=== PATIENT | male | born 1940 | race Caucasian/White ===

== ENCOUNTER 2018-03-09 09:23 | Inpatient (IN) ==
[2018-03-09 10:05] LABS: Basophils % 0.1 %; Hematocrit 36.6 % (37.5-50.1); Hemoglobin 12.8 g/dL (12.9-16.9); Immature Granulocytes % 0.6 % (0-4); Lymphocytes # 1.1 K/mcL (0.6-4.6); Lymphocytes % 5.9 %; Mean Corpuscular Hemoglobin 32.2 pg (28.0-33.3); Mean Platelet Volume 8.9 fL (9.4-12.4); Monocytes # 1.6 K/mcL (0.0-1.3); Monocytes % 8.2 %; Neutrophils # 16.3 K/mcL (1.6-8.9); Platelet Count 279 K/mcL (140-400); Red Blood Count 3.98 M/mcL (4.19-5.50); Red Cell Distribution Width 14.2 % (11.5-14.5); Segmented Neutrophils % 85.2 %
[2018-03-09 10:31] LABS: Troponin I < 0.03 ng/mL (< 0.04)
[2018-03-09 10:34] LABS: Alanine Aminotransferase 10 Units/L (7-52); Albumin 4.3 g/dL (3.5-5.7); Albumin/Globulin Ratio 1.2 (1.1-2.2); Alkaline Phosphatase 83 Units/L (34-104); Aspartate Amino Transferase 14 Units/L (13-39); BUN/Creatinine Ratio 25 (6-26); Bilirubin,Total 0.5 mg/dL (0.3-1.0); Blood Urea Nitrogen 65 mg/dL (8-23); Calcium 10.3 mg/dL (8.6-10.3); Carbon Dioxide 17 mEq/L (23-29); Chloride 98 mEq/L (98-107); Globulin 3.7 g/dL (2.4-3.5); Glucose 207 mg/dL (70-105); Lipase 42 Units/L (11-82); Osmolality,Calculated 293 (280-300); Potassium 4.6 mEq/L (3.5-5.1); Sodium 129 mEq/L (136-145); eGFR For African Americans 30 (> 60); eGFR For Non-African Americans 24 (> 60)
[2018-03-09] MEDS ORDERED: 0.9 % Sodium Chloride 1,000 ML IVC ONE (10:39)
[2018-03-09] MEDS ORDERED: Ondansetron 4 MG/2 ML VIAL IVP ONE ×3 (10:45→16:37)
--- NOTE | 2018-03-09 11:23 | Emergency Department Note ---
Disposition Clinical Impression: Abdominal pain, Constipation, Cecal volvulus Disposition: Admitted As Inpatient Condition: Good Abdominal Pain HPI - General Chief Complaint: ED Abdominal Pain Stated Complaint: Constipation x 5 days Time Seen by Provider: 03/09/18 09:27 Source: EMS Nursing Notes Reviewed: Yes Vital Signs Reviewed: Yes - History of Present Illness HPI Narrative: 77 year old male with history remote throat cancer presents with abdominal pain. pt stated it was constant cramping pain in upper abdomen since 5 days ago. 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 He felt some cold but no fever. Pt had loose stool 5 days ago prior the symptoms. No history of constipation. Pt has no surgical history in abdomen. Pt Subjective Complaint: abdominal pain Onset (ago): day(s) (5) Consistency: constant Location: LUQ, RUQ, epigastric Pain Severity: severe Pain Scale: 8 Quality: cramping - Related Data Home Medications Medication Instructions Recorded Confirmed Allopurinol [Zyloprim] 300 mg PO DAILY 08/31/16 03/09/18 Aspirin [Lo-Dose Aspirin EC] 81 mg PO DAILY 08/31/16 03/09/18 Furosemide [Lasix] 20 mg PO DAILY 08/31/16 03/09/18 Gabapentin [Neurontin] 300 mg PO DAILY 08/31/16 03/09/18 Multivitamin [Multivitamins] 1 each PO DAILY 08/31/16 03/09/18 NIFEdipine [Nifedipine Xl] 30 mg PO DAILY 08/31/16 03/09/18 Pantoprazole Sodium [Protonix] 40 mg PO BID 08/31/16 03/09/18 Tamsulosin [Flomax] 0.4 mg PO BID 08/31/16 03/09/18 Clopidogrel [Plavix] 75 mg PO DAILY 03/09/18 03/09/18 Levothyroxine Sodium [Levoxyl] 125 mcg PO DAILY 03/09/18 03/09/18 Lisinopril [Zestril] 20 mg PO DAILY 03/09/18 03/09/18 Simvastatin [Zocor] 40 mg PO HS 03/09/18 03/09/18 Previous Rx's Medication Instructions Recorded Acetaminophen [Tylenol] 1,000 mg PO Q6HR PRN #90 tablet 08/31/16 Allergies Allergy/AdvReac Type Severity Reaction Status Date / Time No Known Allergies Allergy Verified 11/18/15 17:58 Constitutional: Reports: chills. Denies: fever, weakness Eyes: Denies: eye pain, eye discharge ENT ED: Denies: ear pain, throat pain, dental pain Cardiovascular: Denies: chest pain, palpitations, dyspnea on exertion Respiratory: Denies: cough, dyspnea, wheezes Gastrointestinal: Reports: abdominal pain, nausea, constipation. Denies: vomiting, diarrhea, hematemesis Genitourinary: Denies: urgency, dysuria, frequency Musculoskeletal: Denies: back pain, neck pain, joint swelling Integumentary: Denies: rash, abrasion, lesions Neurological: Denies: headache, weakness Psychiatric: Denies: anxiety, depression, suicidal thoughts Endocrine: Denies: fatigue, heat or cold intolerance Hematological/Lymphatic: Denies: easy bleeding, easy bruising Allergic/Immunologic: Denies: facial swelling, urticaria Abdominal Pain PMH - Past Medical History Medical history: Reports: cancer, diabetes, GERD, hyperlipidemia, hypertension, renal disease, thyroid disease Male Surgical History: Reports: herniorrhaphy, tracheostomy, other Psychiatric history: Reports: no psych history - Social History Smoking status: Former smoker Alcohol use: Reports: none Drug use: Reports: none Physical Exam - General Limitations: no limitations General appearance: alert, in no apparent distress - Head Head exam: atraumatic, normal inspection - Eye Eye exam: Present: normal appearance. Absent: scleral icterus, conjunctival injection - ENT ENT exam: normal exam - Neck Neck exam: Present: other (tracheal opening in neck) - Chest Chest inspection: Present: normal inspection, symmetric chest wall rise - Respiratory Respiratory exam: Present: normal lung sounds bilaterally. 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 Absent: tenderness - Back Exam Back exam: Present: normal inspection, full ROM. Absent: tenderness - Neurological Exam Neurological exam: Present: alert, oriented X3 - Psychiatric Psychiatric exam: Present: normal affect, normal mood - Skin Skin exam: Present: warm, dry Course Vital Signs Temperature 97.9 F 03/09/18 09:24 Pulse Rate 100 03/09/18 09:24 Respiratory Rate 16 03/09/18 09:24 Blood Pressure 92/57 03/09/18 09:24 O2 Sat by Pulse Oximetry 97 03/09/18 09:24 Temperature 97.9 F 03/09/18 09:24 Pulse Rate 94 03/09/18 12:52 Respiratory Rate 18 03/09/18 14:48 Blood Pressure 102/63 03/09/18 14:48 O2 Sat by Pulse Oximetry 97 03/09/18 12:52 Oxygen Delivery Oxygen Delivery Blowby Abdominal Pain - MDM Narrative Medical decision making narrative: 77 year old male with remote history of throat cancer presents with abdominal pain and constipation for 5 days, associate with nausea, no vomiting, feel chill , no fever. Abdomen distended, generalized tender, worse on upper abdomen, rectal exam: Guaiac test positive. Labs: White cell 19. Cr. 2.54, abdomen CT pending. impression: abdominal pain, constipation. (Differential: small bowel obstruction, colitis. Cholecystitis, pancreatitis). Pt's BP 97/57, pulse 100, elevated white cell, start septic protocol; report given to Dr. Jamel Song, due to shift change. - Lab Data Result diagrams: 03/09/18 09:53 03/09/18 09:53 Lab Results 03/09/18 03/09/18 03/09/18 Range/Units 09:53 09:53 10:47 WBC 19.1 H (4.3-11.1) K/mcL RBC 3.98 L (4.19-5.50) M/mcL Hgb 12.8 L (12.9-16.9) g/dL Hct 36.6 L (37.5-50.1) % MCV 92.0 (83.0-100.0) fL MCH 32.2 (28.0-33.3) pg MCHC 35.0 (31.6-35.5) g/dL RDW 14.2 (11.5-14.5) % Plt Count 279 (140-400) K/mcL MPV 8.9 L (9.4-12.4) fL Immature Gran % 0.6 (0-4) % Seg Neutrophils % 85.2 % Lymphocytes % 5.9 % Monocytes % 8.2 % Eosinophils % 0.0 % Basophils % 0.1 % Neutrophils # 16.3 H (1.6-8.9) K/mcL Lymphocytes # 1.1 (0.6-4.6) K/mcL Monocytes # 1.6 H (0.0-1.3) K/mcL Eosinophils # 0.0 (0.0-0.6) K/mcL Basophils # 0.0 (0.0-0.2) K/mcL Sodium 129 L (136-145) mEq/L Potassium 4.6 (3.5-5.1) mEq/L Chloride 98 (98-107) mEq/L Carbon Dioxide 17 L (23-29) mEq/L BUN 65 H (8-23) mg/dL Creatinine 2.56 H (0.70-1.30) mg/dL Est GFR ( Amer) 30 L (> 60) Est GFR (Non-Af Amer) 24 L (> 60) BUN/Creatinine Ratio 25 (6-26) Glucose 207 H (70-105) mg/dL Calculated Osmolality 293 (280-300) Lactic Acid 1.6 (0.5-2.2) mmol/L Calcium 10.3 (8.6-10.3) mg/dL Total Bilirubin 0.5 (0.3-1.0) mg/dL AST 14 (13-39) Units/L ALT 10 (7-52) Units/L Alkaline Phosphatase 83 (34-104) Units/L Troponin I < 0.03 (< 0.04) ng/mL Serum Total Protein 8.0 (6.4-8.9) g/dL Albumin 4.3 (3.5-5.7) g/dL Globulin 3.7 H (2.4-3.5) g/dL Albumin/Globulin Ratio 1.2 (1.1-2.2) Lipase 42 (11-82) Units/L S.B.A.R. - S.B.A.R. Situation: Demographics, MOA Background: Presenting Complaint, Relevant PMH, Meds, & Allergies Assessment: Vital Signs, Course and respsone to treatment, Exam Concerns, Patient/Family Expectation, Pertinant Lab Results, Outstanding Labs Recommendation: Barrier(s) to disposition, Recommendation based on pending studies, treatments, or consults S.B.A.R. Report Given to: Dr. Mccullough, J
--- NOTE | 2018-03-09 11:58 | Emergency Department Note ---
Disposition Clinical Impression: Cecal volvulus Abdominal pain Qualifiers: Abdominal location: generalized Qualified Code(s): R10.84 - Generalized abdominal pain Disposition: Admitted As Inpatient Condition: Fair Time of Disposition: 12:01 Abdominal Pain HPI - General Chief Complaint: ED Abdominal Pain Stated Complaint: Constipation x 5 days Time Seen by Provider: 03/09/18 09:27 Source: EMS Mode of arrival: ambulatory Limitations: no limitations Nursing Notes Reviewed: Yes Vital Signs Reviewed: Yes - History of Present Illness Pt Subjective Complaint: abdominal pain Location: LUQ, RUQ, epigastric Pain Severity: severe Pain Scale: 8 Quality: cramping - Related Data Home Medications Medication Instructions Recorded Confirmed Allopurinol [Zyloprim] 300 mg PO DAILY 08/31/16 03/09/18 Aspirin [Lo-Dose Aspirin EC] 81 mg PO DAILY 08/31/16 03/09/18 Furosemide [Lasix] 20 mg PO DAILY 08/31/16 03/09/18 Gabapentin [Neurontin] 300 mg PO DAILY 08/31/16 03/09/18 Multivitamin [Multivitamins] 1 each PO DAILY 08/31/16 03/09/18 NIFEdipine [Nifedipine Xl] 30 mg PO DAILY 08/31/16 03/09/18 Pantoprazole Sodium [Protonix] 40 mg PO BID 08/31/16 03/09/18 Tamsulosin [Flomax] 0.4 mg PO BID 08/31/16 03/09/18 Clopidogrel [Plavix] 75 mg PO DAILY 03/09/18 03/09/18 Levothyroxine Sodium [Levoxyl] 125 mcg PO DAILY 03/09/18 03/09/18 Lisinopril [Zestril] 20 mg PO DAILY 03/09/18 03/09/18 Simvastatin [Zocor] 40 mg PO HS 03/09/18 03/09/18 Previous Rx's Medication Instructions Recorded Acetaminophen [Tylenol] 1,000 mg PO Q6HR PRN #90 tablet 08/31/16 Allergies Allergy/AdvReac Type Severity Reaction Status Date / Time No Known Allergies Allergy Verified 11/18/15 17:58 Constitutional: Reports: chills. Denies: fever, weakness Eyes: Denies: eye pain, eye discharge ENT ED: Denies: ear pain, throat pain, dental pain Cardiovascular: Denies: chest pain, palpitations, dyspnea on exertion Respiratory: Denies: cough, dyspnea, wheezes Gastrointestinal: Reports: abdominal pain, nausea, constipation. Denies: vomiting, diarrhea, hematemesis Genitourinary: Denies: urgency, dysuria, frequency Musculoskeletal: Denies: back pain, neck pain, joint swelling Integumentary: Denies: rash, abrasion, lesions Neurological: Denies: headache, weakness Psychiatric: Denies: anxiety, depression, suicidal thoughts Endocrine: Denies: fatigue, heat or cold intolerance Hematological/Lymphatic: Denies: easy bleeding, easy bruising Allergic/Immunologic: Denies: facial swelling, urticaria Abdominal Pain PMH - Past Medical History Medical history: Reports: cancer, diabetes, GERD, hyperlipidemia, hypertension, renal disease, thyroid disease Male Surgical History: Reports: herniorrhaphy, tracheostomy, other Psychiatric history: Reports: no psych history - Social History Smoking status: Former smoker Alcohol use: Reports: none Drug use: Reports: none Physical Exam - General Limitations: no limitations General appearance: alert, in no apparent distress Course Vital Signs Temperature 97.9 F 03/09/18 09:24 Pulse Rate 100 03/09/18 09:24 Respiratory Rate 16 03/09/18 09:24 Blood Pressure 92/57 03/09/18 09:24 O2 Sat by Pulse Oximetry 97 03/09/18 09:24 Temperature 97.9 F 03/09/18 09:24 Pulse Rate 94 03/09/18 12:52 Respiratory Rate 18 03/09/18 14:48 Blood Pressure 102/63 03/09/18 14:48 O2 Sat by Pulse Oximetry 97 03/09/18 12:52 Oxygen Delivery Oxygen Delivery Blowby Abdominal Pain - MDM Narrative Medical decision making narrative: I, Lito Mccullough, examined this patient and my medical decision-making was reviewed with the MOVIE STAR/PA/Advanced Practice Nurse/Resident Physician. I agree with the documented findings, disposition and treatment plan as described except to the extent set forth below. 77-year-old male presents emergency Department with concerns of upper abdominal pain and constipation 5 days. Patient states he has felt significantly nauseated over the past 3 days and is been unable to eat or drink due to the nausea. No history of surgeries on his abdomen. Patient denies fever, chills, syncopal episode, recent trauma. No symptoms like this in the past. Pt states he was scheduled for a heart catheterization at [facility] today for three separate blockages within the cardiac arterial system, pt did not show up to the appointment because of his abdominal pain. Pt does report shortness of breath with exertion worsening over the past 3 days as well. Initial ECG did not show STEMI and initial trop was within normal limits. I spoke with the PCP who states his recent Cr was 2.05 one month ago. He follows Dr. Padilla for nephrology. Pt states his city surveyor is Dr. Reyes at [facility]. CT of the abdomen and pelvis was obtained which showed a cecal volvulus. I spoke with the surgeon, Dr. Hill, who will see the patient in the emergency department and likely take to OR. NG tube placed in the emergency department. Patient will be admitted to hospitalist for further care and evaluation. CT of the abdomen and pelvis also showed a right pulmonary nodule which will also need evaluation during his admission. - Medical Records Medical records reviewed: Yes I reviewed the patient's medical records. - Lab Data Lab results reviewed: Yes I reviewed the patient's lab results. Result diagrams: 03/09/18 09:53 03/09/18 09:53 Lab Results 03/09/18 03/09/18 03/09/18 Range/Units 09:53 09:53 10:47 WBC 19.1 H (4.3-11.1) K/mcL RBC 3.98 L (4.19-5.50) M/mcL Hgb 12.8 L (12.9-16.9) g/dL Hct 36.6 L (37.5-50.1) % MCV 92.0 (83.0-100.0) fL MCH 32.2 (28.0-33.3) pg MCHC 35.0 (31.6-35.5) g/dL RDW 14.2 (11.5-14.5) % Plt Count 279 (140-400) K/mcL MPV 8.9 L (9.4-12.4) fL Immature Gran % 0.6 (0-4) % Seg Neutrophils % 85.2 % Lymphocytes % 5.9 % Monocytes % 8.2 % Eosinophils % 0.0 % Basophils % 0.1 % Neutrophils # 16.3 H (1.6-8.9) K/mcL Lymphocytes # 1.1 (0.6-4.6) K/mcL Monocytes # 1.6 H (0.0-1.3) K/mcL Eosinophils # 0.0 (0.0-0.6) K/mcL Basophils # 0.0 (0.0-0.2) K/mcL Sodium 129 L (136-145) mEq/L Potassium 4.6 (3.5-5.1) mEq/L Chloride 98 (98-107) mEq/L Carbon Dioxide 17 L (23-29) mEq/L BUN 65 H (8-23) mg/dL Creatinine 2.56 H (0.70-1.30) mg/dL Est GFR ( Amer) 30 L (> 60) Est GFR (Non-Af Amer) 24 L (> 60) BUN/Creatinine Ratio 25 (6-26) Glucose 207 H (70-105) mg/dL Calculated Osmolality 293 (280-300) Lactic Acid 1.6 (0.5-2.2) mmol/L Calcium 10.3 (8.6-10.3) mg/dL Total Bilirubin 0.5 (0.3-1.0) mg/dL AST 14 (13-39) Units/L ALT 10 (7-52) Units/L Alkaline Phosphatase 83 (34-104) Units/L Troponin I < 0.03 (< 0.04) ng/mL Serum Total Protein 8.0 (6.4-8.9) g/dL Albumin 4.3 (3.5-5.7) g/dL Globulin 3.7 H (2.4-3.5) g/dL Albumin/Globulin Ratio 1.2 (1.1-2.2) Lipase 42 (11-82) Units/L - Radiology Data Radiology results reviewed: Yes I reviewed the patient's radiology results. - EKG Data EKG attestation: Yes I reviewed and interpreted this EKG. EKG results narrative: ECG - interpreted by ED physician. Rate 91, normal sinus rhythm, no STEMI, AK, QT intervals, and QRS within normal limits
[2018-03-09] MEDS ORDERED: Piperacillin/Tazobactam 3.375 GM in 0.9 % Sodium Chloride Mini Bag 100 ML IVPB ONE (12:14)
[2018-03-09] MEDS ORDERED: Lidocaine Viscous Oral Soln 15 ML SOLUTION MM STA (12:35)
[2018-03-09] MEDS ORDERED: Lidocaine Viscous Oral Soln 15 ML SOLUTION ONE (12:37)
[2018-03-09] MEDS ORDERED: Naloxone 0.4 MG/ML INJ IVP PRN ×2 (13:17→16:37)
--- NOTE | 2018-03-09 13:32 | General Surgery Consult Note ---
Date of Encounter: 03/09/18 Time of Encounter: 12:30 Assessment and Plan (1) Cecal volvulus Current Visit: Yes Status: Acute NPO NG tube to LIWS IV fluids Serial abdominal exams Supportive care Risks, benfits, alternatives and expected outcomes reviewed with the patient regarding a robotic assisted diagnostic laparoscopy with Dr. Hill and he is in agreement to proceed to the operating room (2) Diabetes mellitus Current Visit: Yes Status: Chronic Management per hospitalist Qualifiers: Diabetes mellitus type: type 2 Diabetes mellitus terminal system operator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: unspecified terminal system operator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 status Diabetes mellitus complication status : with kidney complications Diabetes mellitus complication detail: with chronic kidney disease Chronic kidney disease stage: stage 3 (moderate) Qualified Code(s): E11.22 - Type 2 diabetes mellitus with diabetic chronic kidney disease; N18.3 - Chronic kidney disease, stage 3 (moderate) (3) Hypertension Current Visit: Yes Status: Chronic Currently normotensive Management per hospitalist Qualifiers: Hypertension type: essential hypertension Qualified Code(s): I10 - Essential (primary) hypertension (4) Hyperlipidemia Current Visit: Yes Status: Chronic Management per hospitalist Qualifiers: Hyperlipidemia type: unspecified Qualified Code(s): E78.5 - Hyperlipidemia , unspecified (5) Hypothyroidism Current Visit: Yes Status: Chronic Management per hospitalist Qualifiers: Hypothyroidism type: unspecified Qualified Code(s): E03.9 - Hypothyroidism , unspecified (6) Coronary artery disease Current Visit: Yes Status: Chronic Cardiology consulted- Recommendations- Pt denies chest pain or dyspnea, but is not very active. Pt reports never having a LHC in the past. Low functional status, unable to achieve 4 METS. However, denies cardiac symptoms--denies chest pain or dyspnea. TTE pending. Stress test overall low risk positive. Would not recommend LHC prior to urgent/possible life saving surgery for cecal volvulus. Stat Echo ordered per the hospitalist Qualifiers: Coronary Disease-Associated Artery/Lesion type: [place] artery [place] vs. transplanted heart: [place] heart Associated angina: angina presence unspecified Qualified Code(s): I25.10 - Atherosclerotic heart disease of [place] coronary artery without angina pectoris (7) GERD (gastroesophageal reflux disease) Current Visit: Yes Status: Chronic PPI therapy daily Qualifiers: Esophagitis presence: esophagitis presence not specified Qualified Code(s) : K21.9 - Gastro-esophageal reflux disease without esophagitis (8) BPH (benign prostatic hyperplasia) Current Visit: Yes Status: Chronic Qualifiers: Lower urinary tract symptom presence: symptoms absent Qualified Code(s): N40.0 - Benign prostatic hyperplasia without lower urinary tract symptoms History of Present Illness Consult date: 03/09/18 Reason for consult: other (cecal volvulus) Requesting physician: Lito Mccullough History of present illness: Mr. Wilkins is a very pleasant 77 year old male with a complex medical history. He was scheduled to have a cardiac catheterization at [facility] today due to a known blockage. The patient states that he canceled his procedure and presented to the emergency department due to complaints of abdominal discomfort, nausea, unable to pass flatus or stool for the last 3-4 days. The patient states he has never experienced symptoms like this in the past. He denies any fevers. He does admit to chills. He denies any vomiting. He states that he has a generalized abdominal discomfort. He denies any shortness of breath or chest pain. He denies any difficulty with urination. He has had a CAT scan evaluation to evaluate his abdomen and pelvis. The CAT scan does demonstrate evidence of a cecal volvulus. The patient will be admitted to the hospital for further workup and treatment. Past Med Surg Social Fam HX - Past Medical History Source: patient, old records reviewed Medical history: arthritis, cancer (laryngeal/throat cancer), diabetes (Type 2) , GERD, hyperlipidemia, hypertension, renal disease (CKD, stage 3), thyroid disease (hypothyroidism), other (right carotid artery blockage, coronary blockage, chronic low back pain, BPH) Psychiatric history: no psych history - Past Surgical History Surgical History: cataract (bilateral cataract removal and intraocular lenses placed), orthopedic, other (right shoulder replacement), other (Total laryngectomy, tracheal fistula, back surgery with placement of steel plate, colonoscopy (last 8 years ago-normal), ) - Social History Smoking Status: Former smoker Smokeless Tobacco Status: No Alcohol use: none Drug use: none - Family History Father Race: Family Member Ethnicity: Non- Living Status: Age at : 68 Cause of : CAD Hx Family Cardiac Disorders: Yes (CAD, HTN, HLD) Mother Race: Family Member Ethnicity: Non- Living Status: Age at : 54 Cause of : Brain aneurysm Hx Family Cardiac Disorders: Yes (Aneurysm) Brother Race: Family Member Ethnicity: Non- Living Status: Age at : 72 Cause of : DC Hx Family Cardiac Disorders: Yes (DC, CAD, HTN, HLD) Sister Race: Family Member Ethnicity: Non- Living Status: Still Living Hx Family Cardiac Disorders: Yes (CAD) Medications and Allergies Acetaminophen [Tylenol] 1,000 mg PO Q6HR PRN #90 tablet 08/31/16 [Rx] Allopurinol [Zyloprim] 300 mg PO DAILY 08/31/16 [History] Aspirin [Lo-Dose Aspirin EC] 81 mg PO DAILY 08/31/16 [History] Furosemide [Lasix] 20 mg PO DAILY 08/31/16 [History] Gabapentin [Neurontin] 300 mg PO DAILY 08/31/16 [History] Multivitamin [Multivitamins] 1 each PO DAILY 08/31/16 [History] NIFEdipine [Nifedipine Xl] 30 mg PO DAILY 08/31/16 [History] Pantoprazole Sodium [Protonix] 40 mg PO BID 08/31/16 [History] Tamsulosin [Flomax] 0.4 mg PO BID 08/31/16 [History] Clopidogrel [Plavix] 75 mg PO DAILY 03/09/18 [History] Levothyroxine Sodium [Levoxyl] 125 mcg PO DAILY 03/09/18 [History] Lisinopril [Zestril] 20 mg PO DAILY 03/09/18 [History] Simvastatin [Zocor] 40 mg PO HS 03/09/18 [History] 3 Allergy/AdvReac Type Severity Reaction Status Date / Time No Known Allergies Allergy Verified 11/18/15 17:58 Review of Systems All systems PM: reviewed and no additional remarkable complaints except as stated (in the HPI) All systems PM: The remainder of the systems were reviewed and are negative General Surgery Exam Initial Vital Signs Temp Pulse Resp BP Pulse Ox 97.9 F 100 16 92/57 97 03/09/18 09:24 03/09/18 09:24 03/09/18 09:24 03/09/18 09:24 03/09/18 09:24 - General physical appearance well developed, well nourished, moderate distress, chronically ill - Eyes PERRL, normal ocular movement - ENT dry mucosa, atraumatic, normocephalic - Neck other (tracheal fistula patent) - Respiratory normal respiratory effort, clear to auscultation - Cardiovascular Cardiovascular exam: Present: RRR - Abdomen Abdomen general surgery: Present: soft, distended, tender Abdominal Tenderness: Present: diffusely - Integumentary Integumentary general surgery: Present: warm and dry - Neurologic Present: CN 2-12 grossly intact - Psychiatric Psychiatric general surgery: Present: appropriate, oriented to person, oriented to place, oriented to time, speech is normal, memory intact Exam Initial Vital Signs Temp Pulse Resp BP Pulse Ox 97.9 F 100 16 92/57 97 03/09/18 09:24 03/09/18 09:24 03/09/18 09:24 03/09/18 09:24 03/09/18 09:24 Results - Labs 03/09/18 09:53 03/09/18 09:53 Abnormal lab results WBC 19.1 K/mcL (4.3-11.1) H 03/09/18 09:53 RBC 3.98 M/mcL (4.19-5.50) L 03/09/18 09:53 Hgb 12.8 g/dL (12.9-16.9) L 03/09/18 09:53 Hct 36.6 % (37.5-50.1) L 03/09/18 09:53 MPV 8.9 fL (9.4-12.4) L 03/09/18 09:53 Neutrophils # 16.3 K/mcL (1.6-8.9) H 03/09/18 09:53 Monocytes # 1.6 K/mcL (0.0-1.3) H 03/09/18 09:53 Sodium 129 mEq/L (136-145) L 03/09/18 09:53 Carbon Dioxide 17 mEq/L (23-29) L 03/09/18 09:53 BUN 65 mg/dL (8-23) H 03/09/18 09:53 Creatinine 2.56 mg/dL (0.70-1.30) H 03/09/18 09:53 Est GFR ( Amer) 30 (> 60) L 03/09/18 09:53 Est GFR (Non-Af Amer) 24 (> 60) L 03/09/18 09:53 Glucose 207 mg/dL (70-105) H 03/09/18 09:53 Globulin 3.7 g/dL (2.4-3.5) H 03/09/18 09:53 All other labs normal. - Imaging Additional studies: Abdomen/Pelvis CT 03/09/18 10:38 IMPRESSION: 1. Findings concerning for a cecal volvulus with the transition point in the right mid abdomen, likely due to an internal hernia. 2. 1.4 cm right upper lobe pulmonary nodule. Recommend nonemergent CT of the chest with contrast for further evaluation. Findings were discussed with Dr. Mccullough At 11:49 am on 03/09/2018. D/ / Sekou Hannon MD / Sekou Hannon MD Interpreting Provider: Sekou Hannon MD Consult Discharge Plan - Plan Referrals: Lacy Cristobal, BEE [Primary Care Provider] - - Attending Attestation For this encounter, I have reviewed the CONTRACTING ANALYST or PA documentation, treatment plan, and medical decision making; and I have had face to face time with this patient.
[2018-03-09] MEDS ORDERED: *HR* Dextrose 50 % in Water (Syg) 50 ML SYRINGE IVP PRN (13:35)
[2018-03-09] MEDS ORDERED: D5% in Water 1,000 ML IVC PRN (13:35)
[2018-03-09] MEDS ORDERED: Dextrose Gel 15 GM/37.5 ML TUBE PO PRN ×2 (13:35)
--- NOTE | 2018-03-09 13:40 | Internal Med History&Physical ---
<ChristopherLeon Solano - Last Filed: 03/09/18 14:32> Date of Encounter: 03/09/18 Time of Encounter: 12:45 Internal Medicine - H&P: HPI Chief complaint: Abdominal pain Admitted From: Emergency Dept Plans for Post Hospital Care: Home History of present illness: Mr. Wilkins is a 77 year old male w/PMH of throat cancer dx 22 years ago that resulted in open tracheostomy, GERD, HLD, HTN, CKD stage 4, and thyroid disease (pts. medical hx shows diabetes but pt. denies use of oral meds or insulin currently) presents from the ED w/CC of abdominal pain and nausea since Monday which has become progressively worse. Pt. states he had BM on Monday that was loose and black and nothing since. No alleviating factors. Pt. and report he was supposed to have heart cath today at [facility] for 100% blockage but was cancelled d/t current abd sx. States that he is experiencing constant and worsening abd cramping. CT of abd/pel today shows cecal volvulus. Denies recent illness, fever, chills, vomiting, changes in vision, CP, palpitations, SOB, cough, unusual bleeding, numbness, tingling, dizziness, lightheadedness, pre- syncope, or syncope. Past Med Surg Social Fam HX - Past Medical History Source: patient, old records reviewed, obtained from family Medical history: cancer (Throat cancer dx 22 years ago), diabetes (Pt. and deny current DM dx but current BG 207 on admission.), GERD, hyperlipidemia, hypertension, renal disease, thyroid disease Psychiatric history: no psych history - Past Surgical History Surgical History: tracheostomy - Social History Smoking Status: Former smoker Packs per day: 1 PPD - Reports quitting in 1984 Smokeless Tobacco Status: No Alcohol use: none Drug use: none Current living situation: Home, With Family Activity Level: Independent ambulation Recent Out of Country Travel Within the Last 8 Weeks: No Exposure or Possible Exposure to Illness During Travel: No - Family History Father Race: Family Member Ethnicity: Non- Living Status: Age at : 68 Cause of : CAD Hx Family Cardiac Disorders: Yes (CAD, HTN, HLD) Mother Race: Family Member Ethnicity: Non- Living Status: Age at : 54 Cause of : Brain aneurysm Hx Family Cardiac Disorders: Yes (Aneurysm) Brother Race: Family Member Ethnicity: Non- Living Status: Age at : 72 Cause of : [place] Hx Family Cardiac Disorders: Yes ([place], CAD, HTN, HLD) Sister Race: Family Member Ethnicity: Non- Living Status: Still Living Hx Family Cardiac Disorders: Yes (CAD) Internal Medicine - H&P: Meds Acetaminophen [Tylenol] 1,000 mg PO Q6HR PRN #90 tablet 08/31/16 [Rx] Allopurinol [Zyloprim] 300 mg PO DAILY 08/31/16 [History] Aspirin [Lo-Dose Aspirin EC] 81 mg PO DAILY 08/31/16 [History] Furosemide [Lasix] 20 mg PO DAILY 08/31/16 [History] Gabapentin [Neurontin] 300 mg PO DAILY 08/31/16 [History] Multivitamin [Multivitamins] 1 each PO DAILY 08/31/16 [History] NIFEdipine [Nifedipine Xl] 30 mg PO DAILY 08/31/16 [History] Pantoprazole Sodium [Protonix] 40 mg PO BID 08/31/16 [History] Tamsulosin [Flomax] 0.4 mg PO BID 08/31/16 [History] Clopidogrel [Plavix] 75 mg PO DAILY 03/09/18 [History] Levothyroxine Sodium [Levoxyl] 125 mcg PO DAILY 03/09/18 [History] Lisinopril [Zestril] 20 mg PO DAILY 03/09/18 [History] Simvastatin [Zocor] 40 mg PO HS 03/09/18 [History] 3 Allergy/AdvReac Type Severity Reaction Status Date / Time No Known Allergies Allergy Verified 11/18/15 17:58 All Systems PM: A 10-system review of systems was performed and is negative for pertinent findings except as documented above in the HPI. - Constitutional Constitutional: as per HPI, weakness, no chills, no fever(s), no night sweats - EENT Eyes: no change in vision, no discharge, no pain, no photophobia Ears: no ear discharge, no ear pain, no tinnitus Nose, mouth and throat: no dysphagia, no nasal discharge, no neck pain, no sore throat - Breasts Breasts: as per HPI - Cardiovascular Cardiovascular ROS IM: no chest pain, no diaphoresis, no dyspnea, no lightheadedness, no palpitations, no syncope - Respiratory Respiratory: no cough, no dyspnea, no wheezing, no excessive phlegm production - Gastrointestinal Gastrointestinal: as per HPI, abdominal pain, nausea, no diarrhea, no hematemesis, no hematochezia, no melena, no vomiting - Genitourinary Genitourinary ROS male: as per HPI - Musculoskeletal Musculoskeletal ROS IM: as per HPI, no numbness, no tingling - Integumentary Integumentary IM: no rash, no unusual bruising - Neurological Neurological ROS: no confusion, no convulsions, no focal weakness, no numbness, no tingling, no tremor(s) - Psychiatric Psychiatric: as per HPI - Endocrine Endocrine IM: as per HPI - Hematologic/Lymphatic Hematologic/Lymphatic: no easy bruising - Allergic/Immunologic Allergic/Immunologic: as per HPI - Constitutional Vitals: Temp Pulse Resp BP Pulse Ox 97.9 F 94 18 113/65 97 03/09/18 09:24 03/09/18 12:52 03/09/18 12:52 03/09/18 12:52 03/09/18 12:52 General appearance: Present: cooperative, A&O X 3, pleasant, answers questions appropriately - Head Head exam: Present: atraumatic, normocephalic - Eye Eye exam: Present: PERRL, conjuntiva pink, sclera anicteric Pupils: Present: PERRL - ENT ENT exam: Present: normal exam - Neck Neck exam general surgery: Present: normal inspection, supple, trachea midline. Absent: lymphadenopathy - Respiratory Respiratory exam: Present: CTAB. Absent: accessory muscle use, rales, rhonchi, wheezes - Cardiovascular Cardiovascular exam: Present: RRR, +S1, +S2. Absent: diastolic murmur, gallop, rubs, systolic murmur - GI/Abdominal GI/Abdominal exam: Present: normal bowel sounds, soft, no peritoneal signs. Absent: distended, tenderness - Rectal Rectal exam: Present: deferred - Additional comments: exam deferred. - Extremities Exam Extremities exam: Present: warm, radial pulses palpable and symmetrical. Absent : calf tenderness, cyanotic, pedal edema - Back Exam Back exam: Present: normal inspection - Neurological Exam Neurological exam: Present: CN II-XII intact, oriented X3, no focal deficits. Absent: pronater drift, facial droop, speech deficit - Psychiatric Psychiatric exam: Present: normal affect, normal mood - Skin Skin exam: Present: dry, intact Internal Med - H&P Results - Labs CBC & Chem 7: 03/09/18 09:53 03/09/18 09:53 - EKG Data EKG shows normal: sinus rhythm - EKG Data Prior EKG available for review: no EKG comments: 03/09/18 13:47 EKG dated 03/09/18 shows sinus rhythm with left ventricular hypertrophy and ST- T change. - Diagnostic Studies CT scan - abdomen Additional comments: Impressions Abdomen/Pelvis CT 03/09/18 10:38 IMPRESSION: 1. Findings concerning for a cecal volvulus with the transition point in the right mid abdomen, likely due to an internal hernia. 2. 1.4 cm right upper lobe pulmonary nodule. Recommend nonemergent CT of the chest with contrast for further evaluation. Findings were discussed with Dr. Mccullough At 11:49 am on 03/09/2018. D/ / Sekou Hannon MD / Sekou Hannon MD Interpreting Provider: Sekou Hannon MD Other Images Additional comments: Impressions KUB X-Ray 03/09/18 13:10 IMPRESSION: 1. Nasogastric tube terminates in the gastric fundus. D/ / Sekou Hannon MD / Sekou Hannon MD Interpreting Provider: Sekou Hannon MD - Assessment and plan (1) Cecal volvulus Current Visit: Yes Status: Acute Assessment and plan: Acute cecal volvulus w/abdominal pain since Monday. Pt. reports last BM on Monday that was loose and black. Low oral food/fluid intake since Monday. Nausea. Pt. to be NPO d/t current sx as well as impending surgery for volvulus. NG tube and KUB ordered in ED. Will address as many needed medications w/IV access as needed. Dr. Hill consulted in ED. Cardiology consult ordered and discussed w/Dr. Mallory for pre-op clearance d/t 100% blockage and cancelled heart cath @ [facility] today and I appreciate the consult. IVP Zofran 4 mg Q6HR PRN for N/ V. IVP Protonix 40 mg daily. Monitor I&O. Continuous cardiac telemetry. Supplemental O2 w/titration and SpO2 monitoring. Pt. discussed w/Dr. Castro who agrees w/plan of care. Pt. is high risk for further morbidity d/t cardiac event r/t current blockage and possible necrosis of bowel from current volvulus, current respiratory distress w/open tracheostomy, hx, and risk factors. Inpatient. (2) Preoperative clearance Current Visit: Yes Status: Acute Assessment and plan: Acute need for pre-op clearance d/t cecal volvulus shown on CT of abd/pel today complicated by report of 100% cardiac blockage that pt. was d/t have heart cath for @ [facility] today but was cancelled d/t current sx. Echocardiogram ordered stat. Cardiology consult ordered and discussed w/Dr. Mallory and I appreciate the consult. [facility] medical records requisitioned. (3) Leukocytosis Current Visit: Yes Status: Acute Assessment and plan: Acute leukocytosis of unknown source. Pt. currently asymptomatic and afebrile. Blood cultures x2 and UA ordered in ED. Pt. placed on IVPB Zosyn in ED. Will adjust abx coverage based on culture results. Monitor pt. and f/u labs. Qualifiers: Leukocytosis type: unspecified Qualified Code(s): D72.829 - Elevated white blood cell count, unspecified (4) Low hemoglobin Current Visit: Yes Status: Acute Assessment and plan: Low Hgb of 12.8 and Hct of 36.6 on admission today which is at baseline or slightly higher than previous. Concern is for report of black stool on Monday. Will monitor H/H in a.m. labs and pt. for signs of bleeding. (5) Nausea Current Visit: Yes Status: Acute Assessment and plan: Acute nausea for past several days d/t abd pain. IVP Zofran 4 mg Q6HR PRN. IVP Protonix 40 mg daily. (6) Hyperglycemia Current Visit: Yes Status: Acute Assessment and plan: Acute hyperglycemia (207 on admission) d/t lack of intake over past several days. Pt. and report that pt. does not currently take oral medication or insulin. Pt. reports checking BG @ home and usually WNL. BG checks every 6 to nothing by mouth status. A1c in a.m. labs. Administer low-dose correction insulin sliding scale with hypoglycemic protocol. (7) HLD (hyperlipidemia) Current Visit: Yes Status: Chronic Assessment and plan: Hx of chronic HLD. Lipid panel in a.m. labs. Continue pts. Zocor when no longer NPO. Qualifiers: Hyperlipidemia type: pure hypercholesterolemia Qualified Code(s): E78.00 - Pure hypercholesterolemia, unspecified; E78.0 - Pure hypercholesterolemia (8) HTN (hypertension) Current Visit: Yes Status: Chronic Assessment and plan: Hx of chronic HTN. Monitor pt. and VS. Will continue pts. Nifedipine and lisinopril once no longer NPO. Hydralazine PRN w/parameters for HTN if warranted. Qualifiers: Hypertension type: essential hypertension Qualified Code(s): I10 - Essential (primary) hypertension (9) CKD (chronic kidney disease) stage 4, GFR 15-29 ml/min Current Visit: Yes Status: Chronic Assessment and plan: Hx of chronic KCD, currently stage IV w/GR of 24 and creatinine of 2.56. Pt. receiving IV fluids d/t current NPO status and lack of oral intake over past several days. Will hydrate gently and monitor renal function in f/u labs. Avoid nephrotoxins. (10) Coronary artery disease Current Visit: Yes Status: Chronic Assessment and plan: Hx of CAD. Pt. reports 100% blockage that he was d/t have heart cath for @ [facility] today but was cancelled d/t current sx. Continuous cardiac telemetry. Will continue pts. HTN and HLD medications when no longer NPO. Hydralazine 10 mg IVP Q6HR PRN to be added w/parameters for HTN if warranted. Cardiology consult ordered and discussed w/Dr. Mallory d/t cancelled cath and 100% blockage and I appreciate the consult. Qualifiers: Coronary Disease-Associated Artery/Lesion type: [place] artery [place] vs. transplanted heart: [place] heart Associated angina: angina presence unspecified Qualified Code(s): I25.10 - Atherosclerotic heart disease of [place] coronary artery without angina pectoris (11) GERD (gastroesophageal reflux disease) Current Visit: Yes Status: Chronic Assessment and plan: Hx of chronic GERD. IVP Zofran 4 mg Q6HR PRN for N/V. IVP Protonix 40 mg daily. Qualifiers: Esophagitis presence: esophagitis presence not specified Qualified Code(s) : K21.9 - Gastro-esophageal reflux disease without esophagitis (12) Hypothyroidism Current Visit: Yes Status: Chronic Assessment and plan: Hx of chronic hypothyroidism. Will continue pts. Synthroid when no longer NPO. TSH and Free T4 in a.m. labs. Qualifiers: Hypothyroidism type: unspecified Qualified Code(s): E03.9 - Hypothyroidism , unspecified (13) DVT prophylaxis Current Visit: Yes Status: Acute Assessment and plan: Bilateral SCDs on LEs for DVT prophylaxis d/t recent report of black stool and impending surgery. - Time Spent With Patient Total time spent is greater than 50% in coordination of care (as documented) at patient's floor/unit and/or counseling patient: Greater than 35 minutes <Prem Castro - Last Filed: 03/10/18 17:29> Date of Encounter: 03/10/18 Internal Medicine - H&P: HPI History of present illness: Mr. Wilkins is a 77 year old male All Systems PM: A 10-system review of systems was performed and is negative for pertinent findings except as documented above in the HPI. - Constitutional Vitals: Temp Pulse Resp BP Pulse Ox 98.9 F 89 16 141/68 93 03/10/18 14:43 03/10/18 14:43 03/10/18 14:43 03/10/18 14:43 03/10/18 14:43 Internal Med - H&P Results - Labs CBC & Chem 7: 03/10/18 05:50 03/10/18 05:50 Labs: Short CBC 03/10/18 Range/Units 05:50 WBC 7.5 D (4.3-11.1) K/mcL Hgb 11.3 L D (12.9-16.9) g/dL Hct 32.2 L (37.5-50.1) % Plt Count 239 (140-400) K/mcL Neutrophils # 5.3 (1.6-8.9) K/mcL BMP 03/10/18 05:50 Sodium 132 L Potassium 4.4 Chloride 105 Carbon Dioxide 17 L BUN 60 H Creatinine 2.02 H Glucose 170 H Calcium 8.9 Liver Function 03/10/18 Range/Units 05:50 Total Bilirubin 0.8 (0.3-1.0) mg/dL AST 38 (13-39) Units/L ALT 33 (7-52) Units/L Alkaline Phosphatase 72 (34-104) Units/L Albumin 3.6 (3.5-5.7) g/dL - Attending Attestation Discussed with ALBERT and agree with assessment and plan as above Patient to go for surgery due to cecal volvulus but will need to be cleared by cardiology secondary to coronary arterial disease On exam patient resting comfortably Patient to go for surgery once cleared by cardiology. - Assessment and plan (1) Cecal volvulus Current Visit: Yes Status: Acute (2) Hypothyroidism Current Visit: Yes Status: Chronic Qualifiers: Hypothyroidism type: unspecified Qualified Code(s): E03.9 - Hypothyroidism , unspecified (3) Coronary artery disease Current Visit: Yes Status: Chronic Qualifiers: Coronary Disease-Associated Artery/Lesion type: [place] artery [place] vs. transplanted heart: [place] heart Associated angina: angina presence unspecified Qualified Code(s): I25.10 - Atherosclerotic heart disease of [place] coronary artery without angina pectoris (4) GERD (gastroesophageal reflux disease) Current Visit: Yes Status: Chronic Qualifiers: Esophagitis presence: esophagitis presence not specified Qualified Code(s) : K21.9 - Gastro-esophageal reflux disease without esophagitis (5) HLD (hyperlipidemia) Current Visit: Yes Status: Chronic Qualifiers: Hyperlipidemia type: pure hypercholesterolemia Qualified Code(s): E78.00 - Pure hypercholesterolemia, unspecified; E78.0 - Pure hypercholesterolemia (6) HTN (hypertension) Current Visit: Yes Status: Chronic Qualifiers: Hypertension type: essential hypertension Qualified Code(s): I10 - Essential (primary) hypertension (7) DVT prophylaxis Current Visit: Yes Status: Acute (8) Hyperglycemia Current Visit: Yes Status: Acute (9) Leukocytosis Current Visit: Yes Status: Resolved Qualifiers: Leukocytosis type: unspecified Qualified Code(s): D72.829 - Elevated white blood cell count, unspecified (10) Low hemoglobin Current Visit: Yes Status: Acute (11) Acute on chronic kidney failure Current Visit: Yes Status: Acute Qualifiers: Acute renal failure type: unspecified Chronic kidney disease stage: stage 3 (moderate) Qualified Code(s): N17.9 - Acute kidney failure, unspecified; N18.3 - Chronic kidney disease, stage 3 (moderate) - Time Spent With Patient Total time spent is greater than 50% in coordination of care (as documented) at patient's floor/unit and/or counseling patient:
--- NOTE | 2018-03-09 14:31 | Cardiology Consult Note ---
Date of Encounter: 03/09/18 Time of Encounter: 14:26 Assessment and Plan (1) Pre-operative cardiovascular examination Current Visit: Yes Status: Acute Presented with abdominal pain and nausea, CT of abd/pelvis shows cecal volvulus. Surgery has been consulted and is following. Cardiology consulted for pre-op risk stratification. Troponin negative x1. EKG SR with LVH. I reviewed [facility] documents. Plan was for LHC due to positive stress test 09/2016 and for pre op for triple endoscopy with possible biopsy, creation of TE fistula with voice prosthesis placement. Stress test showed small sized, mild-moderate intensity, mainly reversible perfusion defect in the apical inferior wall, apical septum and apex. Findings consistent with reversible myocardial ischemia. Pt denies chest pain or dyspnea, but is not very active. Pt reports never having a LHC in the past. Low functional status, unable to achieve 4 METS. However, denies cardiac symptoms--denies chest pain or dyspnea. TTE pending. Stress test overall low risk positive. Would not recommend LHC prior to urgent/possible life saving surgery for cecal volvulus. Can follow-up as outpt with [facility] cardiology to reschedule LHC. No urgent need. Also currently has LEONCIO on CKD. Anticipate sign off once seen and evaluated by Dr. Mallory. (2) Abnormal stress test Current Visit: Yes Status: Acute As above. Discussion w patient/family: The assessment and plan as outlined above was discussed with the patient and/or family members who expressed understanding and agreement. All questions were answered. Thank you for involving us in the care of your patient. Please call with any questions. I will discuss all the above with Dr. Mallory and make changes as necessary. History of Present Illness Consult date: 03/09/18 Requesting physician: Leon White Consult reason: pre-op Chief complaint: abdominal pain History of present illness: Mr. Wilkins is a 77 year old male w/PMH of laryngeal cancer with stoma, GERD, HLD, HTN, CKD stage 4, carotid disease, and thyroid disease that presented from the ED with chief complaint of abdominal pain and nausea since Monday which has become progressively worse. Pt. states he had BM on Monday that was loose and black and nothing since. Pt and report that pt was supposed to have heart cath today at [facility], but cancelled d/t current symptoms. States that he is experiencing constant and worsening abd cramping. CT of abd/pelvis today shows cecal volvulus. Surgery has been consulted. Cardiology consulted for pre-op risk stratification. I reviewed [facility] documents. Plan was for LHC due to positive stress test 09/2016. Small sized, mild-moderate intensity, mainly reversible perfusion defect in the apical inferior wall, apical septum and apex. Findings consistent with reversible myocardial ischemia. Pt denies chest pain or dyspnea , but is not very active. Pt reports never having a LHC in the past. Past Med Surg Social Fam HX - Past Medical History Medical history: cancer (Throat cancer dx 22 years ago), diabetes (Pt. and deny current DM dx but current BG 207 on admission.), GERD, hyperlipidemia, hypertension, renal disease, thyroid disease Psychiatric history: no psych history - Past Surgical History Surgical History: tracheostomy - Social History Smoking Status: Former smoker Packs per day: 1 PPD - Reports quitting in 1984 Smokeless Tobacco Status: No Alcohol use: none Drug use: none - Family History Father Race: Family Member Ethnicity: Non- Living Status: Age at : 68 Cause of : CAD Hx Family Cardiac Disorders: Yes (CAD, HTN, HLD) Mother Race: Family Member Ethnicity: Non- Living Status: Age at : 54 Cause of : Brain aneurysm Hx Family Cardiac Disorders: Yes (Aneurysm) Brother Race: Family Member Ethnicity: Non- Living Status: Age at : 72 Cause of : NH Hx Family Cardiac Disorders: Yes (NH, CAD, HTN, HLD) Sister Race: Family Member Ethnicity: Non- Living Status: Still Living Hx Family Cardiac Disorders: Yes (CAD) Medications and Allergies Acetaminophen [Tylenol] 1,000 mg PO Q6HR PRN #90 tablet 08/31/16 [Rx] Allopurinol [Zyloprim] 300 mg PO DAILY 08/31/16 [History] Aspirin [Lo-Dose Aspirin EC] 81 mg PO DAILY 08/31/16 [History] Furosemide [Lasix] 20 mg PO DAILY 08/31/16 [History] Gabapentin [Neurontin] 300 mg PO DAILY 08/31/16 [History] Multivitamin [Multivitamins] 1 each PO DAILY 08/31/16 [History] NIFEdipine [Nifedipine Xl] 30 mg PO DAILY 08/31/16 [History] Pantoprazole Sodium [Protonix] 40 mg PO BID 08/31/16 [History] Tamsulosin [Flomax] 0.4 mg PO BID 08/31/16 [History] Clopidogrel [Plavix] 75 mg PO DAILY 03/09/18 [History] Levothyroxine Sodium [Levoxyl] 125 mcg PO DAILY 03/09/18 [History] Lisinopril [Zestril] 20 mg PO DAILY 03/09/18 [History] Simvastatin [Zocor] 40 mg PO HS 03/09/18 [History] 3 Allergy/AdvReac Type Severity Reaction Status Date / Time No Known Allergies Allergy Verified 11/18/15 17:58 All Systems Review: The remainder of the systems were reviewed and are negative - Gastrointestinal Gastrointestinal: abdominal pain, nausea Physical Examination Vital Signs, Last 4 Hours Pulse Resp BP Pulse Ox 03/09/18 12:52 94 18 113/65 97 Vital Signs Temp Pulse Resp BP Pulse Ox 03/09/18 12:52 94 18 113/65 97 03/09/18 09:24 97.9 F 100 16 92/57 97 Intake and Output 03/08/18 03/09/18 03/09/18 23:59 07:59 15:59 Other: Weight 68.039 kg Patient Weight 03/09/18 23:59 Weight 68.039 kg General: Conversant, No Apparent Distress HEENT: Atraumatic, Normocephaly, Mucus Membranes Moist Neck: No JVD, Normal carotid pulses, Other (stoma) Cardiac: Reg Rate and Rhythm, Normal S1 and S2, No Murmur Lungs: Normal Breath Sounds, No Wheeze, Rales, Rhonchi Neuro: Alert and responsive, No focal deficits noted Abdomen: Soft, Non-Tender Skin: No rashes noted on visualized skin Musculoskeletal: No Chest Wall Tenderness Extremities: No Clubbing, No Cyanosis, No Edema, Normal Pulses Results 03/09/18 09:53 03/09/18 09:53 Short CBC 03/09/18 Range/Units 09:53 WBC 19.1 H (4.3-11.1) K/mcL Hgb 12.8 L (12.9-16.9) g/dL Hct 36.6 L (37.5-50.1) % Plt Count 279 (140-400) K/mcL Neutrophils # 16.3 H (1.6-8.9) K/mcL BMP 03/09/18 Range/Units 09:53 Sodium 129 L (136-145) mEq/L Potassium 4.6 (3.5-5.1) mEq/L Chloride 98 (98-107) mEq/L Carbon Dioxide 17 L (23-29) mEq/L BUN 65 H (8-23) mg/dL Creatinine 2.56 H (0.70-1.30) mg/dL Glucose 207 H (70-105) mg/dL Calcium 10.3 (8.6-10.3) mg/dL Cardiac Enzymes 03/09/18 Range/Units 09:53 Troponin I < 0.03 (< 0.04) ng/mL Liver Function 03/09/18 Range/Units 09:53 Total Bilirubin 0.5 (0.3-1.0) mg/dL AST 14 (13-39) Units/L ALT 10 (7-52) Units/L Alkaline Phosphatase 83 (34-104) Units/L Albumin 4.3 (3.5-5.7) g/dL Impressions Abdomen/Pelvis CT 03/09/18 10:38 IMPRESSION: 1. Findings concerning for a cecal volvulus with the transition point in the right mid abdomen, likely due to an internal hernia. 2. 1.4 cm right upper lobe pulmonary nodule. Recommend nonemergent CT of the chest with contrast for further evaluation. Findings were discussed with Dr. Mccullough At 11:49 am on 03/09/2018. D/ / Sekou Hannon MD / Sekou Hannon MD Interpreting Provider: Sekou Hannon MD X-Ray 03/09/18 13:10 IMPRESSION: 1. Nasogastric tube terminates in the gastric fundus. D/ / Sekou Hannon MD / Sekou Hannon MD Interpreting Provider: Sekou Hannon MD Active Medications Dextrose/Water (Dextrose 50% (Syg)) 25 ml IVP AD PRN PRN Reason: Hypoglycemia Stop: 09/08/18 13:36 Glucagon (Glucagen) 1 mg IM ONCE PRN PRN Reason: Hypoglycemia Stop: 09/08/18 13:36 Glucose (Gluctose) 15 gm PO ONCE PRN PRN Reason: Hypoglycemia Stop: 09/08/18 13:36 Glucose (Gluctose) 30 gm PO ONCE PRN PRN Reason: Hypoglycemia Stop: 09/08/18 13:36 Hydralazine HCl (Hydralazine) 10 mg IVP Q6HR PRN PRN Reason: Hypertension Stop: 09/08/18 14:14 Piperacillin Sod/Tazobactam (Sod 3.375 gm/ Sodium Chloride) 100 mls @ 25 mls/ hr IVPB ONCE ONE PRN Reason: Protocol Stop: 03/09/18 16:13 Last Admin: 03/09/18 12:39 Dose: 25 mls/hr Dextrose (Dextrose 5%) 1,000 mls @ 100 mls/hr IVC .Q10H PRN PRN Reason: HYPOGLYCEMIA Stop: 09/08/18 13:36 Sodium Chloride (0.9 % Sodium Chloride) 1,000 mls @ 75 mls/hr IVC .[id number] ROMMEL Stop: 09/08/18 14:16 Insulin Human Lispro (Humalog) 0 units SQ Q6HR ROMMEL PRN Reason: Protocol Stop: 09/08/18 18:01 Naloxone HCl (Narcan) 0.4 mg IVP Q2MIN PRN PRN Reason: SEE COMMENTS Stop: 09/08/18 13:18 Ondansetron HCl (Zofran) 4 mg IVP Q6HR PRN; Protocol PRN Reason: Nausea And Vomiting Stop: 09/08/18 13:28 Pantoprazole Sodium (Protonix) 40 mg IVP DAILY ROMMEL Stop: 09/08/18 13:31 - Imaging and Cardiology Stress Test: report reviewed Echo: pending - EKG Interpretation EKG results cardiology: personally reviewed (SR, LVH) Consult Discharge Plan - Plan Referrals: Lacy Cristobal, CONSULTANT DIETITIAN [Primary Care Provider] -
[2018-03-09] MEDS ORDERED: Lidocaine -MPF 2% 2 ML VIAL ONE (14:52)
[2018-03-09] MEDS ORDERED: *HR* FentaNYL (PF) 100 MCG/2 ML VIAL ONE ×3 (14:52→17:27)
[2018-03-09] MEDS ORDERED: *HR* Propofol 200 MG/20 ML VIAL IVP ONE (14:52)
[2018-03-09] MEDS ORDERED: Neostigmine Methylsulfate 3 MG/3 ML SYRINGE ONE (14:52)
[2018-03-09] MEDS ORDERED: Ondansetron 4 MG/2 ML VIAL ONE (14:52)
[2018-03-09] MEDS ORDERED: *HR* Succinylcholine 200 MG/10 ML VIAL IVP ONE (14:52)
[2018-03-09] MEDS ORDERED: Dexamethasone 4 MG/ML VIAL ONE (14:52)
--- NOTE | 2018-03-09 15:22 | Anesthesia Evaluation PreOp ---
Date of Encounter: 03/09/18 Time of Encounter: 15:19 - Past History Planned Operation: Robotic diagnostic laparoscopy Cardiac History: HTN, Hyperlipidemia, Other (positive stress test but per cardiology note stress test overall low risk positive. Would not recommend LHC prior to urgent/possible life saving surgery for cecal volvulus; patient is asymptomatic) Pulmonary History: Former smoker, Other (hx throat cancer s/p laryngectomy and radiation; still with stoma) DECORATIVE ENGRAVER History: Denies Any Significant HX Other Medical History: Renal (ckd stage 4; no), GERD Alcohol Use: none Drug use: none Medications and Allergies Acetaminophen [Tylenol] 1,000 mg PO Q6HR PRN #90 tablet 08/31/16 [Rx] Allopurinol [Zyloprim] 300 mg PO DAILY 08/31/16 [History] Aspirin [Lo-Dose Aspirin EC] 81 mg PO DAILY 08/31/16 [History] Furosemide [Lasix] 20 mg PO DAILY 08/31/16 [History] Gabapentin [Neurontin] 300 mg PO DAILY 08/31/16 [History] Multivitamin [Multivitamins] 1 each PO DAILY 08/31/16 [History] NIFEdipine [Nifedipine Xl] 30 mg PO DAILY 08/31/16 [History] Pantoprazole Sodium [Protonix] 40 mg PO BID 08/31/16 [History] Tamsulosin [Flomax] 0.4 mg PO BID 08/31/16 [History] Clopidogrel [Plavix] 75 mg PO DAILY 03/09/18 [History] Levothyroxine Sodium [Levoxyl] 125 mcg PO DAILY 03/09/18 [History] Lisinopril [Zestril] 20 mg PO DAILY 03/09/18 [History] Simvastatin [Zocor] 40 mg PO HS 03/09/18 [History] 3 Allergy/AdvReac Type Severity Reaction Status Date / Time No Known Allergies Allergy Verified 11/18/15 17:58 - Meds/Allergy Pre-op Review Medications Reviewed: Yes Allergies Reviewed: Yes Beta Blockers on Current Med List: No Anesthesia Results - Labs 03/09/18 09:53 03/09/18 09:53 - Imaging EKG: report reviewed, image reviewed (SR, LVH, ST-T change) Anesthesia Exam Last Vital Signs Temp 97.9 F 03/09/18 09:24 Pulse 94 05/11/18 12:52 Resp 18 03/09/18 14:48 BP 102/63 03/09/18 14:48 Pulse Ox 97 03/09/18 12:52 Weight: 68 kg NPO (# of Hours): > 8 hrs - HEENT Pupil (Motor): Pupils equal, EOMI Mallampati: Trach Oral Opening: Greater than 3 - DECORATIVE ENGRAVER LOC: Oriented - Cardiac Rhythm: Regular Murmur: None - Pulmonary Breath Sounds: bilateral Clear Respiratory Effort: Symmetrical Anesthesia Assess/Plan ASA Score: 4 Modified Higinio Scale for Level of Consciousness: Cooperative, oriented, and tranquil Anesthetic Plan: General Monitoring Plan: Standard Monitors Recovery Plan: PACU
[2018-03-09] MEDS ORDERED: *HR* PHENYLEPHRINE 1,000 MCG/10 ML SYRINGE IVP ONE ×2 (16:09→16:18)
[2018-03-09] MEDS ORDERED: Albuterol 2.5 MG/3 ML NEBULIZER IH ONE (16:37)
[2018-03-09] MEDS ORDERED: *HR* Promethazine 25 MG/ML VIAL IVP PRN (16:37)
[2018-03-09] MEDS ORDERED: *HR* Meperidine 25 MG/ML SYRINGE IVP PRN (16:37)
[2018-03-09] MEDS ORDERED: 0.9 % Sodium Chloride 500 ML IVC SCH (16:45)
[2018-03-09] MEDS ORDERED: *HR* Rocuronium Bromide 50 MG/5 ML VIAL ONE (16:56)
[2018-03-09] MEDS: *HR* Morphine 2 MG/ML SYRINGE IVP PRN ×3 (18:00→18:26)
[2018-03-09] MEDS ORDERED: Ringers Solution, Lactated 1,000 ML ONE (18:25)
--- NOTE | 2018-03-09 19:01 | Anesthesia Evaluation Post Op ---
Date of Encounter: 03/09/18 Time of Encounter: 18:20 - Vital Signs Vital Signs: Vital Signs/O2 Sat/Glucose, Most Current Temp Pulse Resp BP Pulse Ox 03/09/18 18:23 98.3 F 105 16 153/84 94 03/09/18 18:13 104 16 142/74 90 03/09/18 18:03 103 18 141/72 99 03/09/18 17:53 98.6 F 105 18 151/76 95 - Lungs Lungs: Clear Ascult./Percussion - Airway Airway: Non-obstructed - Cardiovascular Regular Rate - Mental Status Mental Status: Asleep with brisk response to light stimulation - Pain Pain Scale: 0 Pain Scale used: Numeric (1 - 10) - Nausea Vomiting Nausea Vomiting: Not Present - Hydration Hydration: Tolerates oral liquids - Discharge PostOp Status: Transfer Patient to floor Anes Supervising Prov Stmt: Pt seen/evaluated, VSS and pt has met criteria for discharge to home. - MD Tremaine
--- NOTE | 2018-03-09 19:11 | Operative Note ---
Date of procedure: 03/09/18 Pre-op diagnosis: Cecal volvulus Post-op diagnosis: same Procedure: Exporter laparotomy with right colectomy and cholecystectomy Anesthesia: HENNYA Surgeon: Reilly Hill Was there an pharmacist assistant present: Yes Mine Manager: Erica Molina Estimated blood loss (cc): 100 Specimen: Right colon and gallbladder Condition: stable Disposition: floor Procedure in Detail: After informed consent, the patient was taken to the operating room placed in a supine position. After adequate sedation and anesthesia the abdomen was prepped and draped. Midline incision was created. Dissection is carried down through the midline and the abdominal wall was opened. There was a taut airfield right colon which had volvulized. It was unwound however I was not confident that we could keep the cecum from volvulized in again. Therefore right colectomy was performed. The cecum and ascending colon was freed from the right lateral abdominal wall. Hepatic flexure was taken down. The terminal ileum was transected as was the hepatic flexure. A [id number] functional end-to-end anastomosis was created with a HUMBERTO 75 mm stapler and a TA 60 stapler. Staple line was oversewn with 3-0 silk suture in running fashion. Once this was complete the omentum was tacked to the anastomosis. The gallbladder was significantly distended and inflamed. Therefore it was resected off the liver surface. Once it had been completely removed then the cystic duct was clamped, tied, and secured with a 0 silk suture. Nu-Knit was placed in the gallbladder fossa. The abdomen was irrigated and suctioned dry. Once completed the abdominal wall was closed with loop PDS suture 2 skin was closed with paola. He tolerated the procedure well.
[2018-03-09] MEDS ORDERED: Acetaminophen IV 1,000 MG/100 ML INFUS..BTL IVPB ONE (19:29)
[2018-03-09] MEDS: Ondansetron 4 MG/2 ML VIAL IVP PRN (19:51)
[2018-03-09] MEDS: MORPHINE SUL Oral CONC 10 MG/0.5 ML ORAL.SYG SL PRN (19:51)
[2018-03-09] MEDS: 0.9 % Sodium Chloride 1,000 ML IVC SCH (19:52)
[2018-03-09] MEDS: Acetaminophen IV 1,000 MG/100 ML INFUS..BTL IVPB SCH (20:04)
[2018-03-10] MEDS: Insulin LISPRO 300 UNITS/3 ML VIAL SQ SCH ×5 (00:15→17:42)
[2018-03-10] MEDS: Pantoprazole 40 MG VIAL IVP SCH ×2 (00:22→07:37)
[2018-03-10] MEDS: Acetaminophen IV 1,000 MG/100 ML INFUS..BTL IVPB SCH ×4 (00:50→20:14)
[2018-03-10] MEDS: MORPHINE SUL Oral CONC 10 MG/0.5 ML ORAL.SYG SL PRN ×3 (02:20→19:57)
[2018-03-10 06:52] LABS: Albumin 3.6 g/dL (3.5-5.7); Albumin/Globulin Ratio 1.2 (1.1-2.2); Bilirubin,Total 0.8 mg/dL (0.3-1.0); Calcium 8.9 mg/dL (8.6-10.3); Chol/HDL Ratio 2.2 (0-4.9); Magnesium 1.6 mg/dL (1.6-2.6); Potassium 4.4 mEq/L (3.5-5.1); Total Protein 6.6 g/dL (6.4-8.9)
[2018-03-10 06:53] LABS: Bilirubin,Urine Negative (Negative); Blood,Urine Small (Negative); Clarity,Urine Clear (Clear); Color,Urine Yellow (Yellow); Glucose,Urine (UA) Normal (Normal); Ketones,Urine Negative (Negative); Leukocyte Esterase,Urine Negative (Negative); Nitrite,Urine Negative (Negative); PH,Urine 5.5 pH Units (5.0-8.0); Protein,Urine 30 mg/dL (Neg-Trace); Specific Gravity,Urine 1.021 (1.010-1.025); Urobilinogen,Urine Normal (Normal)
[2018-03-10 06:55] LABS: Bacteria,Urine None Seen per hpf (None-Few); Hyaline Casts,Urine None Seen per lpf (None-Few); Squamous Epithelial Cell,Urine Few per lpf (None-Few); WBC,Urine 0-3 per hpf (0-3)
[2018-03-10 07:07] LABS: Thyroid Stimulating Hormone 3.818 mcIU/mL (0.340-5.600)
[2018-03-10 07:17] LABS: Hematocrit 32.2 % (37.5-50.1); Hemoglobin 11.3 g/dL (12.9-16.9); Mean Corpuscular HGB Conc 35.1 g/dL (31.6-35.5); Mean Corpuscular Hemoglobin 32.3 pg (28.0-33.3); Mean Platelet Volume 9.2 fL (9.4-12.4); Platelet Count 239 K/mcL (140-400); Red Cell Distribution Width 14.3 % (11.5-14.5)
[2018-03-10 08:01] LABS: Estimated Average Glucose 163 mg/dl; Hemoglobin A1C 7.3 %
--- NOTE | 2018-03-10 08:02 | Electrocardiograph Report ---
[facility] RECESS. Test Date: 2018-03-09 Pat Name: Pedro Luis Wilkins Department: 102 Room: 3A47 Gender: M Manager Of Photography: [facility] : 1940 Requested By: Artemio Coleman Order Number: [id number] Reading MD: Jori Chong MD Measurements Intervals [place] Rate: 91 P: 28 [place]: 121 QRS: 31 QRSD: 86 T: 76 QT: 376 QTc: 425 Interpretive Statements SINUS RHYTHM LEFT VENTRICULAR HYPERTROPHY AND ST-T CHANGE [VOLTAGE CRITERIA PLUS ST/T ABNORMALITY] Electronically Signed On 03-10-2018 8:00:21 EDT by Jori Chong MD
[2018-03-10 08:24] LABS: Lymphocytes # 0.8 K/mcL (0.6-4.6); Monocytes # 1.5 K/mcL (0.0-1.3); Neutrophils # 5.3 K/mcL (1.6-8.9); Platelet Estimate Normal (Normal)
[2018-03-10] MEDS: 0.9 % Sodium Chloride 1,000 ML IVC SCH ×2 (08:53→20:23)
[2018-03-10] MEDS ORDERED: *HR* Labetalol 20 MG/4 ML SYRINGE IVP ONE (12:19)
--- NOTE | 2018-03-10 12:30 | Internal Med Progress Note ---
Date of Encounter: 03/10/18 Time of Encounter: 12:28 - Assessment and plan (1) Cecal volvulus Current Visit: Yes Status: Acute Assessment and plan: Acute cecal volvulus w/abdominal pain on admission. Status-post right colectomy and cholecystectomy 03/09. Tolerated procedure well. Management per Surgery team. (2) Acute on chronic kidney failure Current Visit: Yes Status: Acute Assessment and plan: Possibly post-renal failure from volvulous or pre renal failure of hypoperfusion. Creatinine on admission was 2.56 and now is 2.02. Continue to hold nephrotoxic agents. Renally dose medications IV fluids. Qualifiers: Acute renal failure type: unspecified Chronic kidney disease stage: stage 3 (moderate) Qualified Code(s): N17.9 - Acute kidney failure, unspecified; N18.3 - Chronic kidney disease, stage 3 (moderate) (3) Hypothyroidism Current Visit: Yes Status: Chronic Assessment and plan: Resume Synthroid when he is able to tolerate PO. Qualifiers: Hypothyroidism type: unspecified Qualified Code(s): E03.9 - Hypothyroidism , unspecified (4) Coronary artery disease Current Visit: Yes Status: Chronic Assessment and plan: ASA and Plavix when able to tolerate medications Qualifiers: Coronary Disease-Associated Artery/Lesion type: [place] artery [place] vs. transplanted heart: [place] heart Associated angina: angina presence unspecified Qualified Code(s): I25.10 - Atherosclerotic heart disease of [place] coronary artery without angina pectoris (5) GERD (gastroesophageal reflux disease) Current Visit: Yes Status: Chronic Assessment and plan: Continue IV protonix Qualifiers: Esophagitis presence: esophagitis presence not specified Qualified Code(s) : K21.9 - Gastro-esophageal reflux disease without esophagitis (6) HLD (hyperlipidemia) Current Visit: Yes Status: Chronic Assessment and plan: Zocor when able to have medications. Qualifiers: Hyperlipidemia type: pure hypercholesterolemia Qualified Code(s): E78.00 - Pure hypercholesterolemia, unspecified; E78.0 - Pure hypercholesterolemia (7) HTN (hypertension) Current Visit: Yes Status: Chronic Assessment and plan: Will manage with IV antihypertensives for now. Patient was tachycardic and hypertensive and so hydralazine was discontinued and will start labetolol instead which will lower BP and HR. Qualifiers: Hypertension type: essential hypertension Qualified Code(s): I10 - Essential (primary) hypertension (8) Hyperglycemia Current Visit: Yes Status: Acute Assessment and plan: Acute hyperglycemia (207 on admission) d/t lack of intake over past several days. Pt. and report that pt. does not currently take oral medication or insulin. Pt. reports checking BG @ home and usually WNL. BG checks every 6 to nothing by mouth status. Low-dose correction insulin sliding scale with hypoglycemic protocol. (9) Leukocytosis Current Visit: Yes Status: Resolved Assessment and plan: Resolved, likely stress response. Qualifiers: Leukocytosis type: unspecified Qualified Code(s): D72.829 - Elevated white blood cell count, unspecified (10) Low hemoglobin Current Visit: Yes Status: Acute Assessment and plan: Can be expected post operative. No signs of active bleeding or hypotension. Will monitor for improvement. (11) DVT prophylaxis Current Visit: Yes Status: Acute Assessment and plan: SCDs - Time Spent With Patient Total time spent is greater than 50% in coordination of care (as documented) at patient's floor/unit and/or counseling patient: - Subjective Interval history: Patient is post op after Right colectomy and cholecystectomy. He is doing well today and has no complaints. Denies CP/SOB, N/V, diarrhea. - Constitutional Vitals: Temp Pulse Resp BP Pulse Ox 99.8 F H 103 15 164/78 91 03/10/18 11:00 03/10/18 11:00 03/10/18 11:00 03/10/18 11:03/10/18 11:00 General appearance: Present: cooperative, A&O X 3, pleasant, answers questions appropriately - Head Head exam: Present: atraumatic, normocephalic - Eye Eye exam: Present: PERRL, conjuntiva pink, sclera anicteric Pupils: Present: PERRL - Neck Neck exam general surgery: Present: supple, trachea midline. Absent: lymphadenopathy - Respiratory Respiratory exam: Present: CTAB. Absent: accessory muscle use, rales, rhonchi, wheezes - Cardiovascular Cardiovascular exam: Present: RRR, +S1, +S2. Absent: diastolic murmur, gallop, rubs, systolic murmur - GI/Abdominal GI/Abdominal exam: Present: normal bowel sounds, soft, tenderness, no peritoneal signs. Absent: distended Additional comments: Limited exam around incision; c/d/i - Extremities Exam Extremities exam: Present: warm, radial pulses palpable and symmetrical. Absent : calf tenderness, cyanotic, pedal edema - Neurological Exam Neurological exam: Present: CN II-XII intact, oriented X3, no focal deficits. Absent: pronater drift, facial droop, speech deficit - Skin Skin exam: Present: dry, intact Internal Medicine: Result - Labs CBC & Chem 7: 03/10/18 05:50 03/10/18 05:50 Labs: Short CBC 03/10/18 Range/Units 05:50 WBC 7.5 D (4.3-11.1) K/mcL Hgb 11.3 L D (12.9-16.9) g/dL Hct 32.2 L (37.5-50.1) % Plt Count 239 (140-400) K/mcL Neutrophils # 5.3 (1.6-8.9) K/mcL BMP 03/10/18 05:50 Sodium 132 L Potassium 4.4 Chloride 105 Carbon Dioxide 17 L BUN 60 H Creatinine 2.02 H Glucose 170 H Calcium 8.9 Liver Function 03/10/18 Range/Units 05:50 Total Bilirubin 0.8 (0.3-1.0) mg/dL AST 38 (13-39) Units/L ALT 33 (7-52) Units/L Alkaline Phosphatase 72 (34-104) Units/L Albumin 3.6 (3.5-5.7) g/dL - VTE Documentation of Mechanical Device: Intermittent pneumatic compression device Consult Discharge Plan - Plan Referrals: Lacy Cristobal CNP [Primary Care Provider] -
--- NOTE | 2018-03-10 16:10 | General Surgery Progress Note ---
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 Hx -- 77-year-old male admitted following abdominal discomfort, nausea, bowel stasis (unable to pass flatus or BM) for 3 to 4 days preceding admission. Was afebrile. CT scan data that time demonstrated cecal volvulus. Admitted on 08/2018; cardiology consulted for complicated preop clearance. Exploratory laparotomy, as well as subsequent partial right hemicolectomy with anastomosis and cholecystectomy successfully completed, thus far without complications. No BM or flatus as of yet today; pain is well-controlled and incision sites are without signs of infection or dehiscence. Plan: - NPO for now. - Control pain and nausea as needed - IVF until able to tolerate PO - reassess daily - other comorbidities to be managed by hospitalist team as below (2) S/P partial resection of colon Current Visit: Yes Status: Acute (3) S/P cholecystectomy Current Visit: Yes Status: Acute (4) Co-morbid condition Current Visit: Yes Status: Chronic Comorbidities include diabetes mellitus type II, hypertension, hyperlipidemia, hypothyroidism, coronary artery disease, GERD, and BPH. - mgmt per hospitalist team Subjective Patient reports: no new complaints, no flatus, no bowel movement, afebrile ( peak temperature 99.8F) Objective Vital Signs - Last 8 Hours Temp Pulse Resp BP Pulse Ox 03/10/18 14:43 98.9 F 89 16 141/68 93 03/10/18 11:00 99.8 F H 103 15 164/78 91 03/10/18 10:34 156/76 03/10/18 10:15 168/78 Intake and Output 03/10/18 03/10/18 03/10/18 07:59 15:59 23:59 Intake Total 200 / 200 1000 / 1000 Output Total 0 / 0 625 / 625 Balance 200 / 200 375 / 375 Intake: IV Fluids 200 / 200 1000 / 1000 0.9 % Sodium Chloride 1,000 ML 1000 / 1000 @ 75 mls/hr IVC .[id number] [facility] Rx #:[id number] Ofirmev 1,000 mg/100 ml 1,000 200 / 200 mg In 100 ml @ 400 mls/hr IVPB Q6H [facility] Rx#:[id number] Oral 0 / 0 0 / 0 Output: Urine 0 / 0 500 / 500 Gastric Drainage 0 / 0 125 / 125 Other: Meal NPO Percent of Meal Consumed 0% # Bowel Movements 0 0 Weight 67.2 kg Blood Glucose* 130 141 Patient Weight 03/10/18 23:59 Weight 67.2 kg VITAL SIGNS: Reviewed. See [facility] GENERAL: alert and comfortably supine in bed HEENT: [Normocephalic, oropharynx moist CV: RRR RESPIRATORY: CTAB ABD: quiet bowel sounds, abdomen soft, mildly tender, no rebound/guarding/ rigidity, no peritoneal signs INCISION: clean, dry, intact without purulence/bleeding/edema/rubor/calor; dry drainage on bandage EXTREMITY: grossly normal motor function, no pedal edema, peripheral pulses 2+ b /l NEUROLOGIC EXAM: AOx3, obeys commands, no speech deficits. PSYCHIATRIC: normal mood and affect SKIN: no gross lesions, rashes, or skin changes - Labs 03/11/18 03:12 03/11/18 03:12 Diabetes panel 03/10/18 03/10/18 Range/Units 05:50 05:50 Sodium 132 L (136-145) mEq/L Potassium 4.4 (3.5-5.1) mEq/L Chloride 105 (98-107) mEq/L Carbon Dioxide 17 L (23-29) mEq/L BUN 60 H (8-23) mg/dL Creatinine 2.02 H (0.70-1.30) mg/dL Glucose 170 H (70-105) mg/dL Hemoglobin A1c 7.3 H ( - 5.6) % Calcium 8.9 (8.6-10.3) mg/dL AST 38 (13-39) Units/L ALT 33 (7-52) Units/L Alkaline Phosphatase 72 (34-104) Units/L Albumin 3.6 (3.5-5.7) g/dL Triglycerides 93 (< 150) mg/dL HDL Cholesterol 44 (40-59) mg/dL Thyroid panel 03/10/18 Range/Units 05:50 TSH 3.818 (0.340-5.600) mcIU/mL Calcium panel 03/10/18 Range/Units 05:50 Calcium 8.9 (8.6-10.3) mg/dL Albumin 3.6 (3.5-5.7) g/dL Pituitary panel 03/10/18 03/10/18 Range/Units 05:50 05:50 Sodium 132 L (136-145) mEq/L Potassium 4.4 (3.5-5.1) mEq/L Chloride 105 (98-107) mEq/L Carbon Dioxide 17 L (23-29) mEq/L BUN 60 H (8-23) mg/dL Creatinine 2.02 H (0.70-1.30) mg/dL Glucose 170 H (70-105) mg/dL Calcium 8.9 (8.6-10.3) mg/dL TSH 3.818 (0.340-5.600) mcIU/mL Adrenal panel 03/10/18 Range/Units 05:50 Sodium 132 L (136-145) mEq/L Potassium 4.4 (3.5-5.1) mEq/L Chloride 105 (98-107) mEq/L Carbon Dioxide 17 L (23-29) mEq/L BUN 60 H (8-23) mg/dL Creatinine 2.02 H (0.70-1.30) mg/dL Glucose 170 H (70-105) mg/dL Calcium 8.9 (8.6-10.3) mg/dL Total Bilirubin 0.8 (0.3-1.0) mg/dL AST 38 (13-39) Units/L ALT 33 (7-52) Units/L Alkaline Phosphatase 72 (34-104) Units/L Albumin 3.6 (3.5-5.7) g/dL - VTE Documentation of Mechanical Device: Intermittent pneumatic compression device Consult Discharge Plan - Plan Referrals: Lacy Cristobal, BEE [Primary Care Provider] -
[2018-03-10] MEDS: *HR* Labetalol 20 MG/4 ML SYRINGE IVP PRN (20:15)
[2018-03-11] MEDS: Insulin LISPRO 300 UNITS/3 ML VIAL SQ SCH ×4 (00:02→19:19)
[2018-03-11] MEDS: Acetaminophen IV 1,000 MG/100 ML INFUS..BTL IVPB SCH ×4 (00:39→18:27)
[2018-03-11] MEDS: *HR* Labetalol 20 MG/4 ML SYRINGE IVP PRN ×2 (00:40→12:13)
[2018-03-11] MEDS: MORPHINE SUL Oral CONC 10 MG/0.5 ML ORAL.SYG SL PRN ×2 (02:39→10:47)
[2018-03-11 03:24] LABS: Basophils % 0.2 %; Hematocrit 31.1 % (37.5-50.1); Hemoglobin 10.6 g/dL (12.9-16.9); Immature Granulocytes % 0.2 % (0-4); Lymphocytes # 0.4 K/mcL (0.6-4.6); Lymphocytes % 7.1 %; Mean Corpuscular HGB Conc 34.1 g/dL (31.6-35.5); Mean Corpuscular Hemoglobin 31.6 pg (28.0-33.3); Mean Corpuscular Volume 92.8 fL (83.0-100.0); Monocytes # 0.6 K/mcL (0.0-1.3); Monocytes % 10.4 %; Platelet Count 192 K/mcL (140-400); Red Blood Count 3.35 M/mcL (4.19-5.50); Red Cell Distribution Width 14.5 % (11.5-14.5); Segmented Neutrophils % 82.1 %
[2018-03-11 03:45] LABS: Alanine Aminotransferase 29 Units/L (7-52); Albumin 3.3 g/dL (3.5-5.7); Albumin/Globulin Ratio 1.1 (1.1-2.2); Alkaline Phosphatase 97 Units/L (34-104); Aspartate Amino Transferase 29 Units/L (13-39); BUN/Creatinine Ratio 28 (6-26); Blood Urea Nitrogen 38 mg/dL (8-23); Calcium 8.8 mg/dL (8.6-10.3); Carbon Dioxide 19 mEq/L (23-29); Chloride 108 mEq/L (98-107); Globulin 2.9 g/dL (2.4-3.5); Glucose 140 mg/dL (70-105); Osmolality,Calculated 289 (280-300); Potassium 4.2 mEq/L (3.5-5.1); Sodium 134 mEq/L (136-145); Total Protein 6.2 g/dL (6.4-8.9); eGFR For African Americans > 60 (> 60); eGFR For Non-African Americans 52 (> 60)
[2018-03-11 03:49] LABS: Platelet Estimate Normal (Normal); Toxic Granulation Present (Not Present)
[2018-03-11] MEDS: Pantoprazole 40 MG VIAL IVP SCH (09:22)
--- NOTE | 2018-03-11 10:48 | General Surgery Progress Note ---
Date of Encounter: 03/11/18 Time of Encounter: 10:30 - Assessment and Plan (1) Cecal volvulus Current Visit: Yes Status: Acute POD#2 s/p exploratory laparotomy with partial right colectomy with [id number] / end-to-end anastomosis, and cholecystectomy. Hx -- 77-year-old male admitted following abdominal discomfort, nausea, bowel stasis (unable to pass flatus or BM) for 3 to 4 days preceding admission. Was afebrile. CT scan data that time demonstrated cecal volvulus. Admitted on 08/2018; cardiology consulted for complicated preop clearance. Exploratory laparotomy, as well as subsequent partial right hemicolectomy with anastomosis and cholecystectomy successfully completed, thus far without complications. No BM or flatus as of yet today; pain is well-controlled and incision sites are without signs of infection or dehiscence. Plan (no changes today): - NPO continue - NG continue - Control pain and nausea as needed - IVF until able to tolerate PO - Daily CBC/BMP - fluid balance 03/10/18: IVF 2400 mL, urine 900 mL, gastric 125mL; urine output adequate at (0.57mL/kg)/hr. other comorbidities to be managed by hospitalist team as below (2) S/P partial resection of colon Current Visit: Yes Status: Acute (3) S/P cholecystectomy Current Visit: Yes Status: Acute (4) Co-morbid condition Current Visit: Yes Status: Chronic Comorbidities include diabetes mellitus type II, hypertension, hyperlipidemia, hypothyroidism, coronary artery disease, GERD, and BPH. - mgmt per hospitalist team Subjective Narrative: No new complaints. Still has soreness to his midline incision particularly when he coughs. No passage of flatus or bowel movement. No nausea/vomiting. Afebrile overnight. No other subjective concerns at present. Objective Vital Signs - Last 8 Hours Temp Pulse Resp BP Pulse Ox 03/11/18 10:34 99.0 F 96 16 199/96 97 03/11/18 07:37 98.4 F 93 15 180/90 96 03/11/18 03:56 98.8 F 92 15 177/96 96 Intake and Output 03/10/18 03/11/18 03/11/18 23:59 07:59 15:59 Intake Total 1100 / 1100 100 / 100 0 / 0 Output Total 400 / 400 1500 / 1500 250 / 250 Balance 700 / 700 -1400 / -1400 -250 / -250 Intake: IV Fluids 1100 / 1100 100 / 100 0.9 % Sodium Chloride 1,000 ML 1000 / 1000 @ 75 mls/hr IVC .[id number] [facility] Rx #:[id number] Ofirmev 1,000 mg/100 ml 1,000 100 / 100 100 / 100 mg In 100 ml @ 400 mls/hr IVPB Q6H [facility] Rx#:[id number] Oral 0 / 0 0 / 0 0 / 0 Output: Urine 400 / 400 900 / 900 250 / 250 Gastric Drainage 600 / 600 Other: Meal NPO NPO NPO Breakfast Percent of Meal Consumed 0% 0% # Bowel Movements 0 0 Weight 65.2 kg Blood Glucose* 137 128 Patient Weight 03/11/18 23:59 Weight 65.2 kg VITAL SIGNS: Reviewed. See [facility] GENERAL: alert and comfortably supine in bed HEENT: [Normocephalic, oropharynx moist CV: RRR RESPIRATORY: CTAB ABD: quiet bowel sounds, abdomen soft, mildly tender, no rebound/guarding/ rigidity, no peritoneal signs INCISION: clean, dry, intact without purulence/bleeding/edema/rubor/calor; dry drainage on bandage EXTREMITY: grossly normal motor function, no pedal edema, peripheral pulses 2+ b /l NEUROLOGIC EXAM: AOx3, obeys commands, no speech deficits. PSYCHIATRIC: normal mood and affect SKIN: no gross lesions, rashes, or skin changes - Labs 03/11/18 03:12 03/11/18 03:12 Diabetes panel 03/11/18 Range/Units 03:12 Sodium 134 L (136-145) mEq/L Potassium 4.2 (3.5-5.1) mEq/L Chloride 108 H (98-107) mEq/L Carbon Dioxide 19 L (23-29) mEq/L BUN 38 H (8-23) mg/dL Creatinine 1.34 H (0.70-1.30) mg/dL Glucose 140 H (70-105) mg/dL Calcium 8.8 (8.6-10.3) mg/dL AST 29 (13-39) Units/L ALT 29 (7-52) Units/L Alkaline Phosphatase 97 (34-104) Units/L Albumin 3.3 L (3.5-5.7) g/dL Calcium panel 03/11/18 Range/Units 03:12 Calcium 8.8 (8.6-10.3) mg/dL Albumin 3.3 L (3.5-5.7) g/dL Pituitary panel 03/11/18 Range/Units 03:12 Sodium 134 L (136-145) mEq/L Potassium 4.2 (3.5-5.1) mEq/L Chloride 108 H (98-107) mEq/L Carbon Dioxide 19 L (23-29) mEq/L BUN 38 H (8-23) mg/dL Creatinine 1.34 H (0.70-1.30) mg/dL Glucose 140 H (70-105) mg/dL Calcium 8.8 (8.6-10.3) mg/dL Adrenal panel 03/11/18 Range/Units 03:12 Sodium 134 L (136-145) mEq/L Potassium 4.2 (3.5-5.1) mEq/L Chloride 108 H (98-107) mEq/L Carbon Dioxide 19 L (23-29) mEq/L BUN 38 H (8-23) mg/dL Creatinine 1.34 H (0.70-1.30) mg/dL Glucose 140 H (70-105) mg/dL Calcium 8.8 (8.6-10.3) mg/dL Total Bilirubin 1.0 (0.3-1.0) mg/dL AST 29 (13-39) Units/L ALT 29 (7-52) Units/L Alkaline Phosphatase 97 (34-104) Units/L Albumin 3.3 L (3.5-5.7) g/dL - VTE Documentation of Mechanical Device: Intermittent pneumatic compression device Consult Discharge Plan - Plan Referrals: Lacy Cristobal, BEE [Primary Care Provider] -
[2018-03-11] MEDS: 0.9 % Sodium Chloride 1,000 ML IVC SCH ×2 (12:15→22:09)
[2018-03-11] MEDS ORDERED: *HR* Labetalol 20 MG/4 ML SYRINGE IVP ONE (14:35)
--- NOTE | 2018-03-11 14:43 | Internal Med Progress Note ---
Date of Encounter: 03/11/18 Time of Encounter: 14:41 - Assessment and plan (1) Cecal volvulus Current Visit: Yes Status: Acute Assessment and plan: Acute cecal volvulus w/abdominal pain on admission. Status-post right colectomy and cholecystectomy 03/09. Tolerated procedure well. Management per Surgery team. (2) Acute on chronic kidney failure Current Visit: Yes Status: Acute Assessment and plan: Possibly post-renal failure from volvulous or pre renal failure of hypoperfusion. Creatinine on admission was 2.56 after two days now improved to 1.34 Continue to hold nephrotoxic agents. Renally dose medications IV fluids. Qualifiers: Acute renal failure type: unspecified Chronic kidney disease stage: stage 3 (moderate) Qualified Code(s): N17.9 - Acute kidney failure, unspecified; N18.3 - Chronic kidney disease, stage 3 (moderate) (3) HTN (hypertension) Current Visit: Yes Status: Chronic Assessment and plan: IV antihypertensives for now Patient was tachycardic and hypertensive and so will use labetolol will lower BP and HR. Continue IV Labetolol prn. Qualifiers: Hypertension type: essential hypertension Qualified Code(s): I10 - Essential (primary) hypertension (4) Hypothyroidism Current Visit: Yes Status: Chronic Assessment and plan: Resume Synthroid when he is able to tolerate PO. Qualifiers: Hypothyroidism type: unspecified Qualified Code(s): E03.9 - Hypothyroidism , unspecified (5) Coronary artery disease Current Visit: Yes Status: Chronic Assessment and plan: ASA and Plavix when able to tolerate medications Qualifiers: Coronary Disease-Associated Artery/Lesion type: [place] artery [place] vs. transplanted heart: [place] heart Associated angina: angina presence unspecified Qualified Code(s): I25.10 - Atherosclerotic heart disease of [place] coronary artery without angina pectoris (6) GERD (gastroesophageal reflux disease) Current Visit: Yes Status: Chronic Assessment and plan: Continue IV protonix Qualifiers: Esophagitis presence: esophagitis presence not specified Qualified Code(s) : K21.9 - Gastro-esophageal reflux disease without esophagitis (7) HLD (hyperlipidemia) Current Visit: Yes Status: Chronic Assessment and plan: Zocor when able to have medications. Qualifiers: Hyperlipidemia type: pure hypercholesterolemia Qualified Code(s): E78.00 - Pure hypercholesterolemia, unspecified; E78.0 - Pure hypercholesterolemia (8) Hyperglycemia Current Visit: Yes Status: Acute (9) Leukocytosis Current Visit: Yes Status: Resolved Qualifiers: Leukocytosis type: unspecified Qualified Code(s): D72.829 - Elevated white blood cell count, unspecified (10) Low hemoglobin Current Visit: Yes Status: Acute (11) DVT prophylaxis Current Visit: Yes Status: Acute - Time Spent With Patient Total time spent is greater than 50% in coordination of care (as documented) at patient's floor/unit and/or counseling patient: - Subjective Interval history: Patient is post op after Right colectomy and cholecystectomy. Doing well, no complaints, no acute events. - Constitutional Vitals: Temp Pulse Resp BP Pulse Ox 99.0 F 96 16 186/92 97 03/11/18 10:34 03/11/18 10:34 03/11/18 10:34 03/11/18 14:40 03/11/18 10:34 General appearance: Present: cooperative, A&O X 3, pleasant, answers questions appropriately Exam: - Head Head exam: Present: atraumatic, normocephalic - Eye Eye exam: Present: PERRL, conjuntiva pink, sclera anicteric Pupils: Present: PERRL - Neck Neck exam general surgery: Present: supple, trachea midline. Absent: lymphadenopathy - Respiratory Respiratory exam: Present: CTAB. Absent: accessory muscle use, rales, rhonchi, wheezes - Cardiovascular Cardiovascular exam: Present: RRR, +S1, +S2. Absent: diastolic murmur, gallop, rubs, systolic murmur - GI/Abdominal GI/Abdominal exam: Present: normal bowel sounds, soft, tenderness, no peritoneal signs. Absent: distended Additional comments: around incision; c/d/i - Extremities Exam Extremities exam: Present: warm, radial pulses palpable and symmetrical. Absent : calf tenderness, cyanotic, pedal edema - Neurological Exam Neurological exam: Present: CN II-XII intact, oriented X3, no focal deficits. Absent: pronater drift, facial droop, speech deficit - Skin Skin exam: Present: dry, intact Internal Medicine: Result - Labs CBC & Chem 7: 03/11/18 03:12 03/11/18 03:12 Labs: Short CBC 03/11/18 Range/Units 03:12 WBC 6.1 (4.3-11.1) K/mcL Hgb 10.6 L (12.9-16.9) g/dL Hct 31.1 L (37.5-50.1) % Plt Count 192 (140-400) K/mcL Neutrophils # 5.0 (1.6-8.9) K/mcL BMP 03/11/18 03:12 Sodium 134 L Potassium 4.2 Chloride 108 H Carbon Dioxide 19 L BUN 38 H Creatinine 1.34 H Glucose 140 H Calcium 8.8 Liver Function 03/11/18 Range/Units 03:12 Total Bilirubin 1.0 (0.3-1.0) mg/dL AST 29 (13-39) Units/L ALT 29 (7-52) Units/L Alkaline Phosphatase 97 (34-104) Units/L Albumin 3.3 L (3.5-5.7) g/dL - Impressions Impressions KUB X-Ray 03/10/18 18:17 IMPRESSION: 1. Enteric tube tip is directed towards the gastric fundus and side port is just distal to the GE junction. 2. Multiple loops of mildly prominent small bowel throughout the abdomen which are nonspecific. Surgical skin paola now project over the abdomen. D/ / Garrett Sood MD / Garrett Sood MD Interpreting Provider: Garrett Sood MD - VTE Documentation of Mechanical Device: Intermittent pneumatic compression device Consult Discharge Plan - Plan Referrals: Lacy Cristobal CNP [Primary Care Provider] -
[2018-03-11] MEDS: *HR* Labetalol 20 MG/4 ML SYRINGE IVP STA ×2 (18:41→18:49)
[2018-03-11] MEDS ORDERED: OXYCODONE Oral CONC 10 MG/0.5 ML ORAL.SYG SL ONE (18:53)
[2018-03-12] MEDS: Acetaminophen IV 1,000 MG/100 ML INFUS..BTL IVPB SCH ×4 (00:38→19:45)
[2018-03-12] MEDS: Insulin LISPRO 300 UNITS/3 ML VIAL SQ SCH ×4 (01:21→18:10)
[2018-03-12 05:13] LABS: Basophils % 0.2 %; Eosinophils % 0.1 %; Hematocrit 33.2 % (37.5-50.1); Hemoglobin 11.1 g/dL (12.9-16.9); Immature Granulocytes % 0.2 % (0-4); Lymphocytes # 0.5 K/mcL (0.6-4.6); Lymphocytes % 5.5 %; Mean Corpuscular HGB Conc 33.4 g/dL (31.6-35.5); Mean Corpuscular Hemoglobin 31.1 pg (28.0-33.3); Mean Platelet Volume 8.8 fL (9.4-12.4); Monocytes # 0.7 K/mcL (0.0-1.3); Monocytes % 8.1 %; Neutrophils # 7.8 K/mcL (1.6-8.9); Platelet Count 235 K/mcL (140-400); Red Blood Count 3.57 M/mcL (4.19-5.50); Red Cell Distribution Width 14.3 % (11.5-14.5); Segmented Neutrophils % 85.9 %
[2018-03-12] MEDS: MORPHINE SUL Oral CONC 10 MG/0.5 ML ORAL.SYG SL PRN (05:18)
[2018-03-12 05:34] LABS: Alanine Aminotransferase 23 Units/L (7-52); Albumin 3.2 g/dL (3.5-5.7); Albumin/Globulin Ratio 0.9 (1.1-2.2); Alkaline Phosphatase 90 Units/L (34-104); Aspartate Amino Transferase 17 Units/L (13-39); BUN/Creatinine Ratio 22 (6-26); Bilirubin,Total 0.5 mg/dL (0.3-1.0); Blood Urea Nitrogen 29 mg/dL (8-23); Carbon Dioxide 21 mEq/L (23-29); Chloride 107 mEq/L (98-107); Globulin 3.4 g/dL (2.4-3.5); Glucose 139 mg/dL (70-105); Osmolality,Calculated 292 (280-300); Phosphorous 2.7 mg/dL (2.7-4.5); Sodium 137 mEq/L (136-145); Total Protein 6.6 g/dL (6.4-8.9); eGFR For African Americans > 60 (> 60); eGFR For Non-African Americans 54 (> 60)
[2018-03-12] MEDS: *HR* Labetalol 20 MG/4 ML SYRINGE IVP PRN ×2 (07:31→12:54)
[2018-03-12] MEDS: Pantoprazole 40 MG VIAL IVP SCH (08:53)
--- NOTE | 2018-03-12 11:06 | General Surgery Progress Note ---
Date of Encounter: 03/13/18 Time of Encounter: 11:05 - Assessment and Plan (1) Cecal volvulus Current Visit: Yes Status: Acute POD#3 s/p exploratory laparotomy with partial right colectomy with [id number]-br-[id number] / end-to-end anastomosis, and cholecystectomy. Hx -- 77-year-old male admitted following abdominal discomfort, nausea, bowel stasis (unable to pass flatus or BM) for 3 to 4 days preceding admission. Was afebrile. CT scan data that time demonstrated cecal volvulus. Admitted on 08/2018; cardiology consulted for complicated preop clearance. Exploratory laparotomy, as well as subsequent partial right hemicolectomy with anastomosis and cholecystectomy successfully completed, thus far without complications. No BM or flatus as of yet today; pain is well-controlled and incision sites are without signs of infection or dehiscence. Plan (no changes today): - NPO continue; may have ice chips - NG continue - needs to ambulate to help stimulate bowel - daily assessment of bowel status - Control pain and nausea as needed - IVF until able to tolerate PO - Daily CBC/BMP - fluid balance 03/10/18: IVF 2400 mL, urine 1350 mL, gastric 1050mL; urine output adequate at (0.87mL/kg)/hr. other comorbidities to be managed by hospitalist team as below (2) S/P partial resection of colon Current Visit: Yes Status: Acute (3) S/P cholecystectomy Current Visit: Yes Status: Acute (4) Co-morbid condition Current Visit: Yes Status: Chronic Comorbidities include diabetes mellitus type II, hypertension, hyperlipidemia, hypothyroidism, coronary artery disease, GERD, and BPH. - mgmt per hospitalist team Subjective Narrative: Overall pain improving. No bloating, nausea, vomiting. Has not had any flatus. NG output on 03/11/2018 was about 1 L. Patient asking for Jell-O. Objective Vital Signs - Last 8 Hours Temp Pulse Resp BP Pulse Ox 03/12/18 09:00 149/88 03/12/18 06:38 98.0 F 97 16 175/94 94 03/12/18 04:45 99.3 F 94 15 150/76 96 Intake and Output 03/11/18 03/12/18 03/12/18 23:59 07:59 15:59 Intake Total 1100 / 1100 200 / 200 597 / 597 Output Total 450 / 450 650 / 650 Balance 650 / 650 -450 / -450 597 / 597 Intake: IV Fluids 1100 / 1100 200 / 200 597 / 597 0.9 % Sodium Chloride 1,000 ML 1000 / 1000 597 / 597 @ 75 mls/hr IVC .[id number] [facility] Rx #:[id number] Ofirmev 1,000 mg/100 ml 1,000 100 / 100 200 / 200 mg In 100 ml @ 400 mls/hr IVPB Q6H [facility] Rx#:[id number] Oral 0 / 0 0 / 0 Output: Urine 0 / 0 400 / 400 Gastric Drainage 450 / 450 250 / 250 Other: Meal NPO NPO npo Percent of Meal Consumed 0% 0% # Bowel Movements 0 0 Weight 66.4 kg Blood Glucose* 110 120 Patient Weight 03/12/18 23:59 Weight 66.4 kg VITAL SIGNS: Reviewed. See [facility] GENERAL: alert and comfortably supine in bed HEENT: [Normocephalic, oropharynx moist CV: RRR RESPIRATORY: CTAB ABD: still present but quiet bowel sounds, abdomen soft, mildly tender near midline incision, no distention/guarding INCISION: clean, dry, intact without purulence/bleeding/edema/rubor/calor; dry drainage on bandage EXTREMITY: grossly normal motor function, no pedal edema, peripheral pulses 2+ b /l NEUROLOGIC EXAM: AOx3, obeys commands, no speech deficits. PSYCHIATRIC: normal mood and affect SKIN: no gross lesions, rashes, or skin changes - Labs 03/13/18 05:18 03/13/18 05:18 Diabetes panel 03/12/18 Range/Units 04:46 Sodium 137 (136-145) mEq/L Potassium 4.0 (3.5-5.1) mEq/L Chloride 107 (98-107) mEq/L Carbon Dioxide 21 L (23-29) mEq/L BUN 29 H (8-23) mg/dL Creatinine 1.29 (0.70-1.30) mg/dL Glucose 139 H (70-105) mg/dL Calcium 9.0 (8.6-10.3) mg/dL AST 17 (13-39) Units/L ALT 23 (7-52) Units/L Alkaline Phosphatase 90 (34-104) Units/L Albumin 3.2 L (3.5-5.7) g/dL Calcium panel 03/12/18 03/12/18 Range/Units 04:46 04:46 Calcium 9.0 (8.6-10.3) mg/dL Phosphorus 2.7 (2.7-4.5) mg/dL Albumin 3.2 L (3.5-5.7) g/dL Pituitary panel 03/12/18 Range/Units 04:46 Sodium 137 (136-145) mEq/L Potassium 4.0 (3.5-5.1) mEq/L Chloride 107 (98-107) mEq/L Carbon Dioxide 21 L (23-29) mEq/L BUN 29 H (8-23) mg/dL Creatinine 1.29 (0.70-1.30) mg/dL Glucose 139 H (70-105) mg/dL Calcium 9.0 (8.6-10.3) mg/dL Adrenal panel 03/12/18 Range/Units 04:46 Sodium 137 (136-145) mEq/L Potassium 4.0 (3.5-5.1) mEq/L Chloride 107 (98-107) mEq/L Carbon Dioxide 21 L (23-29) mEq/L BUN 29 H (8-23) mg/dL Creatinine 1.29 (0.70-1.30) mg/dL Glucose 139 H (70-105) mg/dL Calcium 9.0 (8.6-10.3) mg/dL Total Bilirubin 0.5 (0.3-1.0) mg/dL AST 17 (13-39) Units/L ALT 23 (7-52) Units/L Alkaline Phosphatase 90 (34-104) Units/L Albumin 3.2 L (3.5-5.7) g/dL - VTE Documentation of Mechanical Device: Intermittent pneumatic compression device Consult Discharge Plan - Plan Referrals: Lacy Cristobal, BEE [Primary Care Provider] -
--- NOTE | 2018-03-12 12:24 | Internal Med Progress Note ---
Date of Encounter: 03/12/18 Time of Encounter: 12:17 - Assessment and plan (1) Cecal volvulus Current Visit: Yes Status: Acute Assessment and plan: Acute cecal volvulus w/abdominal pain on admission. Status-post right colectomy and cholecystectomy 03/09. Tolerated procedure well. Management per Surgery team. (2) Acute on chronic kidney failure Current Visit: Yes Status: Acute Assessment and plan: Possibly post-renal failure from volvulous or pre renal failure of hypoperfusion. Creatinine on admission was 2.56 now resolved Continue to hold nephrotoxic agents. Renally dose medications Qualifiers: Acute renal failure type: unspecified Chronic kidney disease stage: stage 3 (moderate) Qualified Code(s): N17.9 - Acute kidney failure, unspecified; N18.3 - Chronic kidney disease, stage 3 (moderate) (3) HTN (hypertension) Current Visit: Yes Status: Chronic Assessment and plan: IV antihypertensives for now Patient was tachycardic and hypertensive and so will use labetolol will lower BP and HR. Continue IV Labetolol prn. Once tolerates PO will restart home medications. Qualifiers: Hypertension type: essential hypertension Qualified Code(s): I10 - Essential (primary) hypertension (4) Hypothyroidism Current Visit: Yes Status: Chronic Assessment and plan: Resume Synthroid when he is able to tolerate PO. Qualifiers: Hypothyroidism type: unspecified Qualified Code(s): E03.9 - Hypothyroidism , unspecified (5) Coronary artery disease Current Visit: Yes Status: Chronic Assessment and plan: ASA and Plavix when able to tolerate medications Qualifiers: Coronary Disease-Associated Artery/Lesion type: [place] artery [place] vs. transplanted heart: [place] heart Associated angina: angina presence unspecified Qualified Code(s): I25.10 - Atherosclerotic heart disease of [place] coronary artery without angina pectoris (6) GERD (gastroesophageal reflux disease) Current Visit: Yes Status: Chronic Assessment and plan: Continue IV protonix Qualifiers: Esophagitis presence: esophagitis presence not specified Qualified Code(s) : K21.9 - Gastro-esophageal reflux disease without esophagitis (7) HLD (hyperlipidemia) Current Visit: Yes Status: Chronic Assessment and plan: Zocor when able to have medications. Qualifiers: Hyperlipidemia type: pure hypercholesterolemia Qualified Code(s): E78.00 - Pure hypercholesterolemia, unspecified; E78.0 - Pure hypercholesterolemia (8) Hyperglycemia Current Visit: Yes Status: Acute Assessment and plan: Acute hyperglycemia (207 on admission) d/t lack of intake over past several days. Pt. and report that pt. does not currently take oral medication or insulin. Pt. reports checking BG @ home and usually WNL. BG checks every 6 to nothing by mouth status. Low-dose correction insulin sliding scale with hypoglycemic protocol. (9) Leukocytosis Current Visit: Yes Status: Resolved Assessment and plan: Resolved, likely stress response. Qualifiers: Leukocytosis type: unspecified Qualified Code(s): D72.829 - Elevated white blood cell count, unspecified (10) DVT prophylaxis Current Visit: Yes Status: Acute Assessment and plan: SCDs (11) Wheezing Current Visit: Yes Status: Acute Assessment and plan: Start xopenex Q6H scheduled. - Time Spent With Patient Total time spent is greater than 50% in coordination of care (as documented) at patient's floor/unit and/or counseling patient: - Subjective Interval history: Patient is post op after Right colectomy and cholecystectomy. No acute events. Patient states pain is controlled. - Constitutional Vitals: Temp Pulse Resp BP Pulse Ox 99.2 F 93 16 170/86 95 03/12/18 11:17 03/12/18 11:17 03/12/18 11:17 03/12/18 11:17 03/12/18 11:17 General appearance: Present: cooperative, A&O X 3, pleasant, answers questions appropriately Exam: Gen: NAD, AAOx3 HEENT: trach clean CVS: RRR Lungs: Diffuse wheezing throughout Ext: no edema, no cyanosis Internal Medicine: Result - Labs CBC & Chem 7: 03/12/18 04:46 03/12/18 04:46 Labs: Short CBC 03/12/18 Range/Units 04:46 WBC 9.1 (4.3-11.1) K/mcL Hgb 11.1 L (12.9-16.9) g/dL Hct 33.2 L (37.5-50.1) % Plt Count 235 (140-400) K/mcL Neutrophils # 7.8 (1.6-8.9) K/mcL BMP 03/12/18 04:46 Sodium 137 Potassium 4.0 Chloride 107 Carbon Dioxide 21 L BUN 29 H Creatinine 1.29 Glucose 139 H Calcium 9.0 Liver Function 03/12/18 Range/Units 04:46 Total Bilirubin 0.5 (0.3-1.0) mg/dL AST 17 (13-39) Units/L ALT 23 (7-52) Units/L Alkaline Phosphatase 90 (34-104) Units/L Albumin 3.2 L (3.5-5.7) g/dL - VTE Documentation of Mechanical Device: Intermittent pneumatic compression device Consult Discharge Plan - Plan Referrals: Lacy Cristobal CNP [Primary Care Provider] -
[2018-03-12] MEDS: 0.9 % Sodium Chloride 1,000 ML IVC SCH (14:15)
[2018-03-12] MEDS: Levalbuterol Neb 1.25 MG/3 ML IH SCH ×2 (16:43→23:04)
[2018-03-12] MEDS ORDERED: *HR* Labetalol 20 MG/4 ML SYRINGE IVP SCH (17:00)
[2018-03-12] MEDS: *HR* Labetalol 20 MG/4 ML SYRINGE IVP SCH (18:05)
[2018-03-13] MEDS: *HR* Labetalol 20 MG/4 ML SYRINGE IVP SCH ×2 (00:03→05:41)
[2018-03-13] MEDS: Insulin LISPRO 300 UNITS/3 ML VIAL SQ SCH ×4 (00:04→18:01)
[2018-03-13] MEDS: Acetaminophen IV 1,000 MG/100 ML INFUS..BTL IVPB SCH ×4 (01:01→18:47)
[2018-03-13] MEDS: 0.9 % Sodium Chloride 1,000 ML IVC SCH ×2 (03:31→17:16)
[2018-03-13] MEDS: MORPHINE SUL Oral CONC 10 MG/0.5 ML ORAL.SYG SL PRN (03:32)
[2018-03-13] MEDS: Levalbuterol Neb 1.25 MG/3 ML IH SCH ×2 (04:05→10:41)
[2018-03-13 05:38] LABS: Basophils % 0.2 %; Eosinophils % 0.1 %; Hematocrit 30.5 % (37.5-50.1); Hemoglobin 10.1 g/dL (12.9-16.9); Immature Granulocytes % 0.4 % (0-4); Lymphocytes # 0.5 K/mcL (0.6-4.6); Lymphocytes % 6.1 %; Mean Corpuscular HGB Conc 33.1 g/dL (31.6-35.5); Mean Corpuscular Volume 93.6 fL (83.0-100.0); Mean Platelet Volume 8.6 fL (9.4-12.4); Monocytes # 0.8 K/mcL (0.0-1.3); Monocytes % 9.1 %; Neutrophils # 7.1 K/mcL (1.6-8.9); Platelet Count 248 K/mcL (140-400); Red Blood Count 3.26 M/mcL (4.19-5.50); Red Cell Distribution Width 14.6 % (11.5-14.5); Segmented Neutrophils % 84.1 %
[2018-03-13 05:57] LABS: Alanine Aminotransferase 17 Units/L (7-52); Albumin 3.1 g/dL (3.5-5.7); Albumin/Globulin Ratio 0.9 (1.1-2.2); Alkaline Phosphatase 73 Units/L (34-104); Aspartate Amino Transferase 11 Units/L (13-39); BUN/Creatinine Ratio 28 (6-26); Bilirubin,Total 0.5 mg/dL (0.3-1.0); Blood Urea Nitrogen 36 mg/dL (8-23); Calcium 8.9 mg/dL (8.6-10.3); Carbon Dioxide 20 mEq/L (23-29); Chloride 111 mEq/L (98-107); Globulin 3.3 g/dL (2.4-3.5); Glucose 133 mg/dL (70-105); Osmolality,Calculated 300 (280-300); Sodium 140 mEq/L (136-145); Total Protein 6.4 g/dL (6.4-8.9); eGFR For African Americans > 60 (> 60); eGFR For Non-African Americans 54 (> 60)
[2018-03-13 05:58] LABS: Magnesium 2.1 mg/dL (1.6-2.6); Phosphorous 2.3 mg/dL (2.7-4.5)
[2018-03-13] MEDS ORDERED: *HR* Metoprolol 5 MG/5 ML VIAL IVP SCH (08:16)
[2018-03-13] MEDS: Pantoprazole 40 MG VIAL IVP SCH (08:59)
--- NOTE | 2018-03-13 11:18 | General Surgery Progress Note ---
Date of Encounter: 03/13/18 Time of Encounter: 11:09 - Assessment and Plan (1) Cecal volvulus Current Visit: Yes Status: Acute POD#4 s/p exploratory laparotomy with partial right colectomy with [id number] / end-to-end anastomosis, and cholecystectomy. Hx -- 77-year-old male admitted following abdominal discomfort, nausea, bowel stasis (unable to pass flatus or BM) for 3 to 4 days preceding admission. Was afebrile. CT scan data that time demonstrated cecal volvulus. Admitted on 08/2018; cardiology consulted for complicated preop clearance. Exploratory laparotomy, as well as subsequent partial right hemicolectomy with anastomosis and cholecystectomy successfully completed, thus far without complications. No BM or flatus as of yet today; pain is well-controlled and incision sites are without signs of infection or dehiscence. Plan (no changes today): - NPO, cont - NG to gravity - Acute Abd Series today, pending - cont to ambulate - daily assessment of bowel status - Control pain and nausea as needed - IVF until able to tolerate PO - Daily CBC/BMP - fluid balance 03/12/18: IVF 1400 mL, urine 1025 mL, gastric 0800mL; urine output adequate at (0.65mL/kg)/hr. other comorbidities to be managed by hospitalist team as below (2) S/P partial resection of colon Current Visit: Yes Status: Acute (3) S/P cholecystectomy Current Visit: Yes Status: Acute (4) Co-morbid condition Current Visit: Yes Status: Chronic Comorbidities include diabetes mellitus type II, hypertension, hyperlipidemia, hypothyroidism, coronary artery disease, GERD, and BPH. - mgmt per hospitalist team Subjective Narrative: Overall pain improving. No nausea, vomiting, bloating, or distention. Has been ambulatory in halls. Denies any BM's or flatus. NG output 800 mLs on which is somewhat decreased from 03/11/18. Afebrile overnight. No other concerns. Objective Vital Signs - Last 8 Hours Temp Pulse Resp BP Pulse Ox 03/13/18 10:58 99.0 F 85 20 172/84 90 03/13/18 07:45 83 152/72 03/13/18 06:34 86 181/83 03/13/18 05:06 85 174/86 03/13/18 03:19 98.4 F 85 16 157/78 92 Intake and Output 03/12/18 03/13/18 03/13/18 23:59 07:59 15:59 Intake Total 220 / 220 1260 / 1260 330 / 330 Output Total 925 / 925 625 / 625 525 / 525 Balance -705 / -705 635 / 635 -195 / -195 Intake: IV Fluids 100 / 100 1200 / 1200 330 / 330 0.9 % Sodium Chloride 1,000 ML 1000 / 1000 330 / 330 @ 75 mls/hr IVC .[id number] [facility] Rx #:[id number] Ofirmev 1,000 mg/100 ml 1,000 100 / 100 200 / 200 mg In 100 ml @ 400 mls/hr IVPB Q6H [facility] Rx#:[id number] Oral 120 / 120 60 / 60 Output: Urine 375 / 375 425 / 425 100 / 100 Gastric Drainage 550 / 550 200 / 200 425 / 425 Right Nare 150 / 150 150 / 150 150 / 150 Other: Meal NPO NPO NPO BREAKFAST Percent of Meal Consumed 0% 0% # Bowel Movements 0 Weight 65.8 kg Blood Glucose* 123 135 Patient Weight 03/13/18 23:59 Weight 65.8 kg VITAL SIGNS: Reviewed. See [facility] GENERAL: alert and comfortably supine in bed HEENT: [Normocephalic, oropharynx moist CV: RRR RESPIRATORY: CTAB ABD: still present but quiet bowel sounds, abdomen soft, minimal tenderness over midline incision, no distention/guarding INCISION: clean, dry, intact without purulence/bleeding/edema/rubor/calor; dry drainage on bandage EXTREMITY: grossly normal motor function, no pedal edema, peripheral pulses 2+ b /l NEUROLOGIC EXAM: AOx3, obeys commands, no speech deficits. PSYCHIATRIC: normal mood and affect SKIN: no gross lesions, rashes, or skin changes - Labs 03/13/18 05:18 03/13/18 05:18 Diabetes panel 03/13/18 Range/Units 05:18 Sodium 140 (136-145) mEq/L Potassium 4.0 (3.5-5.1) mEq/L Chloride 111 H (98-107) mEq/L Carbon Dioxide 20 L (23-29) mEq/L BUN 36 H (8-23) mg/dL Creatinine 1.28 (0.70-1.30) mg/dL Glucose 133 H (70-105) mg/dL Calcium 8.9 (8.6-10.3) mg/dL AST 11 L (13-39) Units/L ALT 17 (7-52) Units/L Alkaline Phosphatase 73 (34-104) Units/L Albumin 3.1 L (3.5-5.7) g/dL Calcium panel 03/13/18 03/13/18 Range/Units 05:18 05:18 Calcium 8.9 (8.6-10.3) mg/dL Phosphorus 2.3 L (2.7-4.5) mg/dL Albumin 3.1 L (3.5-5.7) g/dL Pituitary panel 03/13/18 Range/Units 05:18 Sodium 140 (136-145) mEq/L Potassium 4.0 (3.5-5.1) mEq/L Chloride 111 H (98-107) mEq/L Carbon Dioxide 20 L (23-29) mEq/L BUN 36 H (8-23) mg/dL Creatinine 1.28 (0.70-1.30) mg/dL Glucose 133 H (70-105) mg/dL Calcium 8.9 (8.6-10.3) mg/dL Adrenal panel 03/13/18 Range/Units 05:18 Sodium 140 (136-145) mEq/L Potassium 4.0 (3.5-5.1) mEq/L Chloride 111 H (98-107) mEq/L Carbon Dioxide 20 L (23-29) mEq/L BUN 36 H (8-23) mg/dL Creatinine 1.28 (0.70-1.30) mg/dL Glucose 133 H (70-105) mg/dL Calcium 8.9 (8.6-10.3) mg/dL Total Bilirubin 0.5 (0.3-1.0) mg/dL AST 11 L (13-39) Units/L ALT 17 (7-52) Units/L Alkaline Phosphatase 73 (34-104) Units/L Albumin 3.1 L (3.5-5.7) g/dL - VTE Documentation of Mechanical Device: Intermittent pneumatic compression device Consult Discharge Plan - Plan Referrals: Lacy Cristobal, BEE [Primary Care Provider] -
[2018-03-13] MEDS: *HR* Metoprolol 5 MG/5 ML VIAL IVP SCH ×3 (11:30→18:07)
--- NOTE | 2018-03-13 14:26 | Internal Med Progress Note ---
Date of Encounter: 03/13/18 Time of Encounter: 10:35 - Assessment and plan (1) Cecal volvulus Current Visit: Yes Status: Acute Assessment and plan: Postop day 4. Status post exploratory laparotomy with partial right colectomy with [id number]-[id number]/N to end anastomosis and cholecystectomy. Surgery following. Continue NG tube to gravity. Continue TPN. Follow surgery recommendations. (2) Hypothyroidism Current Visit: Yes Status: Chronic Assessment and plan: Will resume Synthroid when patient is able to take oral medications. Qualifiers: Hypothyroidism type: unspecified Qualified Code(s): E03.9 - Hypothyroidism , unspecified (3) Coronary artery disease Current Visit: Yes Status: Chronic Assessment and plan: No chest pain at this time. Resume aspirin and Plavix when able Qualifiers: Coronary Disease-Associated Artery/Lesion type: [place] artery [place] vs. transplanted heart: [place] heart Associated angina: angina presence unspecified Qualified Code(s): I25.10 - Atherosclerotic heart disease of [place] coronary artery without angina pectoris (4) GERD (gastroesophageal reflux disease) Current Visit: Yes Status: Chronic Assessment and plan: On IV PPI Qualifiers: Esophagitis presence: esophagitis presence not specified Qualified Code(s) : K21.9 - Gastro-esophageal reflux disease without esophagitis (5) HLD (hyperlipidemia) Current Visit: Yes Status: Chronic Assessment and plan: Resume statin when patient is able to take oral meds Qualifiers: Hyperlipidemia type: pure hypercholesterolemia Qualified Code(s): E78.00 - Pure hypercholesterolemia, unspecified; E78.0 - Pure hypercholesterolemia (6) HTN (hypertension) Current Visit: Yes Status: Chronic Assessment and plan: Blood pressure elevated. Will change antihypertensive to Lopressor. We will start at 5 mg every 6 hours. We will increase the dose depending on response. Qualifiers: Hypertension type: essential hypertension Qualified Code(s): I10 - Essential (primary) hypertension (7) Hyperglycemia Current Visit: Yes Status: Acute Assessment and plan: Controlled. Continue insulin regimen. (8) Leukocytosis Current Visit: Yes Status: Resolved Qualifiers: Leukocytosis type: unspecified Qualified Code(s): D72.829 - Elevated white blood cell count, unspecified (9) Acute on chronic kidney failure Current Visit: Yes Status: Acute Assessment and plan: Improved. Creatinine 1.28 today. Qualifiers: Acute renal failure type: unspecified Chronic kidney disease stage: stage 3 (moderate) Qualified Code(s): N17.9 - Acute kidney failure, unspecified; N18.3 - Chronic kidney disease, stage 3 (moderate) (10) Wheezing Current Visit: Yes Status: Acute Assessment and plan: On Xopenex. Will change to as needed (11) DVT prophylaxis Current Visit: Yes Status: Acute Assessment and plan: With SCDs. We will also place him on subcutaneous heparin now that his hemoglobin levels have stabilized. - Time Spent With Patient Total time spent is greater than 50% in coordination of care (as documented) at patient's floor/unit and/or counseling patient: - Subjective Interval history: Patient is awake and alert. Denies any new complaints at this time. Receiving TPN. Tolerating well. Has NG tube in place. - Constitutional Vitals: Temp Pulse Resp BP Pulse Ox 99.0 F 85 20 172/84 90 03/13/18 10:58 03/13/18 10:58 03/13/18 10:58 03/13/18 10:58 03/13/18 10:58 General appearance: Present: cooperative, A&O X 3, pleasant, answers questions appropriately - Neck Neck exam general surgery: Present: supple, trachea midline. Absent: lymphadenopathy - Respiratory Respiratory exam: Present: CTAB. Absent: accessory muscle use, rales, rhonchi, wheezes - Cardiovascular Cardiovascular exam: Present: RRR, +S1, +S2. Absent: diastolic murmur, gallop, rubs, systolic murmur - GI/Abdominal GI/Abdominal exam: Present: normal bowel sounds, soft, no peritoneal signs. Absent: distended, tenderness - Extremities Exam Extremities exam: Present: warm, radial pulses palpable and symmetrical. Absent : calf tenderness, cyanotic, pedal edema - Neurological Exam Neurological exam: Present: CN II-XII intact, oriented X3, no focal deficits. Absent: facial droop, speech deficit - Skin Skin exam: Present: dry, intact Internal Medicine: Result - Labs CBC & Chem 7: 03/13/18 05:18 03/13/18 05:18 Labs: Short CBC 03/13/18 Range/Units 05:18 WBC 8.5 (4.3-11.1) K/mcL Hgb 10.1 L (12.9-16.9) g/dL Hct 30.5 L (37.5-50.1) % Plt Count 248 (140-400) K/mcL Neutrophils # 7.1 (1.6-8.9) K/mcL BMP 03/13/18 05:18 Sodium 140 Potassium 4.0 Chloride 111 H Carbon Dioxide 20 L BUN 36 H Creatinine 1.28 Glucose 133 H Calcium 8.9 Liver Function 03/13/18 Range/Units 05:18 Total Bilirubin 0.5 (0.3-1.0) mg/dL AST 11 L (13-39) Units/L ALT 17 (7-52) Units/L Alkaline Phosphatase 73 (34-104) Units/L Albumin 3.1 L (3.5-5.7) g/dL - VTE Documentation of Mechanical Device: Intermittent pneumatic compression device Consult Discharge Plan - Plan Referrals: Lacy Cristobal CNP [Primary Care Provider] -
[2018-03-13] MEDS ORDERED: Levalbuterol Neb 1.25 MG/3 ML IH PRN (15:13)
[2018-03-13] MEDS: *HR* Heparin 5,000 UNIT/ML VIAL SQ SCH (18:07)
[2018-03-14] MEDS: Insulin LISPRO 300 UNITS/3 ML VIAL SQ SCH ×4 (00:01→18:29)
[2018-03-14] MEDS: *HR* Metoprolol 5 MG/5 ML VIAL IVP SCH ×3 (00:05→12:43)
[2018-03-14] MEDS: Acetaminophen IV 1,000 MG/100 ML INFUS..BTL IVPB SCH ×4 (01:19→19:59)
[2018-03-14] MEDS: 0.9 % Sodium Chloride 1,000 ML IVC SCH (06:07)
[2018-03-14] MEDS: *HR* Heparin 5,000 UNIT/ML VIAL SQ SCH ×2 (06:11→17:39)
[2018-03-14 06:35] LABS: Basophils % 0.2 %; Eosinophils % 0.1 %; Hematocrit 31.5 % (37.5-50.1); Hemoglobin 10.3 g/dL (12.9-16.9); Immature Granulocytes % 0.7 % (0-4); Lymphocytes # 0.5 K/mcL (0.6-4.6); Mean Corpuscular HGB Conc 32.7 g/dL (31.6-35.5); Mean Corpuscular Hemoglobin 30.8 pg (28.0-33.3); Mean Corpuscular Volume 94.3 fL (83.0-100.0); Mean Platelet Volume 8.5 fL (9.4-12.4); Monocytes # 0.9 K/mcL (0.0-1.3); Monocytes % 7.7 %; Neutrophils # 10.6 K/mcL (1.6-8.9); Platelet Count 258 K/mcL (140-400); Red Blood Count 3.34 M/mcL (4.19-5.50); Red Cell Distribution Width 14.8 % (11.5-14.5); Segmented Neutrophils % 87.3 %
[2018-03-14 06:59] LABS: Alanine Aminotransferase 15 Units/L (7-52); Albumin 3.2 g/dL (3.5-5.7); Alkaline Phosphatase 92 Units/L (34-104); Aspartate Amino Transferase 15 Units/L (13-39); BUN/Creatinine Ratio 28 (6-26); Bilirubin,Total 0.4 mg/dL (0.3-1.0); Blood Urea Nitrogen 32 mg/dL (8-23); Carbon Dioxide 19 mEq/L (23-29); Chloride 111 mEq/L (98-107); Globulin 3.2 g/dL (2.4-3.5); Glucose 129 mg/dL (70-105); Osmolality,Calculated 303 (280-300); Sodium 142 mEq/L (136-145); Total Protein 6.4 g/dL (6.4-8.9); eGFR For African Americans > 60 (> 60); eGFR For Non-African Americans > 60 (> 60)
[2018-03-14] MEDS: Pantoprazole 40 MG VIAL IVP SCH (08:51)
[2018-03-14 09:50] LABS: Magnesium 1.9 mg/dL (1.6-2.6); Phosphorous 2.6 mg/dL (2.7-4.5)
--- NOTE | 2018-03-14 10:12 | General Surgery Progress Note ---
Date of Encounter: 03/14/18 Time of Encounter: 10:06 - Assessment and Plan (1) Cecal volvulus Current Visit: Yes Status: Acute POD#5 s/p exploratory laparotomy with partial right colectomy with [id number] / end-to-end anastomosis, and cholecystectomy on 03/09/18. Hx -- 77-year-old male admitted following abdominal discomfort, nausea, bowel stasis (unable to pass flatus or BM) for 3 to 4 days preceding admission. Was afebrile. CT scan data that time demonstrated cecal volvulus. Admitted on 08/2018; cardiology consulted for complicated preop clearance. Exploratory laparotomy, as well as subsequent partial right hemicolectomy with anastomosis and cholecystectomy successfully completed, thus far without complications. Abdominal series obtained 03/13/2018 demonstrated mild improvement of small bowel dilatation. NG changed to gravity suction. No new worsening pain. No nausea/vomiting/ bloating. Past to soft stools this morning. Strong appetite and anxious to eat. Plan (no changes today): - clear liquid diet today; advance to full liquids tomorrow if tolerates - NG removed - cont to ambulate - daily assessment of bowel status - Control pain and nausea as needed - IVF (reduced to 50mL/hr) until assuredly able to tolerate PO - Daily CBC/BMP; collect lytes as needed other comorbidities to be managed by hospitalist team as below (2) S/P partial resection of colon Current Visit: Yes Status: Acute (3) S/P cholecystectomy Current Visit: Yes Status: Acute (4) Co-morbid condition Current Visit: Yes Status: Chronic Comorbidities include diabetes mellitus type II, hypertension, hyperlipidemia, hypothyroidism, coronary artery disease, GERD, and BPH. - mgmt per hospitalist team Subjective Narrative: Continue to subjectively improve. Pain is mild at worst. No nausea, vomiting, or bloating/intra-abdominal discomfort. Aferbrile. Until yesterday, had not passed BM or gas; today has had 2 bowel movements which were brown and soft. Patient has strong appetite and is anxious to advance diet. Objective Vital Signs - Last 8 Hours Temp Pulse Resp BP Pulse Ox 03/14/18 07:06 99.7 F H 83 18 175/89 94 03/14/18 03:50 98.8 F 86 17 176/88 92 Intake and Output 03/13/18 03/14/18 03/14/18 23:59 07:59 15:59 Intake Total 930 / 930 1160 / 1160 0 / 0 Output Total 250 / 250 375 / 375 Balance 680 / 680 785 / 785 0 / 0 Intake: IV Fluids 770 / 770 1100 / 1100 0 / 0 0.9 % Sodium Chloride 1,000 ML 670 / 670 1000 / 1000 @ 75 mls/hr IVC .[id number] [facility] Rx #:[id number] Ofirmev 1,000 mg/100 ml 1,000 100 / 100 100 / 100 0 / 0 mg In 100 ml @ 400 mls/hr IVPB Q6H [facility] Rx#:[id number] Oral 160 / 160 60 / 60 Output: Urine 250 / 250 225 / 225 Gastric Drainage 150 / 150 Other: Meal NPO for supper Stool Size Small Stool Consistency loose Stool Color Brown # Voids 1 Weight 61.235 kg Blood Glucose* 96 Patient Weight 03/14/18 23:59 Weight 61.235 kg VITAL SIGNS: Reviewed. See [facility] GENERAL: alert and comfortably supine in bed HEENT: [Normocephalic, oropharynx moist CV: RRR RESPIRATORY: CTAB ABD: improved bowel sounds, abdomen soft, minimal tenderness over midline incision, no distention/guarding INCISION: clean, intact without purulence/bleeding/edema/rubor/calor; scant dry drainage on bandage EXTREMITY: grossly normal motor function, no pedal edema, peripheral pulses 2+ b /l NEUROLOGIC EXAM: AOx3, obeys commands, no speech deficits. PSYCHIATRIC: normal mood and affect SKIN: no gross lesions, rashes, or skin changes - Labs 03/14/18 06:17 03/14/18 06:17 Diabetes panel 03/14/18 Range/Units 06:17 Sodium 142 (136-145) mEq/L Potassium 4.0 (3.5-5.1) mEq/L Chloride 111 H (98-107) mEq/L Carbon Dioxide 19 L (23-29) mEq/L BUN 32 H (8-23) mg/dL Creatinine 1.13 (0.70-1.30) mg/dL Glucose 129 H (70-105) mg/dL Calcium 9.0 (8.6-10.3) mg/dL AST 15 (13-39) Units/L ALT 15 (7-52) Units/L Alkaline Phosphatase 92 (34-104) Units/L Albumin 3.2 L (3.5-5.7) g/dL Calcium panel 03/14/18 Range/Units 06:17 Calcium 9.0 (8.6-10.3) mg/dL Phosphorus 2.6 L (2.7-4.5) mg/dL Albumin 3.2 L (3.5-5.7) g/dL Pituitary panel 03/14/18 Range/Units 06:17 Sodium 142 (136-145) mEq/L Potassium 4.0 (3.5-5.1) mEq/L Chloride 111 H (98-107) mEq/L Carbon Dioxide 19 L (23-29) mEq/L BUN 32 H (8-23) mg/dL Creatinine 1.13 (0.70-1.30) mg/dL Glucose 129 H (70-105) mg/dL Calcium 9.0 (8.6-10.3) mg/dL Adrenal panel 03/14/18 Range/Units 06:17 Sodium 142 (136-145) mEq/L Potassium 4.0 (3.5-5.1) mEq/L Chloride 111 H (98-107) mEq/L Carbon Dioxide 19 L (23-29) mEq/L BUN 32 H (8-23) mg/dL Creatinine 1.13 (0.70-1.30) mg/dL Glucose 129 H (70-105) mg/dL Calcium 9.0 (8.6-10.3) mg/dL Total Bilirubin 0.4 (0.3-1.0) mg/dL AST 15 (13-39) Units/L ALT 15 (7-52) Units/L Alkaline Phosphatase 92 (34-104) Units/L Albumin 3.2 L (3.5-5.7) g/dL - VTE Documentation of Mechanical Device: Intermittent pneumatic compression device Consult Discharge Plan - Plan Referrals: Lacy Cristobal CNP [Primary Care Provider] -
--- NOTE | 2018-03-14 16:15 | Internal Med Progress Note ---
Date of Encounter: 03/14/18 Time of Encounter: 16:12 - Assessment and plan (1) Cecal volvulus Current Visit: Yes Status: Acute Assessment and plan: Postop day 5. Status post exploratory laparotomy with partial right colectomy with [id number]/N to end anastomosis and cholecystectomy. Plan to remove nasogastric tube today. Start patient on clear liquids and assess tolerance. Surgery following. Continue supportive care. Patient does have mild leukocytosis. Chest x-ray done today does not show any new infiltrate. We will monitor for now. No clear signs of acute infection. Will hold off on antibiotics for now. If he develops further episodes of fever and leukocytosis worsens, will start patient on empiric antibiotics. (2) Hypothyroidism Current Visit: Yes Status: Chronic Assessment and plan: Resume levothyroxine today. Qualifiers: Hypothyroidism type: unspecified Qualified Code(s): E03.9 - Hypothyroidism , unspecified (3) Coronary artery disease Current Visit: Yes Status: Chronic Assessment and plan: Start patient back on aspirin, Plavix. Qualifiers: Coronary Disease-Associated Artery/Lesion type: [place] artery [place] vs. transplanted heart: [place] heart Associated angina: angina presence unspecified Qualified Code(s): I25.10 - Atherosclerotic heart disease of [place] coronary artery without angina pectoris (4) GERD (gastroesophageal reflux disease) Current Visit: Yes Status: Chronic Assessment and plan: Continue Protonix Qualifiers: Esophagitis presence: esophagitis presence not specified Qualified Code(s) : K21.9 - Gastro-esophageal reflux disease without esophagitis (5) HLD (hyperlipidemia) Current Visit: Yes Status: Chronic Assessment and plan: Continue Zocor Qualifiers: Hyperlipidemia type: pure hypercholesterolemia Qualified Code(s): E78.00 - Pure hypercholesterolemia, unspecified; E78.0 - Pure hypercholesterolemia (6) HTN (hypertension) Current Visit: Yes Status: Chronic Assessment and plan: Remains elevated. We will resume home medications including Procardia, Zestril. Qualifiers: Hypertension type: essential hypertension Qualified Code(s): I10 - Essential (primary) hypertension (7) Hyperglycemia Current Visit: Yes Status: Acute Assessment and plan: Well controlled at this time. (8) Leukocytosis Current Visit: Yes Status: Acute Assessment and plan: Etiology uncertain. No clear signs of infection. Chest x-ray does not show any acute infiltrate. We will monitor for now. Recheck labs in morning. Qualifiers: Leukocytosis type: unspecified Qualified Code(s): D72.829 - Elevated white blood cell count, unspecified (9) Acute on chronic kidney failure Current Visit: Yes Status: Resolved Assessment and plan: LEONCIO has now resolved. Qualifiers: Acute renal failure type: unspecified Chronic kidney disease stage: stage 3 (moderate) Qualified Code(s): N17.9 - Acute kidney failure, unspecified; N18.3 - Chronic kidney disease, stage 3 (moderate) (10) Wheezing Current Visit: Yes Status: Acute Assessment and plan: Continue bronchodilators as needed. (11) DVT prophylaxis Current Visit: Yes Status: Acute Assessment and plan: On subcutaneous heparin - Time Spent With Patient Total time spent is greater than 50% in coordination of care (as documented) at patient's floor/unit and/or counseling patient: - Subjective Interval history: Patient evaluated earlier today. Denies any new complaints at this time. He is very hungry and wants his nasogastric tube out. no shortness of breath or chest pain. Did have low-grade fever last night with temperature of 99.7. No palpitations. - Constitutional Vitals: Temp Pulse Resp BP Pulse Ox 98.9 F 79 18 164/82 92 03/14/18 15:51 03/14/18 15:51 03/14/18 15:51 03/14/18 15:51 03/14/18 15:51 General appearance: Present: cooperative, A&O X 3, pleasant, answers questions appropriately - ENT Additional comments: Tracheal stoma in place - Neck Neck exam general surgery: Present: supple, trachea midline. Absent: lymphadenopathy - Respiratory Respiratory exam: Present: CTAB. Absent: accessory muscle use, rales, rhonchi, wheezes - Cardiovascular Cardiovascular exam: Present: RRR, +S1, +S2. Absent: diastolic murmur, gallop, rubs, systolic murmur - GI/Abdominal GI/Abdominal exam: Present: normal bowel sounds, soft, tenderness (Surgical site ), no peritoneal signs. Absent: distended - Extremities Exam Extremities exam: Present: warm, radial pulses palpable and symmetrical. Absent : calf tenderness, cyanotic, pedal edema - Neurological Exam Neurological exam: Present: alert, oriented X3, no focal deficits. Absent: facial droop, speech deficit - Skin Skin exam: Present: dry, intact Internal Medicine: Result - Labs CBC & Chem 7: 03/14/18 06:17 03/14/18 06:17 Labs: Short CBC 03/14/18 Range/Units 06:17 WBC 12.1 H (4.3-11.1) K/mcL Hgb 10.3 L (12.9-16.9) g/dL Hct 31.5 L (37.5-50.1) % Plt Count 258 (140-400) K/mcL Neutrophils # 10.6 H (1.6-8.9) K/mcL BMP 03/14/18 06:17 Sodium 142 Potassium 4.0 Chloride 111 H Carbon Dioxide 19 L BUN 32 H Creatinine 1.13 Glucose 129 H Calcium 9.0 Liver Function 03/14/18 Range/Units 06:17 Total Bilirubin 0.4 (0.3-1.0) mg/dL AST 15 (13-39) Units/L ALT 15 (7-52) Units/L Alkaline Phosphatase 92 (34-104) Units/L Albumin 3.2 L (3.5-5.7) g/dL - Impressions Impressions Chest/Abdomen X-ray 03/13/18 14:21 IMPRESSION: 1. Small left pleural effusion with adjacent atelectasis. 2. Few mildly dilated loops of small bowel, likely related to postoperative ileus. Overall this appears slightly improved since the prior exam. 3. No free air. D/ / 03/13/2018 15:34:08 Anila Resendiz MD / serjio Interpreting Provider: Anila Resendiz MD Chest X-Ray 03/14/18 07:55 IMPRESSION: Again identified is the hazy opacity overlying the left mid and lower hemithorax which could be related to a combination of elevated hemidiaphragm, as well as possible small effusion or basilar airspace disease. Overall similar appearance to the previous examination, though less air within the gastric fundus. D/ / Efrain Prado MD / Efrain Prado MD Interpreting Provider: Efrain Prado MD - VTE Documentation of Mechanical Device: Intermittent pneumatic compression device Consult Discharge Plan - Plan Referrals: Lacy Cristobal CNP [Primary Care Provider] -
[2018-03-14] MEDS: NIFEdipine XL (24 HR) 30 MG TAB.ER.24 PO SCH (16:20)
[2018-03-14] MEDS: Gabapentin 300 MG CAPSULE PO SCH (21:14)
[2018-03-15] MEDS: Insulin LISPRO 300 UNITS/3 ML VIAL SQ SCH ×4 (01:27→17:30)
[2018-03-15] MEDS: Acetaminophen IV 1,000 MG/100 ML INFUS..BTL IVPB SCH ×2 (01:37→07:40)
[2018-03-15 05:39] LABS: Basophils % 0.3 %; Eosinophils % 0.2 %; Hematocrit 29.3 % (37.5-50.1); Hemoglobin 9.7 g/dL (12.9-16.9); Lymphocytes # 0.7 K/mcL (0.6-4.6); Lymphocytes % 5.5 %; Mean Corpuscular HGB Conc 33.1 g/dL (31.6-35.5); Mean Corpuscular Hemoglobin 30.6 pg (28.0-33.3); Mean Corpuscular Volume 92.4 fL (83.0-100.0); Mean Platelet Volume 8.5 fL (9.4-12.4); Monocytes # 1.2 K/mcL (0.0-1.3); Monocytes % 8.8 %; Neutrophils # 11.2 K/mcL (1.6-8.9); Platelet Count 281 K/mcL (140-400); Red Blood Count 3.17 M/mcL (4.19-5.50); Red Cell Distribution Width 14.4 % (11.5-14.5); Segmented Neutrophils % 84.2 %
[2018-03-15] MEDS: *HR* Heparin 5,000 UNIT/ML VIAL SQ SCH ×2 (05:49→18:29)
[2018-03-15 06:00] LABS: BUN/Creatinine Ratio 24 (6-26); Blood Urea Nitrogen 28 mg/dL (8-23); Calcium 8.5 mg/dL (8.6-10.3); Carbon Dioxide 21 mEq/L (23-29); Chloride 109 mEq/L (98-107); Glucose 189 mg/dL (70-105); Magnesium 1.9 mg/dL (1.6-2.6); Osmolality,Calculated 293 (280-300); Potassium 3.2 mEq/L (3.5-5.1); Sodium 136 mEq/L (136-145); eGFR For African Americans > 60 (> 60); eGFR For Non-African Americans > 60 (> 60)
[2018-03-15] MEDS: 0.9 % Sodium Chloride 1,000 ML IVC SCH ×2 (06:00→06:44)
[2018-03-15] MEDS: NIFEdipine XL (24 HR) 30 MG TAB.ER.24 PO SCH (07:39)
[2018-03-15] MEDS: Aspirin Enteric Coated 81 MG Tablet PO SCH (07:39)
[2018-03-15] MEDS: Pantoprazole 40 MG VIAL IVP SCH (07:40)
[2018-03-15] MEDS ORDERED: Potassium Phosphate 44 MEQ in 0.9 % Sodium Chloride 250 ML IVPB ONE (07:52)
--- NOTE | 2018-03-15 07:56 | General Surgery Progress Note ---
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 Hx -- 77-year-old male admitted following abdominal discomfort, nausea, bowel stasis (unable to pass flatus or BM) for 3 to 4 days preceding admission. Was afebrile. CT scan data that time demonstrated cecal volvulus. Admitted on 08/2018; cardiology consulted for complicated preop clearance. Exploratory laparotomy, as well as subsequent partial right hemicolectomy with anastomosis and cholecystectomy successfully completed, thus far without complications. Abdominal series obtained 03/13/2018 demonstrated mild improvement of small bowel dilatation. NG removed. No new worsening pain. No nausea/vomiting/bloating. Mild bloating. Positive flatus. Negative for BMs since yesterday AM. Mild leukocytosis (13.4k up from 12.1) with slightly cloudly drainage from wound packing. Afebrile. Plan (no changes today): - clear liquid one tray today; advance to full liquids if tolerates - cont to ambulate - daily assessment of bowel status - Control pain and nausea as needed - IVF (reduced to 50mL/hr) until assuredly able to tolerate PO - Daily CBC/BMP; collect lytes as needed - changed FSBG & SSI to TIDWM at low-dose - developing mild leukocytosis and cloudy drainage from superior incisional packing; started Zosyn IV (day 1) other comorbidities to be managed by hospitalist team as below (2) S/P partial resection of colon Current Visit: Yes Status: Acute (3) S/P cholecystectomy Current Visit: Yes Status: Acute (4) Co-morbid condition Current Visit: Yes Status: Chronic Comorbidities include diabetes mellitus type II, hypertension, hyperlipidemia, hypothyroidism, coronary artery disease, GERD, and BPH. - mgmt per hospitalist team Subjective Narrative: Tolerated liquids with no nausea or vomiting, but does day he feels a little bit bloated. No bowel movements since yesterday, however has passed flatus. No fevers overnight. No worsening of pain. Overall stable/improving. Patient wishes to try one more trial of clear liquids before advancing diet. Objective Vital Signs - Last 8 Hours Temp Pulse Resp BP Pulse Ox 03/15/18 07:10 98.5 F 71 18 122/63 99 03/15/18 04:36 97.7 F 79 15 104/50 92 Intake and Output 03/14/18 03/14/18 03/15/18 15:59 23:59 07:59 Intake Total 760 / 760 1200 / 1200 858 / 858 Output Total 550 / 550 225 / 225 200 / 200 Balance 210 / 210 975 / 975 658 / 658 Intake: IV Fluids 200 / 200 100 / 100 168 / 168 0.9 % Sodium Chloride 1,000 ML 68 / 68 @ 50 mls/hr IVC .Q20H [facility] Rx#: [id number] Ofirmev 1,000 mg/100 ml 1,000 200 / 200 100 / 100 100 / 100 mg In 100 ml @ 400 mls/hr IVPB Q6H [facility] Rx#:[id number] Oral 560 / 560 1100 / 1100 690 / 690 Output: Urine 300 / 300 225 / 225 200 / 200 Gastric Drainage 250 / 250 Other: Stool Size Moderate Stool Consistency soft formed Stool Color Brown # Bowel Movements 0 Weight 62.05 kg Blood Glucose* 121 166 Patient Weight 03/15/18 23:59 Weight 62.05 kg VITAL SIGNS: Reviewed. See [employer] GENERAL: alert and comfortably supine in bed HEENT: [Normocephalic, oropharynx moist CV: RRR RESPIRATORY: CTAB ABD: improved bowel sounds, abdomen soft, minimal tenderness over midline incision, no distention/guarding INCISION: clean, intact without purulence/bleeding/edema/rubor/calor; scant wet drainage on bandage (superior incisional packing ribbon seen). EXTREMITY: grossly normal motor function, no pedal edema, peripheral pulses 2+ b /l NEUROLOGIC EXAM: AOx3, obeys commands, no speech deficits. PSYCHIATRIC: normal mood and affect SKIN: no gross lesions, rashes, or skin changes - Labs 03/15/18 05:20 03/15/18 05:20 Diabetes panel 03/14/18 03/15/18 Range/Units 06:17 05:20 Sodium 142 136 (136-145) mEq/L Potassium 4.0 3.2 L (3.5-5.1) mEq/L Chloride 111 H 109 H (98-107) mEq/L Carbon Dioxide 19 L 21 L (23-29) mEq/L BUN 32 H 28 H (8-23) mg/dL Creatinine 1.13 1.17 (0.70-1.30) mg/dL Glucose 129 H 189 H (70-105) mg/dL Calcium 9.0 8.5 L (8.6-10.3) mg/dL AST 15 (13-39) Units/L ALT 15 (7-52) Units/L Alkaline Phosphatase 92 (34-104) Units/L Albumin 3.2 L (3.5-5.7) g/dL Calcium panel 03/14/18 03/15/18 Range/Units 06:17 05:20 Calcium 9.0 8.5 L (8.6-10.3) mg/dL Phosphorus 2.6 L 2.0 L (2.7-4.5) mg/dL Albumin 3.2 L (3.5-5.7) g/dL Pituitary panel 03/14/18 03/15/18 Range/Units 06:17 05:20 Sodium 142 136 (136-145) mEq/L Potassium 4.0 3.2 L (3.5-5.1) mEq/L Chloride 111 H 109 H (98-107) mEq/L Carbon Dioxide 19 L 21 L (23-29) mEq/L BUN 32 H 28 H (8-23) mg/dL Creatinine 1.13 1.17 (0.70-1.30) mg/dL Glucose 129 H 189 H (70-105) mg/dL Calcium 9.0 8.5 L (8.6-10.3) mg/dL Adrenal panel 03/14/18 03/15/18 Range/Units 06:17 05:20 Sodium 142 136 (136-145) mEq/L Potassium 4.0 3.2 L (3.5-5.1) mEq/L Chloride 111 H 109 H (98-107) mEq/L Carbon Dioxide 19 L 21 L (23-29) mEq/L BUN 32 H 28 H (8-23) mg/dL Creatinine 1.13 1.17 (0.70-1.30) mg/dL Glucose 129 H 189 H (70-105) mg/dL Calcium 9.0 8.5 L (8.6-10.3) mg/dL Total Bilirubin 0.4 (0.3-1.0) mg/dL AST 15 (13-39) Units/L ALT 15 (7-52) Units/L Alkaline Phosphatase 92 (34-104) Units/L Albumin 3.2 L (3.5-5.7) g/dL - VTE Documentation of Mechanical Device: Intermittent pneumatic compression device Consult Discharge Plan - Plan Referrals: Lacy Cristobal, BEE [Primary Care Provider] -
[2018-03-15] MEDS ORDERED: Lisinopril 20 MG TABLET PO SCH (09:00)
[2018-03-15] MEDS ORDERED: Acetaminophen 325 MG TABLET PO PRN (11:24)
[2018-03-15] MEDS: Ondansetron 4 MG/2 ML VIAL IVP PRN (12:29)
[2018-03-15] MEDS: MORPHINE SUL Oral CONC 10 MG/0.5 ML ORAL.SYG SL PRN (14:37)
--- NOTE | 2018-03-15 14:46 | Internal Med Progress Note ---
Date of Encounter: 03/15/18 Time of Encounter: 14:44 - Assessment and plan (1) Cecal volvulus Current Visit: Yes Status: Acute Assessment and plan: Postop day 6. Status post exploratory laparotomy with partial right colectomy with [id number]-da-wjax/N to end anastomosis and cholecystectomy. Tolerating clear liquids. Follow surgery recommendations and slowly advance diet as tolerated. Per surgery, plan is to stop TPN later today. He did have some cloudy discharge at surgical site and has been started on antibiotics especially as his WBC continues to rise. (2) Hypothyroidism Current Visit: Yes Status: Chronic Assessment and plan: Levothyroxine has been restarted and patient will continue taking it Qualifiers: Hypothyroidism type: unspecified Qualified Code(s): E03.9 - Hypothyroidism , unspecified (3) Coronary artery disease Current Visit: Yes Status: Chronic Assessment and plan: No chest pain. Continue home medications Qualifiers: Coronary Disease-Associated Artery/Lesion type: [place] artery [place] vs. transplanted heart: [place] heart Associated angina: angina presence unspecified Qualified Code(s): I25.10 - Atherosclerotic heart disease of [place] coronary artery without angina pectoris (4) GERD (gastroesophageal reflux disease) Current Visit: Yes Status: Chronic Assessment and plan: Continue omeprazole Qualifiers: Esophagitis presence: esophagitis presence not specified Qualified Code(s) : K21.9 - Gastro-esophageal reflux disease without esophagitis (5) HLD (hyperlipidemia) Current Visit: No Status: Chronic Assessment and plan: Continue simvastatin Qualifiers: Hyperlipidemia type: pure hypercholesterolemia Qualified Code(s): E78.00 - Pure hypercholesterolemia, unspecified; E78.0 - Pure hypercholesterolemia (6) HTN (hypertension) Current Visit: Yes Status: Chronic Assessment and plan: Controlled. Continue lisinopril and nifedipine Qualifiers: Hypertension type: essential hypertension Qualified Code(s): I10 - Essential (primary) hypertension (7) Hyperglycemia Current Visit: Yes Status: Acute Assessment and plan: Controlled. Continue current insulin regimen (8) Leukocytosis Current Visit: Yes Status: Acute Qualifiers: Leukocytosis type: unspecified Qualified Code(s): D72.829 - Elevated white blood cell count, unspecified (9) Acute on chronic kidney failure Current Visit: Yes Status: Resolved Qualifiers: Acute renal failure type: unspecified Chronic kidney disease stage: stage 3 (moderate) Qualified Code(s): N17.9 - Acute kidney failure, unspecified; N18.3 - Chronic kidney disease, stage 3 (moderate) (10) Wheezing Current Visit: Yes Status: Acute Assessment and plan: On bronchodilators as needed (11) DVT prophylaxis Current Visit: Yes Status: Acute Assessment and plan: With subcutaneous heparin - Time Spent With Patient Total time spent is greater than 50% in coordination of care (as documented) at patient's floor/unit and/or counseling patient: - Subjective Interval history: Patient was sitting up in chair earlier today. Tolerating clear liquid diet. No chest pain, fever or chills overnight. Passing flatus. Does have mild abdominal pain at surgical site. Well-controlled - Constitutional Vitals: Temp Pulse Resp BP Pulse Ox 98.3 F 67 15 134/69 98 03/15/18 14:28 03/15/18 14:28 03/15/18 14:28 03/15/18 14:28 03/15/18 14:28 General appearance: Present: cooperative, A&O X 3, pleasant, answers questions appropriately - ENT Additional comments: Tracheal stoma in place. - Neck Neck exam general surgery: Present: supple, trachea midline. Absent: lymphadenopathy - Respiratory Respiratory exam: Present: CTAB. Absent: accessory muscle use, rales, rhonchi, wheezes - Cardiovascular Cardiovascular exam: Present: RRR, +S1, +S2. Absent: diastolic murmur, gallop, rubs, systolic murmur - GI/Abdominal GI/Abdominal exam: Present: normal bowel sounds, soft, tenderness (At surgical incision ), no peritoneal signs. Absent: distended - Extremities Exam Extremities exam: Present: warm, radial pulses palpable and symmetrical. Absent : calf tenderness, cyanotic, pedal edema - Neurological Exam Neurological exam: Present: alert, oriented X3, no focal deficits. Absent: facial droop, speech deficit Internal Medicine: Result - Labs CBC & Chem 7: 03/15/18 05:20 03/15/18 05:20 Labs: Short CBC 03/15/18 Range/Units 05:20 WBC 13.4 H (4.3-11.1) K/mcL Hgb 9.7 L (12.9-16.9) g/dL Hct 29.3 L (37.5-50.1) % Plt Count 281 (140-400) K/mcL Neutrophils # 11.2 H (1.6-8.9) K/mcL BMP 03/15/18 05:20 Sodium 136 Potassium 3.2 L Chloride 109 H Carbon Dioxide 21 L BUN 28 H Creatinine 1.17 Glucose 189 H Calcium 8.5 L - VTE Documentation of Mechanical Device: Intermittent pneumatic compression device Consult Discharge Plan - Plan Referrals: Lacy Cristobal, BEE [Primary Care Provider] -
[2018-03-15] MEDS ORDERED: *HR* FentaNYL (PF) 100 MCG/2 ML VIAL IVP ONE (15:58)
[2018-03-15] MEDS ORDERED: Ondansetron 4 MG/2 ML VIAL IVP ONE (15:58)
[2018-03-15] MEDS ORDERED: Methylnaltrexone 12 MG/0.6 ML SYRINGE SQ ONE (16:00)
--- NOTE | 2018-03-15 16:08 | Event Note ---
Date of Encounter: 03/15/18 Time of Encounter: 16:02 Called to patient bed per primary RN re: increased abdominal pain and swelling. Pt was seen this am and reported minimal abdominal discomfort and passing flatus x1 (see resident MD note). Presently, patient reports feeling increased abdominal pain, vomiting x3, and has not passed any further gas. He reports feeling bloated. His abdominal incision was opened yesterday at the superior most area and is draining cloudy material. 2 more paola were removed at the umbilicus by this [employer]ISTR[employer] and noted purulent drainage. The areas were packed with plain gauze and covered with a dry dressing. Zosyn was started this am. The patient is recommended to have NG replaced for postoperative ileus, but refuses until after x-ray is obtained. I did reinforce that likely and NG would be required and he is agreeable if indicated. Fentayl and zofran are ordered. He is made NPO. Further recommendations pending.
[2018-03-15] MEDS ORDERED: 0.9 % Sodium Chloride 1,000 ML IVC SCH (16:15)
[2018-03-15] MEDS ORDERED: OXYCODONE Oral CONC 10 MG/0.5 ML ORAL.SYG SL PRN (16:16)
[2018-03-15] MEDS: Piperacillin/Tazobactam 3.375 GM in 0.9 % Sodium Chloride Mini Bag 100 ML IVPB SCH (17:40)
[2018-03-15] MEDS: Gabapentin 300 MG CAPSULE PO SCH (20:45)
[2018-03-15] MEDS ORDERED: Acetaminophen IV 500 MG/50 ML INFUS..BTL IVPB ONE (20:46)
[2018-03-15] MEDS ORDERED: Acetaminophen IV 1,000 MG/100 ML INFUS..BTL IVPB ONE (20:54)
[2018-03-15] MEDS ORDERED: Insulin LISPRO 300 UNITS/3 ML VIAL SQ SCH (21:00)
[2018-03-16] MEDS: Piperacillin/Tazobactam 3.375 GM in 0.9 % Sodium Chloride Mini Bag 100 ML IVPB SCH ×3 (00:41→17:11)
[2018-03-16 05:12] LABS: Basophils % 0.3 %; Eosinophils % 0.2 %; Hematocrit 30.1 % (37.5-50.1); Hemoglobin 9.9 g/dL (12.9-16.9); Immature Granulocytes % 1.1 % (0-4); Lymphocytes # 0.2 K/mcL (0.6-4.6); Lymphocytes % 2.5 %; Mean Corpuscular HGB Conc 32.9 g/dL (31.6-35.5); Mean Corpuscular Hemoglobin 30.7 pg (28.0-33.3); Mean Corpuscular Volume 93.5 fL (83.0-100.0); Mean Platelet Volume 8.6 fL (9.4-12.4); Monocytes # 0.3 K/mcL (0.0-1.3); Monocytes % 4.1 %; Platelet Count 288 K/mcL (140-400); Red Blood Count 3.22 M/mcL (4.19-5.50); Red Cell Distribution Width 14.6 % (11.5-14.5); Segmented Neutrophils % 91.8 %
[2018-03-16] MEDS: *HR* Heparin 5,000 UNIT/ML VIAL SQ SCH ×2 (05:17→18:19)
[2018-03-16 05:35] LABS: Calcium 8.2 mg/dL (8.6-10.3); Magnesium 1.8 mg/dL (1.6-2.6); Phosphorous 3.6 mg/dL (2.7-4.5)
[2018-03-16] MEDS: Levothyroxine Sodium 100 MCG VIAL IVP SCH (05:42)
[2018-03-16] MEDS: Pantoprazole 40 MG VIAL IVP SCH (05:43)
[2018-03-16 06:31] LABS: Platelet Estimate Normal (Normal); Toxic Granulation Present (Not Present)
[2018-03-16] MEDS ORDERED: Ringers Solution, Lactated 1,000 ML IVC SCH ×2 (07:45→09:48)
[2018-03-16] MEDS: Insulin LISPRO 300 UNITS/3 ML VIAL SQ SCH ×3 (07:46→20:41)
[2018-03-16] MEDS: *HR* Metoprolol 5 MG/5 ML VIAL IVP SCH ×3 (09:26→20:35)
[2018-03-16] MEDS ORDERED: Lidocaine -MPF 1% 5 ML AMPUL INFILT ONE (09:45)
--- NOTE | 2018-03-16 11:42 | General Surgery Progress Note ---
Date of Encounter: 03/16/18 Time of Encounter: 10:00 - Assessment and Plan (1) Cecal volvulus Current Visit: Yes Status: Acute POD#7 s/p exploratory laparotomy with partial right colectomy with [id number] / end-to-end anastomosis, and cholecystectomy on 03/09/18. Hx -- 77-year-old male admitted following abdominal discomfort, nausea, bowel stasis (unable to pass flatus or BM) for 3 to 4 days preceding admission. Was afebrile. CT scan data that time demonstrated cecal volvulus. Admitted on 08/2018; cardiology consulted for complicated preop clearance. Exploratory laparotomy, as well as subsequent partial right hemicolectomy with anastomosis and cholecystectomy successfully completed, thus far without complications. Plan (no changes today): - continue bowel rest; NPO but may have ice chips - NG to LIWS - given extent of overall fasting, proceeding with PICC & TPN - cont to ambulate - daily assessment of bowel status - Control pain and nausea as needed - Daily CBC/BMP; correct lytes as needed - changed FSBG & SSI back to Q6H - cont Zosyn IV (day 2) other comorbidities to be managed by hospitalist team as below (2) Ileus, postoperative Current Visit: Yes Status: Acute start reglan (3) S/P partial resection of colon Current Visit: Yes Status: Acute (4) S/P cholecystectomy Current Visit: Yes Status: Acute (5) Co-morbid condition Current Visit: Yes Status: Chronic Comorbidities include diabetes mellitus type II, hypertension, hyperlipidemia, hypothyroidism, coronary artery disease, GERD, and BPH. - mgmt per hospitalist team Subjective Patient reports: feels better, pain is less, voiding w/o difficulty, flatus, bowel movement Narrative: Patient states abdominal discomfort has significantly abated. No recurrent nausea, vomiting, bloating, distention, pain. Does continue to urinate frequently, states has had a bowel movement and gas. Requests ice chips. Afebrile overnight. Objective Vital Signs - Last 8 Hours Temp Pulse Resp BP Pulse Ox 03/16/18 06:41 100.2 F H 78 18 168/84 97 03/16/18 05:22 99.9 F H 03/16/18 04:26 100.6 F H 77 15 154/71 96 Intake and Output 03/15/18 03/16/1818 23:59 07:59 15:59 Intake Total 380 / 380 200 / 200 0 / 0 Output Total 1400 / 1400 1000 / 1000 Balance -1020 / -1020 -800 / -800 0 / 0 Intake: IV Fluids 380 / 380 200 / 200 0.9 % Sodium Chloride 1,000 ML 120 / 120 @ 50 mls/hr IVC .Q20H [facility] Rx#: [id number] Zosyn 3.375 GM In 0.9 % Sodium 200 / 200 Chloride (Mini-Bag +) 100 ML @ 25 mls/hr IVPB Q8HR [facility] Rx#: [id number] Potassium Phosphate 44 MEQ In 0 260 / 260 .9 % Sodium Chloride 250 ML @ 40 mls/hr IVPB ONCE ONE Rx#: [id number] Oral 0 / 0 0 / 0 0 / 0 Output: Urine 0 / 0 650 / 650 Gastric Drainage 1400 / 1400 350 / 350 Other: Meal NPO NPO Percent of Meal Consumed 0% Weight 61.961 kg Blood Glucose* 107 Patient Weight 03/16/18 23:59 Weight 61.961 kg VITAL SIGNS: Reviewed. See [facility] GENERAL: alert and comfortably supine in bed HEENT: [Normocephalic, oropharynx moist, NG tube in place CV: RRR RESPIRATORY: CTAB ABD: improved bowel sounds, abdomen soft, minimal tenderness over midline incision, no distention/guarding INCISION: clean, intact without purulence/bleeding/edema/rubor/calor EXTREMITY: grossly normal motor function, no pedal edema, peripheral pulses 2+ b /l NEUROLOGIC EXAM: AOx3, obeys commands, no speech deficits. PSYCHIATRIC: normal mood and affect SKIN: no gross lesions, rashes, or skin changes - Labs 03/16/18 04:46 03/16/18 04:46 Diabetes panel 03/16/18 Range/Units 04:46 Sodium 142 (136-145) mEq/L Potassium 4.0 (3.5-5.1) mEq/L Chloride 110 H (98-107) mEq/L Carbon Dioxide 18 L (23-29) mEq/L BUN 41 H (8-23) mg/dL Creatinine 1.71 H (0.70-1.30) mg/dL Glucose 143 H (70-105) mg/dL Calcium 8.2 L (8.6-10.3) mg/dL Calcium panel 03/16/18 Range/Units 04:46 Calcium 8.2 L (8.6-10.3) mg/dL Phosphorus 3.6 (2.7-4.5) mg/dL Pituitary panel 03/16/18 Range/Units 04:46 Sodium 142 (136-145) mEq/L Potassium 4.0 (3.5-5.1) mEq/L Chloride 110 H (98-107) mEq/L Carbon Dioxide 18 L (23-29) mEq/L BUN 41 H (8-23) mg/dL Creatinine 1.71 H (0.70-1.30) mg/dL Glucose 143 H (70-105) mg/dL Calcium 8.2 L (8.6-10.3) mg/dL Adrenal panel 03/16/18 Range/Units 04:46 Sodium 142 (136-145) mEq/L Potassium 4.0 (3.5-5.1) mEq/L Chloride 110 H (98-107) mEq/L Carbon Dioxide 18 L (23-29) mEq/L BUN 41 H (8-23) mg/dL Creatinine 1.71 H (0.70-1.30) mg/dL Glucose 143 H (70-105) mg/dL Calcium 8.2 L (8.6-10.3) mg/dL - VTE Documentation of Mechanical Device: Intermittent pneumatic compression device Consult Discharge Plan - Plan Referrals: Lacy Cristobal, BEE [Primary Care Provider] -
[2018-03-16] MEDS ORDERED: D10% in Water 500 ML IVC PRN (11:59)
[2018-03-16] MEDS ORDERED: Insulin LISPRO 300 UNITS/3 ML VIAL SQ SCH (12:00)
[2018-03-16] MEDS: Metoclopramide 10 MG/2 ML VIAL IVP SCH ×2 (16:29→18:19)
--- NOTE | 2018-03-16 16:34 | Internal Med Progress Note ---
Date of Encounter: 03/16/18 Time of Encounter: 11:30 - Assessment and plan (1) Cecal volvulus Current Visit: Yes Status: Acute Assessment and plan: Postop day 7. Status post exploratory laparotomy with partial right colectomy with [id number] to end anastomosis and cholecystectomy. NG tube has been placed again as patient appears to be continuing to have postoperative ileus. We will start him on TPN today. Monitor electrolytes closely as he is at high risk for refeeding syndrome. Continue supportive care. Also placed on Reglan. (2) Leukocytosis Current Visit: Yes Status: Acute Assessment and plan: Patient having low-grade fever this morning. Continue Zosyn for possible abdominal wound infection. Leukocytosis has resolved. Blood cultures were sent yesterday. So far no growth. We will continue to follow. Qualifiers: Leukocytosis type: unspecified Qualified Code(s): D72.829 - Elevated white blood cell count, unspecified (3) Acute on chronic kidney failure Current Visit: Yes Status: Acute Assessment and plan: Patient has developed acute worsening of renal function again. We will start him back on IV fluids. Avoid nephrotoxic agents. Continue to follow renal function closely. Qualifiers: Acute renal failure type: unspecified Chronic kidney disease stage: stage 3 (moderate) Qualified Code(s): N17.9 - Acute kidney failure, unspecified; N18.3 - Chronic kidney disease, stage 3 (moderate) (4) Hypothyroidism Current Visit: Yes Status: Chronic Assessment and plan: Continue levothyroxine Qualifiers: Hypothyroidism type: unspecified Qualified Code(s): E03.9 - Hypothyroidism , unspecified (5) Coronary artery disease Current Visit: Yes Status: Chronic Assessment and plan: Will hold aspirin and Plavix again as patient is nothing by mouth Qualifiers: Coronary Disease-Associated Artery/Lesion type: [place] artery [place] vs. transplanted heart: [place] heart Associated angina: angina presence unspecified Qualified Code(s): I25.10 - Atherosclerotic heart disease of [place] coronary artery without angina pectoris (6) GERD (gastroesophageal reflux disease) Current Visit: Yes Status: Chronic Assessment and plan: Placed back on PPI intravenously Qualifiers: Esophagitis presence: esophagitis presence not specified Qualified Code(s) : K21.9 - Gastro-esophageal reflux disease without esophagitis (7) HLD (hyperlipidemia) Current Visit: No Status: Chronic Assessment and plan: Hold statin for now Qualifiers: Hyperlipidemia type: pure hypercholesterolemia Qualified Code(s): E78.00 - Pure hypercholesterolemia, unspecified; E78.0 - Pure hypercholesterolemia (8) HTN (hypertension) Current Visit: Yes Status: Chronic Assessment and plan: Will place him on Lopressor intravenously every 6 hours Qualifiers: Hypertension type: essential hypertension Qualified Code(s): I10 - Essential (primary) hypertension (9) Hyperglycemia Current Visit: Yes Status: Acute Assessment and plan: Blood sugars are controlled (10) Wheezing Current Visit: Yes Status: Acute Assessment and plan: Continue bronchodilators as needed (11) DVT prophylaxis Current Visit: Yes Status: Acute Assessment and plan: On subcutaneous heparin - Time Spent With Patient Total time spent is greater than 50% in coordination of care (as documented) at patient's floor/unit and/or counseling patient: - Subjective Interval history: Patient developed the abdominal pain last evening and NG tube was placed back in after he was found to have dilated bowel loops. No signs of obstruction. Has continued to have bilious drainage since then. Feels somewhat better. He is sad that he had to have the NG tube placed back in. Has not had bowel movement today. - Constitutional Vitals: Temp Pulse Resp BP Pulse Ox 100.4 F H 84 16 120/88 95 03/16/18 16:01 03/16/18 16:01 03/16/18 16:01 03/16/18 16:01 03/16/18 16:01 General appearance: Present: cooperative, mild distress, A&O X 3, pleasant, answers questions appropriately - ENT Additional comments: NG tube in place. Tracheostomy in place - Neck Neck exam general surgery: Present: supple, trachea midline. Absent: lymphadenopathy - Respiratory Respiratory exam: Present: CTAB. Absent: accessory muscle use, rales, rhonchi, wheezes - Cardiovascular Cardiovascular exam: Present: RRR, +S1, +S2. Absent: diastolic murmur, gallop, rubs, systolic murmur - GI/Abdominal GI/Abdominal exam: Present: diminished bowel sounds, distended, soft, tenderness (At surgical incision site), no peritoneal signs - Extremities Exam Extremities exam: Present: warm, radial pulses palpable and symmetrical. Absent : calf tenderness, cyanotic, pedal edema - Neurological Exam Neurological exam: Present: alert, CN II-XII intact, oriented X3, no focal deficits. Absent: speech deficit Internal Medicine: Result - Labs CBC & Chem 7: 03/16/18 04:46 03/16/18 04:46 Labs: Short CBC 03/16/18 Range/Units 04:46 WBC 6.5 D (4.3-11.1) K/mcL Hgb 9.9 L (12.9-16.9) g/dL Hct 30.1 L (37.5-50.1) % Plt Count 288 (140-400) K/mcL Neutrophils # 6.0 (1.6-8.9) K/mcL BMP 03/16/18 04:46 Sodium 142 Potassium 4.0 Chloride 110 H Carbon Dioxide 18 L BUN 41 H Creatinine 1.71 H Glucose 143 H Calcium 8.2 L - VTE Documentation of Mechanical Device: Intermittent pneumatic compression device Consult Discharge Plan - Plan Referrals: Lacy Cristobal, BEE [Primary Care Provider] -
[2018-03-16] MEDS ORDERED: Clinimix E 5%-15% SOLUTION 2,000 ML with MVI, adult with vitamin K 10 ML IVC SCH (17:00)
[2018-03-16] MEDS: Ringers Solution, Lactated 1,000 ML IVC SCH (18:19)
[2018-03-17] MEDS: Piperacillin/Tazobactam 3.375 GM in 0.9 % Sodium Chloride Mini Bag 100 ML IVPB SCH ×4 (00:02→23:50)
[2018-03-17] MEDS: Metoclopramide 10 MG/2 ML VIAL IVP SCH ×5 (00:07→23:50)
[2018-03-17] MEDS: Insulin LISPRO 300 UNITS/3 ML VIAL SQ SCH ×7 (00:08→23:50)
[2018-03-17] MEDS: *HR* Metoprolol 5 MG/5 ML VIAL IVP SCH ×4 (04:06→20:35)
[2018-03-17 04:28] LABS: Basophils % 0.3 %; Eosinophils # 0.1 K/mcL (0.0-0.6); Eosinophils % 1.6 %; Hematocrit 27.8 % (37.5-50.1); Hemoglobin 9.5 g/dL (12.9-16.9); Immature Granulocytes % 0.8 % (0-4); Lymphocytes # 0.4 K/mcL (0.6-4.6); Lymphocytes % 5.4 %; Mean Corpuscular HGB Conc 34.2 g/dL (31.6-35.5); Mean Corpuscular Hemoglobin 32.4 pg (28.0-33.3); Mean Corpuscular Volume 94.9 fL (83.0-100.0); Mean Platelet Volume 8.7 fL (9.4-12.4); Monocytes # 0.5 K/mcL (0.0-1.3); Monocytes % 6.6 %; Neutrophils # 6.4 K/mcL (1.6-8.9); Platelet Count 267 K/mcL (140-400); Red Blood Count 2.93 M/mcL (4.19-5.50); Red Cell Distribution Width 14.7 % (11.5-14.5); Segmented Neutrophils % 85.3 %
[2018-03-17 04:51] LABS: Calcium 8.3 mg/dL (8.6-10.3); Magnesium 2.1 mg/dL (1.6-2.6); Phosphorous 2.1 mg/dL (2.7-4.5); Potassium 3.6 mEq/L (3.5-5.1)
[2018-03-17 04:58] LABS: Platelet Estimate Normal (Normal)
[2018-03-17] MEDS: Levothyroxine Sodium 100 MCG VIAL IVP SCH (05:46)
[2018-03-17] MEDS: *HR* Heparin 5,000 UNIT/ML VIAL SQ SCH ×2 (05:46→18:23)
[2018-03-17] MEDS: Pantoprazole 40 MG VIAL IVP SCH (05:46)
--- NOTE | 2018-03-17 10:50 | General Surgery Progress Note ---
<Mele Morataya - Last Filed: 03/17/18 15:34> Date of Encounter: 03/17/18 Time of Encounter: 07:30 - Assessment and Plan (1) Cecal volvulus Current Visit: Yes Status: Acute POD#8 s/p exploratory laparotomy with partial right colectomy with [id number] / end-to-end anastomosis, and cholecystectomy on 03/09/18. Hx -- 77-year-old male admitted following abdominal discomfort, nausea, bowel stasis (unable to pass flatus or BM) for 3 to 4 days preceding admission. Was afebrile. CT scan data that time demonstrated cecal volvulus. Admitted on 08/2018; cardiology consulted for complicated preop clearance. Exploratory laparotomy, as well as subsequent partial right hemicolectomy with anastomosis and cholecystectomy successfully completed, thus far without complications. - Daily wound care dressings. - Changed NG tube from wall suction to gravity. - Advanced diet to clear liquids. - Continue TPN. - daily assessment of bowel status - Control pain and nausea as needed - Daily CBC/BMP; correct lytes as needed - Continue zosyn Day #3. (2) Ileus, postoperative Current Visit: Yes Status: Acute Continue reglan. (3) S/P partial resection of colon Current Visit: Yes Status: Acute (4) S/P cholecystectomy Current Visit: Yes Status: Acute (5) Co-morbid condition Current Visit: Yes Status: Chronic Comorbidities include diabetes mellitus type II, hypertension, hyperlipidemia, hypothyroidism, coronary artery disease, GERD, and BPH. - mgmt per hospitalist team Subjective Narrative: Patient says that yesterday morning he experienced some abdominal discomfort but says that today it has resolved. He denies any nausea or vomiting. Denies any fever or chills. Denies any chest pain or shortness of breath. Admits to having a bowel movement but denies any hematochezia or melena. Objective VITAL SIGNS: Reviewed. See [facility] GENERAL: No apparent distress. HEENT: [Normocephalic, PER, EOMi, oropharynx pink/moist, no JVD noted.] CV: b/l rad pulses 2+, RRR, no murmurs or gallops, no JVD RESPIRATORY: CTAB without wheezes, rales, or rhonchi ABD: soft, non-tender, no rebound/guarding/rigidity, no peritoneal signs INCISION: Abdominal incision bandages displayed some serosanguineous drainage however and no active or drainage from incision with palpation, intact without purulence/bleeding/edema/rubor/calor DRAINS: NG tube intact. EXTREMITY: grossly normal motor function, no pedal edema, peripheral pulses 2+ b /l NEUROLOGIC EXAM: AOx3, obeys commands, no speech deficits. PSYCHIATRIC: normal mood and affect SKIN: no gross lesions, rashes, or skin changes Vital Signs - Last 8 Hours Temp Pulse Resp BP Pulse Ox 03/17/18 07:49 98.9 F 72 20 160/83 96 03/17/18 03:57 98.5 F 79 16 142/68 97 Intake and Output 03/16/18 03/17/18 03/17/18 23:59 07:59 15:59 Intake Total 100 / 100 100 / 100 Output Total 150 / 150 150 / 150 Balance -50 / -50 -50 / -50 Intake: IV Fluids 100 / 100 100 / 100 Zosyn 3.375 GM In 0.9 % Sodium 100 / 100 100 / 100 Chloride (Mini-Bag +) 100 ML @ 25 mls/hr IVPB Q8HR [facility] Rx#: [id number] Oral 0 / 0 0 / 0 Output: Urine 150 / 150 Gastric Drainage 150 / 150 Other: Stool Size Small Moderate Stool Consistency liquid loose Stool Color Black Black # Bowel Movements 1 # Bowel Movement Diapers 1 1 Weight 61.734 kg Blood Glucose* 183 192 Patient Weight 03/17/18 23:59 Weight 61.734 kg - Labs 03/17/18 04:01 03/17/18 04:01 Diabetes panel 03/17/18 03/17/18 Range/Units 04:01 04:01 Sodium 145 (136-145) mEq/L Potassium 3.6 (3.5-5.1) mEq/L Chloride 117 H (98-107) mEq/L Carbon Dioxide 21 L (23-29) mEq/L BUN 41 H (8-23) mg/dL Creatinine 1.65 H (0.70-1.30) mg/dL Glucose 165 H (70-105) mg/dL Calcium 8.3 L (8.6-10.3) mg/dL Triglycerides 226 H (< 150) mg/dL Calcium panel 03/17/18 Range/Units 04:01 Calcium 8.3 L (8.6-10.3) mg/dL Phosphorus 2.1 L (2.7-4.5) mg/dL Pituitary panel 03/17/18 Range/Units 04:01 Sodium 145 (136-145) mEq/L Potassium 3.6 (3.5-5.1) mEq/L Chloride 117 H (98-107) mEq/L Carbon Dioxide 21 L (23-29) mEq/L BUN 41 H (8-23) mg/dL Creatinine 1.65 H (0.70-1.30) mg/dL Glucose 165 H (70-105) mg/dL Calcium 8.3 L (8.6-10.3) mg/dL Adrenal panel 03/17/18 Range/Units 04:01 Sodium 145 (136-145) mEq/L Potassium 3.6 (3.5-5.1) mEq/L Chloride 117 H (98-107) mEq/L Carbon Dioxide 21 L (23-29) mEq/L BUN 41 H (8-23) mg/dL Creatinine 1.65 H (0.70-1.30) mg/dL Glucose 165 H (70-105) mg/dL Calcium 8.3 L (8.6-10.3) mg/dL - VTE Documentation of Mechanical Device: Intermittent pneumatic compression device Consult Discharge Plan - Plan Referrals: Lacy Cristobal, [employer] [Primary Care Provider] - <Annita Jackman - Last Filed: 03/17/18 15:55> Date of Encounter: 03/17/18 Time of Encounter: 11:05 - Assessment and Plan (1) Ileus, postoperative Current Visit: Yes Status: Acute improving, start clears (2) S/P partial resection of colon Current Visit: Yes Status: Acute patient s/p right colectomy for cecal volvulus passing flatus and has small bm ngt to chang and clears given, if tolerates will remove ngt prn pain control ivf hydration ambulation/OOB to chair with all meals aggressive pulmonary toilet Subjective Patient reports: no new complaints, feels better, still having pain, pain is less, flatus, bowel movement, afebrile Objective Vital Signs - Last 8 Hours Temp Pulse Resp BP Pulse Ox 03/17/18 11:39 99.1 F 73 18 159/84 93 Intake and Output 03/16/18 03/17/18 03/17/18 23:59 07:59 15:59 Intake Total 100 / 100 100 / 100 1000 / 1000 Output Total 150 / 150 150 / 150 300 / 300 Balance -50 / -50 -50 / -50 700 / 700 Intake: IV Fluids 100 / 100 100 / 100 1000 / 1000 Lactated Ringers 1,000 ML @ 55 1000 / 1000 mls/hr IVC .[id number] [facility] Rx#: [id number] Zosyn 3.375 GM In 0.9 % Sodium 100 / 100 100 / 100 Chloride (Mini-Bag +) 100 ML @ 25 mls/hr IVPB Q8HR [facility] Rx#: [id number] Oral 0 / 0 0 / 0 Output: Urine 150 / 150 300 / 300 Gastric Drainage 150 / 150 Other: Stool Size Small Moderate Stool Consistency liquid loose Stool Color Black Black # Bowel Movements 1 # Bowel Movement Diapers 1 1 Weight 61.734 kg Blood Glucose* 183 192 138 Patient Weight 03/17/18 23:59 Weight 61.734 kg - General physical appearance well developed, well nourished, no distress - Eyes PERRL, normal ocular movement - ENT normal mucosa, normocephalic - Neck Neck exam: trachea midline - Cardiovascular Cardiovascular exam: Present: RRR - Abdomen Abdomen: Present: bowel sounds present, soft, tender (appropriate post op tenderness). Absent: distended, guarding, rebound - Incision Incision: Present: clean and dry, intact, open (packed superiorly) - Integumentary no rash, no growths - Neurologic normal coordination - Musculoskeletal normal posture - Psychiatric oriented to time, oriented to person, oriented to place, speech is normal, memory intact - Labs 03/17/18 04:01 03/17/18 04:01 Diabetes panel 03/17/18 03/17/18 Range/Units 04:01 04:01 Sodium 145 (136-145) mEq/L Potassium 3.6 (3.5-5.1) mEq/L Chloride 117 H (98-107) mEq/L Carbon Dioxide 21 L (23-29) mEq/L BUN 41 H (8-23) mg/dL Creatinine 1.65 H (0.70-1.30) mg/dL Glucose 165 H (70-105) mg/dL Calcium 8.3 L (8.6-10.3) mg/dL Triglycerides 226 H (< 150) mg/dL Calcium panel 03/17/18 Range/Units 04:01 Calcium 8.3 L (8.6-10.3) mg/dL Phosphorus 2.1 L (2.7-4.5) mg/dL Pituitary panel 03/17/18 Range/Units 04:01 Sodium 145 (136-145) mEq/L Potassium 3.6 (3.5-5.1) mEq/L Chloride 117 H (98-107) mEq/L Carbon Dioxide 21 L (23-29) mEq/L BUN 41 H (8-23) mg/dL Creatinine 1.65 H (0.70-1.30) mg/dL Glucose 165 H (70-105) mg/dL Calcium 8.3 L (8.6-10.3) mg/dL Adrenal panel 03/17/18 Range/Units 04:01 Sodium 145 (136-145) mEq/L Potassium 3.6 (3.5-5.1) mEq/L Chloride 117 H (98-107) mEq/L Carbon Dioxide 21 L (23-29) mEq/L BUN 41 H (8-23) mg/dL Creatinine 1.65 H (0.70-1.30) mg/dL Glucose 165 H (70-105) mg/dL Calcium 8.3 L (8.6-10.3) mg/dL Vital Signs Temp Pulse Resp BP Pulse Ox 03/17/18 11:39 99.1 F 73 18 159/84 93 03/17/18 07:49 98.9 F 72 20 160/83 96 03/17/18 03:57 98.5 F 79 16 142/68 97 03/16/18 23:40 97.6 F 73 15 133/70 96 03/16/18 20:41 95 03/16/18 19:19 99.9 F H 91 16 120/69 95 03/16/18 16:01 100.4 F H 84 16 120/88 95 Intake and Output 03/16/18 03/17/18 03/17/18 23:59 07:59 15:59 Intake Total 100 / 100 100 / 100 1000 / 1000 Output Total 150 / 150 150 / 150 300 / 300 Balance -50 / -50 -50 / -50 700 / 700 Intake: IV Fluids 100 / 100 100 / 100 1000 / 1000 Lactated Ringers 1,000 ML @ 55 1000 / 1000 mls/hr IVC .[id number] [facility] Rx#: [id number] Zosyn 3.375 GM In 0.9 % Sodium 100 / 100 100 / 100 Chloride (Mini-Bag +) 100 ML @ 25 mls/hr IVPB Q8HR [facility] Rx#: [id number] Oral 0 / 0 0 / 0 Output: Urine 150 / 150 300 / 300 Gastric Drainage 150 / 150 Other: Stool Size Small Moderate Stool Consistency liquid loose Stool Color Black Black # Bowel Movements 1 # Bowel Movement Diapers 1 1 Weight 61.734 kg Blood Glucose* 183 192 138 Patient Weight 03/17/18 23:59 Weight 61.734 kg - Attending Attestation I examined this patient and my medical decision-making was reviewed with the Resident Physician. I agree with the documented findings, disposition and treatment plan as described except to the extent set forth below.
[2018-03-17] MEDS: Ringers Solution, Lactated 1,000 ML IVC SCH (13:21)
--- NOTE | 2018-03-17 14:38 | Internal Med Progress Note ---
Date of Encounter: 03/17/18 Time of Encounter: 14:35 - Assessment and plan (1) Cecal volvulus Current Visit: Yes Status: Acute Assessment and plan: Postop day 8. Status post exploratory laparotomy with partial right colectomy with vkos-xs-[id number] to end anastomosis and cholecystectomy. NG tube in place. Overall patient is feeling better today. Continue TPN. Follow surgery recommendations regarding nasogastric tube and diet. (2) Leukocytosis Current Visit: Yes Status: Resolved Assessment and plan: on Zosyn for abdominal wound infection. Improving. Leukocytosis has now resolved. Qualifiers: Leukocytosis type: unspecified Qualified Code(s): D72.829 - Elevated white blood cell count, unspecified (3) Acute on chronic kidney failure Current Visit: Yes Status: Acute Assessment and plan: renal function is improved. Cr 1.65 today. Continue to monitor renal function. COntinue IV hydration Qualifiers: Acute renal failure type: unspecified Chronic kidney disease stage: stage 3 (moderate) Qualified Code(s): N17.9 - Acute kidney failure, unspecified; N18.3 - Chronic kidney disease, stage 3 (moderate) (4) Hypothyroidism Current Visit: Yes Status: Chronic Assessment and plan: Continue levothyroxine. Qualifiers: Hypothyroidism type: unspecified Qualified Code(s): E03.9 - Hypothyroidism , unspecified (5) Coronary artery disease Current Visit: Yes Status: Chronic Assessment and plan: Holding ASA and plavix. No chest pain. No acute issues. Qualifiers: Coronary Disease-Associated Artery/Lesion type: [place] artery [place] vs. transplanted heart: [place] heart Associated angina: angina presence unspecified Qualified Code(s): I25.10 - Atherosclerotic heart disease of [place] coronary artery without angina pectoris (6) GERD (gastroesophageal reflux disease) Current Visit: Yes Status: Chronic Assessment and plan: Continue protonix. Qualifiers: Esophagitis presence: esophagitis presence not specified Qualified Code(s) : K21.9 - Gastro-esophageal reflux disease without esophagitis (7) HLD (hyperlipidemia) Current Visit: No Status: Chronic Qualifiers: Hyperlipidemia type: pure hypercholesterolemia Qualified Code(s): E78.00 - Pure hypercholesterolemia, unspecified; E78.0 - Pure hypercholesterolemia (8) HTN (hypertension) Current Visit: Yes Status: Chronic Assessment and plan: Blood pressure better controlled. Continue Lopressor intravenously. Qualifiers: Hypertension type: essential hypertension Qualified Code(s): I10 - Essential (primary) hypertension (9) Hyperglycemia Current Visit: Yes Status: Acute Assessment and plan: Controlled. Continue current insulin regimen (10) Wheezing Current Visit: Yes Status: Acute (11) DVT prophylaxis Current Visit: Yes Status: Acute Assessment and plan: on subcutaneous heparin - Time Spent With Patient Total time spent is greater than 50% in coordination of care (as documented) at patient's floor/unit and/or counseling patient: - Subjective Interval history: Reason still has NG tube in place. Passing flatus and having bowel movements. NG tube has drained about 150 ml today so far. Abdominal pain has improved. Overall he feels much better. - Constitutional Vitals: Temp Pulse Resp BP Pulse Ox 99.1 F 73 18 159/84 93 03/17/18 11:39 03/17/18 11:39 03/17/18 11:39 03/17/18 11:39 03/17/18 11:39 General appearance: Present: cooperative, mild distress, A&O X 3, pleasant, answers questions appropriately - ENT Additional comments: NG tube in place. Draining bilious liquid - Neck Neck exam general surgery: Present: supple, trachea midline. Absent: lymphadenopathy - Cardiovascular Cardiovascular exam: Present: RRR, +S1, +S2. Absent: diastolic murmur, gallop, rubs, systolic murmur - GI/Abdominal GI/Abdominal exam: Present: normal bowel sounds, soft, no peritoneal signs. Absent: distended, tenderness - Extremities Exam Extremities exam: Present: warm, radial pulses palpable and symmetrical. Absent : calf tenderness, cyanotic, pedal edema - Neurological Exam Neurological exam: Present: alert, CN II-XII intact, oriented X3, no focal deficits. Absent: facial droop, speech deficit - Skin Skin exam: Present: dry, intact Internal Medicine: Result - Labs CBC & Chem 7: 03/17/18 04:01 03/17/18 04:01 Labs: Short CBC 03/17/18 Range/Units 04:01 WBC 7.5 (4.3-11.1) K/mcL Hgb 9.5 L (12.9-16.9) g/dL Hct 27.8 L (37.5-50.1) % Plt Count 267 (140-400) K/mcL Neutrophils # 6.4 (1.6-8.9) K/mcL BMP 03/17/18 04:01 Sodium 145 Potassium 3.6 Chloride 117 H Carbon Dioxide 21 L BUN 41 H Creatinine 1.65 H Glucose 165 H Calcium 8.3 L - VTE Documentation of Mechanical Device: Intermittent pneumatic compression device Consult Discharge Plan - Plan Referrals: Lacy Cristobal, BEE [Primary Care Provider] -
[2018-03-17] MEDS ORDERED: Clinimix E 5%-15% SOLUTION 2,000 ML with MVI, adult with vitamin K 10 ML IVC SCH (17:00)
[2018-03-18] MEDS: *HR* Metoprolol 5 MG/5 ML VIAL IVP SCH ×2 (03:53→09:17)
[2018-03-18] MEDS: Insulin LISPRO 300 UNITS/3 ML VIAL SQ SCH ×5 (03:54→20:20)
[2018-03-18 04:10] LABS: Basophils % 0.3 %; Eosinophils # 0.2 K/mcL (0.0-0.6); Eosinophils % 2.3 %; Hematocrit 25.2 % (37.5-50.1); Hemoglobin 8.6 g/dL (12.9-16.9); Immature Granulocytes % 1.3 % (0-4); Lymphocytes # 0.5 K/mcL (0.6-4.6); Lymphocytes % 6.3 %; Mean Corpuscular HGB Conc 34.1 g/dL (31.6-35.5); Mean Corpuscular Hemoglobin 32.2 pg (28.0-33.3); Mean Corpuscular Volume 94.4 fL (83.0-100.0); Mean Platelet Volume 8.8 fL (9.4-12.4); Monocytes # 0.4 K/mcL (0.0-1.3); Monocytes % 4.7 %; Neutrophils # 6.6 K/mcL (1.6-8.9); Platelet Count 233 K/mcL (140-400); Red Blood Count 2.67 M/mcL (4.19-5.50); Red Cell Distribution Width 14.6 % (11.5-14.5); Segmented Neutrophils % 85.1 %
[2018-03-18 04:29] LABS: BUN/Creatinine Ratio 21 (6-26); Blood Urea Nitrogen 28 mg/dL (8-23); Calcium 7.8 mg/dL (8.6-10.3); Carbon Dioxide 21 mEq/L (23-29); Chloride 115 mEq/L (98-107); Glucose 214 mg/dL (70-105); Magnesium 1.8 mg/dL (1.6-2.6); Osmolality,Calculated 308 (280-300); Phosphorous 2.5 mg/dL (2.7-4.5); Platelet Estimate Normal (Normal); Sodium 143 mEq/L (136-145); eGFR For African Americans > 60 (> 60); eGFR For Non-African Americans 52 (> 60)
[2018-03-18] MEDS: Levothyroxine Sodium 100 MCG VIAL IVP SCH (06:06)
[2018-03-18] MEDS: Metoclopramide 10 MG/2 ML VIAL IVP SCH ×3 (06:07→17:47)
[2018-03-18] MEDS: Pantoprazole 40 MG VIAL IVP SCH (06:07)
[2018-03-18] MEDS: *HR* Heparin 5,000 UNIT/ML VIAL SQ SCH ×2 (06:07→17:47)
[2018-03-18] MEDS: Piperacillin/Tazobactam 3.375 GM in 0.9 % Sodium Chloride Mini Bag 100 ML IVPB SCH ×2 (07:28→17:51)
[2018-03-18] MEDS ORDERED: Potassium Chloride 40 MEQ, Lidocaine 1% 2 ML in D5% in Water 500 ML IVPB ONE (08:41)
[2018-03-18] MEDS: Ringers Solution, Lactated 1,000 ML IVC SCH ×2 (10:41→20:21)
--- NOTE | 2018-03-18 11:17 | Internal Med Progress Note ---
Date of Encounter: 03/18/18 Time of Encounter: 11:15 - Assessment and plan (1) Cecal volvulus Current Visit: Yes Status: Acute Assessment and plan: Postop day 9. Status post exploratory laparotomy with partial right colectomy with [id number] to end anastomosis and cholecystectomy. NG tube in place. Tolerating clear liquid diet well. Surgery following. Advance diet slowly per surgery recommendations. Continue TPN. We will replace electrolytes and monitor for refeeding syndrome. Nutrition following. (2) Leukocytosis Current Visit: Yes Status: Resolved Assessment and plan: From local wound infection involving abdominal incision site. Now resolved Qualifiers: Leukocytosis type: unspecified Qualified Code(s): D72.829 - Elevated white blood cell count, unspecified (3) Acute on chronic kidney failure Current Visit: Yes Status: Acute Assessment and plan: Improving. Continue IV hydration. Qualifiers: Acute renal failure type: unspecified Chronic kidney disease stage: stage 3 (moderate) Qualified Code(s): N17.9 - Acute kidney failure, unspecified; N18.3 - Chronic kidney disease, stage 3 (moderate) (4) Hypothyroidism Current Visit: Yes Status: Chronic Assessment and plan: Continue levothyroxine intravenously Qualifiers: Hypothyroidism type: unspecified Qualified Code(s): E03.9 - Hypothyroidism , unspecified (5) Coronary artery disease Current Visit: Yes Status: Chronic Assessment and plan: Currently holding aspirin and Plavix. We will resume when patient is able to take oral meds Qualifiers: Coronary Disease-Associated Artery/Lesion type: [place] artery [place] vs. transplanted heart: [place] heart Associated angina: angina presence unspecified Qualified Code(s): I25.10 - Atherosclerotic heart disease of [place] coronary artery without angina pectoris (6) GERD (gastroesophageal reflux disease) Current Visit: Yes Status: Chronic Assessment and plan: continue IV PPI Qualifiers: Esophagitis presence: esophagitis presence not specified Qualified Code(s) : K21.9 - Gastro-esophageal reflux disease without esophagitis (7) HLD (hyperlipidemia) Current Visit: No Status: Chronic Assessment and plan: Holding simvastatin for now and will resume when patient is able to take oral meds Qualifiers: Hyperlipidemia type: pure hypercholesterolemia Qualified Code(s): E78.00 - Pure hypercholesterolemia, unspecified; E78.0 - Pure hypercholesterolemia (8) HTN (hypertension) Current Visit: Yes Status: Chronic Assessment and plan: Blood pressure elevated. Will continue Lopressor 10 mg every 6 hours intravenously. We will also place patient on IV hydralazine as needed for systolic blood pressure greater than 160. Qualifiers: Hypertension type: essential hypertension Qualified Code(s): I10 - Essential (primary) hypertension (9) Hyperglycemia Current Visit: Yes Status: Acute Assessment and plan: Continue sliding scale insulin (10) Wheezing Current Visit: Yes Status: Acute Assessment and plan: On bronchodilators as needed (11) DVT prophylaxis Current Visit: Yes Status: Acute Assessment and plan: Continue subcutaneous heparin - Time Spent With Patient Total time spent is greater than 50% in coordination of care (as documented) at patient's floor/unit and/or counseling patient: - Subjective Interval history: Patient tolerating clear liquids well. Has bilious nasogastric tube drainage. Abdominal pain improving. No fever or chills reported overnight. Tolerating TPN. - Constitutional Vitals: Temp Pulse Resp BP Pulse Ox 99.9 F H 76 20 173/85 93 03/18/18 08:00 03/18/18 08:00 03/18/18 08:00 03/18/18 08:00 03/18/18 08:00 General appearance: Present: cooperative, mild distress, A&O X 3, pleasant, answers questions appropriately - ENT Additional comments: NG tube in place. Tracheal stoma in place. Clean margins. - Neck Neck exam general surgery: Present: supple, trachea midline. Absent: lymphadenopathy - Respiratory Respiratory exam: Present: CTAB. Absent: accessory muscle use, rales, rhonchi, wheezes - Cardiovascular Cardiovascular exam: Present: RRR, +S1, +S2. Absent: diastolic murmur, gallop, rubs, systolic murmur - GI/Abdominal GI/Abdominal exam: Present: normal bowel sounds, soft, no peritoneal signs. Absent: distended, tenderness Additional comments: Abdominal incision and paola in place. No discharge noted today. - Extremities Exam Extremities exam: Present: warm, radial pulses palpable and symmetrical. Absent : calf tenderness, cyanotic, pedal edema - Neurological Exam Neurological exam: Present: CN II-XII intact, oriented X3, no focal deficits. Absent: facial droop, speech deficit Internal Medicine: Result - Labs CBC & Chem 7: 03/18/18 04:00 03/18/18 04:00 Labs: Short CBC 03/18/18 Range/Units 04:00 WBC 7.8 (4.3-11.1) K/mcL Hgb 8.6 L (12.9-16.9) g/dL Hct 25.2 L (37.5-50.1) % Plt Count 233 (140-400) K/mcL Neutrophils # 6.6 (1.6-8.9) K/mcL BMP 03/18/18 04:00 Sodium 143 Potassium 3.0 L Chloride 115 H Carbon Dioxide 21 L BUN 28 H Creatinine 1.34 H Glucose 214 H Calcium 7.8 L - VTE Documentation of Mechanical Device: Intermittent pneumatic compression device Consult Discharge Plan - Plan Referrals: Lacy Cristobal CNP [Primary Care Provider] -
--- NOTE | 2018-03-18 15:34 | General Surgery Progress Note ---
Date of Encounter: 03/18/18 Time of Encounter: 15:32 - Assessment and Plan (1) Ileus, postoperative Current Visit: Yes Status: Acute tolerated clears, start fulls (2) S/P partial resection of colon Current Visit: Yes Status: Acute patient s/p right colectomy for cecal volvulus passing flatus and has small bm advance to fulls prn pain control ivf hydration ambulation/OOB to chair with all meals aggressive pulmonary toilet (3) Acute kidney injury Current Visit: Yes Status: Acute improving Subjective Patient reports: no new complaints, feels better, tolerating liquids well, flatus, bowel movement, afebrile Objective Vital Signs - Last 8 Hours Temp Pulse Resp BP Pulse Ox 03/18/18 12:00 100 F H 78 16 172/83 96 03/18/18 08:00 99.9 F H 76 20 173/85 93 Intake and Output 03/17/18 03/18/18 03/18/18 23:59 07:59 15:59 Intake Total 680 / 680 1750 / 1750 600 / 600 Output Total 650 / 650 200 / 200 1025 / 1025 Balance 30 / 30 1550 / 1550 -425 / -425 Intake: IV Fluids 100 / 100 1350 / 1350 Lactated Ringers 1,000 ML @ 55 1000 / 1000 mls/hr IVC .[id number] [facility] Rx#: [id number] Intralipid 20% 250 ML @ 21 mls/ 250 / 250 hr IVPB DAILY@1700 [facility] Rx#: [id number] Zosyn 3.375 GM In 0.9 % Sodium 100 / 100 100 / 100 Chloride (Mini-Bag +) 100 ML @ 25 mls/hr IVPB Q8HR [facility] Rx#: [id number] Oral 580 / 580 400 / 400 600 / 600 Output: Urine 500 / 500 200 / 200 500 / 500 Gastric Drainage 150 / 150 525 / 525 Other: Meal Dinner Stool Size Smear Stool Characteristics Mucoid Stool Color Brown Weight 61.598 kg Blood Glucose* 149 189 154 Patient Weight 03/18/18 23:59 Weight 61.598 kg - General physical appearance well developed, well nourished, no distress - Eyes PERRL, normal ocular movement - ENT normal mucosa, normocephalic - Neck Neck exam: trachea midline (tracheostomy) - Respiratory normal expansion, clear to auscultation - Cardiovascular Cardiovascular exam: Present: RRR - Abdomen Abdomen: Present: bowel sounds present, soft, tender (minimal post op tenderness ) - Incision Incision: Present: clean and dry, intact - Integumentary no rash, no growths - Neurologic CN 2-12 grossly intact - Musculoskeletal normal posture - Psychiatric oriented to time, oriented to person, memory intact - Labs 03/18/18 04:00 03/18/18 04:00 Short CBC 03/18/18 Range/Units 04:00 WBC 7.8 (4.3-11.1) K/mcL Hgb 8.6 L (12.9-16.9) g/dL Hct 25.2 L (37.5-50.1) % Plt Count 233 (140-400) K/mcL Neutrophils # 6.6 (1.6-8.9) K/mcL BMP 03/18/18 Range/Units 04:00 Sodium 143 (136-145) mEq/L Potassium 3.0 L (3.5-5.1) mEq/L Chloride 115 H (98-107) mEq/L Carbon Dioxide 21 L (23-29) mEq/L BUN 28 H (8-23) mg/dL Creatinine 1.34 H (0.70-1.30) mg/dL Glucose 214 H (70-105) mg/dL Calcium 7.8 L (8.6-10.3) mg/dL Vital Signs Temp Pulse Resp BP Pulse Ox 03/18/18 12:00 100 F H 78 16 172/83 96 03/18/18 08:00 99.9 F H 76 20 173/85 93 03/18/18 03:59 98.7 F 77 16 162/80 94 03/17/18 23:50 99.5 F 74 17 173/86 90 03/17/18 20:11 98.9 F 76 18 159/82 91 Intake and Output 03/17/18 03/18/18 03/18/18 23:59 07:59 15:59 Intake Total 680 / 680 1750 / 1750 600 / 600 Output Total 650 / 650 200 / 200 1025 / 1025 Balance 30 / 30 1550 / 1550 -425 / -425 Intake: IV Fluids 100 / 100 1350 / 1350 Lactated Ringers 1,000 ML @ 55 1000 / 1000 mls/hr IVC .[id number] [facility] Rx#: [id number] Intralipid 20% 250 ML @ 21 mls/ 250 / 250 hr IVPB DAILY@1700 [facility] Rx#: [id number] Zosyn 3.375 GM In 0.9 % Sodium 100 / 100 100 / 100 Chloride (Mini-Bag +) 100 ML @ 25 mls/hr IVPB Q8HR [facility] Rx#: [id number] Oral 580 / 580 400 / 400 600 / 600 Output: Urine 500 / 500 200 / 200 500 / 500 Gastric Drainage 150 / 150 525 / 525 Other: Meal Dinner Stool Size Smear Stool Characteristics Mucoid Stool Color Brown Weight 61.598 kg Blood Glucose* 149 189 154 Patient Weight 03/18/18 23:59 Weight 61.598 kg - VTE Documentation of Mechanical Device: Intermittent pneumatic compression device Consult Discharge Plan - Plan Referrals: Lacy Cristobal, [facility] SPECIALIST [Primary Care Provider] -
[2018-03-18] MEDS: Acetaminophen 325 MG TABLET PO PRN (17:46)
[2018-03-18] MEDS: NIFEdipine XL (24 HR) 30 MG TAB.ER.24 PO SCH (17:46)
[2018-03-18] MEDS: Clinimix E 5%-15% SOLUTION 2,000 ML with MVI, adult with vitamin K 10 ML IVC SCH (17:54)
[2018-03-19] MEDS: Piperacillin/Tazobactam 3.375 GM in 0.9 % Sodium Chloride Mini Bag 100 ML IVPB SCH ×3 (00:04→15:37)
[2018-03-19] MEDS: Metoclopramide 10 MG/2 ML VIAL IVP SCH ×2 (00:04→06:12)
[2018-03-19] MEDS: Insulin LISPRO 300 UNITS/3 ML VIAL SQ SCH ×6 (00:05→22:27)
[2018-03-19] MEDS: Acetaminophen 325 MG TABLET PO PRN ×3 (03:56→19:08)
[2018-03-19 04:18] LABS: Basophils % 0.2 %; Eosinophils # 0.1 K/mcL (0.0-0.6); Eosinophils % 0.9 %; Hematocrit 25.7 % (37.5-50.1); Hemoglobin 8.5 g/dL (12.9-16.9); Immature Granulocytes % 1.1 % (0-4); Lymphocytes # 0.6 K/mcL (0.6-4.6); Lymphocytes % 6.5 %; Mean Corpuscular HGB Conc 33.1 g/dL (31.6-35.5); Mean Corpuscular Hemoglobin 30.4 pg (28.0-33.3); Mean Corpuscular Volume 91.8 fL (83.0-100.0); Mean Platelet Volume 9.2 fL (9.4-12.4); Monocytes # 0.4 K/mcL (0.0-1.3); Monocytes % 4.8 %; Neutrophils # 7.5 K/mcL (1.6-8.9); Platelet Count 229 K/mcL (140-400); Red Cell Distribution Width 14.2 % (11.5-14.5); Segmented Neutrophils % 86.5 %
[2018-03-19 04:29] LABS: BUN/Creatinine Ratio 18 (6-26); Blood Urea Nitrogen 23 mg/dL (8-23); Calcium 8.2 mg/dL (8.6-10.3); Carbon Dioxide 20 mEq/L (23-29); Chloride 109 mEq/L (98-107); Glucose 228 mg/dL (70-105); Magnesium 1.6 mg/dL (1.6-2.6); Osmolality,Calculated 295 (280-300); Phosphorous 2.2 mg/dL (2.7-4.5); Potassium 3.2 mEq/L (3.5-5.1); Sodium 137 mEq/L (136-145); eGFR For African Americans > 60 (> 60); eGFR For Non-African Americans 55 (> 60)
[2018-03-19 04:51] LABS: Platelet Estimate Normal (Normal)
[2018-03-19] MEDS: Pantoprazole 40 MG VIAL IVP SCH (06:12)
[2018-03-19] MEDS: *HR* Heparin 5,000 UNIT/ML VIAL SQ SCH ×2 (06:12→17:22)
[2018-03-19] MEDS: Aspirin Enteric Coated 81 MG Tablet PO SCH (08:38)
[2018-03-19] MEDS: NIFEdipine XL (24 HR) 30 MG TAB.ER.24 PO SCH (08:38)
--- NOTE | 2018-03-19 10:14 | General Surgery Progress Note ---
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 Hx -- 77-year-old male admitted following abdominal discomfort, nausea, bowel stasis (unable to pass flatus or BM) for 3 to 4 days preceding admission. Was afebrile. CT scan data that time demonstrated cecal volvulus. Admitted on 08/2018; cardiology consulted for complicated preop clearance. Exploratory laparotomy, as well as subsequent partial right hemicolectomy with anastomosis and cholecystectomy successfully completed, thus far without complications. - Patient had no bowel movements yesterday but has been passing gas. He has had multiple bowel movements over the weekend. - Daily wound care dressings. - Able to tolerate full liquid diet. Advance to soft diet. Discontinue TPN. - daily assessment of bowel status. - Control pain and nausea as needed - Daily CBC/BMP; correct lytes as needed - Zosyn Day #5. Update 03/19/18 at 1154: Patient developed a fever of 100.5 F. Patient was started on Fluconazole for suspected fungal infection of abdominal incision given his WBC was nml. CXR was also ordered. Patient will need to stay at least another day. (2) Fever Current Visit: Yes Status: Acute Chest X-ray shows some perihilar opacities which might indicate atypical bronchopneumonia however given a normal WBC count, lungs clear on examination, and no complaints to cough, it seems unlikely. Per primary team, we will go ahead and continue with zosyn for now and follow-up with a repeat CXR tomorrow. Chest X-Ray 03/19/18 11:49 IMPRESSION: 1. Mild bilateral perihilar opacities which are nonspecific but could indicate an atypical bronchopneumonia given the history of fever. 2. 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 D/ / 03/19/2018 12:31:37 Corey Cevallos MD / teresa Interpreting Provider: Corey Cevallos MD Qualifiers: Fever type: unspecified Qualified Code(s): R50.9 - Fever, unspecified (3) Ileus, postoperative Current Visit: Yes Status: Resolved . (4) S/P partial resection of colon Current Visit: Yes Status: Acute (5) S/P cholecystectomy Current Visit: Yes Status: Acute (6) Co-morbid condition Current Visit: Yes Status: Chronic Comorbidities include diabetes mellitus type II, hypertension, hyperlipidemia, hypothyroidism, coronary artery disease, GERD, and BPH. - mgmt per hospitalist team (7) Hypokalemia Current Visit: Yes Status: Acute Potassium of 3.2. - Given 40 meq potassium IV. (8) Hypophosphatemia Current Visit: Yes Status: Acute Phosphorus of 2.2. - Given one dose of K-Phos. Subjective Narrative: When seen today patient denies any abdominal pain. Denies any nausea or vomiting. Denies having a bowel movement yesterday. He does admit to passing gas. Denies any chest pain or shortness of breath. Denies any fever or chills. Objective VITAL SIGNS: Reviewed. See [facility] GENERAL: No apparent distress. HEENT: [Normocephalic, PER, EOMi, oropharynx pink/moist, no JVD noted.] CV: b/l rad pulses 2+, RRR, no murmurs or gallops, no JVD RESPIRATORY: CTAB without wheezes, rales, or rhonchi ABD: soft, non-tender, no rebound/guarding/rigidity, no peritoneal signs. Normal bowel sounds present. INCISION: Abdominal incision clean, dry, intact without purulence/bleeding/edema /rubor/calor. Signs of mild serosanguineous drainage on the bandage and upon palpation of the incision. EXTREMITY: grossly normal motor function, no pedal edema, peripheral pulses 2+ b /l NEUROLOGIC EXAM: AOx3, obeys commands, no speech deficits. PSYCHIATRIC: normal mood and affect SKIN: no gross lesions, rashes, or skin changes Vital Signs - Last 8 Hours Temp Pulse Resp BP Pulse Ox 03/19/18 06:57 98.3 F 80 16 135/71 92 03/19/18 03:51 100.6 F H 96 18 148/79 92 Intake and Output 03/18/18 03/19/1803/19/18 23:59 07:59 15:59 Intake Total 720 / 720 500 / 500 Output Total 500 / 500 525 / 525 Balance 220 / 220 -25 / -25 Intake: IV Fluids 600 / 600 100 / 100 Lactated Ringers 1,000 ML @ 35 500 / 500 mls/hr IVC .Q24H [facility] Rx#: [id number] Zosyn 3.375 GM In 0.9 % Sodium 100 / 100 100 / 100 Chloride (Mini-Bag +) 100 ML @ 25 mls/hr IVPB Q8HR [facility] Rx#: [id number] Oral 120 / 120 400 / 400 Output: Urine 500 / 500 525 / 525 Other: Meal Dinner Percent of Meal Consumed 100% Weight 61.02 kg Blood Glucose* 220 187 Patient Weight 03/19/18 23:59 Weight 61.02 kg - Labs 03/19/18 03:50 03/19/18 03:50 Diabetes panel 03/19/18 Range/Units 03:50 Sodium 137 (136-145) mEq/L Potassium 3.2 L (3.5-5.1) mEq/L Chloride 109 H (98-107) mEq/L Carbon Dioxide 20 L (23-29) mEq/L BUN 23 (8-23) mg/dL Creatinine 1.26 (0.70-1.30) mg/dL Glucose 228 H (70-105) mg/dL Calcium 8.2 L (8.6-10.3) mg/dL Calcium panel 03/19/18 Range/Units 03:50 Calcium 8.2 L (8.6-10.3) mg/dL Phosphorus 2.2 L (2.7-4.5) mg/dL Pituitary panel 03/19/18 Range/Units 03:50 Sodium 137 (136-145) mEq/L Potassium 3.2 L (3.5-5.1) mEq/L Chloride 109 H (98-107) mEq/L Carbon Dioxide 20 L (23-29) mEq/L BUN 23 (8-23) mg/dL Creatinine 1.26 (0.70-1.30) mg/dL Glucose 228 H (70-105) mg/dL Calcium 8.2 L (8.6-10.3) mg/dL Adrenal panel 03/19/18 Range/Units 03:50 Sodium 137 (136-145) mEq/L Potassium 3.2 L (3.5-5.1) mEq/L Chloride 109 H (98-107) mEq/L Carbon Dioxide 20 L (23-29) mEq/L BUN 23 (8-23) mg/dL Creatinine 1.26 (0.70-1.30) mg/dL Glucose 228 H (70-105) mg/dL Calcium 8.2 L (8.6-10.3) mg/dL - VTE Documentation of Mechanical Device: Intermittent pneumatic compression device Consult Discharge Plan - Plan Additional Instructions: Wound care instructions: remove dressing and packing. Wash/shower with antibacterial soap. Repacked with 1/4 inch plain gauze. Cover with a dry dressing. Tape to secure. May reinforce her change outer dressing as needed. 1. Your dressing should be removed prior to your discharge date. You may shower , avoid soaking your incision in a tub for a week or so. Cleanse incision gently with a mild soap and water-rinse thoroughlypat dry. Your incision does not need to be redressed. Any sutures or clips still in place at the time of discharge will be removed at your first postoperative visit. Should you have steri-strips across your incision, they will begin to curl as your incision heals (usually within 5-7 days). You may peel them off when this happens. Avoid applying cream, lotions, or powder to your incision. 2. There are no specific dietary restrictions associated with this surgery. Maintaining a well balanced diet is essential for proper healing. Oral fluids are encouraged. 3. It is safe to use a mild laxative. Do so if your bowels have not moved by the third day at home. 4. Walking is healthy. Gradually increase ambulation and activities each day. Allow for regular, uninterrupted rest periods. You are permitted to go up and down stairs slowly while using a handrail. Avoid sitting for long periods of time; avoid crossing your legs; avoid heavy lifting (nothing over 10- 15 pounds) for 6-8 weeks; and avoid any strenuous sports. 5. You may drive when you are comfortable enough to react and move quickly in an emergency (usually 1-2 weeks after surgery). Long trips over 25 miles are not advised. Do not drive if you are taking prescription pain medication. 6. For pain, one of the Ibuprofen compounds (Advil, Nuprin, etc.) or Tylenol is suggested. Should these not be effective in managing your discomfort, prescription pain medications will be given on an individual basis. 7. Please call the office to report any of the following: Temperature of 101 or higher. Signs of infection, possibly including increasing redness, warmth, tenderness, drainage, odor at incision site Persistent moderate to severe pain No bowel movement within 48 hours from OR date. Follow-up appointment with Airam Baez on 03/29/18 at 9:45 AM. Referrals: Lacy Cristobal, LENS GAUGER [Primary Care Provider] - <Annita Jackman - Last Filed: 03/19/18 14:56> Date of Encounter: 03/19/18 - Assessment and Plan (1) S/P partial resection of colon Current Visit: Yes Status: Acute tolerating diet, advance to regular soft diet pain well controlled ambulate ok shower gi/dvt prophyalaxis low grade temps overnight - hospitalist keeping to monitor (2) Acute kidney injury Current Visit: Yes Status: Acute Subjective Patient reports: no new complaints, feels better, tolerating liquids well (fulls ), flatus, bowel movement Objective Vital Signs - Last 8 Hours Temp Pulse Resp BP Pulse Ox 03/19/18 11:25 100.7 F H 03/19/18 10:44 100.5 F H 73 16 160/77 97 03/19/18 06:57 98.3 F 80 16 135/71 92 Intake and Output 03/18/18 03/19/18 03/19/18 23:59 07:59 15:59 Intake Total 720 / 720 500 / 500 1280 / 1280 Output Total 500 / 500 525 / 525 325 / 325 Balance 220 / 220 -25 / -25 955 / 955 Intake: IV Fluids 600 / 600 100 / 100 800 / 800 Lactated Ringers 1,000 ML @ 35 500 / 500 500 / 500 mls/hr IVC .Q24H [facility] Rx#: [id number] Diflucan Premix 200 MG/100 ML 100 / 100 200 mg In 100 ml @ 100 mls/hr IVPB DAILY [facility] Rx#:[id number] Zosyn 3.375 GM In 0.9 % Sodium 100 / 100 100 / 100 Chloride (Mini-Bag +) 100 ML @ 25 mls/hr IVPB Q8HR [facility] Rx#: [id number] Potassium Chloride 10 mEq/100mL 200 / 200 10 meq In 100 ml @ 100 mls/hr IVPB Q1H [facility] Rx#:[id number] Oral 120 / 120 400 / 400 480 / 480 Output: Urine 500 / 500 525 / 525 325 / 325 Other: Meal Dinner Lunch Percent of Meal Consumed 100% 50% Stool Size Moderate Stool Color Brown Weight 61.02 kg Blood Glucose* 220 187 229 Patient Weight 03/19/18 23:59 Weight 61.02 kg - General physical appearance well nourished, no distress - Eyes PERRL, normal ocular movement - ENT normal mucosa, normocephalic - Neck Neck exam: trachea midline - Respiratory normal expansion, clear to auscultation - Cardiovascular Cardiovascular exam: Present: RRR - Abdomen Abdomen: Present: bowel sounds present, soft, tender (minimal post op tenderness ) - Incision Incision: Present: clean and dry, intact - Integumentary no rash, no growths - Neurologic CN 2-12 grossly intact - Musculoskeletal normal posture - Psychiatric oriented to time, oriented to person, oriented to place, speech is normal, memory intact - Labs 03/19/18 03:50 03/19/18 03:50 Diabetes panel 03/19/18 Range/Units 03:50 Sodium 137 (136-145) mEq/L Potassium 3.2 L (3.5-5.1) mEq/L Chloride 109 H (98-107) mEq/L Carbon Dioxide 20 L (23-29) mEq/L BUN 23 (8-23) mg/dL Creatinine 1.26 (0.70-1.30) mg/dL Glucose 228 H (70-105) mg/dL Calcium 8.2 L (8.6-10.3) mg/dL Calcium panel 03/19/18 Range/Units 03:50 Calcium 8.2 L (8.6-10.3) mg/dL Phosphorus 2.2 L (2.7-4.5) mg/dL Pituitary panel 03/19/18 Range/Units 03:50 Sodium 137 (136-145) mEq/L Potassium 3.2 L (3.5-5.1) mEq/L Chloride 109 H (98-107) mEq/L Carbon Dioxide 20 L (23-29) mEq/L BUN 23 (8-23) mg/dL Creatinine 1.26 (0.70-1.30) mg/dL Glucose 228 H (70-105) mg/dL Calcium 8.2 L (8.6-10.3) mg/dL Adrenal panel 03/19/18 Range/Units 03:50 Sodium 137 (136-145) mEq/L Potassium 3.2 L (3.5-5.1) mEq/L Chloride 109 H (98-107) mEq/L Carbon Dioxide 20 L (23-29) mEq/L BUN 23 (8-23) mg/dL Creatinine 1.26 (0.70-1.30) mg/dL Glucose 228 H (70-105) mg/dL Calcium 8.2 L (8.6-10.3) mg/dL - Attending Attestation I examined this patient and my medical decision-making was reviewed with the Resident Physician. I agree with the documented findings, disposition and treatment plan as described except to the extent set forth below.
[2018-03-19] MEDS: Ringers Solution, Lactated 1,000 ML IVC SCH (11:46)
[2018-03-19] MEDS ORDERED: Fluconazole 200 MG/100 ML 200 MG/100 ML BAG IVPB SCH (12:00)
--- NOTE | 2018-03-19 15:22 | Internal Med Progress Note ---
Date of Encounter: 03/19/18 Time of Encounter: 15:17 - Assessment and plan (1) Fever Current Visit: Yes Status: Acute Assessment and plan: Etiology uncertain. Patient having fever with MAXIMUM TEMPERATURE of 101.5 last evening. Given that he is on TPN, fungal blood cultures were sent. Will follow. Place patient on Diflucan. Chest x-ray showed possible bilateral perihilar opacities which are nonspecific but may be from pneumonia. Patient is not exhibiting any clinical signs of pneumonia at this time besides fever. He has been receiving Zosyn should treat aspiration pneumonia which the patient is most at risk for. WBC count remains normal. Given that patient's fever could be explained from other causes, will hold off on broadening antibiotic coverage. If WBC count rises further or chest x-ray tomorrow shows more pronounced pneumonia, would recommend broadening antibiotic coverage. For now continue Zosyn. High risk for complications. Qualifiers: Fever type: unspecified Qualified Code(s): R50.9 - Fever, unspecified (2) Cecal volvulus Current Visit: Yes Status: Acute Assessment and plan: Postop day 10. Status post exploratory laparotomy with partial right colectomy with [id number] to end anastomosis and cholecystectomy. Tolerating full liquid diet. Doing well from a surgical standpoint. Plan to take off TPN later today. (3) Leukocytosis Current Visit: Yes Status: Resolved Qualifiers: Leukocytosis type: unspecified Qualified Code(s): D72.829 - Elevated white blood cell count, unspecified (4) Diabetes mellitus Current Visit: Yes Status: Chronic Assessment and plan: Continue current insulin regimen. Blood sugars are elevated but patient will be taken off TPN later today. Will monitor for now and adjust insulin regimen tomorrow. 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 Will stop IV fluids at this time. Encourage by mouth intake Qualifiers: Acute renal failure type: unspecified Chronic kidney disease stage: stage 3 (moderate) Qualified Code(s): N17.9 - Acute kidney failure, unspecified; N18.3 - Chronic kidney disease, stage 3 (moderate) (6) Hypothyroidism Current Visit: Yes Status: Chronic Assessment and plan: Continue levothyroxin. Qualifiers: Hypothyroidism type: unspecified Qualified Code(s): E03.9 - Hypothyroidism , unspecified (7) Coronary artery disease Current Visit: Yes Status: Chronic Assessment and plan: Has been placed back on aspirin and Plavix and simvastatin. Qualifiers: Coronary Disease-Associated Artery/Lesion type: [place] artery [place] vs. transplanted heart: [place] heart Associated angina: angina presence unspecified Qualified Code(s): I25.10 - Atherosclerotic heart disease of [place] coronary artery without angina pectoris (8) GERD (gastroesophageal reflux disease) Current Visit: Yes Status: Chronic Assessment and plan: Continue PPI. Will switch to oral PPI Qualifiers: Esophagitis presence: esophagitis presence not specified Qualified Code(s) : K21.9 - Gastro-esophageal reflux disease without esophagitis (9) HLD (hyperlipidemia) Current Visit: No Status: Chronic Assessment and plan: Continue simvastatin Qualifiers: Hyperlipidemia type: mixed hyperlipidemia Qualified Code(s): E78.2 - Mixed hyperlipidemia (10) HTN (hypertension) Current Visit: Yes Status: Chronic Assessment and plan: Blood pressure was better controlled this morning. Elevated later today. Will continue current medications. Also continue IV hydralazine for systolic blood pressure greater than 160 as needed. Qualifiers: Hypertension type: essential hypertension Qualified Code(s): I10 - Essential (primary) hypertension (11) Wheezing Current Visit: Yes Status: Acute Assessment and plan: On bronchodilators as needed (12) DVT prophylaxis Current Visit: Yes Status: Acute Assessment and plan: continue subcutaneous heparin - Time Spent With Patient Total time spent is greater than 50% in coordination of care (as documented) at patient's floor/unit and/or counseling patient: - Subjective Interval history: Patient has been having fever since last evening. Improved earlier today but has began to have low-grade fever again later in the day. He otherwise feels good. No abdominal pain. Tolerating full liquid diet well. Having bowel movements. No nausea or vomiting. Abdominal pain is well controlled. - Constitutional Vitals: Temp Pulse Resp BP Pulse Ox 100.7 F H 73 16 160/77 97 05/21/18 11:25 03/19/18 10:44 03/19/18 10:44 03/19/18 10:44 03/19/18 10:44 General appearance: Present: cooperative, mild distress, A&O X 3, pleasant, answers questions appropriately - ENT Additional comments: Tracheal stoma in place - Neck Neck exam general surgery: Present: supple, trachea midline. Absent: lymphadenopathy - Respiratory Respiratory exam: Present: CTAB. Absent: accessory muscle use, rales, rhonchi, wheezes - Cardiovascular Cardiovascular exam: Present: RRR, +S1, +S2. Absent: diastolic murmur, gallop, rubs, systolic murmur - GI/Abdominal GI/Abdominal exam: Present: normal bowel sounds, soft, no peritoneal signs. Absent: distended, tenderness - Extremities Exam Extremities exam: Present: warm, radial pulses palpable and symmetrical. Absent : calf tenderness, cyanotic, pedal edema - Neurological Exam Neurological exam: Present: alert, oriented X3, no focal deficits. Absent: facial droop, speech deficit Internal Medicine: Result - Labs CBC & Chem 7: 03/19/18 03:50 03/19/18 03:50 Labs: Short CBC 03/19/18 Range/Units 03:50 WBC 8.7 (4.3-11.1) K/mcL Hgb 8.5 L (12.9-16.9) g/dL Hct 25.7 L (37.5-50.1) % Plt Count 229 (140-400) K/mcL Neutrophils # 7.5 (1.6-8.9) K/mcL BMP 03/19/18 03:50 Sodium 137 Potassium 3.2 L Chloride 109 H Carbon Dioxide 20 L BUN 23 Creatinine 1.26 Glucose 228 H Calcium 8.2 L - Impressions Impressions Small Bowel X-Ray 03/16/18 13:04 IMPRESSION: 1. Delayed passage of the Gastrografin through the small-bowel but there is no evidence for obstruction. D/ / Kalpesh Long MD / Kalpesh Long MD Interpreting Provider: Kalpesh Long MD Chest X-Ray 03/19/18 11:49 IMPRESSION: 1. Mild bilateral perihilar opacities which are nonspecific but could indicate an atypical bronchopneumonia given the history of fever. 2. 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 D/ / 03/19/2018 12:31:37 Corey Cevallos MD / [email or web address] Interpreting Provider: Corey Cevallos MD - VTE Documentation of Mechanical Device: Intermittent pneumatic compression device Consult Discharge Plan - Plan Additional Instructions: Wound care instructions: remove dressing and packing. Wash/shower with antibacterial soap. Repacked with 1/4 inch plain gauze. Cover with a dry dressing. Tape to secure. May reinforce her change outer dressing as needed. 1. Your dressing should be removed prior to your discharge date. You may shower , avoid soaking your incision in a tub for a week or so. Cleanse incision gently with a mild soap and water-rinse thoroughlypat dry. Your incision does not need to be redressed. Any sutures or clips still in place at the time of discharge will be removed at your first postoperative visit. Should you have steri-strips across your incision, they will begin to curl as your incision heals (usually within 5-7 days). You may peel them off when this happens. Avoid applying cream, lotions, or powder to your incision. 2. There are no specific dietary restrictions associated with this surgery. Maintaining a well balanced diet is essential for proper healing. Oral fluids are encouraged. 3. It is safe to use a mild laxative. Do so if your bowels have not moved by the third day at home. 4. Walking is healthy. Gradually increase ambulation and activities each day. Allow for regular, uninterrupted rest periods. You are permitted to go up and down stairs slowly while using a handrail. Avoid sitting for long periods of time; avoid crossing your legs; avoid heavy lifting (nothing over 10- 15 pounds) for 6-8 weeks; and avoid any strenuous sports. 5. You may drive when you are comfortable enough to react and move quickly in an emergency (usually 1-2 weeks after surgery). Long trips over 25 miles are not advised. Do not drive if you are taking prescription pain medication. 6. For pain, one of the Ibuprofen compounds (Advil, Nuprin, etc.) or Tylenol is suggested. Should these not be effective in managing your discomfort, prescription pain medications will be given on an individual basis. 7. Please call the office to report any of the following: Temperature of 101 or higher. Signs of infection, possibly including increasing redness, warmth, tenderness, drainage, odor at incision site Persistent moderate to severe pain No bowel movement within 48 hours from OR date. Follow-up appointment with Airam Baez on 03/29/18 at 9:45 AM. Referrals: Lacy Cristobal CNP [Primary Care Provider] -
[2018-03-19] MEDS: Clinimix E 5%-15% SOLUTION 2,000 ML with MVI, adult with vitamin K 10 ML IVC SCH (17:26)
[2018-03-20] MEDS: Acetaminophen 325 MG TABLET PO PRN ×2 (03:55→15:52)
[2018-03-20 04:46] LABS: Bilirubin,Urine Negative (Negative); Blood,Urine Moderate (Negative); Clarity,Urine Clear (Clear); Color,Urine Yellow (Yellow); Glucose,Urine (UA) Normal (Normal); Ketones,Urine Negative (Negative); Leukocyte Esterase,Urine Negative (Negative); Nitrite,Urine Negative (Negative); Protein,Urine 30 mg/dL (Neg-Trace); Urobilinogen,Urine Normal (Normal)
[2018-03-20 04:47] LABS: Bacteria,Urine None Seen per hpf (None-Few); Hyaline Casts,Urine None Seen per lpf (None-Few); Squamous Epithelial Cell,Urine Many per lpf (None-Few); WBC,Urine 0-3 per hpf (0-3)
[2018-03-20 05:01] LABS: Basophils % 0.2 %; Eosinophils # 0.2 K/mcL (0.0-0.6); Eosinophils % 1.5 %; Hematocrit 25.7 % (37.5-50.1); Hemoglobin 8.6 g/dL (12.9-16.9); Immature Granulocytes % 1.1 % (0-4); Lymphocytes # 0.6 K/mcL (0.6-4.6); Mean Corpuscular HGB Conc 33.5 g/dL (31.6-35.5); Mean Corpuscular Hemoglobin 30.6 pg (28.0-33.3); Mean Corpuscular Volume 91.5 fL (83.0-100.0); Mean Platelet Volume 9.2 fL (9.4-12.4); Monocytes # 0.4 K/mcL (0.0-1.3); Monocytes % 3.4 %; Neutrophils # 9.8 K/mcL (1.6-8.9); Platelet Count 229 K/mcL (140-400); Red Blood Count 2.81 M/mcL (4.19-5.50); Red Cell Distribution Width 14.3 % (11.5-14.5); Segmented Neutrophils % 88.8 %
[2018-03-20 05:21] LABS: BUN/Creatinine Ratio 14 (6-26); Blood Urea Nitrogen 19 mg/dL (8-23); Calcium 8.1 mg/dL (8.6-10.3); Carbon Dioxide 19 mEq/L (23-29); Chloride 109 mEq/L (98-107); Glucose 98 mg/dL (70-105); Magnesium 1.4 mg/dL (1.6-2.6); Osmolality,Calculated 284 (280-300); Phosphorous 2.1 mg/dL (2.7-4.5); Potassium 3.9 mEq/L (3.5-5.1); Sodium 136 mEq/L (136-145); eGFR For African Americans > 60 (> 60); eGFR For Non-African Americans 52 (> 60)
[2018-03-20 05:26] LABS: Platelet Estimate Normal (Normal)
[2018-03-20] MEDS: *HR* Heparin 5,000 UNIT/ML VIAL SQ SCH ×2 (06:12→17:25)
[2018-03-20] MEDS: NIFEdipine XL (24 HR) 30 MG TAB.ER.24 PO SCH (08:07)
[2018-03-20] MEDS: Aspirin Enteric Coated 81 MG Tablet PO SCH (08:07)
[2018-03-20] MEDS: Fluconazole 100 MG/50 ML 100 MG/50 ML BAG IVPB SCH (08:08)
[2018-03-20] MEDS: Insulin LISPRO 300 UNITS/3 ML VIAL SQ SCH ×4 (08:08→20:41)
[2018-03-20] MEDS: Piperacillin/Tazobactam 3.375 GM in 0.9 % Sodium Chloride Mini Bag 100 ML IVPB SCH ×3 (08:09→15:52)
--- NOTE | 2018-03-20 10:01 | General Surgery Progress Note ---
<Mele Morataya - Last Filed: 03/20/18 14:30> Date of Encounter: 03/20/18 Time of Encounter: 07:00 - Assessment and Plan (1) Cecal volvulus Current Visit: Yes Status: Resolved POD#9 s/p exploratory laparotomy with partial right colectomy with [id number] / end-to-end anastomosis, and cholecystectomy on 03/09/18. Hx -- 77-year-old male admitted following abdominal discomfort, nausea, bowel stasis (unable to pass flatus or BM) for 3 to 4 days preceding admission. Was afebrile. CT scan data that time demonstrated cecal volvulus. Admitted on 08/2018; cardiology consulted for complicated preop clearance. Exploratory laparotomy, as well as subsequent partial right hemicolectomy with anastomosis and cholecystectomy successfully completed, thus far without complications. Patient continued to be febrile overnight with a temperature range of 100.2- 102.3, currently at 99.6. His white blood cell count has increased from 8.7 up to 11. Patient denies any coughing. Nurses also report patient had difficulty urinating last night and had to be straight cathetered. UA shows no signs of infection. - CT of the chest, abdomen, and pelvis ordered (no contrast). - Start Flomax 0.4 mg by mouth daily. - Check post void residual. - Daily wound care dressings. - Continue with soft diet. - Daily assessment of bowel status. - Control pain and nausea as needed - Daily CBC/BMP; correct lytes as needed - Zosyn Day #6. - Fluconazole Day #2. (2) Fever Current Visit: Yes Status: Acute Chest X-ray shows some perihilar opacities which might indicate atypical bronchopneumonia however given a normal WBC count, lungs clear on examination, and no complaints to cough, it seems unlikely. Patient was febrile overnight. White blood cell count increased from 8.7 up to 11. - CT abdomen, pelvis, and chest today. - Would recommended culture of trachea given CXR report of possible atypical PNA and setting of leukocytosis and fever. Chest X-Ray 03/19/18 11:49 IMPRESSION: 1. Mild bilateral perihilar opacities which are nonspecific but could indicate an atypical bronchopneumonia given the history of fever. 2. 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 D/ / 03/19/2018 12:31:37 Corey Cevallos MD / teresa Interpreting Provider: Corey Cevallos MD Qualifiers: Fever type: unspecified Qualified Code(s): R50.9 - Fever, unspecified (3) S/P partial resection of colon Current Visit: Yes Status: Acute (4) S/P cholecystectomy Current Visit: Yes Status: Acute (5) Co-morbid condition Current Visit: Yes Status: Chronic Comorbidities include diabetes mellitus type II, hypertension, hyperlipidemia, hypothyroidism, coronary artery disease, GERD, and BPH. - mgmt per hospitalist team (6) Hypophosphatemia Current Visit: Yes Status: Acute Phosphorus of 2.1. - Given one dose of K-Phos. (7) Hypomagnesemia Current Visit: Yes Status: Acute Magnesium level at 1.4. - 2 g of magnesium IV. Subjective Narrative: Patient attests to a fever overnight. Denies any coughing. Admits to having some shortness of breath last night. Denies any chest pain. Admits to some nausea but denies any vomiting. Admits to having 1 bowel movement this morning. Denies any melena or hematochezia. Denies any abdominal pain. Objective VITAL SIGNS: Reviewed. See [facility] GENERAL: No apparent distress. HEENT: [Normocephalic, PER, EOMi, oropharynx pink/moist, no JVD noted.] CV: b/l rad pulses 2+, RRR, no murmurs or gallops, no JVD RESPIRATORY: CTAB without wheezes, rales, or rhonchi ABD: soft, non-tender, no rebound/guarding/rigidity, no peritoneal signs. Normal bowel sounds present. INCISION: Abdominal incision clean, dry, intact without purulence/bleeding/edema /rubor/calor. Moderate amount of serosanguineous drainage. EXTREMITY: grossly normal motor function, no pedal edema, peripheral pulses 2+ b /l NEUROLOGIC EXAM: AOx3, obeys commands, no speech deficits. PSYCHIATRIC: normal mood and affect SKIN: no gross lesions, rashes, or skin changes Vital Signs - Last 8 Hours Temp Pulse Resp BP Pulse Ox 03/20/18 06:26 99.6 F 77 14 143/70 91 03/20/18 03:20 100.6 F H 98 14 174/86 92 Intake and Output 03/19/18 03/20/18 03/20/18 23:59 07:59 15:59 Intake Total 280 / 280 100 / 100 200 / 200 Output Total 200 / 200 700 / 700 Balance 80 / 80 -600 / -600 200 / 200 Intake: IV Fluids 280 / 280 200 / 200 Clinimix E 5%-15% SOLUTION 2, 180 / 180 000 ML @ 65 mls/hr IVC .Q24H ROMMEL with M.v.i. Adult 10 ml Rx# :[id number] Diflucan 100 MG/50 ML 100 mg In 50 / 50 50 ml @ 50 mls/hr IVPB DAILY ROMMEL Rx#:[id number] Magnesium Sulfate Premix 2gm/ 50 / 50 50mL 2 gm In 50 ml @ 50 mls/hr IVPB ONCE ONE Rx#:[id number] Zosyn 3.375 GM In 0.9 % Sodium 100 / 100 100 / 100 Chloride (Mini-Bag +) 100 ML @ 25 mls/hr IVPB Q8HR ROMMEL Rx#: [id number] Oral 100 / 100 0 / 0 Output: Urine 200 / 200 150 / 150 Straight Cath 550 / 550 Other: Meal Breakfast Percent of Meal Consumed 0% Stool Size Moderate Stool Consistency loose liquid Stool Color Green # Bowel Movements 0 0 1 Weight 61.9 kg Blood Glucose* 120 99 - Labs 03/20/18 04:44 03/20/18 04:44 Diabetes panel 03/20/18 Range/Units 04:44 Sodium 136 (136-145) mEq/L Potassium 3.9 (3.5-5.1) mEq/L Chloride 109 H (98-107) mEq/L Carbon Dioxide 19 L (23-29) mEq/L BUN 19 (8-23) mg/dL Creatinine 1.33 H (0.70-1.30) mg/dL Glucose 98 (70-105) mg/dL Calcium 8.1 L (8.6-10.3) mg/dL Calcium panel 03/20/18 Range/Units 04:44 Calcium 8.1 L (8.6-10.3) mg/dL Phosphorus 2.1 L (2.7-4.5) mg/dL Pituitary panel 03/20/18 Range/Units 04:44 Sodium 136 (136-145) mEq/L Potassium 3.9 (3.5-5.1) mEq/L Chloride 109 H (98-107) mEq/L Carbon Dioxide 19 L (23-29) mEq/L BUN 19 (8-23) mg/dL Creatinine 1.33 H (0.70-1.30) mg/dL Glucose 98 (70-105) mg/dL Calcium 8.1 L (8.6-10.3) mg/dL Adrenal panel 03/20/18 Range/Units 04:44 Sodium 136 (136-145) mEq/L Potassium 3.9 (3.5-5.1) mEq/L Chloride 109 H (98-107) mEq/L Carbon Dioxide 19 L (23-29) mEq/L BUN 19 (8-23) mg/dL Creatinine 1.33 H (0.70-1.30) mg/dL Glucose 98 (70-105) mg/dL Calcium 8.1 L (8.6-10.3) mg/dL - VTE Documentation of Mechanical Device: Intermittent pneumatic compression device Consult Discharge Plan - Plan Additional Instructions: Wound care instructions: remove dressing and packing. Wash/shower with antibacterial soap. Repacked with 1/4 inch plain gauze. Cover with a dry dressing. Tape to secure. May reinforce her change outer dressing as needed. 1. Your dressing should be removed prior to your discharge date. You may shower , avoid soaking your incision in a tub for a week or so. Cleanse incision gently with a mild soap and water-rinse thoroughlypat dry. Your incision does not need to be redressed. Any sutures or clips still in place at the time of discharge will be removed at your first postoperative visit. Should you have steri-strips across your incision, they will begin to curl as your incision heals (usually within 5-7 days). You may peel them off when this happens. Avoid applying cream, lotions, or powder to your incision. 2. There are no specific dietary restrictions associated with this surgery. Maintaining a well balanced diet is essential for proper healing. Oral fluids are encouraged. 3. It is safe to use a mild laxative. Do so if your bowels have not moved by the third day at home. 4. Walking is healthy. Gradually increase ambulation and activities each day. Allow for regular, uninterrupted rest periods. You are permitted to go up and down stairs slowly while using a handrail. Avoid sitting for long periods of time; avoid crossing your legs; avoid heavy lifting (nothing over 10- 15 pounds) for 6-8 weeks; and avoid any strenuous sports. 5. You may drive when you are comfortable enough to react and move quickly in an emergency (usually 1-2 weeks after surgery). Long trips over 25 miles are not advised. Do not drive if you are taking prescription pain medication. 6. For pain, one of the Ibuprofen compounds (Advil, Nuprin, etc.) or Tylenol is suggested. Should these not be effective in managing your discomfort, prescription pain medications will be given on an individual basis. 7. Please call the office to report any of the following: Temperature of 101 or higher. Signs of infection, possibly including increasing redness, warmth, tenderness, drainage, odor at incision site Persistent moderate to severe pain No bowel movement within 48 hours from OR date. Follow-up appointment with Airam Baez on 03/29/18 at 9:45 AM. Referrals: Lacy Cristobal CNP [Primary Care Provider] - Airam Baez CNP [Advanced Practice Nurse] - 03/29/18 9:45 am <Annita Jackman - Last Filed: 03/22/18 14:21> Date of Encounter: 03/20/18 Time of Encounter: 09:45 - Assessment and Plan (1) S/P partial resection of colon Current Visit: Yes Status: Acute patient with elevated temperatures and CXR yday quesitoned pneumonia given recent surgery will CT chest/abd/pelvis w po only, no iv contrast due to LEONCIO npo pain control prn gi/dvt prophylaxis ambulate/OOB continue abx currently (2) Acute kidney injury Current Visit: Yes Status: Acute improving, continue monitor Cr, good uop Subjective Narrative: patient denies any abdominal pain states is tolerating diet well passing flatus and having bm Objective Vital Signs - Last 8 Hours Temp Pulse Resp BP Pulse Ox 03/22/18 11:23 96 03/22/18 11:07 99.5 F 88 16 157/88 96 03/22/18 06:47 98.4 F 88 18 163/84 97 Intake and Output 03/21/18 03/22/18 03/22/18 23:59 07:59 15:59 Intake Total 100 / 100 200 / 200 0 / 0 Output Total 100 / 100 645 / 645 465 / 465 Balance 0 / 0 -445 / -445 -465 / -465 Intake: IV Fluids 100 / 100 200 / 200 0 / 0 Ofirmev 1,000 mg/100 ml 1,000 100 / 100 100 / 100 0 / 0 mg In 100 ml @ 400 mls/hr IVPB Q8H ROMMEL Rx#:[id number] Zosyn 3.375 GM In 0.9 % Sodium 100 / 100 Chloride (Mini-Bag +) 100 ML @ 25 mls/hr IVPB Q8HR ROMMEL Rx#: [id number] Oral 0 / 0 0 / 0 Output: Urine 100 / 100 525 / 525 325 / 325 Wound Drainage 120 / 120 140 / 140 Right Upper Abdomen 120 / 120 140 / 140 Other: Meal npo Blood Glucose* 148 120 123 - General physical appearance well developed, no distress - Eyes PERRL, normal ocular movement - ENT normal mucosa, normocephalic - Neck Neck exam: trachea midline - Respiratory normal expansion, clear to auscultation - Cardiovascular Cardiovascular exam: Present: RRR - Abdomen Abdomen: Present: bowel sounds present, soft, non tender. Absent: distended, guarding, rebound - Incision Incision: Present: clean and dry, intact - Integumentary no rash, no growths - Neurologic normal sensation - Musculoskeletal normal posture - Psychiatric oriented to time, oriented to person, oriented to place, speech is normal, memory intact - Labs 03/22/18 04:48 03/22/18 04:48 Diabetes panel 03/22/18 Range/Units 04:48 Sodium 134 L (136-145) mEq/L Potassium 4.2 (3.5-5.1) mEq/L Chloride 107 (98-107) mEq/L Carbon Dioxide 20 L (23-29) mEq/L BUN 22 (8-23) mg/dL Creatinine 1.60 H (0.70-1.30) mg/dL Glucose 142 H (70-105) mg/dL Calcium 7.3 L (8.6-10.3) mg/dL AST 25 (13-39) Units/L ALT 35 (7-52) Units/L Alkaline Phosphatase 145 H (34-104) Units/L Albumin 2.5 L (3.5-5.7) g/dL Calcium panel 03/22/18 Range/Units 04:48 Calcium 7.3 L (8.6-10.3) mg/dL Phosphorus 4.0 (2.7-4.5) mg/dL Albumin 2.5 L (3.5-5.7) g/dL Pituitary panel 03/22/18 Range/Units 04:48 Sodium 134 L (136-145) mEq/L Potassium 4.2 (3.5-5.1) mEq/L Chloride 107 (98-107) mEq/L Carbon Dioxide 20 L (23-29) mEq/L BUN 22 (8-23) mg/dL Creatinine 1.60 H (0.70-1.30) mg/dL Glucose 142 H (70-105) mg/dL Calcium 7.3 L (8.6-10.3) mg/dL Adrenal panel 03/22/18 Range/Units 04:48 Sodium 134 L (136-145) mEq/L Potassium 4.2 (3.5-5.1) mEq/L Chloride 107 (98-107) mEq/L Carbon Dioxide 20 L (23-29) mEq/L BUN 22 (8-23) mg/dL Creatinine 1.60 H (0.70-1.30) mg/dL Glucose 142 H (70-105) mg/dL Calcium 7.3 L (8.6-10.3) mg/dL Total Bilirubin 0.3 (0.3-1.0) mg/dL AST 25 (13-39) Units/L ALT 35 (7-52) Units/L Alkaline Phosphatase 145 H (34-104) Units/L Albumin 2.5 L (3.5-5.7) g/dL - Attending Attestation I examined this patient and my medical decision-making was reviewed with the Resident Physician. I agree with the documented findings, disposition and treatment plan as described except to the extent set forth below.
--- NOTE | 2018-03-20 14:24 | Event Note ---
Date of Encounter: 03/20/18 Time of Encounter: 14:[address] showed showed collection of air fluid along the gallbladder fossa and given the recent history of a cholecystectomy is consistent with an abscess. Patient is currently afebrile, however was febrile overnight. White blood cell count increased from 8.7 yesterday up to 11 today. Was able to talk to IR where they said they would come by and evaluate the patient to see if they can place a drain for the abscess. Cultures ordered. I was able to reexamine the patient and did not appear to have any abdominal pain. He denied any nausea or vomiting. Denied any fevers. Denies any chest pain or shortness of breath. Abdomen/Pelvis CT 03/20/18 11:30 IMPRESSION: 1. Large collection of air and fluid along the gallbladder fossa, with slight extension along the anterior margin of the liver. Given history of cholecystectomy, this is most consistent with an abscess. 2. Moderate dilation of the mid small bowel with distal decompression, suggestive of at least partial small bowel obstruction. Postoperative changes of right hemicolectomy. 3. Small amount of ascites in the low pelvis. 4. Trace bilateral pleural effusions, with extensive basilar atelectasis. A small amount of superimposed consolidation cannot be entirely excluded. 5. Coronary atherosclerosis. D/ / 03/20/2018 13:13:00 Joseph Lemos MD / serjio Interpreting Provider: Joseph Lemos MD Chest CT 03/20/18 11:30
--- NOTE | 2018-03-20 17:07 | Internal Med Progress Note ---
Date of Encounter: 03/20/18 Time of Encounter: 17:05 - Assessment and plan (1) Cecal volvulus Current Visit: Yes Status: Resolved Assessment and plan: Postop day 11 Status post exploratory laparotomy with partial right colectomy with [id number] to end anastomosis and cholecystectomy. Tolerating full liquid diet. Drain placed for abscess today. Management per Surgery (2) Diabetes mellitus Current Visit: Yes Status: Chronic Assessment and plan: Continue current insulin regimen. Adjust insulin as patient coming off TPN and also is advancing diet. Goal glucose <180 and patient falling wihtin this range. Qualifiers: Diabetes mellitus type: type 2 Diabetes mellitus manager terminal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: unspecified manager terminal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 status Diabetes mellitus complication status : with kidney complications Diabetes mellitus complication detail: with chronic kidney disease Chronic kidney disease stage: stage 3 (moderate) Qualified Code(s): E11.22 - Type 2 diabetes mellitus with diabetic chronic kidney disease; N18.3 - Chronic kidney disease, stage 3 (moderate) (3) Hypothyroidism Current Visit: Yes Status: Chronic Assessment and plan: Continue levothyroxin. Qualifiers: Hypothyroidism type: unspecified Qualified Code(s): E03.9 - Hypothyroidism , unspecified (4) Coronary artery disease Current Visit: Yes Status: Chronic Assessment and plan: Has been placed back on aspirin and Plavix and simvastatin. Qualifiers: Coronary Disease-Associated Artery/Lesion type: [place] artery [place] vs. transplanted heart: [place] heart Associated angina: angina presence unspecified Qualified Code(s): I25.10 - Atherosclerotic heart disease of [place] coronary artery without angina pectoris (5) GERD (gastroesophageal reflux disease) Current Visit: Yes Status: Chronic Assessment and plan: Oral PPI Qualifiers: Esophagitis presence: esophagitis presence not specified Qualified Code(s) : K21.9 - Gastro-esophageal reflux disease without esophagitis (6) HLD (hyperlipidemia) Current Visit: No Status: Chronic Assessment and plan: Continue simvastatin Qualifiers: Hyperlipidemia type: mixed hyperlipidemia Qualified Code(s): E78.2 - Mixed hyperlipidemia (7) HTN (hypertension) Current Visit: Yes Status: Chronic Assessment and plan: Blood pressure was better controlled Will continue current medications. Continue IV hydralazine for systolic blood pressure greater than 160 as needed. Qualifiers: Hypertension type: essential hypertension Qualified Code(s): I10 - Essential (primary) hypertension (8) DVT prophylaxis Current Visit: Yes Status: Acute Assessment and plan: continue subcutaneous heparin (9) Leukocytosis Current Visit: Yes Status: Resolved Assessment and plan: From local wound infection involving abdominal incision site. Also related to abscess Now having drain will monitor now that this was placed. Qualifiers: Leukocytosis type: unspecified Qualified Code(s): D72.829 - Elevated white blood cell count, unspecified (10) Acute on chronic kidney failure Current Visit: Yes Status: Acute Assessment and plan: Renal function back at baseline. Qualifiers: Acute renal failure type: unspecified Chronic kidney disease stage: stage 3 (moderate) Qualified Code(s): N17.9 - Acute kidney failure, unspecified; N18.3 - Chronic kidney disease, stage 3 (moderate) (11) Wheezing Current Visit: Yes Status: Acute Assessment and plan: On bronchodilators as needed (12) Fever Current Visit: Yes Status: Acute Assessment and plan: Fungal blood cultures were sent since patient was on TPN. Placed on Diflucan in the mean time. Patient is not exhibiting any clinical signs of pneumonia at this time besides fever. He has been receiving Zosyn should treat aspiration pneumonia which the patient is most at risk for. CT chest, abdomen, pelvis today showed abscess in gallbladder fossa. - This was likely from abscess. Drain placed today. Continue antibiotics. Will monitor. Qualifiers: Fever type: unspecified Qualified Code(s): R50.9 - Fever, unspecified - Time Spent With Patient Total time spent is greater than 50% in coordination of care (as documented) at patient's floor/unit and/or counseling patient: - Subjective Interval history: Patient has returned from drain for post op abscess. Drain placed without issue. Patient has no complaints. Denies fevers/chills, states pain is controlled. - Constitutional Vitals: Temp Pulse Resp BP Pulse Ox 100.8 F H 72 14 128/69 98 03/20/18 15:44 03/20/18 15:44 03/20/18 15:44 03/20/18 15:44 03/20/18 15:44 General appearance: Present: cooperative, mild distress, A&O X 3, pleasant, answers questions appropriately Exam: - ENT Additional comments: Tracheal stoma in place - Neck Neck exam general surgery: Present: supple, trachea midline. Absent: lymphadenopathy - Respiratory Respiratory exam: Present: CTAB. Absent: accessory muscle use, rales, rhonchi, wheezes - Cardiovascular Cardiovascular exam: Present: RRR, +S1, +S2. Absent: diastolic murmur, gallop, rubs, systolic murmur - GI/Abdominal GI/Abdominal exam: Present: normal bowel sounds, soft, no peritoneal signs. Absent: distended, tenderness - Extremities Exam Extremities exam: Present: warm, radial pulses palpable and symmetrical. Absent : calf tenderness, cyanotic, pedal edema - Neurological Exam Neurological exam: Present: alert, oriented X3, no focal deficits. Absent: facial droop, speech deficit YUNIOR drain in place Internal Medicine: Result - Labs CBC & Chem 7: 03/20/18 04:44 03/20/18 04:44 Labs: Short CBC 03/20/18 Range/Units 04:44 WBC 11.0 (4.3-11.1) K/mcL Hgb 8.6 L (12.9-16.9) g/dL Hct 25.7 L (37.5-50.1) % Plt Count 229 (140-400) K/mcL Neutrophils # 9.8 H (1.6-8.9) K/mcL BMP 03/20/18 04:44 Sodium 136 Potassium 3.9 Chloride 109 H Carbon Dioxide 19 L BUN 19 Creatinine 1.33 H Glucose 98 Calcium 8.1 L Urine 03/20/18 Range/Units 04:36 Urine Color Yellow (Yellow) Urine Clarity Clear (Clear) Urine pH 6.0 (5.0-8.0) pH Units Ur Specific [place] 1.020 (1.010-1.025) Urine Protein 30 H (Neg-Trace) mg/dL Urine Glucose (UA) Normal (Normal) mg/dL - Impressions Impressions Abdomen/Pelvis CT 03/20/18 11:30 IMPRESSION: 1. Large collection of air and fluid along the gallbladder fossa, with slight extension along the anterior margin of the liver. Given history of cholecystectomy, this is most consistent with an abscess. 2. Moderate dilation of the mid small bowel with distal decompression, suggestive of at least partial small bowel obstruction. Postoperative changes of right hemicolectomy. 3. Small amount of ascites in the low pelvis. 4. Trace bilateral pleural effusions, with extensive basilar atelectasis. A small amount of superimposed consolidation cannot be entirely excluded. 5. Coronary atherosclerosis. D/ / 03/20/2018 13:13:00 Joseph Lemos MD / serjio Interpreting Provider: Joseph Lemos MD Chest CT 03/20/18 11:30 IMPRESSION: 1. Large collection of air and fluid along the gallbladder fossa, with slight extension along the anterior margin of the liver. Given history of cholecystectomy, this is most consistent with an abscess. 2. Moderate dilation of the mid small bowel with distal decompression, suggestive of at least partial small bowel obstruction. Postoperative changes of right hemicolectomy. 3. Small amount of ascites in the low pelvis. 4. Trace bilateral pleural effusions, with extensive basilar atelectasis. A small amount of superimposed consolidation cannot be entirely excluded. 5. Coronary atherosclerosis. D/ / 03/20/2018 13:13:00 Joseph Lemos MD / serjio Interpreting Provider: Joseph Lemos MD - VTE Documentation of Mechanical Device: Intermittent pneumatic compression device Consult Discharge Plan - Plan Additional Instructions: Wound care instructions: remove dressing and packing. Wash/shower with antibacterial soap. Repacked with 1/4 inch plain gauze. Cover with a dry dressing. Tape to secure. May reinforce her change outer dressing as needed. 1. Your dressing should be removed prior to your discharge date. You may shower , avoid soaking your incision in a tub for a week or so. Cleanse incision gently with a mild soap and water-rinse thoroughlypat dry. Your incision does not need to be redressed. Any sutures or clips still in place at the time of discharge will be removed at your first postoperative visit. Should you have steri-strips across your incision, they will begin to curl as your incision heals (usually within 5-7 days). You may peel them off when this happens. Avoid applying cream, lotions, or powder to your incision. 2. There are no specific dietary restrictions associated with this surgery. Maintaining a well balanced diet is essential for proper healing. Oral fluids are encouraged. 3. It is safe to use a mild laxative. Do so if your bowels have not moved by the third day at home. 4. Walking is healthy. Gradually increase ambulation and activities each day. Allow for regular, uninterrupted rest periods. You are permitted to go up and down stairs slowly while using a handrail. Avoid sitting for long periods of time; avoid crossing your legs; avoid heavy lifting (nothing over 10- 15 pounds) for 6-8 weeks; and avoid any strenuous sports. 5. You may drive when you are comfortable enough to react and move quickly in an emergency (usually 1-2 weeks after surgery). Long trips over 25 miles are not advised. Do not drive if you are taking prescription pain medication. 6. For pain, one of the Ibuprofen compounds (Advil, Nuprin, etc.) or Tylenol is suggested. Should these not be effective in managing your discomfort, prescription pain medications will be given on an individual basis. 7. Please call the office to report any of the following: Temperature of 101 or higher. Signs of infection, possibly including increasing redness, warmth, tenderness, drainage, odor at incision site Persistent moderate to severe pain No bowel movement within 48 hours from OR date. Follow-up appointment with Airam Baez on 03/29/18 at 9:45 AM. Referrals: Lacy Cristobal CNP [Primary Care Provider] - Airam Baez CNP [Advanced Practice Nurse] - 03/29/18 9:45 am
[2018-03-21] MEDS: Piperacillin/Tazobactam 3.375 GM in 0.9 % Sodium Chloride Mini Bag 100 ML IVPB SCH ×3 (00:23→23:33)
[2018-03-21] MEDS: Acetaminophen 325 MG TABLET PO PRN (04:19)
[2018-03-21 04:54] LABS: Basophils % 0.2 %; Eosinophils # 0.2 K/mcL (0.0-0.6); Eosinophils % 1.5 %; Hematocrit 24.3 % (37.5-50.1); Hemoglobin 8.3 g/dL (12.9-16.9); Lymphocytes # 0.4 K/mcL (0.6-4.6); Lymphocytes % 4.4 %; Mean Corpuscular HGB Conc 34.2 g/dL (31.6-35.5); Mean Corpuscular Hemoglobin 31.8 pg (28.0-33.3); Mean Corpuscular Volume 93.1 fL (83.0-100.0); Mean Platelet Volume 9.4 fL (9.4-12.4); Monocytes # 0.4 K/mcL (0.0-1.3); Monocytes % 3.7 %; Neutrophils # 8.7 K/mcL (1.6-8.9); Platelet Count 226 K/mcL (140-400); Red Blood Count 2.61 M/mcL (4.19-5.50); Red Cell Distribution Width 14.3 % (11.5-14.5); Segmented Neutrophils % 89.2 %
[2018-03-21 05:14] LABS: Calcium 8.1 mg/dL (8.6-10.3); Potassium 3.8 mEq/L (3.5-5.1)
[2018-03-21] MEDS: *HR* Heparin 5,000 UNIT/ML VIAL SQ SCH ×2 (06:30→18:01)
[2018-03-21] MEDS: Insulin LISPRO 300 UNITS/3 ML VIAL SQ SCH ×2 (07:28→11:49)
--- NOTE | 2018-03-21 08:17 | General Surgery Progress Note ---
<Mele Morataya - Last Filed: 03/23/18 13:24> Date of Encounter: 03/21/18 Time of Encounter: 07:30 - Assessment and Plan (2) S/P partial resection of colon Current Visit: Yes Status: Acute (3) Cecal volvulus Current Visit: Yes Status: Resolved POD#10 s/p exploratory laparotomy with partial right colectomy with side-to- side / end-to-end anastomosis, and cholecystectomy on 03/09/18. Hx -- 77-year-old male admitted following abdominal discomfort, nausea, bowel stasis (unable to pass flatus or BM) for 3 to 4 days preceding admission. Was afebrile. CT scan data that time demonstrated cecal volvulus. Admitted on 08/2018; cardiology consulted for complicated preop clearance. Exploratory laparotomy, as well as subsequent partial right hemicolectomy with anastomosis and cholecystectomy successfully completed, thus far without complications. Patient continues to be febrile overnight with a temperature range from 99.6- 100.8, currently afebrile at 98.7. Blood pressure has been normotensive. Pulse range from 72-94. Yesterday's CT showed abscess in the region of the gallbladder fossa. IR was consulted and subsequently placed a drain in. They were able to obtain 30 mL of fluid. Currently has 25 mL in his bulb. Yesterday patient had to be straight catheter due to difficulty urinating. He currently denies any difficulty urinating, dysuria, or hematuria. Nurse reports that abdominal dressing had to be changed yesterday twice after patient would cough and have considerable leakage of serosanguinos fluid. Today on exam he continued to have considerable serosanguinos fluid on his bandages. We will place a wound vac on his incision today. After draiaing some of the fluid from the drain IR placed yesterday for his abcess, there was yellow serosanguinous fluid that rushed out. In order to evaluate a possible anastamosis leak/perforation, we will order a CT with oral contrast of the abd/pelvis. I = 960. O = 1525. - NPO. - CT of abd/pelvis. - Place wound vac on abdominal incision. - Continue Flomax 0.4 mg by mouth daily. - Post void residual (pending) - Daily wound care dressings. - Daily assessment of bowel status. - Control pain and nausea as needed - Daily CBC/BMP; correct lytes as needed - Zosyn Day #7. - Fluconazole Day #3. (4) S/P cholecystectomy Current Visit: Yes Status: Acute (5) Co-morbid condition Current Visit: Yes Status: Chronic Comorbidities include diabetes mellitus type II, hypertension, hyperlipidemia, hypothyroidism, coronary artery disease, GERD, and BPH. - mgmt per hospitalist team (6) Fever Current Visit: Yes Status: Resolved Chest X-ray shows some perihilar opacities which might indicate atypical bronchopneumonia however given a normal WBC count, lungs clear on examination, and no complaints to cough, it seems unlikely. Patient was febrile overnight. White blood cell count dropped from [address] of the abdomen did show an abscess in the region of the gallbladder fossa. Likely source of fever. Currently on Zosyn. - Continue Zosyn. - IR placed drain in regional gallbladder fossa yesterday. - Would recommended culture of trachea given CXR report of possible atypical PNA and setting of leukocytosis and fever. Qualifiers: Fever type: unspecified Qualified Code(s): R50.9 - Fever, unspecified Subjective Narrative: Patient says that he denies any abdominal pain. Denies any nausea or vomiting. Denies any chest pain or shortness of breath. Denies any fever or chills overnight. He admits to having a bowel movement. Denies any melena or hematochezia. Objective VITAL SIGNS: Reviewed. See [facility] GENERAL: No apparent distress. HEENT: [Normocephalic, PER, EOMI, oropharynx pink/moist, no JVD noted.] CV: b/l rad pulses 2+, RRR, no murmurs or gallops, no JVD RESPIRATORY: CTAB without wheezes, rales, or rhonchi ABD: soft, non-tender, no rebound/guarding/rigidity, no peritoneal signs INCISION: Abdominal incision clean, intact without purulence/bleeding/edema/ rubor/calor. Moderate amount of serosanguineous drainage on bandages. DRAINS: YUNIOR site on right flank without signs of infection; bulb contains brownish serosanguineous fluid. EXTREMITY: grossly normal motor function, no pedal edema, peripheral pulses 2+ b /l NEUROLOGIC EXAM: AOx3, obeys commands, no speech deficits. PSYCHIATRIC: normal mood and affect SKIN: no gross lesions, rashes, or skin changes Vital Signs - Last 8 Hours Temp Pulse Resp BP Pulse Ox 03/21/18 06:49 98.7 F 80 15 139/71 91 03/21/18 04:58 99.8 F H 87 16 141/77 90 Intake and Output 03/20/18 03/21/18 03/21/18 23:59 07:59 15:59 Intake Total 100 / 100 100 / 100 Output Total 100 / 100 600 / 600 Balance 0 / 0 -500 / -500 Intake: IV Fluids 100 / 100 100 / 100 Zosyn 3.375 GM In 0.9 % Sodium 100 / 100 100 / 100 Chloride (Mini-Bag +) 100 ML @ 25 mls/hr IVPB Q8HR [facility] Rx#: [id number] Oral 0 / 0 0 / 0 Output: Urine 100 / 100 600 / 600 Wound Drainage 0 / 0 0 / 0 Right Upper Abdomen 0 / 0 0 / 0 Other: Weight 62.3 kg Blood Glucose* 153 117 Patient Weight 03/21/18 23:59 Weight 62.3 kg - Labs 03/23/18 04:35 03/23/18 04:35 Diabetes panel 03/21/18 Range/Units 04:20 Sodium 135 L (136-145) mEq/L Potassium 3.8 (3.5-5.1) mEq/L Chloride 106 (98-107) mEq/L Carbon Dioxide 22 L (23-29) mEq/L BUN 21 (8-23) mg/dL Creatinine 1.50 H (0.70-1.30) mg/dL Glucose 140 H (70-105) mg/dL Calcium 8.1 L (8.6-10.3) mg/dL Calcium panel 03/21/18 Range/Units 04:20 Calcium 8.1 L (8.6-10.3) mg/dL Pituitary panel 03/21/18 Range/Units 04:20 Sodium 135 L (136-145) mEq/L Potassium 3.8 (3.5-5.1) mEq/L Chloride 106 (98-107) mEq/L Carbon Dioxide 22 L (23-29) mEq/L BUN 21 (8-23) mg/dL Creatinine 1.50 H (0.70-1.30) mg/dL Glucose 140 H (70-105) mg/dL Calcium 8.1 L (8.6-10.3) mg/dL Adrenal panel 03/21/18 Range/Units 04:20 Sodium 135 L (136-145) mEq/L Potassium 3.8 (3.5-5.1) mEq/L Chloride 106 (98-107) mEq/L Carbon Dioxide 22 L (23-29) mEq/L BUN 21 (8-23) mg/dL Creatinine 1.50 H (0.70-1.30) mg/dL Glucose 140 H (70-105) mg/dL Calcium 8.1 L (8.6-10.3) mg/dL - VTE Documentation of Mechanical Device: Intermittent pneumatic compression device Consult Discharge Plan - Plan Additional Instructions: Wound care instructions: remove dressing and packing. Wash/shower with antibacterial soap. Repacked with 1/4 inch plain gauze. Cover with a dry dressing. Tape to secure. May reinforce her change outer dressing as needed. 1. Your dressing should be removed prior to your discharge date. You may shower , avoid soaking your incision in a tub for a week or so. Cleanse incision gently with a mild soap and water-rinse thoroughlypat dry. Your incision does not need to be redressed. Any sutures or clips still in place at the time of discharge will be removed at your first postoperative visit. Should you have steri-strips across your incision, they will begin to curl as your incision heals (usually within 5-7 days). You may peel them off when this happens. Avoid applying cream, lotions, or powder to your incision. 2. There are no specific dietary restrictions associated with this surgery. Maintaining a well balanced diet is essential for proper healing. Oral fluids are encouraged. 3. It is safe to use a mild laxative. Do so if your bowels have not moved by the third day at home. 4. Walking is healthy. Gradually increase ambulation and activities each day. Allow for regular, uninterrupted rest periods. You are permitted to go up and down stairs slowly while using a handrail. Avoid sitting for long periods of time; avoid crossing your legs; avoid heavy lifting (nothing over 10- 15 pounds) for 6-8 weeks; and avoid any strenuous sports. 5. You may drive when you are comfortable enough to react and move quickly in an emergency (usually 1-2 weeks after surgery). Long trips over 25 miles are not advised. Do not drive if you are taking prescription pain medication. 6. For pain, one of the Ibuprofen compounds (Advil, Nuprin, etc.) or Tylenol is suggested. Should these not be effective in managing your discomfort, prescription pain medications will be given on an individual basis. 7. Please call the office to report any of the following: Temperature of 101 or higher. Signs of infection, possibly including increasing redness, warmth, tenderness, drainage, odor at incision site Persistent moderate to severe pain No bowel movement within 48 hours from OR date. Follow-up appointment with Airam Baez on 03/29/18 at 9:45 AM. Referrals: Lacy Cristobal CNP [Primary Care Provider] - Airam Baez CNP [Advanced Practice Nurse] - 03/29/18 9:45 am <Annita Jackman - Last Filed: 03/26/18 14:21> Date of Encounter: 03/26/18 - Assessment and Plan (1) S/P partial resection of colon Current Visit: Yes Status: Acute patient wiht flatus and bm after ct scan yesterday will continue npo until evaluated by GI for ERCP (2) Acute kidney injury Current Visit: Yes Status: Resolved back to baseline (3) Bile leak Current Visit: Yes Status: Acute decreased output last 24 hrs and drainage is more serous than bilious this am continue YUNIOR drain to suction consult in to GI for ERCP for bile leak continue npo continue TPN CT evaluated , fluid in pelvis - post op/bile, patient is asymptomatic, serial abdominal exams (4) Evisceration of bowel Current Visit: Yes Status: Resolved s/p abdominal closure, wound vac in place, changed today daily wound care - packing to upper midline wound (5) Diabetes mellitus Current Visit: Yes Status: Chronic managment per hospitalist Qualifiers: Diabetes mellitus type: type 2 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 status Diabetes mellitus complication status : with kidney complications Diabetes mellitus complication detail: with chronic kidney disease Chronic kidney disease stage: stage 3 (moderate) Qualified Code(s): E11.22 - Type 2 diabetes mellitus with diabetic chronic kidney disease; N18.3 - Chronic kidney disease, stage 3 (moderate) (6) GERD (gastroesophageal reflux disease) Current Visit: Yes Status: Chronic continue PPI Qualifiers: Esophagitis presence: esophagitis presence not specified Qualified Code(s) : K21.9 - Gastro-esophageal reflux disease without esophagitis (7) Hypertension Current Visit: Yes Status: Chronic cotnrolled Qualifiers: Hypertension type: essential hypertension Qualified Code(s): I10 - Essential (primary) hypertension (8) Hypothyroidism Current Visit: Yes Status: Chronic continue IV synthroid Qualifiers: Hypothyroidism type: unspecified Qualified Code(s): E03.9 - Hypothyroidism , unspecified (9) Acute urinary retention Current Visit: Yes Status: Acute continue chang (10) Postoperative intra-abdominal abscess Current Visit: Yes Status: Acute continue abx, drainage from brisa drain more serous today than bilious, no purulence trend wbc Qualifiers: Encounter type: initial encounter Qualified Code(s): T81.4XXA - Infection following a procedure, initial encounter; K65.1 - Peritoneal abscess Subjective Patient reports: no new complaints, feels better, still having pain, pain is less, flatus, bowel movement, afebrile Objective Vital Signs - Last 8 Hours Temp Pulse Resp BP Pulse Ox 03/26/18 10:27 97.9 F 91 14 131/65 96 03/26/18 07:25 16 95 03/26/18 06:34 97.8 F 87 14 154/81 99 Intake and Output 03/25/18 03/26/18 03/26/18 23:59 07:59 15:59 Intake Total 1662 / 1662 450 / 450 151 / 151 Output Total 400 / 400 1010 / 1010 920 / 920 Balance 1262 / 1262 -560 / -560 -769 / -769 Intake: IV Fluids 1662 / 1662 450 / 450 151 / 151 Clinimix E 5%-15% SOLUTION 2, 1462 / 1462 000 ML @ 60 mls/hr IVC .Q24H [facility] with M.v.i. Adult 10 ml Rx# :[id number] Doxycycline 100 MG In 0.9 % 100 / 100 100 / 100 Sodium Chloride (Mini-Bag +) 100 ML @ 100 mls/hr IVPB Q12H [facility] Rx#:[id number] Intralipid 20% 250 ML @ 21 mls/ 250 / 250 hr IVPB DAILY@1700 [facility] Rx#: [id number] Zosyn 3.375 GM In 0.9 % Sodium 100 / 100 100 / 100 100 / 100 Chloride (Mini-Bag +) 100 ML @ 25 mls/hr IVPB Q8HR [facility] Rx#: [id number] Vitamin B-1 100 MG In Dextrose 51 / 51 5% 50 ML @ 50 mls/hr IVPB DAILY [facility] Rx#:[id number] Oral 0 / 0 0 / 0 0 / 0 Output: Urine 600 / 600 Catheter 400 / 400 850 / 850 200 / 200 Gastric Drainage 100 / 100 100 / 100 Wound Drainage 60 / 60 20 / 20 Right Upper Abdomen 60 / 60 20 / 20 Other: Meal NPO NPO NPO Percent of Meal Consumed 0% 0% 0% Stool Size Moderate Stool Consistency loose Stool Color Brown # Bowel Movements 0 0 1 Weight 67.9 kg Blood Glucose* 208 219 237 Patient Weight 03/26/18 23:59 Weight 67.9 kg - General physical appearance well developed, no distress - Eyes PERRL, normal ocular movement - ENT dry mucosa, normocephalic - Neck Neck exam: trachea midline (tracheostomy) - Respiratory normal expansion, clear to auscultation - Cardiovascular Cardiovascular exam: Present: RRR - Abdomen Abdomen: Present: bowel sounds present, soft, tender (appropriate post op tenderness). Absent: distended, guarding, rebound - Incision Incision: Present: clean and dry, open (wound vac/packing in place) - Genitourinary other (chang wiht clear yellow urine, bloody sediment in tubing) - Integumentary no rash, no growths - Neurologic normal sensation - Musculoskeletal normal posture - Psychiatric oriented to time, memory intact - Labs 03/26/18 05:45 03/26/18 05:45 Diabetes panel 03/26/18 03/26/18 Range/Units 05:45 05:45 Sodium 132 L (136-145) mEq/L Potassium 3.8 (3.5-5.1) mEq/L Chloride 104 (98-107) mEq/L Carbon Dioxide 22 L (23-29) mEq/L BUN 19 (8-23) mg/dL Creatinine 1.23 (0.70-1.30) mg/dL Glucose 170 H (70-105) mg/dL Calcium 8.0 L (8.6-10.3) mg/dL AST 12 L (13-39) Units/L ALT 14 (7-52) Units/L Alkaline Phosphatase 222 H (34-104) Units/L Albumin 2.4 L (3.5-5.7) g/dL Calcium panel 03/26/18 03/26/18 Range/Units 05:45 05:45 Calcium 8.0 L (8.6-10.3) mg/dL Phosphorus 2.5 L (2.7-4.5) mg/dL Albumin 2.4 L (3.5-5.7) g/dL Pituitary panel 03/26/18 Range/Units 05:45 Sodium 132 L (136-145) mEq/L Potassium 3.8 (3.5-5.1) mEq/L Chloride 104 (98-107) mEq/L Carbon Dioxide 22 L (23-29) mEq/L BUN 19 (8-23) mg/dL Creatinine 1.23 (0.70-1.30) mg/dL Glucose 170 H (70-105) mg/dL Calcium 8.0 L (8.6-10.3) mg/dL Adrenal panel 03/26/18 03/26/18 Range/Units 05:45 05:45 Sodium 132 L (136-145) mEq/L Potassium 3.8 (3.5-5.1) mEq/L Chloride 104 (98-107) mEq/L Carbon Dioxide 22 L (23-29) mEq/L BUN 19 (8-23) mg/dL Creatinine 1.23 (0.70-1.30) mg/dL Glucose 170 H (70-105) mg/dL Calcium 8.0 L (8.6-10.3) mg/dL Total Bilirubin 0.3 (0.3-1.0) mg/dL AST 12 L (13-39) Units/L ALT 14 (7-52) Units/L Alkaline Phosphatase 222 H (34-104) Units/L Albumin 2.4 L (3.5-5.7) g/dL - Imaging CT scan - abdomen: report reviewed, image reviewed CT scan - pelvis: report reviewed, image reviewed - Attending Attestation I examined this patient and my medical decision-making was reviewed with the Resident Physician. I agree with the documented findings, disposition and treatment plan as described except to the extent set forth below.
[2018-03-21] MEDS: Aspirin Enteric Coated 81 MG Tablet PO SCH (08:55)
[2018-03-21] MEDS: Fluconazole 100 MG/50 ML 100 MG/50 ML BAG IVPB SCH (08:55)
[2018-03-21] MEDS: NIFEdipine XL (24 HR) 30 MG TAB.ER.24 PO SCH (08:55)
[2018-03-21] MEDS ORDERED: 0.9 % Sodium Chloride 1,000 ML IVC SCH ×2 (09:30→16:45)
--- NOTE | 2018-03-21 11:19 | Event Note ---
<Mele Morataya - Last Filed: 03/21/18 11:23> Date of Encounter: 03/21/18 Time of Encounter: 10:50 Patient coughed and had his abdominal incision dehisenced. There was a grapefruit sized amount of bowel visible on the abdomen that was pink and moist. New dana and wet gauze was applied to seal it. An abdominal binder was put on afterwards.. Patient denied abdominal pain, nausea, or vomiting. Plan right now is patient to finish his oral contrast and continue with his abd/ pelvis CT. He will then be taken to the OR for evaluation and repair of the dehisence. <Annita Jackman - Last Filed: 03/21/18 15:33> Date of Encounter: 03/21/18 I examined this patient and my medical decision-making was reviewed with the Resident Physician. I agree with the documented findings, disposition and treatment plan as described except to the extent set forth below. Patient apparently coughed this am and his wound and fascial closure dehisced and a loop of small intestine eviscerated. Patient getting CT scan of abdomen in an hour to ensure no anastomotic leak as brown purulent drainage is coming from IR placed RUQ/gallbladder fossa drain. Will take patient to OR for exploratory laparotomy risks and benefits discussed and he wishes to proceed
[2018-03-21] MEDS ORDERED: *HR* Metoprolol 5 MG/5 ML VIAL IVP PRN ×2 (11:41→16:45)
--- NOTE | 2018-03-21 13:23 | Anesthesia Evaluation PreOp ---
Date of Encounter: 03/21/18 Time of Encounter: 13:21 - Past History Planned Operation: Exlap Cardiac History: HTN, Hyperlipidemia, Other (Per medical records receptionist note pt had a positive stress test but will not delay any urgent/emergent procedures to perform a heart cath Impressions: Technically sub-optimal due to poor echocardiographic windows. LVEF 65%. Normal LV chamber size, wall thickness and function. Mild left ventricular diastolic dysfunction. Normal right ventricular structure and function. Mild aortic sclerosis suggested by Doppler. Mean gradient 9 mmHg. 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) DISTRICT DIRECTOR History: Denies Any Significant HX Other Medical History: Renal (CKD stage IV), GERD Anesthesia History: No Prior Anesthetic Complications, Past Anesthesia (robotic dx lap,) Alcohol Use: none Drug use: none Medications and Allergies Acetaminophen [Tylenol] 1,000 mg PO Q6HR PRN #90 tablet 08/31/16 [Rx] Allopurinol [Zyloprim] 300 mg PO DAILY 08/31/16 [History] Aspirin [Lo-Dose Aspirin EC] 81 mg PO DAILY 08/31/16 [History] Furosemide [Lasix] 20 mg PO DAILY 08/31/16 [History] Gabapentin [Neurontin] 300 mg PO DAILY 08/31/16 [History] Multivitamin [Multivitamins] 1 each PO DAILY 08/31/16 [History] NIFEdipine [Nifedipine Xl] 30 mg PO DAILY 08/31/16 [History] Pantoprazole Sodium [Protonix] 40 mg PO BID 08/31/16 [History] Clopidogrel [Plavix] 75 mg PO DAILY 03/09/18 [History] Levothyroxine Sodium [Levoxyl] 125 mcg PO DAILY 03/09/18 [History] Lisinopril [Zestril] 20 mg PO DAILY 03/09/18 [History] Simvastatin [Zocor] 40 mg PO HS 03/09/18 [History] 3 Allergy/AdvReac Type Severity Reaction Status Date / Time No Known Allergies Allergy Verified 11/18/15 17:58 - Meds/Allergy Pre-op Review Medications Reviewed: Yes Allergies Reviewed: Yes Beta Blockers on Current Med List: No Anesthesia Results - Labs 03/21/18 04:20 03/21/18 04:20 - Imaging EKG: report reviewed (SINUS RHYTHM LEFT VENTRICULAR HYPERTROPHY AND ST-T CHANGE [VOLTAGE CRITERIA PLUS ST/T ABNORMALITY] Electronically Signed On 03-10-2018 8: 00:21 EDT by Jori Chong MD) Anesthesia Exam Vital Signs/O2 Sat, Most Current Temp Pulse Resp BP Pulse Ox 98.7 F 91 15 118/60 90 03/21/18 13:17 03/21/18 13:17 03/21/18 13:17 03/21/18 13:17 03/21/18 13:17 Height: 1.65m Weight: 62kg - HEENT Pupil (Motor): Pupils equal, EOMI Mallampati: Trach Oral Opening: Greater than 3 - DISTRICT DIRECTOR LOC: Oriented DISTRICT DIRECTOR Motor: Normal RUE, Normal LUE, Normal RLE, Normal LLE, Normal Face DISTRICT DIRECTOR Sensory: Normal: RUE, LUE, RLE, LLE, Face - Cardiac Rhythm: Regular - Pulmonary Breath Sounds: bilateral Clear Respiratory Effort: Symmetrical Anesthesia Assess/Plan ASA Score: 4, E Modified Higinio Scale for Level of Consciousness: Cooperative, oriented, and tranquil Anesthetic Plan: General Monitoring Plan: Standard Monitors Recovery Plan: PACU
[2018-03-21] MEDS ORDERED: CefOXitin 1,000 MG VIAL ONE (14:11)
[2018-03-21] MEDS ORDERED: *HR* Propofol 200 MG/20 ML VIAL IVP ONE (14:25)
[2018-03-21] MEDS ORDERED: *HR* Midazolam HCl 2 MG/2 ML VIAL ONE (14:25)
[2018-03-21] MEDS ORDERED: *HR* FentaNYL (PF) 100 MCG/2 ML VIAL ONE ×2 (14:25→14:38)
[2018-03-21] MEDS ORDERED: Lidocaine -MPF 2% 2 ML VIAL ONE (14:26)
[2018-03-21] MEDS ORDERED: Dexamethasone 4 MG/ML VIAL ONE (14:26)
[2018-03-21] MEDS ORDERED: Ondansetron 4 MG/2 ML VIAL ONE (14:26)
[2018-03-21] MEDS ORDERED: *HR* Rocuronium Bromide 50 MG/5 ML VIAL ONE (14:26)
[2018-03-21] MEDS ORDERED: Neostigmine Methylsulfate 3 MG/3 ML SYRINGE ONE (15:03)
[2018-03-21] MEDS ORDERED: *HR* HYDROmorphone (PF) 1 MG/ML SYRINGE ONE (15:24)
--- NOTE | 2018-03-21 15:36 | Operative Note ---
Date of procedure: 03/21/18 Pre-op diagnosis: abdominal wound dehiscence and evisceration small bowel Post-op diagnosis: same (gallbladder fossa abscess) Procedure: Exploratory laparotomy, lysis of adhesions, drainage gallbladder fossa abscess, closure abdominal wall with wound vac placement Complications: none immediate Anesthesia: GETA, local Local Anesthetics: 0.5% Sensorcaine HCL SubQ (cc) Surgeon: Annita Jackman Was there an cardiovascular physician assistant present: Yes Replenishment Merchandising Associate: Erica Molina Estimated blood loss (cc): 5 Specimen: none Condition: stable Disposition: PACU Procedure in Detail: Patient was brought into the operating suite and placed supine on the operating table. Uriel was performed and everyone was in agreement. Anesthesia was induced the patient was tracheally intubated by anesthesia without incident through his tracheotomy. Anesthesia placed an NG tube. The patient had eviscerated a loop of small bowel in the abdominal wall was prepped and draped in the usual sterile fashion with Betadine. Timeout was performed and everyone was in agreement. Bookwalter was placed for retraction and exposure. The skin was opened up with gentle digital manipulation. The fascial suture had pulled through and was present in the middle of the wound which the fascial stitch was cut and removed. Small bowel was eviscerated from the abdomen. An area of small bowel was tethered in adhesions in the right upper quadrant to the liver. Lysis of adhesions with Metzenbaum scissors and gentle blunt dissection allowed an area of small bowel approximately 20 cm proximal to the ileocolic anastomosis to be freed from the inferior aspect of the liver. There was power fibrinous exudate adherent to the small bowel in this area which was also adherent to the duodenum. The small bowel was evaluated and there were no serosal tears or enterotomies, the duodenum was evaluated and there were no serosal tears or enterotomies. The anastomosis was located and appeared to be intact. The small bowel was run from the ligament of trite down to the terminal ileum and no enterotomies were located. The small bowel was dilated with succus and air and this was milked back towards the stomach resulting in drainage of 400 mL of small bowel contents. The pigtail drain placed by IR previously traversed the inferior aspect of the right liver this was removed from the abdominal cavity. A 19-Wallisian trimmed Kamran drain was placed along the inferior aspect of the liver up to the fely hepatis through the right anterior abdominal wall and was secured to the skin with a 2-0 silk stitch. The abdominal cavity was copiously irrigated with sterile saline. The last liter of sterile saline containing 1 g of Mefoxin instilled in the saline. The NG tube was palpated to be within the center of the stomach. kockers were placed in either side of the fascia for retraction and the midline fascia was reapproximated with 2 separate #1 non-looped running PDS stitches meeting in the middle. The subcutaneous tissue was copiously irrigated with sterile saline. The proximal and distal skin was closed with paola. The middle aspect of the wound where the bowel had eviscerated a wound VAC with black foam was placed to 125 mmHg continuous suction. All lap and instrument counts were correct at the end of the case. The patient tolerated the procedure well. He was awoken by anesthesia and extubated in the OR. He was taken to PACU in stable condition.
--- NOTE | 2018-03-21 16:29 | Anesthesia Evaluation Post Op ---
Date of Encounter: 03/21/18 Time of Encounter: 16:27 - Vital Signs Vital Signs: Vital Signs/O2 Sat, Most Current Temp Pulse Resp BP Pulse Ox 99.1 F 99 20 99/64 95 03/21/18 16:05 03/21/18 16:05 03/21/18 16:05 03/21/18 16:05 03/21/18 16:05 - Lungs Lungs: Clear Ascult./Percussion - Airway Airway: Non-obstructed - Cardiovascular Regular Rate - Mental Status Mental Status: Asleep with brisk response to light stimulation - Pain Pain Scale: 0 - Nausea Vomiting Nausea Vomiting: Not Present - Hydration Hydration: NPO, Wynne catheter - Discharge PostOp Status: Transfer Patient to floor
[2018-03-21] MEDS ORDERED: Levalbuterol Neb 1.25 MG/3 ML IH PRN (16:45)
[2018-03-21] MEDS ORDERED: D5% in Water 1,000 ML IVC PRN (16:45)
[2018-03-21] MEDS ORDERED: *HR* Dextrose 50 % in Water (Syg) 50 ML SYRINGE IVP PRN (16:45)
[2018-03-21] MEDS ORDERED: Dextrose Gel 15 GM/37.5 ML TUBE PO PRN ×2 (16:45)
--- NOTE | 2018-03-21 16:52 | Internal Med Progress Note ---
Date of Encounter: 03/21/18 Time of Encounter: 11:51 - Assessment and plan (1) Cecal volvulus Current Visit: Yes Status: Resolved Assessment and plan: Postop day 12 Status post exploratory laparotomy with partial right colectomy with [id number] to end anastomosis and cholecystectomy. Drain was placed for abscess in gallbladder fossa on 03/20. Today patient had small loop of bowel came out after coughing, he is going for urgent imaging and likely to OR today. (2) Diabetes mellitus Current Visit: Yes Status: Chronic Assessment and plan: Continue current insulin regimen. Goal glucose <180 Patient will be placed back to NPO, likely to OR today. Qualifiers: Diabetes mellitus type: type 2 Diabetes mellitus fci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: unspecified fci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 status Diabetes mellitus complication status : with kidney complications Diabetes mellitus complication detail: with chronic kidney disease Chronic kidney disease stage: stage 3 (moderate) Qualified Code(s): E11.22 - Type 2 diabetes mellitus with diabetic chronic kidney disease; N18.3 - Chronic kidney disease, stage 3 (moderate) (3) Hypothyroidism Current Visit: Yes Status: Chronic Assessment and plan: Continue levothyroxin when able. Qualifiers: Hypothyroidism type: unspecified Qualified Code(s): E03.9 - Hypothyroidism , unspecified (4) Coronary artery disease Current Visit: Yes Status: Chronic Assessment and plan: ASA, Plavix, Zocor when able Qualifiers: Coronary Disease-Associated Artery/Lesion type: [place] artery [place] vs. transplanted heart: [place] heart Associated angina: angina presence unspecified Qualified Code(s): I25.10 - Atherosclerotic heart disease of [place] coronary artery without angina pectoris (5) GERD (gastroesophageal reflux disease) Current Visit: Yes Status: Chronic Assessment and plan: Switch ppi to IV today. Qualifiers: Esophagitis presence: esophagitis presence not specified Qualified Code(s) : K21.9 - Gastro-esophageal reflux disease without esophagitis (6) HLD (hyperlipidemia) Current Visit: No Status: Chronic Assessment and plan: statin when tolerating PO Qualifiers: Hyperlipidemia type: mixed hyperlipidemia Qualified Code(s): E78.2 - Mixed hyperlipidemia (7) HTN (hypertension) Current Visit: Yes Status: Chronic Assessment and plan: Continue IV hydralazine for systolic blood pressure greater than 160 as needed. Qualifiers: Hypertension type: essential hypertension Qualified Code(s): I10 - Essential (primary) hypertension (8) DVT prophylaxis Current Visit: Yes Status: Acute Assessment and plan: continue subcutaneous heparin (9) Acute on chronic kidney failure Current Visit: Yes Status: Acute Assessment and plan: Renal function back at baseline. Qualifiers: Acute renal failure type: unspecified Chronic kidney disease stage: stage 3 (moderate) Qualified Code(s): N17.9 - Acute kidney failure, unspecified; N18.3 - Chronic kidney disease, stage 3 (moderate) (10) Fever Current Visit: Yes Assessment and plan: Fungal blood cultures were sent since patient was on TPN. Placed on Diflucan in the mean time. Patient is not exhibiting any clinical signs of pneumonia at this time besides fever. He has been receiving Zosyn should treat aspiration pneumonia which the patient is most at risk for. CT chest, abdomen, pelvis on 03/20 showed abscess in gallbladder fossa. - This was likely from abscess. Drain placed by IR. Continue antibiotics. Will monitor. Prelim culture shows gram negative rods, will continue Zosyn and follow-up sensitivities. Qualifiers: Fever type: unspecified Qualified Code(s): R50.9 - Fever, unspecified - Time Spent With Patient Total time spent is greater than 50% in coordination of care (as documented) at patient's floor/unit and/or counseling patient: - Subjective Interval history: 03/20: Patient has returned from drain for post op abscess. Drain placed without issue. Patient has no complaints. Denies fevers/chills, states pain is controlled. 03/21: Nursing reported that patient coughed and part of small bowel came out. Patient is in no acute distress. Patient examined after temporary gauze is being placed. - Constitutional Vitals: Temp Pulse Resp BP Pulse Ox 99.0 F 90 20 122/71 100 03/21/18 16:25 03/21/18 16:25 03/21/18 16:25 03/21/18 16:25 03/21/18 16:25 Exam: Limited physical exam due to patient acute situation. Gen: AAOx3, mild distress CVS: RRR Lungs: CTAB Abd: deferred palpation, I noted loop of bowel from abdomen, no active bleed. Currently temporary gauze in place, no discharge, no bleeding. Abdomen is non- distended. Ext: no edema. Internal Medicine: Result - Labs CBC & Chem 7: 03/21/18 04:20 03/21/18 04:20 Labs: Short CBC 03/21/18 Range/Units 04:20 WBC 9.7 (4.3-11.1) K/mcL Hgb 8.3 L (12.9-16.9) g/dL Hct 24.3 L (37.5-50.1) % Plt Count 226 (140-400) K/mcL Neutrophils # 8.7 (1.6-8.9) K/mcL BMP 03/21/18 04:20 Sodium 135 L Potassium 3.8 Chloride 106 Carbon Dioxide 22 L BUN 21 Creatinine 1.50 H Glucose 140 H Calcium 8.1 L - Impressions Impressions Retroperitoneal Abscess Drainage 03/20/18 00:00 IMPRESSION: Successful CT guided placement of abdominal abscess drainage catheter. D/ / Garrett Booth MD / Garrett Booth MD Interpreting Provider: Garrett Booth MD Abdomen/Pelvis CT 03/21/18 12:00 IMPRESSION: 1. No evidence of perforation. 2. There is some perihepatic ascites and regional pneumoperitoneum, which may be attributable to the recently placed percutaneous catheter in the right upper quadrant. 3. A portion of the small bowel herniates outside of the patient, a finding which is new compared to prior. Proximal loops appear slightly dilated. 4. Tiny bilateral pleural effusions and dependent atelectasis. D/ / 03/21/2018 13:08:58 Enrique Dominguez / serjio Interpreting Provider: Enrique Dominguez - VTE Documentation of Mechanical Device: Intermittent pneumatic compression device Consult Discharge Plan - Plan Additional Instructions: Wound care instructions: remove dressing and packing. Wash/shower with antibacterial soap. Repacked with 1/4 inch plain gauze. Cover with a dry dressing. Tape to secure. May reinforce her change outer dressing as needed. 1. Your dressing should be removed prior to your discharge date. You may shower , avoid soaking your incision in a tub for a week or so. Cleanse incision gently with a mild soap and water-rinse thoroughlypat dry. Your incision does not need to be redressed. Any sutures or clips still in place at the time of discharge will be removed at your first postoperative visit. Should you have steri-strips across your incision, they will begin to curl as your incision heals (usually within 5-7 days). You may peel them off when this happens. Avoid applying cream, lotions, or powder to your incision. 2. There are no specific dietary restrictions associated with this surgery. Maintaining a well balanced diet is essential for proper healing. Oral fluids are encouraged. 3. It is safe to use a mild laxative. Do so if your bowels have not moved by the third day at home. 4. Walking is healthy. Gradually increase ambulation and activities each day. Allow for regular, uninterrupted rest periods. You are permitted to go up and down stairs slowly while using a handrail. Avoid sitting for long periods of time; avoid crossing your legs; avoid heavy lifting (nothing over 10- 15 pounds) for 6-8 weeks; and avoid any strenuous sports. 5. You may drive when you are comfortable enough to react and move quickly in an emergency (usually 1-2 weeks after surgery). Long trips over 25 miles are not advised. Do not drive if you are taking prescription pain medication. 6. For pain, one of the Ibuprofen compounds (Advil, Nuprin, etc.) or Tylenol is suggested. Should these not be effective in managing your discomfort, prescription pain medications will be given on an individual basis. 7. Please call the office to report any of the following: Temperature of 101 or higher. Signs of infection, possibly including increasing redness, warmth, tenderness, drainage, odor at incision site Persistent moderate to severe pain No bowel movement within 48 hours from OR date. Follow-up appointment with Airam Baez on 03/29/18 at 9:45 AM. Referrals: Lacy Cristobal CNP [Primary Care Provider] - Airam Baez CNP [Advanced Practice Nurse] - 03/29/18 9:45 am
[2018-03-21] MEDS: Acetaminophen IV 1,000 MG/100 ML INFUS..BTL IVPB SCH (18:01)
[2018-03-21] MEDS: MORPHINE SUL Oral CONC 10 MG/0.5 ML ORAL.SYG SL SCH ×2 (20:45→23:33)
[2018-03-21] MEDS ORDERED: Insulin LISPRO 300 UNITS/3 ML VIAL SQ SCH (21:00)
[2018-03-22] MEDS: Acetaminophen IV 1,000 MG/100 ML INFUS..BTL IVPB SCH ×3 (00:26→17:00)
[2018-03-22] MEDS: MORPHINE SUL Oral CONC 10 MG/0.5 ML ORAL.SYG SL SCH ×5 (04:20→20:24)
[2018-03-22 05:19] LABS: Basophils % 0.2 %; Hematocrit 25.3 % (37.5-50.1); Hemoglobin 8.5 g/dL (12.9-16.9); Immature Granulocytes % 0.9 % (0-4); Lymphocytes # 0.5 K/mcL (0.6-4.6); Lymphocytes % 5.7 %; Mean Corpuscular HGB Conc 33.6 g/dL (31.6-35.5); Mean Corpuscular Hemoglobin 31.7 pg (28.0-33.3); Mean Corpuscular Volume 94.4 fL (83.0-100.0); Mean Platelet Volume 9.3 fL (9.4-12.4); Monocytes # 0.5 K/mcL (0.0-1.3); Monocytes % 4.7 %; Neutrophils # 8.4 K/mcL (1.6-8.9); Platelet Count 275 K/mcL (140-400); Red Blood Count 2.68 M/mcL (4.19-5.50); Red Cell Distribution Width 14.3 % (11.5-14.5); Segmented Neutrophils % 88.5 %
[2018-03-22 05:41] LABS: Albumin 2.5 g/dL (3.5-5.7); Albumin/Globulin Ratio 0.9 (1.1-2.2); Bilirubin,Total 0.3 mg/dL (0.3-1.0); Calcium 7.3 mg/dL (8.6-10.3); Globulin 2.9 g/dL (2.4-3.5); Magnesium 1.6 mg/dL (1.6-2.6); Potassium 4.2 mEq/L (3.5-5.1); Total Protein 5.4 g/dL (6.4-8.9)
[2018-03-22 06:20] LABS: Platelet Estimate Normal (Normal); Reactive Lymphocytes Present (Not Present)
[2018-03-22] MEDS: Levothyroxine Sodium 100 MCG VIAL IVP SCH (06:30)
[2018-03-22] MEDS: *HR* Heparin 5,000 UNIT/ML VIAL SQ SCH ×2 (06:42→19:19)
[2018-03-22] MEDS ORDERED: Pantoprazole 40 MG VIAL IVP SCH (09:00)
[2018-03-22] MEDS: Insulin LISPRO 300 UNITS/3 ML VIAL SQ SCH ×5 (10:04→20:21)
[2018-03-22] MEDS: Piperacillin/Tazobactam 3.375 GM in 0.9 % Sodium Chloride Mini Bag 100 ML IVPB SCH ×2 (10:23→16:09)
[2018-03-22] MEDS ORDERED: D10% in Water 500 ML IVC PRN (10:24)
[2018-03-22] MEDS: Pantoprazole 40 MG VIAL IVP SCH (10:26)
[2018-03-22] MEDS: Fluconazole 100 MG/50 ML 100 MG/50 ML BAG IVPB SCH (10:26)
--- NOTE | 2018-03-22 10:27 | General Surgery Progress Note ---
<KasandramarlenaamyMele murray - Last Filed: 03/22/18 10:25> Date of Encounter: 03/22/18 Time of Encounter: 07:45 - Assessment and Plan (1) Cecal volvulus Current Visit: Yes Status: Resolved POD#11 s/p exploratory laparotomy with partial right colectomy with side-to- side / end-to-end anastomosis, and cholecystectomy on 03/09/18. Hx -- 77-year-old male admitted following abdominal discomfort, nausea, bowel stasis (unable to pass flatus or BM) for 3 to 4 days preceding admission. Was afebrile. CT scan data that time demonstrated cecal volvulus. Admitted on 08/2018; cardiology consulted for complicated preop clearance. Exploratory laparotomy, as well as subsequent partial right hemicolectomy with anastomosis and cholecystectomy successfully completed, thus far without complications. Patient afebrile overnight currently at 98.1. Blood pressure has been normotensive. Pulse range from 89-96. CT from 2 days ago showed abscess in the region of the gallbladder fossa. IR was consulted and subsequently placed a drain in. They were able to obtain 30 mL of fluid at the time. After draiaing some of the fluid from the drain IR placed for his abcess, there was yellow serosanguinous fluid that rushed out yesterday. In order to evaluate a possible anastamosis leak/perforation, a CT with oral contrast of the abd/ pelvis was ordered which showed no perforation. Yesterday afternoon, patient had an incidence where he coughed and his abdominal wound dehisced. There was a grafe-fruit sized amount of bowel which projected from the incision. The incision and projecting bowels were padded and secured and patient was sent into the OR for exploratory laparotomy, lysis of adhesions, drainage gallbladder fossa abscess, closure abdominal wall with wound vac placement. No BM since yesterday. Denies flatus. Hypoactive bowel sounds. I = 450. O = 1490. - NPO. - Will transition to TPN - Continue Flomax 0.4 mg by mouth daily. - Post void residual (pending) - Daily wound care dressings. - Daily assessment of bowel status. - Control pain and nausea as needed - Daily CBC/BMP; correct lytes as needed - Zosyn Day #8. - Fluconazole Day #4. Abdomen/Pelvis CT 03/21/18 12:00 IMPRESSION: 1. No evidence of perforation. 2. There is some perihepatic ascites and regional pneumoperitoneum, which may be attributable to the recently placed percutaneous catheter in the right upper quadrant. 3. A portion of the small bowel herniates outside of the patient, a finding which is new compared to prior. Proximal loops appear slightly dilated. 4. Tiny bilateral pleural effusions and dependent atelectasis. D/ / 03/21/2018 13:08:58 Enrique Dominguez / serjio Interpreting Provider: Enrique Dominguez (2) Fever Current Visit: Yes Status: Resolved Patient afebrile overnight Chest X-ray shows some perihilar opacities which might indicate atypical bronchopneumonia however given a normal WBC count, lungs clear on examination, and no complaints to cough, it seems unlikely. Patient was afebrile overnight. White blood cell count dropped from 9.[address] of the abdomen did show an abscess in the region of the gallbladder fossa. Likely source of fever. Currently on Zosyn. - Continue Zosyn. - IR placed drain in regional gallbladder fossa. Qualifiers: Fever type: unspecified Qualified Code(s): R50.9 - Fever, unspecified (3) S/P partial resection of colon Current Visit: Yes Status: Acute (4) S/P cholecystectomy Current Visit: Yes Status: Acute (5) Co-morbid condition Current Visit: Yes Status: Chronic Comorbidities include diabetes mellitus type II, hypertension, hyperlipidemia, hypothyroidism, coronary artery disease, GERD, and BPH. - mgmt per hospitalist team Subjective Narrative: Patient admits to some abdominal soreness last night, but currently denies any pain. He denies any nausea or vomiting. Denies any fever or chills. Denies any chest pain or shortness of breath. Denies any BM or passing gas. Objective VITAL SIGNS: Reviewed. See [facility] GENERAL: no apparent distress. HEENT: [Normocephalic, PER, EOMI, oropharynx pink/moist, no JVD noted.] CV: b/l rad pulses 2+, RRR, no murmurs or gallops, no JVD RESPIRATORY: CTAB without wheezes, rales, or rhonchi ABD: soft, non-tender, no rebound/guarding/rigidity, no peritoneal signs. Hypoactive bowel sounds present. INCISION: abdominal wound vac intact with surround site clean, dry, intact without purulence/bleeding/edema/rubor/calor. Wound vac output of 60 ml. DRAINS: YUNIOR site on R flank without signs of infection; bulb contains dark red thin fluid. EXTREMITY: grossly normal motor function, no pedal edema, peripheral pulses 2+ b /l NEUROLOGIC EXAM: AOx3, obeys commands, no speech deficits. PSYCHIATRIC: normal mood and affect SKIN: no gross lesions, rashes, or skin changes Vital Signs - Last 8 Hours Temp Pulse Resp BP Pulse Ox 03/22/18 06:47 98.4 F 88 18 163/84 97 03/22/18 04:19 98.1 F 86 15 153/84 97 Intake and Output 03/21/18 03/22/18 03/22/18 23:59 07:59 15:59 Intake Total 100 / 100 0 / 0 Output Total 100 / 100 645 / 645 Balance 0 / 0 -645 / -645 Intake: IV Fluids 100 / 100 Ofirmev 1,000 mg/100 ml 1,000 100 / 100 mg In 100 ml @ 400 mls/hr IVPB Q8H [facility] Rx#:[id number] Oral 0 / 0 0 / 0 Output: Urine 100 / 100 525 / 525 Wound Drainage 120 / 120 Right Upper Abdomen 120 / 120 Other: Meal npo Blood Glucose* 148 120 - Labs 03/22/18 04:48 03/22/18 04:48 Diabetes panel 03/22/18 Range/Units 04:48 Sodium 134 L (136-145) mEq/L Potassium 4.2 (3.5-5.1) mEq/L Chloride 107 (98-107) mEq/L Carbon Dioxide 20 L (23-29) mEq/L BUN 22 (8-23) mg/dL Creatinine 1.60 H (0.70-1.30) mg/dL Glucose 142 H (70-105) mg/dL Calcium 7.3 L (8.6-10.3) mg/dL AST 25 (13-39) Units/L ALT 35 (7-52) Units/L Alkaline Phosphatase 145 H (34-104) Units/L Albumin 2.5 L (3.5-5.7) g/dL Calcium panel 03/22/18 Range/Units 04:48 Calcium 7.3 L (8.6-10.3) mg/dL Phosphorus 4.0 (2.7-4.5) mg/dL Albumin 2.5 L (3.5-5.7) g/dL Pituitary panel 03/22/18 Range/Units 04:48 Sodium 134 L (136-145) mEq/L Potassium 4.2 (3.5-5.1) mEq/L Chloride 107 (98-107) mEq/L Carbon Dioxide 20 L (23-29) mEq/L BUN 22 (8-23) mg/dL Creatinine 1.60 H (0.70-1.30) mg/dL Glucose 142 H (70-105) mg/dL Calcium 7.3 L (8.6-10.3) mg/dL Adrenal panel 03/22/18 Range/Units 04:48 Sodium 134 L (136-145) mEq/L Potassium 4.2 (3.5-5.1) mEq/L Chloride 107 (98-107) mEq/L Carbon Dioxide 20 L (23-29) mEq/L BUN 22 (8-23) mg/dL Creatinine 1.60 H (0.70-1.30) mg/dL Glucose 142 H (70-105) mg/dL Calcium 7.3 L (8.6-10.3) mg/dL Total Bilirubin 0.3 (0.3-1.0) mg/dL AST 25 (13-39) Units/L ALT 35 (7-52) Units/L Alkaline Phosphatase 145 H (34-104) Units/L Albumin 2.5 L (3.5-5.7) g/dL - VTE Documentation of Mechanical Device: Intermittent pneumatic compression device Consult Discharge Plan - Plan Additional Instructions: Wound care instructions: remove dressing and packing. Wash/shower with antibacterial soap. Repacked with 1/4 inch plain gauze. Cover with a dry dressing. Tape to secure. May reinforce her change outer dressing as needed. 1. Your dressing should be removed prior to your discharge date. You may shower , avoid soaking your incision in a tub for a week or so. Cleanse incision gently with a mild soap and water-rinse thoroughlypat dry. Your incision does not need to be redressed. Any sutures or clips still in place at the time of discharge will be removed at your first postoperative visit. Should you have steri-strips across your incision, they will begin to curl as your incision heals (usually within 5-7 days). You may peel them off when this happens. Avoid applying cream, lotions, or powder to your incision. 2. There are no specific dietary restrictions associated with this surgery. Maintaining a well balanced diet is essential for proper healing. Oral fluids are encouraged. 3. It is safe to use a mild laxative. Do so if your bowels have not moved by the third day at home. 4. Walking is healthy. Gradually increase ambulation and activities each day. Allow for regular, uninterrupted rest periods. You are permitted to go up and down stairs slowly while using a handrail. Avoid sitting for long periods of time; avoid crossing your legs; avoid heavy lifting (nothing over 10- 15 pounds) for 6-8 weeks; and avoid any strenuous sports. 5. You may drive when you are comfortable enough to react and move quickly in an emergency (usually 1-2 weeks after surgery). Long trips over 25 miles are not advised. Do not drive if you are taking prescription pain medication. 6. For pain, one of the Ibuprofen compounds (Advil, Nuprin, etc.) or Tylenol is suggested. Should these not be effective in managing your discomfort, prescription pain medications will be given on an individual basis. 7. Please call the office to report any of the following: Temperature of 101 or higher. Signs of infection, possibly including increasing redness, warmth, tenderness, drainage, odor at incision site Persistent moderate to severe pain No bowel movement within 48 hours from OR date. Follow-up appointment with Airam Baez on 03/29/18 at 9:45 AM. Referrals: Lacy Cristobal CNP [Primary Care Provider] - Airam Baez CNP [Advanced Practice Nurse] - 03/29/18 9:45 am <Annita Jackman - Last Filed: 03/22/18 15:30> Date of Encounter: 03/22/18 Time of Encounter: 12:30 - Assessment and Plan (1) S/P partial resection of colon Current Visit: Yes Status: Acute (2) Acute kidney injury Current Visit: Yes Status: Acute (3) Bile leak Current Visit: Yes Status: Acute patient black (YUNIOR) drain with bile present have discussed case with senior surgical partner, is most likely from liver edge as YUNIOR drain placed by IR went through liver and patients cholecystectomy was difficult due to inflammation and surgicel was placed during first procedure wbc stable, no fevers, patient is not tacchycardic, benign abdominal exam even given reoperationg yesterday - will monitor trend lft's continue npo, ngt to liws restart TPN tonight prn pain control OOB to chair continue abdominal binder gi/dvt prophylaxis (4) Evisceration of bowel Current Visit: Yes Status: Resolved pt s/p ex lap #1, abdominal wall closure and wound vac in place with minimal serosang output (5) Diabetes mellitus Current Visit: Yes Status: Chronic well controlled, continue MBS checks and SSI currently npo Qualifiers: Diabetes mellitus type: type 2 Diabetes mellitus halfway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: unspecified halfway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 status Diabetes mellitus complication status : with kidney complications Diabetes mellitus complication detail: with chronic kidney disease Chronic kidney disease stage: stage 3 (moderate) Qualified Code(s): E11.22 - Type 2 diabetes mellitus with diabetic chronic kidney disease; N18.3 - Chronic kidney disease, stage 3 (moderate) (6) GERD (gastroesophageal reflux disease) Current Visit: Yes Status: Chronic continue PPI therapy Qualifiers: Esophagitis presence: esophagitis presence not specified Qualified Code(s) : K21.9 - Gastro-esophageal reflux disease without esophagitis (7) Hypertension Current Visit: Yes Status: Chronic holding home po medication due to ileus which is not an unexpected outcome of his condition continue schedule lopressor and prn antihypertensives monitor increased shceduled lopressor Qualifiers: Hypertension type: essential hypertension Qualified Code(s): I10 - Essential (primary) hypertension (8) Hypothyroidism Current Visit: Yes Status: Chronic continue iv synthroid Qualifiers: Hypothyroidism type: unspecified Qualified Code(s): E03.9 - Hypothyroidism , unspecified Subjective Patient reports: no new complaints, feels better, still having pain, pain is less, no flatus, no bowel movement, afebrile Objective Vital Signs - Last 8 Hours Temp Pulse Resp BP Pulse Ox 03/22/18 15:06 90 18 168/81 95 03/22/18 11:23 96 03/22/18 11:07 99.5 F 88 16 157/88 96 Intake and Output 03/21/18 03/22/18 03/22/18 23:59 07:59 15:59 Intake Total 100 / 100 200 / 200 150 / 150 Output Total 100 / 100 645 / 645 915 / 915 Balance 0 / 0 -445 / -445 -765 / -765 Intake: IV Fluids 100 / 100 200 / 200 150 / 150 Ofirmev 1,000 mg/100 ml 1,000 100 / 100 100 / 100 0 / 0 mg In 100 ml @ 400 mls/hr IVPB Q8H [facility] Rx#:[id number] Diflucan 100 MG/50 ML 100 mg In 50 / 50 50 ml @ 50 mls/hr IVPB DAILY [facility] Rx#:[id number] Zosyn 3.375 GM In 0.9 % Sodium 100 / 100 100 / 100 Chloride (Mini-Bag +) 100 ML @ 25 mls/hr IVPB Q8HR [facility] Rx#: [id number] Oral 0 / 0 0 / 0 Output: Urine 100 / 100 525 / 525 575 / 575 Gastric Drainage 200 / 200 Wound Drainage 120 / 120 140 / 140 Right Upper Abdomen 120 / 120 140 / 140 Other: Meal npo Blood Glucose* 148 120 123 - General physical appearance well developed, no distress - Eyes PERRL, normal ocular movement - ENT normal mucosa, normocephalic - Neck Neck exam: other (tracheotomy) - Respiratory normal expansion, clear to auscultation - Cardiovascular Cardiovascular exam: Present: RRR - Abdomen Abdomen: Present: soft, non tender. Absent: bowel sounds present, distended, guarding, rebound Additional Comments: brisa drain (YUNIOR) with bilious output - Incision Incision: Present: clean and dry, open (wound vac in place wiht minimal serous drainage) - Integumentary no rash, no growths - Neurologic normal sensation - Musculoskeletal normal posture - Psychiatric oriented to time, oriented to person, oriented to place, speech is normal, memory intact - Labs 03/22/18 04:48 03/22/18 04:48 Diabetes panel 03/22/18 Range/Units 04:48 Sodium 134 L (136-145) mEq/L Potassium 4.2 (3.5-5.1) mEq/L Chloride 107 (98-107) mEq/L Carbon Dioxide 20 L (23-29) mEq/L BUN 22 (8-23) mg/dL Creatinine 1.60 H (0.70-1.30) mg/dL Glucose 142 H (70-105) mg/dL Calcium 7.3 L (8.6-10.3) mg/dL AST 25 (13-39) Units/L ALT 35 (7-52) Units/L Alkaline Phosphatase 145 H (34-104) Units/L Albumin 2.5 L (3.5-5.7) g/dL Calcium panel 03/22/18 Range/Units 04:48 Calcium 7.3 L (8.6-10.3) mg/dL Phosphorus 4.0 (2.7-4.5) mg/dL Albumin 2.5 L (3.5-5.7) g/dL Pituitary panel 03/22/18 Range/Units 04:48 Sodium 134 L (136-145) mEq/L Potassium 4.2 (3.5-5.1) mEq/L Chloride 107 (98-107) mEq/L Carbon Dioxide 20 L (23-29) mEq/L BUN 22 (8-23) mg/dL Creatinine 1.60 H (0.70-1.30) mg/dL Glucose 142 H (70-105) mg/dL Calcium 7.3 L (8.6-10.3) mg/dL Adrenal panel 03/22/18 Range/Units 04:48 Sodium 134 L (136-145) mEq/L Potassium 4.2 (3.5-5.1) mEq/L Chloride 107 (98-107) mEq/L Carbon Dioxide 20 L (23-29) mEq/L BUN 22 (8-23) mg/dL Creatinine 1.60 H (0.70-1.30) mg/dL Glucose 142 H (70-105) mg/dL Calcium 7.3 L (8.6-10.3) mg/dL Total Bilirubin 0.3 (0.3-1.0) mg/dL AST 25 (13-39) Units/L ALT 35 (7-52) Units/L Alkaline Phosphatase 145 H (34-104) Units/L Albumin 2.5 L (3.5-5.7) g/dL - Attending Attestation I examined this patient and my medical decision-making was reviewed with the Resident Physician. I agree with the documented findings, disposition and treatment plan as described except to the extent set forth below.
--- NOTE | 2018-03-22 11:52 | Internal Med Progress Note ---
Date of Encounter: 03/22/18 Time of Encounter: 11:50 - Assessment and plan (1) Cecal volvulus Current Visit: Yes Status: Resolved Assessment and plan: Postop day 12 Status post exploratory laparotomy with partial right colectomy with abkh-xy-brvb/[id number] to end anastomosis and cholecystectomy. Drain was placed for abscess in gallbladder fossa on 03/20. 03/21: patient had abdominal wound dehiscnece and small bowel protrusion. Had ex laparotomy with drainage of gallbladder fossa abscess. Currently doing well Management per surgery. (2) Diabetes mellitus Current Visit: Yes Status: Chronic Assessment and plan: Continue current insulin regimen. 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 Qualifiers: Hypothyroidism type: unspecified Qualified Code(s): E03.9 - Hypothyroidism , unspecified (4) Coronary artery disease Current Visit: Yes Status: Chronic Assessment and plan: ASA, Plavix, Zocor when able Qualifiers: Coronary Disease-Associated Artery/Lesion type: [place] artery [place] vs. transplanted heart: [place] heart Associated angina: angina presence unspecified Qualified Code(s): I25.10 - Atherosclerotic heart disease of [place] coronary artery without angina pectoris (5) GERD (gastroesophageal reflux disease) Current Visit: Yes Status: Chronic Assessment and plan: IV Protonix daily. Qualifiers: Esophagitis presence: esophagitis presence not specified Qualified Code(s) : K21.9 - Gastro-esophageal reflux disease without esophagitis (6) HLD (hyperlipidemia) Current Visit: No Status: Chronic Assessment and plan: statin when tolerating PO Qualifiers: Hyperlipidemia type: mixed hyperlipidemia Qualified Code(s): E78.2 - Mixed hyperlipidemia (7) HTN (hypertension) Current Visit: Yes Status: Chronic Assessment and plan: Scheduled lopressor IV q6h while NPO Qualifiers: Hypertension type: essential hypertension Qualified Code(s): I10 - Essential (primary) hypertension (8) Acute on chronic kidney failure Current Visit: Yes Status: Acute Assessment and plan: Cr 1.6 today, will monitor and continue nephroprotective strategy. Qualifiers: Acute renal failure type: unspecified Chronic kidney disease stage: stage 3 (moderate) Qualified Code(s): N17.9 - Acute kidney failure, unspecified; N18.3 - Chronic kidney disease, stage 3 (moderate) (9) Fever Current Visit: Yes Assessment and plan: Fungal blood cultures were sent since patient was on TPN. Placed on Diflucan in the mean time. Patient is not exhibiting any clinical signs of pneumonia at this time besides fever. He has been receiving Zosyn should treat aspiration pneumonia which the patient is most at risk for. CT chest, abdomen, pelvis on 03/20 showed abscess in gallbladder fossa. - This was likely from abscess. Drain placed by IR. Continue antibiotics. Will monitor. Prelim culture shows gram negative rods, will continue Zosyn and follow-up sensitivities. 03/22: has remained afebrile currently. Gallbladder abscess drain sensitivities pending continue Zosyn. Qualifiers: Fever type: unspecified Qualified Code(s): R50.9 - Fever, unspecified (10) DVT prophylaxis Current Visit: Yes Status: Acute Assessment and plan: continue subcutaneous heparin - Time Spent With Patient Total time spent is greater than 50% in coordination of care (as documented) at patient's floor/unit and/or counseling patient: - Subjective Interval history: 03/20: Patient has returned from drain for post op abscess. Drain placed without issue. Patient has no complaints. Denies fevers/chills, states pain is controlled. 03/21: Nursing reported that patient coughed and part of small bowel came out. Patient is in no acute distress. Patient examined after temporary gauze is being placed. 03/22: patient post op day #1 after ex lap and drainage of GB fossa abscess and closure of abdominal wall with a wound vac placement. YUNIOR drain per nursing draining over 100 ml fluid within past several hours. Patient denies CP, SOB, n /v, fevers/chills. - Constitutional Vitals: Temp Pulse Resp BP Pulse Ox 99.5 F 88 16 157/88 96 03/22/18 11:07 03/22/18 11:07 03/22/18 11:07 03/22/18 11:07 03/22/18 11:23 General appearance: Present: cooperative, mild distress, A&O X 3, pleasant, answers questions appropriately - Head Head exam: Present: atraumatic, normocephalic - Eye Eye exam: Present: PERRL, conjuntiva pink, sclera anicteric Pupils: Present: PERRL - Neck Neck exam general surgery: Present: supple, trachea midline. Absent: lymphadenopathy - Respiratory Respiratory exam: Present: CTAB. Absent: accessory muscle use, rales, rhonchi, wheezes - Cardiovascular Cardiovascular exam: Present: RRR, +S1, +S2. Absent: diastolic murmur, gallop, rubs, systolic murmur - GI/Abdominal GI/Abdominal exam: Present: normal bowel sounds, soft, no peritoneal signs. Absent: distended, tenderness - Extremities Exam Extremities exam: Present: warm, radial pulses palpable and symmetrical. Absent : calf tenderness, cyanotic, pedal edema - Neurological Exam Neurological exam: Present: CN II-XII intact, oriented X3, no focal deficits. Absent: pronater drift, facial droop, speech deficit - Skin Skin exam: Present: dry, intact Additional comments: YUNIOR drain in place Abdominal wound vac in place. Internal Medicine: Result - Labs CBC & Chem 7: 03/22/18 04:48 03/22/18 04:48 Labs: Short CBC 03/22/18 Range/Units 04:48 WBC 9.5 (4.3-11.1) K/mcL Hgb 8.5 L (12.9-16.9) g/dL Hct 25.3 L (37.5-50.1) % Plt Count 275 (140-400) K/mcL Neutrophils # 8.4 (1.6-8.9) K/mcL BMP 03/22/18 04:48 Sodium 134 L Potassium 4.2 Chloride 107 Carbon Dioxide 20 L BUN 22 Creatinine 1.60 H Glucose 142 H Calcium 7.3 L Liver Function 03/22/18 Range/Units 04:48 Total Bilirubin 0.3 (0.3-1.0) mg/dL AST 25 (13-39) Units/L ALT 35 (7-52) Units/L Alkaline Phosphatase 145 H (34-104) Units/L Albumin 2.5 L (3.5-5.7) g/dL - Impressions Impressions Abdomen/Pelvis CT 03/21/18 12:00 IMPRESSION: 1. No evidence of perforation. 2. There is some perihepatic ascites and regional pneumoperitoneum, which may be attributable to the recently placed percutaneous catheter in the right upper quadrant. 3. A portion of the small bowel herniates outside of the patient, a finding which is new compared to prior. Proximal loops appear slightly dilated. 4. Tiny bilateral pleural effusions and dependent atelectasis. D/ / 03/21/2018 13:08:58 Enrique Dominguez / serjio Interpreting Provider: Enrique Dominguez - VTE Documentation of Mechanical Device: Intermittent pneumatic compression device Consult Discharge Plan - Plan Additional Instructions: Wound care instructions: remove dressing and packing. Wash/shower with antibacterial soap. Repacked with 1/4 inch plain gauze. Cover with a dry dressing. Tape to secure. May reinforce her change outer dressing as needed. 1. Your dressing should be removed prior to your discharge date. You may shower , avoid soaking your incision in a tub for a week or so. Cleanse incision gently with a mild soap and water-rinse thoroughlypat dry. Your incision does not need to be redressed. Any sutures or clips still in place at the time of discharge will be removed at your first postoperative visit. Should you have steri-strips across your incision, they will begin to curl as your incision heals (usually within 5-7 days). You may peel them off when this happens. Avoid applying cream, lotions, or powder to your incision. 2. There are no specific dietary restrictions associated with this surgery. Maintaining a well balanced diet is essential for proper healing. Oral fluids are encouraged. 3. It is safe to use a mild laxative. Do so if your bowels have not moved by the third day at home. 4. Walking is healthy. Gradually increase ambulation and activities each day. Allow for regular, uninterrupted rest periods. You are permitted to go up and down stairs slowly while using a handrail. Avoid sitting for long periods of time; avoid crossing your legs; avoid heavy lifting (nothing over 10- 15 pounds) for 6-8 weeks; and avoid any strenuous sports. 5. You may drive when you are comfortable enough to react and move quickly in an emergency (usually 1-2 weeks after surgery). Long trips over 25 miles are not advised. Do not drive if you are taking prescription pain medication. 6. For pain, one of the Ibuprofen compounds (Advil, Nuprin, etc.) or Tylenol is suggested. Should these not be effective in managing your discomfort, prescription pain medications will be given on an individual basis. 7. Please call the office to report any of the following: Temperature of 101 or higher. Signs of infection, possibly including increasing redness, warmth, tenderness, drainage, odor at incision site Persistent moderate to severe pain No bowel movement within 48 hours from OR date. Follow-up appointment with Airam Baez on 03/29/18 at 9:45 AM. Referrals: Lacy Cristobal CNP [Primary Care Provider] - Airam Baez CNP [Advanced Practice Nurse] - 03/29/18 9:45 am
[2018-03-22] MEDS ORDERED: *HR* Metoprolol 5 MG/5 ML VIAL IVP SCH (12:00)
[2018-03-22] MEDS: *HR* Metoprolol 5 MG/5 ML VIAL IVP SCH ×2 (16:08→19:40)
[2018-03-22] MEDS ORDERED: Clinimix E 5%-15% SOLUTION 2,000 ML with MVI, adult with vitamin K 10 ML IVC SCH (17:00)
[2018-03-22] MEDS: 0.9 % Sodium Chloride 1,000 ML IVC SCH (19:34)
[2018-03-23] MEDS: MORPHINE SUL Oral CONC 10 MG/0.5 ML ORAL.SYG SL SCH ×6 (00:27→20:49)
[2018-03-23] MEDS: Piperacillin/Tazobactam 3.375 GM in 0.9 % Sodium Chloride Mini Bag 100 ML IVPB SCH ×3 (00:28→18:13)
[2018-03-23] MEDS: Acetaminophen IV 1,000 MG/100 ML INFUS..BTL IVPB SCH ×3 (00:28→19:35)
[2018-03-23] MEDS: Insulin LISPRO 300 UNITS/3 ML VIAL SQ SCH ×6 (00:30→21:14)
[2018-03-23] MEDS: *HR* Metoprolol 5 MG/5 ML VIAL IVP SCH ×4 (00:38→17:37)
[2018-03-23] MEDS: 0.9 % Sodium Chloride 1,000 ML IVC SCH ×2 (03:48→13:58)
[2018-03-23 04:48] LABS: Basophils % 0.5 %; Eosinophils # 0.2 K/mcL (0.0-0.6); Eosinophils % 2.3 %; Hematocrit 24.7 % (37.5-50.1); Hemoglobin 8.3 g/dL (12.9-16.9); Immature Granulocytes % 1.4 % (0-4); Lymphocytes # 0.4 K/mcL (0.6-4.6); Lymphocytes % 5.7 %; Mean Corpuscular HGB Conc 33.6 g/dL (31.6-35.5); Mean Corpuscular Hemoglobin 31.4 pg (28.0-33.3); Mean Corpuscular Volume 93.6 fL (83.0-100.0); Mean Platelet Volume 8.7 fL (9.4-12.4); Monocytes # 0.4 K/mcL (0.0-1.3); Monocytes % 4.6 %; Neutrophils # 6.6 K/mcL (1.6-8.9); Platelet Count 300 K/mcL (140-400); Red Blood Count 2.64 M/mcL (4.19-5.50); Red Cell Distribution Width 14.2 % (11.5-14.5); Segmented Neutrophils % 85.5 %
[2018-03-23 05:12] LABS: Albumin 2.3 g/dL (3.5-5.7); Albumin/Globulin Ratio 0.7 (1.1-2.2); Bilirubin,Direct 0.1 mg/dL (0.0-0.2); Bilirubin,Indirect 0.2 mg/dL (0.0-1.2); Bilirubin,Total 0.3 mg/dL (0.3-1.0); Globulin 3.1 g/dL (2.4-3.5); Total Protein 5.4 g/dL (6.4-8.9)
[2018-03-23 05:13] LABS: Calcium 7.2 mg/dL (8.6-10.3); Magnesium 1.7 mg/dL (1.6-2.6); Phosphorous 1.8 mg/dL (2.7-4.5); Potassium 3.5 mEq/L (3.5-5.1)
[2018-03-23] MEDS: Levothyroxine Sodium 100 MCG VIAL IVP SCH (06:02)
[2018-03-23] MEDS: *HR* Heparin 5,000 UNIT/ML VIAL SQ SCH ×2 (06:03→17:38)
--- NOTE | 2018-03-23 08:33 | General Surgery Progress Note ---
<BijanAsha Pilo - Last Filed: 03/23/18 15:30> Date of Encounter: 03/23/18 Time of Encounter: 07:45 - Assessment and Plan (1) Evisceration of bowel Current Visit: Yes Status: Acute Date of procedure: 03/21/18 Pre-op diagnosis: abdominal wound dehiscence and evisceration small bowel Post-op diagnosis: same (gallbladder fossa abscess) Procedure: Exploratory laparotomy, lysis of adhesions, drainage gallbladder fossa abscess, closure abdominal wall with wound vac placement Surgeon: Dr. Jackman POD #2 as above. The drain was switched to a 19F brisa drain given the previous drain appeared to have irritated the liver. On POD 1 he was noted to be draining bile into his YUNIOR drain which is thought to be related to the liver rather than a fistula. His abdominal exam is as expected postoperatively. His wound VAC was changed today and noted he has a less than 10% leak. He has had approximately 410 ML's of bile his YUNIOR today. He states his abdominal discomfort is moderately controlled however the medications are making him itch. We will order IV Benadryl. He is afebrile. Plan: -continue supportive care and discomfort management while awaiting return of bowel function -NPO with ice chips sparingly. -NG to low intermittent wall suction -Resume Flomax. Clamp NG for 30 minutes after administration. -Wound VAC to 125 mm section -daily wound care to midline incision upper one 3rd: remove packing, wash with soap and water. Repack with 1/4 inch plain gauze. Cover with ABD. Tape to secure. Please attempt to keep tape off wound VAC dressing. -YUNIOR to continuous suction. Daily drain care to include remove split gauze. Wash with antibacterial soap. Replace split gauze. Cover with a dry dressing. Not let the YUNIOR dangle from the body. Secure to clothing when up. -Continue TPN -repeat a.m. labs -Given that we have restarted his p.o. flomax, it is reasonable to resume vital p.o. meds with clamping of NG for 30 minutes afterwards. If patient develops nausea or vomiting, would recommend his p.o. meds be held. (2) Cecal volvulus Current Visit: Yes Status: Resolved Date of procedure: 03/09/18 Pre-op diagnosis: Cecal volvulus Post-op diagnosis: same Procedure: Exporter laparotomy with right colectomy and cholecystectomy Surgeon: Dr. Hill POD #14 as above. He did have a postoperative ileus after this procedure which did resolve. He was on a regular diet and then developed an abscess in the gallbladder fossa for which a drain was placed in 03/20/2018. On 03/21/2018 the patient was coughing and his abdominal incision leading to dihiscence and eviseration. He was taken to the OR (See A&P above.) PLAN: continue supportive care and discomfort management. (3) Bile leak Current Visit: Yes Status: Acute See assessment and plan above (4) Acute urinary retention Current Visit: Yes Status: Acute Patient with greater than 600 ML's post void residual this a.m. He was straight And stated significant relief. He refuses Wynne catheter but is willing to allow straight For urinary retention. Will order Q6 bladder scan with stray cath for greater than 200 ML's. (5) Acute kidney injury Current Visit: Yes Status: Acute Creatinine improving but remains elevated at 1.41. From a surgical standpoint, TPN only is adequate however given the continued acute kidney injury, I did review with the primary team (Dr. Anand) and they are willing to manage IV fluids. Will defer total fluid management to primary team. Subjective Patient reports: no new complaints, still having pain, pain is less, no flatus, no bowel movement, afebrile Narrative: States difficulty urinating. Pain is moderately controlled. Denies nausea or flatus. Objective Vital Signs - Last 8 Hours Temp Pulse Resp BP Pulse Ox 03/23/18 07:10 98.6 F 77 14 166/88 97 03/23/18 03:57 99.0 F 82 15 156/84 94 Intake and Output 03/22/18 03/23/18 03/23/18 23:59 07:59 15:59 Intake Total 200 / 200 100 / 100 Output Total 540 / 540 985 / 985 Balance -340 / -340 -885 / -885 Intake: IV Fluids 200 / 200 100 / 100 Ofirmev 1,000 mg/100 ml 1,000 100 / 100 100 / 100 mg In 100 ml @ 400 mls/hr IVPB Q8H [facility] Rx#:[id number] Zosyn 3.375 GM In 0.9 % Sodium 100 / 100 Chloride (Mini-Bag +) 100 ML @ 25 mls/hr IVPB Q8HR [facility] Rx#: [id number] Oral 0 / 0 0 / 0 Output: Urine 425 / 425 675 / 675 Gastric Drainage 150 / 150 Wound Drainage 115 / 115 160 / 160 Right Upper Abdomen 115 / 115 160 / 160 Other: # Voids 1 1 Blood Glucose* 148 109 VITAL SIGNS: Reviewed. See [facility] GENERAL: In no apparent distress. HEENT: Normocephalic, atraumatic, pupils are equal and reactive, extraocular motions intact, oropharynx is pink and moist, there is no neck adenopathy or JVD noted. Tracheostomy noted with trait collar intact. CHEST/RESPIRATORY: The thorax is free from signs of trauma. Lung sounds: decreased breath sounds. Rhonchi noted CARDIAC: Regular rate and rhythm. Normal S1 and S2, without murmurs, gallops, or rubs. VASCULAR: No Edema. 2+ peripheral pulses. ABDOMEN: Soft. Expected postoperative tenderness. Faint bowel sounds at best. INCISION: Surgical incision overall intact. There is a wound vac in place. There is an area of drainage in the superior most 1/3 of the incision with cloudy drainage. This area was repacked with 1/4 in plain gauze. Wound vacc dressing was changed. WOUNDS/DRAINS: right upper quadrant YUNIOR drain with approximately 100 mL bilious output at 1430 today (total 410 ML today). [place] with <25 ml SS drainage) MUSCULOSKELETAL: Good range of motion of all major joints. Extremities without clubbing, cyanosis or edema. NEUROLOGIC EXAM: Alert and oriented x 3. Speech normal. Follows commands. PSYCHIATRIC: Mood normal. SKIN: No rash or lesions. - Labs 03/23/18 04:35 03/23/18 04:35 Diabetes panel 03/23/18 03/23/18 Range/Units 04:35 04:35 Sodium 135 L (136-145) mEq/L Potassium 3.5 (3.5-5.1) mEq/L Chloride 107 (98-107) mEq/L Carbon Dioxide 21 L (23-29) mEq/L BUN 17 (8-23) mg/dL Creatinine 1.41 H (0.70-1.30) mg/dL Glucose 172 H (70-105) mg/dL Calcium 7.2 L (8.6-10.3) mg/dL AST 18 (13-39) Units/L ALT 26 (7-52) Units/L Alkaline Phosphatase 139 H (34-104) Units/L Albumin 2.3 L (3.5-5.7) g/dL Calcium panel 03/23/18 03/23/18 Range/Units 04:35 04:35 Calcium 7.2 L (8.6-10.3) mg/dL Phosphorus 1.8 L (2.7-4.5) mg/dL Albumin 2.3 L (3.5-5.7) g/dL Pituitary panel 03/23/18 Range/Units 04:35 Sodium 135 L (136-145) mEq/L Potassium 3.5 (3.5-5.1) mEq/L Chloride 107 (98-107) mEq/L Carbon Dioxide 21 L (23-29) mEq/L BUN 17 (8-23) mg/dL Creatinine 1.41 H (0.70-1.30) mg/dL Glucose 172 H (70-105) mg/dL Calcium 7.2 L (8.6-10.3) mg/dL Adrenal panel 03/23/18 03/23/18 Range/Units 04:35 04:35 Sodium 135 L (136-145) mEq/L Potassium 3.5 (3.5-5.1) mEq/L Chloride 107 (98-107) mEq/L Carbon Dioxide 21 L (23-29) mEq/L BUN 17 (8-23) mg/dL Creatinine 1.41 H (0.70-1.30) mg/dL Glucose 172 H (70-105) mg/dL Calcium 7.2 L (8.6-10.3) mg/dL Total Bilirubin 0.3 (0.3-1.0) mg/dL AST 18 (13-39) Units/L ALT 26 (7-52) Units/L Alkaline Phosphatase 139 H (34-104) Units/L Albumin 2.3 L (3.5-5.7) g/dL - VTE Documentation of Mechanical Device: Intermittent pneumatic compression device Consult Discharge Plan - Plan Additional Instructions: Wound care instructions: remove dressing and packing. Wash/shower with antibacterial soap. Repacked with 1/4 inch plain gauze. Cover with a dry dressing. Tape to secure. May reinforce her change outer dressing as needed. 1. Your dressing should be removed prior to your discharge date. You may shower , avoid soaking your incision in a tub for a week or so. Cleanse incision gently with a mild soap and water-rinse thoroughlypat dry. Your incision does not need to be redressed. Any sutures or clips still in place at the time of discharge will be removed at your first postoperative visit. Should you have steri-strips across your incision, they will begin to curl as your incision heals (usually within 5-7 days). You may peel them off when this happens. Avoid applying cream, lotions, or powder to your incision. 2. There are no specific dietary restrictions associated with this surgery. Maintaining a well balanced diet is essential for proper healing. Oral fluids are encouraged. 3. It is safe to use a mild laxative. Do so if your bowels have not moved by the third day at home. 4. Walking is healthy. Gradually increase ambulation and activities each day. Allow for regular, uninterrupted rest periods. You are permitted to go up and down stairs slowly while using a handrail. Avoid sitting for long periods of time; avoid crossing your legs; avoid heavy lifting (nothing over 10- 15 pounds) for 6-8 weeks; and avoid any strenuous sports. 5. You may drive when you are comfortable enough to react and move quickly in an emergency (usually 1-2 weeks after surgery). Long trips over 25 miles are not advised. Do not drive if you are taking prescription pain medication. 6. For pain, one of the Ibuprofen compounds (Advil, Nuprin, etc.) or Tylenol is suggested. Should these not be effective in managing your discomfort, prescription pain medications will be given on an individual basis. 7. Please call the office to report any of the following: Temperature of 101 or higher. Signs of infection, possibly including increasing redness, warmth, tenderness, drainage, odor at incision site Persistent moderate to severe pain No bowel movement within 48 hours from OR date. Follow-up appointment with Airam Baez on 03/29/18 at 9:45 AM. Referrals: Lacy Cristobal CNP [Primary Care Provider] - Airam Baez CNP [Advanced Practice Nurse] - 03/29/18 9:45 am <Annita Jackman - Last Filed: 03/23/18 18:32> Date of Encounter: 03/23/18 - Assessment and Plan (1) S/P partial resection of colon Current Visit: Yes Status: Acute (2) Acute kidney injury Current Visit: Yes Status: Acute (3) Bile leak Current Visit: Yes Status: Acute leak appears well controlled, wbc decreased, HR under 100, no fevers minimal abdominal pain will check hida tomorrow to see if it will give any answers to where leak is coming from prn pain control npo, ngt liws TPN prn antiemetics gi/dvt prophylaxis (4) Evisceration of bowel Current Visit: Yes Status: Acute (5) Diabetes mellitus Current Visit: Yes Status: Chronic Qualifiers: Diabetes mellitus 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: 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 [facility]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 status Diabetes mellitus complication status : with kidney complications Diabetes mellitus complication detail: with chronic kidney disease Chronic kidney disease stage: stage 3 (moderate) Qualified Code(s): E11.22 - Type 2 diabetes mellitus with diabetic chronic kidney disease; N18.3 - Chronic kidney disease, stage 3 (moderate) (6) GERD (gastroesophageal reflux disease) Current Visit: Yes Status: Chronic Qualifiers: Esophagitis presence: esophagitis presence not specified Qualified Code(s) : K21.9 - Gastro-esophageal reflux disease without esophagitis (7) Hypertension Current Visit: Yes Status: Chronic Qualifiers: Hypertension type: essential hypertension Qualified Code(s): I10 - Essential (primary) hypertension (8) Hypothyroidism Current Visit: Yes Status: Chronic Qualifiers: Hypothyroidism type: unspecified Qualified Code(s): E03.9 - Hypothyroidism , unspecified Objective Vital Signs - Last 8 Hours Temp Pulse Resp BP Pulse Ox 03/23/18 15:33 99.0 F 64 15 127/75 96 03/23/18 11:55 98.9 F 81 15 143/82 94 Intake and Output 03/23/18 03/23/18 03/23/18 07:59 15:59 23:59 Intake Total 450 / 450 310 / 310 Output Total 985 / 985 1025 / 1025 165 / 165 Balance -535 / -535 -715 / -715 -165 / -165 Intake: IV Fluids 450 / 450 250 / 250 Ofirmev 1,000 mg/100 ml 1,000 100 / 100 100 / 100 mg In 100 ml @ 400 mls/hr IVPB Q8H [facility] Rx#:[id number] Intralipid 20% 250 ML @ 21 mls/ 250 / 250 hr IVPB DAILY@1700 [facility] Rx#: [id number] Diflucan 100 MG/50 ML 100 mg In 50 / 50 50 ml @ 50 mls/hr IVPB DAILY [facility] Rx#:[id number] Zosyn 3.375 GM In 0.9 % Sodium 100 / 100 100 / 100 Chloride (Mini-Bag +) 100 ML @ 25 mls/hr IVPB Q8HR [facility] Rx#: [id number] Oral 0 / 0 60 / 60 Output: Urine 675 / 675 225 / 225 Straight Cath 650 / 650 Gastric Drainage 150 / 150 Wound Drainage 160 / 160 150 / 150 165 / 165 Right Upper Abdomen 160 / 160 150 / 150 165 / 165 Other: Meal NPO # Voids 1 Blood Glucose* 109 190 170 - Labs 03/23/18 04:35 03/23/18 04:35 Diabetes panel 03/23/18 03/23/18 Range/Units 04:35 04:35 Sodium 135 L (136-145) mEq/L Potassium 3.5 (3.5-5.1) mEq/L Chloride 107 (98-107) mEq/L Carbon Dioxide 21 L (23-29) mEq/L BUN 17 (8-23) mg/dL Creatinine 1.41 H (0.70-1.30) mg/dL Glucose 172 H (70-105) mg/dL Calcium 7.2 L (8.6-10.3) mg/dL AST 18 (13-39) Units/L ALT 26 (7-52) Units/L Alkaline Phosphatase 139 H (34-104) Units/L Albumin 2.3 L (3.5-5.7) g/dL Calcium panel 03/23/18 03/23/18 Range/Units 04:35 04:35 Calcium 7.2 L (8.6-10.3) mg/dL Phosphorus 1.8 L (2.7-4.5) mg/dL Albumin 2.3 L (3.5-5.7) g/dL Pituitary panel 03/23/18 Range/Units 04:35 Sodium 135 L (136-145) mEq/L Potassium 3.5 (3.5-5.1) mEq/L Chloride 107 (98-107) mEq/L Carbon Dioxide 21 L (23-29) mEq/L BUN 17 (8-23) mg/dL Creatinine 1.41 H (0.70-1.30) mg/dL Glucose 172 H (70-105) mg/dL Calcium 7.2 L (8.6-10.3) mg/dL Adrenal panel 03/23/18 03/23/18 Range/Units 04:35 04:35 Sodium 135 L (136-145) mEq/L Potassium 3.5 (3.5-5.1) mEq/L Chloride 107 (98-107) mEq/L Carbon Dioxide 21 L (23-29) mEq/L BUN 17 (8-23) mg/dL Creatinine 1.41 H (0.70-1.30) mg/dL Glucose 172 H (70-105) mg/dL Calcium 7.2 L (8.6-10.3) mg/dL Total Bilirubin 0.3 (0.3-1.0) mg/dL AST 18 (13-39) Units/L ALT 26 (7-52) Units/L Alkaline Phosphatase 139 H (34-104) Units/L Albumin 2.3 L (3.5-5.7) g/dL - Attending Attestation I have personally performed a face to face evaluation on this patient. I have reviewed and agree with the care plan. History and Exam by me shows:
[2018-03-23] MEDS: Fluconazole 100 MG/50 ML 100 MG/50 ML BAG IVPB SCH (10:38)
[2018-03-23] MEDS: Pantoprazole 40 MG VIAL IVP SCH (10:39)
[2018-03-23] MEDS ORDERED: Potassium Phosphate 44 MEQ in 0.9 % Sodium Chloride 250 ML IVPB ONE (12:59)
[2018-03-23] MEDS ORDERED: *HR* FentaNYL (PF) 100 MCG/2 ML VIAL IVP ONE (13:53)
[2018-03-23] MEDS ORDERED: Ondansetron 4 MG/2 ML VIAL IVP ONE (13:53)
--- NOTE | 2018-03-23 14:27 | Internal Med Progress Note ---
Date of Encounter: 03/23/18 Time of Encounter: 15:00 - Assessment and plan (1) Cecal volvulus Current Visit: Yes Status: Resolved Assessment and plan: Postop day 13 Status post exploratory laparotomy with partial right colectomy with [id number] to end anastomosis and cholecystectomy. Drain was placed for abscess in gallbladder fossa on 03/20. 03/21: patient had abdominal wound dehiscnece and small bowel protrusion. Had ex laparotomy with drainage of gallbladder fossa abscess. Management per Surgery (2) Diabetes mellitus Current Visit: Yes Status: Chronic Assessment and plan: Continue current insulin regimen. 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 Qualifiers: Hypothyroidism type: unspecified Qualified Code(s): E03.9 - Hypothyroidism , unspecified (4) Coronary artery disease Current Visit: Yes Status: Chronic Assessment and plan: ASA, Plavix, Zocor when able Qualifiers: Coronary Disease-Associated Artery/Lesion type: [place] artery [place] vs. transplanted heart: [place] heart Associated angina: angina presence unspecified Qualified Code(s): I25.10 - Atherosclerotic heart disease of [place] coronary artery without angina pectoris (5) GERD (gastroesophageal reflux disease) Current Visit: Yes Status: Chronic Assessment and plan: IV Protonix daily. Qualifiers: Esophagitis presence: esophagitis presence not specified Qualified Code(s) : K21.9 - Gastro-esophageal reflux disease without esophagitis (6) HLD (hyperlipidemia) Current Visit: No Status: Chronic Assessment and plan: statin when tolerating PO Qualifiers: Hyperlipidemia type: mixed hyperlipidemia Qualified Code(s): E78.2 - Mixed hyperlipidemia (7) HTN (hypertension) Current Visit: Yes Status: Chronic Assessment and plan: Scheduled lopressor IV q6h while NPO Qualifiers: Hypertension type: essential hypertension Qualified Code(s): I10 - Essential (primary) hypertension (8) Acute on chronic kidney failure Current Visit: Yes Status: Acute Assessment and plan: Will continue IV fluids when possible Qualifiers: Acute renal failure type: unspecified Chronic kidney disease stage: stage 3 (moderate) Qualified Code(s): N17.9 - Acute kidney failure, unspecified; N18.3 - Chronic kidney disease, stage 3 (moderate) (9) Fever Current Visit: Yes Assessment and plan: Fungal blood cultures were sent since patient was on TPN. Placed on Diflucan in the mean time. Patient is not exhibiting any clinical signs of pneumonia at this time besides fever. He has been receiving Zosyn should treat aspiration pneumonia which the patient is most at risk for. CT chest, abdomen, pelvis on 03/20 showed abscess in gallbladder fossa. - This was likely from abscess. Drain placed by IR. Continue antibiotics. Will monitor. Prelim culture shows gram negative rods, will continue Zosyn and follow-up sensitivities. 03/22: has remained afebrile currently. Gallbladder abscess drain sensitivities pending continue Zosyn. 03/23: Tmax 100.1 F, not by definition febrile, but will monitor closely. Gallbladder fluid cultures positive for three organisms mainly gram Neg rods, continue Zosyn Qualifiers: Fever type: unspecified Qualified Code(s): R50.9 - Fever, unspecified (10) DVT prophylaxis Current Visit: Yes Status: Acute Assessment and plan: continue subcutaneous heparin - Time Spent With Patient Total time spent is greater than 50% in coordination of care (as documented) at patient's floor/unit and/or counseling patient: - Subjective Interval history: 03/20: Patient has returned from drain for post op abscess. Drain placed without issue. Patient has no complaints. Denies fevers/chills, states pain is controlled. 03/21: Nursing reported that patient coughed and part of small bowel came out. Patient is in no acute distress. Patient examined after temporary gauze is being placed. 03/22: patient post op day #1 after ex lap and drainage of GB fossa abscess and closure of abdominal wall with a wound vac placement. YUNIOR drain per nursing draining over 100 ml fluid within past several hours. Patient denies CP, SOB, n /v, fevers/chills. 03/23: patient has no complaints today denies fevers/chills, SOB, palpitations. He is having some urinary retention and prefers intermittent straight cath over [place] placement. - Constitutional Vitals: Temp Pulse Resp BP Pulse Ox 98.9 F 81 15 143/82 94 03/23/18 11:55 03/23/18 11:55 03/23/18 11:55 03/23/18 11:55 03/23/18 11:55 General appearance: Present: cooperative, mild distress, A&O X 3, pleasant, answers questions appropriately Exam: - Head Head exam: Present: atraumatic, normocephalic - Eye Eye exam: Present: PERRL, conjuntiva pink, sclera anicteric Pupils: Present: PERRL - Neck Neck exam general surgery: Present: supple, trachea midline. Absent: lymphadenopathy - Respiratory Respiratory exam: Present: CTAB. Absent: accessory muscle use, rales, rhonchi, wheezes - Cardiovascular Cardiovascular exam: Present: RRR, +S1, +S2. Absent: diastolic murmur, gallop, rubs, systolic murmur - GI/Abdominal GI/Abdominal exam: Present: normal bowel sounds, soft, no peritoneal signs. Absent: distended, tenderness - Extremities Exam Extremities exam: Present: warm, radial pulses palpable and symmetrical. Absent : calf tenderness, cyanotic, pedal edema - Neurological Exam Neurological exam: Present: CN II-XII intact, oriented X3, no focal deficits. Absent: pronater drift, facial droop, speech deficit - Skin Skin exam: Present: dry, intact Additional comments: YUNIOR drain in place Abdominal wound vac in place. Internal Medicine: Result - Labs CBC & Chem 7: 03/23/18 04:35 03/23/18 04:35 Labs: Short CBC 03/23/18 Range/Units 04:35 WBC 7.7 (4.3-11.1) K/mcL Hgb 8.3 L (12.9-16.9) g/dL Hct 24.7 L (37.5-50.1) % Plt Count 300 (140-400) K/mcL Neutrophils # 6.6 (1.6-8.9) K/mcL BMP 03/23/18 04:35 Sodium 135 L Potassium 3.5 Chloride 107 Carbon Dioxide 21 L BUN 17 Creatinine 1.41 H Glucose 172 H Calcium 7.2 L Liver Function 03/23/18 Range/Units 04:35 Total Bilirubin 0.3 (0.3-1.0) mg/dL Direct Bilirubin 0.1 (0.0-0.2) mg/dL AST 18 (13-39) Units/L ALT 26 (7-52) Units/L Alkaline Phosphatase 139 H (34-104) Units/L Albumin 2.3 L (3.5-5.7) g/dL - VTE Documentation of Mechanical Device: Intermittent pneumatic compression device Consult Discharge Plan - Plan Additional Instructions: Wound care instructions: remove dressing and packing. Wash/shower with antibacterial soap. Repacked with 1/4 inch plain gauze. Cover with a dry dressing. Tape to secure. May reinforce her change outer dressing as needed. 1. Your dressing should be removed prior to your discharge date. You may shower , avoid soaking your incision in a tub for a week or so. Cleanse incision gently with a mild soap and water-rinse thoroughlypat dry. Your incision does not need to be redressed. Any sutures or clips still in place at the time of discharge will be removed at your first postoperative visit. Should you have steri-strips across your incision, they will begin to curl as your incision heals (usually within 5-7 days). You may peel them off when this happens. Avoid applying cream, lotions, or powder to your incision. 2. There are no specific dietary restrictions associated with this surgery. Maintaining a well balanced diet is essential for proper healing. Oral fluids are encouraged. 3. It is safe to use a mild laxative. Do so if your bowels have not moved by the third day at home. 4. Walking is healthy. Gradually increase ambulation and activities each day. Allow for regular, uninterrupted rest periods. You are permitted to go up and down stairs slowly while using a handrail. Avoid sitting for long periods of time; avoid crossing your legs; avoid heavy lifting (nothing over 10- 15 pounds) for 6-8 weeks; and avoid any strenuous sports. 5. You may drive when you are comfortable enough to react and move quickly in an emergency (usually 1-2 weeks after surgery). Long trips over 25 miles are not advised. Do not drive if you are taking prescription pain medication. 6. For pain, one of the Ibuprofen compounds (Advil, Nuprin, etc.) or Tylenol is suggested. Should these not be effective in managing your discomfort, prescription pain medications will be given on an individual basis. 7. Please call the office to report any of the following: Temperature of 101 or higher. Signs of infection, possibly including increasing redness, warmth, tenderness, drainage, odor at incision site Persistent moderate to severe pain No bowel movement within 48 hours from OR date. Follow-up appointment with Airam Baez on 03/29/18 at 9:45 AM. Referrals: Lacy Cristobal CNP [Primary Care Provider] - Airam Baez CNP [Advanced Practice Nurse] - 03/29/18 9:45 am
[2018-03-23] MEDS: Thiamine (B-1) 100 MG in D5% in Water 50 ML IVPB SCH (15:05)
[2018-03-23] MEDS ORDERED: Clinimix E 5%-15% SOLUTION 2,000 ML with MVI, adult with vitamin K 10 ML IVC SCH (17:00)
[2018-03-23] MEDS: Doxycycline 100 MG in 0.9 % Sodium Chloride Mini Bag 100 ML IVPB SCH (20:50)
[2018-03-24] MEDS: Insulin LISPRO 300 UNITS/3 ML VIAL SQ SCH ×6 (01:57→20:46)
[2018-03-24] MEDS: MORPHINE SUL Oral CONC 10 MG/0.5 ML ORAL.SYG SL SCH ×6 (02:05→20:46)
[2018-03-24] MEDS: *HR* Metoprolol 5 MG/5 ML VIAL IVP SCH ×3 (02:05→12:22)
[2018-03-24] MEDS: Acetaminophen IV 1,000 MG/100 ML INFUS..BTL IVPB SCH ×3 (02:05→16:54)
[2018-03-24] MEDS: Piperacillin/Tazobactam 3.375 GM in 0.9 % Sodium Chloride Mini Bag 100 ML IVPB SCH ×3 (02:06→16:53)
[2018-03-24 05:29] LABS: Hematocrit 24.8 % (37.5-50.1); Mean Corpuscular HGB Conc 32.3 g/dL (31.6-35.5); Mean Corpuscular Hemoglobin 30.2 pg (28.0-33.3); Mean Corpuscular Volume 93.6 fL (83.0-100.0); Mean Platelet Volume 9.4 fL (9.4-12.4); Platelet Count 297 K/mcL (140-400); Red Blood Count 2.65 M/mcL (4.19-5.50); Red Cell Distribution Width 14.2 % (11.5-14.5)
[2018-03-24 05:40] LABS: Neutrophils # 7.3 K/mcL (1.6-8.9)
[2018-03-24 05:48] LABS: BUN/Creatinine Ratio 13 (6-26); Blood Urea Nitrogen 15 mg/dL (8-23); Calcium 7.4 mg/dL (8.6-10.3); Carbon Dioxide 22 mEq/L (23-29); Chloride 106 mEq/L (98-107); Glucose 169 mg/dL (70-105); Magnesium 1.7 mg/dL (1.6-2.6); Osmolality,Calculated 285 (280-300); Phosphorous 2.3 mg/dL (2.7-4.5); Potassium 3.6 mEq/L (3.5-5.1); Sodium 135 mEq/L (136-145); eGFR For African Americans > 60 (> 60); eGFR For Non-African Americans > 60 (> 60)
[2018-03-24] MEDS: Levothyroxine Sodium 100 MCG VIAL IVP SCH (06:37)
[2018-03-24] MEDS: *HR* Heparin 5,000 UNIT/ML VIAL SQ SCH ×2 (06:38→18:24)
[2018-03-24] MEDS: Doxycycline 100 MG in 0.9 % Sodium Chloride Mini Bag 100 ML IVPB SCH ×2 (06:45→19:42)
[2018-03-24 06:58] LABS: Eosinophils # 0.3 K/mcL (0.0-0.6); Lymphocytes # 0.4 K/mcL (0.6-4.6); Monocytes # 0.7 K/mcL (0.0-1.3); Platelet Estimate Normal (Normal)
[2018-03-24] MEDS: Pantoprazole 40 MG VIAL IVP SCH (09:49)
[2018-03-24] MEDS: Thiamine (B-1) 100 MG in D5% in Water 50 ML IVPB SCH (09:49)
--- NOTE | 2018-03-24 14:49 | General Surgery Progress Note ---
<Too Arzate - Last Filed: 03/24/18 15:06> Date of Encounter: 03/24/18 Time of Encounter: 08:45 - Assessment and Plan (1) Evisceration of bowel Current Visit: Yes Status: Acute Occurrence on 03/21/2018; following midline incision for cecal resection and cholecystectomy done on 03/09/2018. Returned to the OR on 03/21/2018 for exploratory laparotomy. Wound VAC in place; well sealed with abdominal binder overlying. Still with NG on LIWS and NPO. POD#15 & POD#3, respectively. Plan (no distinct changes today -- possible repeat scanning on 03/25/18): Evisceration of bowel / Cecal Volvulus / Bile Leak - cont supportive and symptomatic care - NPO with Ice CHips & necessary PO meds - clamp NG for 1/2 hour when giving any PO meds including Flomax - cont NG to LIWS - cont WV at current pressure - daily wound care to midline incision upper one 3rd: remove packing; wash with soap and water. Repack with 1/4 inch plain gauze. Cover with ABD. Tape to secure. Please attempt to keep tape off wound VAC dressing. - YUNIOR cont suction. Daily drain care with replacement of split gauze daily. Secure drain bulb when ambulating or showering. - Continue TPN LEONCIO - improved to 1.14 from 1.41 creatinine. - cont to monitor and limit use of nephrotoxins as able Acute Urinary Retention - cont indwelling catheter for now - monitoring UOP (0.56 mL/kg/hr) (2) Cecal volvulus Current Visit: Yes Status: Resolved all plans as above (3) S/P partial resection of colon Current Visit: Yes Status: Acute (4) S/P cholecystectomy Current Visit: Yes Status: Acute (5) Bile leak Current Visit: Yes Status: Acute All plans as above (6) Acute kidney injury Current Visit: Yes Status: Acute All plans as above (7) Acute urinary retention Current Visit: Yes Status: Acute All plans as above (8) Co-morbid condition Current Visit: Yes Status: Chronic Comorbidities include diabetes mellitus type II, hypertension, hyperlipidemia, hypothyroidism, coronary artery disease, GERD, and BPH. - mgmt per hospitalist team Subjective Narrative: No new complaints. Pain somewhat improved. Denies nausea. NG tube in place with 24-hour output on 03/23/2018 of 300mL. Wound drainage 675 mLs. Afebrile overnight. No acute concerns at this time per patient and nursing. Objective Vital Signs - Last 8 Hours Temp Pulse Resp BP Pulse Ox 03/24/18 10:28 98.3 F 83 15 145/81 90 03/24/18 07:04 18 89 Intake and Output 03/23/18 03/24/18 03/24/18 23:59 07:59 15:59 Intake Total 441 / 441 610 / 610 251 / 251 Output Total 1015 / 1015 700 / 700 625 / 625 Balance -574 / -574 -90 / -90 -374 / -374 Intake: IV Fluids 351 / 351 550 / 550 251 / 251 Ofirmev 1,000 mg/100 ml 1,000 100 / 100 100 / 100 100 / 100 mg In 100 ml @ 400 mls/hr IVPB Q8H [facility] Rx#:[id number] Doxycycline 100 MG In 0.9 % 100 / 100 100 / 100 Sodium Chloride (Mini-Bag +) 100 ML @ 100 mls/hr IVPB Q12H [facility] Rx#:[id number] Intralipid 20% 250 ML @ 21 mls/ 250 / 250 hr IVPB DAILY@1700 [facility] Rx#: [id number] Zosyn 3.375 GM In 0.9 % Sodium 100 / 100 100 / 100 100 / 100 Chloride (Mini-Bag +) 100 ML @ 25 mls/hr IVPB Q8HR [facility] Rx#: [id number] Vitamin B-1 100 MG In Dextrose 51 / 51 51 / 51 5% 50 ML @ 50 mls/hr IVPB DAILY [facility] Rx#:[id number] Oral 90 / 90 60 / 60 0 / 0 Output: Catheter 500 / 500 600 / 600 500 / 500 Gastric Drainage 150 / 150 Wound Drainage 365 / 365 100 / 100 125 / 125 Right Upper Abdomen 365 / 365 100 / 100 125 / 125 medial abd incision/stabs 0 / 0 Other: Meal npo Weight 66.5 kg Blood Glucose* 148 200 160 Patient Weight 03/24/18 23:59 Weight 66.5 kg VITAL SIGNS: Reviewed. See [facility] GENERAL: appears comfortable. No acute distress. Answers questions appropriately. HEENT: PER, EOMi, oropharynx pink/moist CV: RRR, no murmurs or extra heart sounds, no JVD noted HOB at about 40deg RESPIRATORY: somewhat decreased but CTAB ABD: hypoactive, expected postop tenderness, no guarding, no rigidity/distention INCISION: wound vacuum place appears well-sealed; overlying abdominal binder DRAINS: RUQ drain contains approximately 75mLs of bilious fluid (225 logged by RN so far today) EXTREMITY: grossly normal motor function, no pedal edema, radial pulse 2+ b/l NEUROLOGIC EXAM: AOx3, obeys commands, baseline speech PSYCHIATRIC: normal mood and affect SKIN: no gross lesions, rashes, or skin changes - Labs 03/24/18 04:51 03/24/18 04:51 Diabetes panel 03/24/18 Range/Units 04:51 Sodium 135 L (136-145) mEq/L Potassium 3.6 (3.5-5.1) mEq/L Chloride 106 (98-107) mEq/L Carbon Dioxide 22 L (23-29) mEq/L BUN 15 (8-23) mg/dL Creatinine 1.14 (0.70-1.30) mg/dL Glucose 169 H (70-105) mg/dL Calcium 7.4 L (8.6-10.3) mg/dL Calcium panel 03/24/18 Range/Units 04:51 Calcium 7.4 L (8.6-10.3) mg/dL Phosphorus 2.3 L (2.7-4.5) mg/dL Pituitary panel 03/24/18 Range/Units 04:51 Sodium 135 L (136-145) mEq/L Potassium 3.6 (3.5-5.1) mEq/L Chloride 106 (98-107) mEq/L Carbon Dioxide 22 L (23-29) mEq/L BUN 15 (8-23) mg/dL Creatinine 1.14 (0.70-1.30) mg/dL Glucose 169 H (70-105) mg/dL Calcium 7.4 L (8.6-10.3) mg/dL Adrenal panel 03/24/18 Range/Units 04:51 Sodium 135 L (136-145) mEq/L Potassium 3.6 (3.5-5.1) mEq/L Chloride 106 (98-107) mEq/L Carbon Dioxide 22 L (23-29) mEq/L BUN 15 (8-23) mg/dL Creatinine 1.14 (0.70-1.30) mg/dL Glucose 169 H (70-105) mg/dL Calcium 7.4 L (8.6-10.3) mg/dL - VTE Documentation of Mechanical Device: Intermittent pneumatic compression device Consult Discharge Plan - Plan Additional Instructions: Wound care instructions: remove dressing and packing. Wash/shower with antibacterial soap. Repacked with 1/4 inch plain gauze. Cover with a dry dressing. Tape to secure. May reinforce her change outer dressing as needed. 1. Your dressing should be removed prior to your discharge date. You may shower , avoid soaking your incision in a tub for a week or so. Cleanse incision gently with a mild soap and water-rinse thoroughlypat dry. Your incision does not need to be redressed. Any sutures or clips still in place at the time of discharge will be removed at your first postoperative visit. Should you have steri-strips across your incision, they will begin to curl as your incision heals (usually within 5-7 days). You may peel them off when this happens. Avoid applying cream, lotions, or powder to your incision. 2. There are no specific dietary restrictions associated with this surgery. Maintaining a well balanced diet is essential for proper healing. Oral fluids are encouraged. 3. It is safe to use a mild laxative. Do so if your bowels have not moved by the third day at home. 4. Walking is healthy. Gradually increase ambulation and activities each day. Allow for regular, uninterrupted rest periods. You are permitted to go up and down stairs slowly while using a handrail. Avoid sitting for long periods of time; avoid crossing your legs; avoid heavy lifting (nothing over 10- 15 pounds) for 6-8 weeks; and avoid any strenuous sports. 5. You may drive when you are comfortable enough to react and move quickly in an emergency (usually 1-2 weeks after surgery). Long trips over 25 miles are not advised. Do not drive if you are taking prescription pain medication. 6. For pain, one of the Ibuprofen compounds (Advil, Nuprin, etc.) or Tylenol is suggested. Should these not be effective in managing your discomfort, prescription pain medications will be given on an individual basis. 7. Please call the office to report any of the following: Temperature of 101 or higher. Signs of infection, possibly including increasing redness, warmth, tenderness, drainage, odor at incision site Persistent moderate to severe pain No bowel movement within 48 hours from OR date. Follow-up appointment with Airam Baez on 03/29/18 at 9:45 AM. Referrals: Lacy Cristobal CNP [Primary Care Provider] - Airam Baez CNP [Advanced Practice Nurse] - 03/29/18 9:45 am <Kei Barger - Last Filed: 03/24/18 18:48> Date of Encounter: 03/24/18 Objective Vital Signs - Last 8 Hours Temp Pulse Resp BP Pulse Ox 03/24/18 16:12 98.2 F 99 14 176/88 90 Intake and Output 03/24/18 03/24/18 03/24/18 07:59 15:59 23:59 Intake Total 610 / 610 251 / 251 100 / 100 Output Total 700 / 700 625 / 625 950 / 950 Balance -90 / -90 -374 / -374 -850 / -850 Intake: IV Fluids 550 / 550 251 / 251 100 / 100 Ofirmev 1,000 mg/100 ml 1,000 100 / 100 100 / 100 100 / 100 mg In 100 ml @ 400 mls/hr IVPB Q8H [facility] Rx#:[id number] Doxycycline 100 MG In 0.9 % 100 / 100 Sodium Chloride (Mini-Bag +) 100 ML @ 100 mls/hr IVPB Q12H [facility] Rx#:[id number] Intralipid 20% 250 ML @ 21 mls/ 250 / 250 hr IVPB DAILY@1700 [facility] Rx#: [id number] Zosyn 3.375 GM In 0.9 % Sodium 100 / 100 100 / 100 Chloride (Mini-Bag +) 100 ML @ 25 mls/hr IVPB Q8HR [facility] Rx#: [id number] Vitamin B-1 100 MG In Dextrose 51 / 51 5% 50 ML @ 50 mls/hr IVPB DAILY [facility] Rx#:[id number] Oral 60 / 60 0 / 0 0 / 0 Output: Catheter 600 / 600 500 / 500 600 / 600 Gastric Drainage 250 / 250 Wound Drainage 100 / 100 125 / 125 100 / 100 Right Upper Abdomen 100 / 100 125 / 125 100 / 100 medial abd incision/stabs 0 / 0 Other: Meal NPO Percent of Meal Consumed 0% Weight 66.5 kg Blood Glucose* 200 160 185 Patient Weight 03/24/18 23:59 Weight 66.5 kg - Labs 03/24/18 04:51 03/24/18 04:51 Diabetes panel 03/24/18 Range/Units 04:51 Sodium 135 L (136-145) mEq/L Potassium 3.6 (3.5-5.1) mEq/L Chloride 106 (98-107) mEq/L Carbon Dioxide 22 L (23-29) mEq/L BUN 15 (8-23) mg/dL Creatinine 1.14 (0.70-1.30) mg/dL Glucose 169 H (70-105) mg/dL Calcium 7.4 L (8.6-10.3) mg/dL Calcium panel 03/24/18 Range/Units 04:51 Calcium 7.4 L (8.6-10.3) mg/dL Phosphorus 2.3 L (2.7-4.5) mg/dL Pituitary panel 03/24/18 Range/Units 04:51 Sodium 135 L (136-145) mEq/L Potassium 3.6 (3.5-5.1) mEq/L Chloride 106 (98-107) mEq/L Carbon Dioxide 22 L (23-29) mEq/L BUN 15 (8-23) mg/dL Creatinine 1.14 (0.70-1.30) mg/dL Glucose 169 H (70-105) mg/dL Calcium 7.4 L (8.6-10.3) mg/dL Adrenal panel 03/24/18 Range/Units 04:51 Sodium 135 L (136-145) mEq/L Potassium 3.6 (3.5-5.1) mEq/L Chloride 106 (98-107) mEq/L Carbon Dioxide 22 L (23-29) mEq/L BUN 15 (8-23) mg/dL Creatinine 1.14 (0.70-1.30) mg/dL Glucose 169 H (70-105) mg/dL Calcium 7.4 L (8.6-10.3) mg/dL - Attending Attestation I have personally seen and examined the patient. I have reviewed pertinent labs , imaging, progress notes, including this one. I agree with the above assessment and plan and wish to include the following... patient in minimal pain; afebrile; exam is non peritoneal; still with high bilious output; normal WBC:;will plan for CT scan on 03/25; will cont to monitor
[2018-03-24] MEDS ORDERED: Potassium Phosphate 44 MEQ in 0.9 % Sodium Chloride 250 ML IVPB ONE (15:08)
--- NOTE | 2018-03-24 16:08 | Internal Med Progress Note ---
Date of Encounter: 03/24/18 Time of Encounter: 16:08 - Assessment and plan (1) Cecal volvulus Current Visit: Yes Status: Resolved Assessment and plan: Postop day 13 Status post exploratory laparotomy with partial right colectomy with [id number] to end anastomosis and cholecystectomy. Drain was placed for abscess in gallbladder fossa on 03/20. 03/21: patient had abdominal wound dehiscnece and small bowel protrusion. Had ex laparotomy with drainage of gallbladder fossa abscess. Management per Surgery. Patient is currently NPO with NG tube in. Clamping NG tube when administering medication. (2) Diabetes mellitus Current Visit: Yes Status: Chronic Assessment and plan: Continue current insulin regimen. 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: unspecified snf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 status Diabetes mellitus complication status : with kidney complications Diabetes mellitus complication detail: with chronic kidney disease Chronic kidney disease stage: stage 3 (moderate) Qualified Code(s): E11.22 - Type 2 diabetes mellitus with diabetic chronic kidney disease; N18.3 - Chronic kidney disease, stage 3 (moderate) (3) Hypothyroidism Current Visit: Yes Status: Chronic Assessment and plan: Continue levothyroxine Qualifiers: Hypothyroidism type: unspecified Qualified Code(s): E03.9 - Hypothyroidism , unspecified (4) Coronary artery disease Current Visit: Yes Status: Chronic Assessment and plan: ASA, Plavix, Zocor Qualifiers: Coronary Disease-Associated Artery/Lesion type: [place] artery [place] vs. transplanted heart: [place] heart Associated angina: angina presence unspecified Qualified Code(s): I25.10 - Atherosclerotic heart disease of [place] coronary artery without angina pectoris (5) GERD (gastroesophageal reflux disease) Current Visit: Yes Status: Chronic Assessment and plan: IV Protonix daily. Qualifiers: Esophagitis presence: esophagitis presence not specified Qualified Code(s) : K21.9 - Gastro-esophageal reflux disease without esophagitis (6) HLD (hyperlipidemia) Current Visit: No Status: Chronic Assessment and plan: Zocor Qualifiers: Hyperlipidemia type: mixed hyperlipidemia Qualified Code(s): E78.2 - Mixed hyperlipidemia (7) HTN (hypertension) Current Visit: Yes Status: Chronic Assessment and plan: Lisinopril, nifedipine Qualifiers: Hypertension type: essential hypertension Qualified Code(s): I10 - Essential (primary) hypertension (8) Acute on chronic kidney failure Current Visit: Yes Status: Acute Assessment and plan: resolved Qualifiers: Acute renal failure type: unspecified Chronic kidney disease stage: stage 3 (moderate) Qualified Code(s): N17.9 - Acute kidney failure, unspecified; N18.3 - Chronic kidney disease, stage 3 (moderate) (9) DVT prophylaxis Current Visit: Yes Status: Acute Assessment and plan: continue subcutaneous heparin - Time Spent With Patient Total time spent is greater than 50% in coordination of care (as documented) at patient's floor/unit and/or counseling patient: - Subjective Interval history: 03/20: Patient has returned from drain for post op abscess. Drain placed without issue. Patient has no complaints. Denies fevers/chills, states pain is controlled. 03/21: Nursing reported that patient coughed and part of small bowel came out. Patient is in no acute distress. Patient examined after temporary gauze is being placed. 03/22: patient post op day #1 after ex lap and drainage of GB fossa abscess and closure of abdominal wall with a wound vac placement. YUNIOR drain per nursing draining over 100 ml fluid within past several hours. Patient denies CP, SOB, n /v, fevers/chills. 03/23: patient has no complaints today denies fevers/chills, SOB, palpitations. He is having some urinary retention and prefers intermittent straight cath over [place] placement. 03/24: no complaints, patient to have PO pills, started Flomax yesterday. - Constitutional Vitals: Temp Pulse Resp BP Pulse Ox 98.3 F 83 15 145/81 90 03/24/18 10:28 03/24/18 10:28 03/24/18 10:28 03/24/18 10:28 03/24/18 10:28 General appearance: Present: cooperative, mild distress, A&O X 3, pleasant, answers questions appropriately Exam: - Head Head exam: Present: atraumatic, normocephalic - Eye Eye exam: Present: PERRL, conjuntiva pink, sclera anicteric Pupils: Present: PERRL - Neck Neck exam general surgery: Present: supple, trachea midline. Absent: lymphadenopathy - Respiratory Respiratory exam: Present: CTAB. Absent: accessory muscle use, rales, rhonchi, wheezes - Cardiovascular Cardiovascular exam: Present: RRR, +S1, +S2. Absent: diastolic murmur, gallop, rubs, systolic murmur - GI/Abdominal GI/Abdominal exam: Present: normal bowel sounds, soft, no peritoneal signs. Absent: distended, tenderness - Extremities Exam Extremities exam: Present: warm, radial pulses palpable and symmetrical. Absent : calf tenderness, cyanotic, pedal edema - Neurological Exam Neurological exam: Present: CN II-XII intact, oriented X3, no focal deficits. Absent: pronater drift, facial droop, speech deficit - Skin Skin exam: Present: dry, intact Additional comments: YUNIOR drain in place Abdominal wound vac in place. Internal Medicine: Result - Labs CBC & Chem 7: 03/24/18 04:51 03/24/18 04:51 Labs: Short CBC 03/24/18 Range/Units 04:51 WBC 8.7 (4.3-11.1) K/mcL Hgb 8.0 L (12.9-16.9) g/dL Hct 24.8 L (37.5-50.1) % Plt Count 297 (140-400) K/mcL Neutrophils # 7.3 (1.6-8.9) K/mcL BMP 03/24/18 04:51 Sodium 135 L Potassium 3.6 Chloride 106 Carbon Dioxide 22 L BUN 15 Creatinine 1.14 Glucose 169 H Calcium 7.4 L - Impressions Impressions Chest/Abdomen X-ray 03/15/18 15:52 IMPRESSION: 1. Left more than right basilar atelectasis. Left hemidiaphragm elevation. 2. Gaseous distention of the stomach. Additionally, there are multiple dilated gas-filled loops of small bowel measure up to 4.7 cm in diameter. Findings are concerning for small bowel obstruction. Paucity of bowel gas seen distally. D/ / Griselda Montoya MD / Griselda Montoya MD Interpreting Provider: Griselda Montoya MD - VTE Documentation of Mechanical Device: Intermittent pneumatic compression device Consult Discharge Plan - Plan Additional Instructions: Wound care instructions: remove dressing and packing. Wash/shower with antibacterial soap. Repacked with 1/4 inch plain gauze. Cover with a dry dressing. Tape to secure. May reinforce her change outer dressing as needed. 1. Your dressing should be removed prior to your discharge date. You may shower , avoid soaking your incision in a tub for a week or so. Cleanse incision gently with a mild soap and water-rinse thoroughlypat dry. Your incision does not need to be redressed. Any sutures or clips still in place at the time of discharge will be removed at your first postoperative visit. Should you have steri-strips across your incision, they will begin to curl as your incision heals (usually within 5-7 days). You may peel them off when this happens. Avoid applying cream, lotions, or powder to your incision. 2. There are no specific dietary restrictions associated with this surgery. Maintaining a well balanced diet is essential for proper healing. Oral fluids are encouraged. 3. It is safe to use a mild laxative. Do so if your bowels have not moved by the third day at home. 4. Walking is healthy. Gradually increase ambulation and activities each day. Allow for regular, uninterrupted rest periods. You are permitted to go up and down stairs slowly while using a handrail. Avoid sitting for long periods of time; avoid crossing your legs; avoid heavy lifting (nothing over 10- 15 pounds) for 6-8 weeks; and avoid any strenuous sports. 5. You may drive when you are comfortable enough to react and move quickly in an emergency (usually 1-2 weeks after surgery). Long trips over 25 miles are not advised. Do not drive if you are taking prescription pain medication. 6. For pain, one of the Ibuprofen compounds (Advil, Nuprin, etc.) or Tylenol is suggested. Should these not be effective in managing your discomfort, prescription pain medications will be given on an individual basis. 7. Please call the office to report any of the following: Temperature of 101 or higher. Signs of infection, possibly including increasing redness, warmth, tenderness, drainage, odor at incision site Persistent moderate to severe pain No bowel movement within 48 hours from OR date. Follow-up appointment with Airam Baez on 03/29/18 at 9:45 AM. Referrals: Lacy Cristobal, BEE [Primary Care Provider] - Airam Baez CNP [Advanced Practice Nurse] - 03/29/18 9:45 am
[2018-03-24] MEDS: Lisinopril 20 MG TABLET PO SCH (16:18)
[2018-03-24] MEDS ORDERED: Clinimix E 5%-15% SOLUTION 2,000 ML with MVI, adult with vitamin K 10 ML IVC SCH (17:00)
[2018-03-24] MEDS: Gabapentin 300 MG CAPSULE PO SCH (20:47)
[2018-03-25] MEDS: MORPHINE SUL Oral CONC 10 MG/0.5 ML ORAL.SYG SL SCH ×4 (00:22→11:49)
[2018-03-25] MEDS: Acetaminophen IV 1,000 MG/100 ML INFUS..BTL IVPB SCH ×2 (00:23→07:58)
[2018-03-25] MEDS: Piperacillin/Tazobactam 3.375 GM in 0.9 % Sodium Chloride Mini Bag 100 ML IVPB SCH ×3 (00:24→16:25)
[2018-03-25] MEDS: Insulin LISPRO 300 UNITS/3 ML VIAL SQ SCH ×6 (00:34→19:57)
[2018-03-25 05:39] LABS: Basophils % 0.3 %; Eosinophils # 0.2 K/mcL (0.0-0.6); Eosinophils % 2.3 %; Hematocrit 24.4 % (37.5-50.1); Hemoglobin 8.2 g/dL (12.9-16.9); Immature Granulocytes % 1.6 % (0-4); Lymphocytes # 0.6 K/mcL (0.6-4.6); Lymphocytes % 7.1 %; Mean Corpuscular HGB Conc 33.6 g/dL (31.6-35.5); Mean Corpuscular Hemoglobin 31.3 pg (28.0-33.3); Mean Corpuscular Volume 93.1 fL (83.0-100.0); Mean Platelet Volume 8.5 fL (9.4-12.4); Monocytes # 0.5 K/mcL (0.0-1.3); Monocytes % 5.1 %; Neutrophils # 7.3 K/mcL (1.6-8.9); Platelet Count 339 K/mcL (140-400); Red Blood Count 2.62 M/mcL (4.19-5.50); Red Cell Distribution Width 14.4 % (11.5-14.5); Segmented Neutrophils % 83.6 %
[2018-03-25 05:59] LABS: BUN/Creatinine Ratio 13 (6-26); Blood Urea Nitrogen 15 mg/dL (8-23); Calcium 7.8 mg/dL (8.6-10.3); Carbon Dioxide 24 mEq/L (23-29); Chloride 105 mEq/L (98-107); Glucose 175 mg/dL (70-105); Osmolality,Calculated 283 (280-300); Phosphorous 2.6 mg/dL (2.7-4.5); Potassium 3.8 mEq/L (3.5-5.1); Sodium 134 mEq/L (136-145); eGFR For African Americans > 60 (> 60); eGFR For Non-African Americans 59 (> 60)
[2018-03-25] MEDS: Levothyroxine Sodium 100 MCG VIAL IVP SCH (06:41)
[2018-03-25] MEDS: *HR* Heparin 5,000 UNIT/ML VIAL SQ SCH ×2 (06:41→17:56)
[2018-03-25] MEDS: Doxycycline 100 MG in 0.9 % Sodium Chloride Mini Bag 100 ML IVPB SCH ×2 (06:41→19:56)
[2018-03-25] MEDS: Pantoprazole 40 MG VIAL IVP SCH (07:47)
[2018-03-25] MEDS: Lisinopril 20 MG TABLET PO SCH (07:47)
[2018-03-25] MEDS: Aspirin 81 MG TAB.CHEW PO SCH (07:47)
[2018-03-25] MEDS: NIFEdipine XL (24 HR) 30 MG TAB.ER.24 PO SCH (07:48)
--- NOTE | 2018-03-25 10:21 | Internal Med Progress Note ---
Date of Encounter: 03/25/18 Time of Encounter: 10:19 - Assessment and plan (1) Cecal volvulus Current Visit: Yes Status: Resolved Assessment and plan: Postop day 13 Status post exploratory laparotomy with partial right colectomy with [id number] to end anastomosis and cholecystectomy. Drain was placed for abscess in gallbladder fossa on 03/20. 03/21: patient had abdominal wound dehiscnece and small bowel protrusion. Had ex laparotomy with drainage of gallbladder fossa abscess. Patient is currently NPO with NG tube in. Clamping NG tube when administering medication. Possible repeat CT abdomen/pelvis today. Management per Surgery. (2) Hypoxia Current Visit: Yes Status: Acute Assessment and plan: Unsure etiology of acute resp failure, not on oxygen at home. ABG at bedside showed only remarkable finding of low pO2, normal pH, CO2 of 31. Lung exam without acute findings, limited posterior lung exam as patient is post -op Continue supplemental O2 and wean as tolerated. Continue I.S. Obtain portable CXR for further evaluation. Rule out atelectasis - likely, fluid overload, pneumonia - note that patient currently on Zosyn and doxycycline. If etiology unclear, will consider adding CT chest to the possible planned CT abdomen/pelvis that might be done today. (3) Diabetes mellitus Current Visit: Yes Status: Chronic Assessment and plan: Continue current insulin regimen. 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 Diabetes mellitus complication status : with kidney complications Diabetes mellitus complication detail: with chronic kidney disease Chronic kidney disease stage: stage 3 (moderate) Qualified Code(s): E11.22 - Type 2 diabetes mellitus with diabetic chronic kidney disease; N18.3 - Chronic kidney disease, stage 3 (moderate) (4) Hypothyroidism Current Visit: Yes Status: Chronic Assessment and plan: Continue levothyroxine Qualifiers: Hypothyroidism type: unspecified Qualified Code(s): E03.9 - Hypothyroidism , unspecified (5) Coronary artery disease Current Visit: Yes Status: Chronic Assessment and plan: ASA, Plavix, Zocor Qualifiers: Coronary Disease-Associated Artery/Lesion type: [place] artery [place] vs. transplanted heart: [place] heart Associated angina: angina presence unspecified Qualified Code(s): I25.10 - Atherosclerotic heart disease of [place] coronary artery without angina pectoris (6) GERD (gastroesophageal reflux disease) Current Visit: Yes Status: Chronic Assessment and plan: IV Protonix daily. Qualifiers: Esophagitis presence: esophagitis presence not specified Qualified Code(s) : K21.9 - Gastro-esophageal reflux disease without esophagitis (7) HLD (hyperlipidemia) Current Visit: No Status: Chronic Assessment and plan: Zocor Qualifiers: Hyperlipidemia type: mixed hyperlipidemia Qualified Code(s): E78.2 - Mixed hyperlipidemia (8) HTN (hypertension) Current Visit: Yes Status: Chronic Assessment and plan: Lisinopril, nifedipine Qualifiers: Hypertension type: essential hypertension Qualified Code(s): I10 - Essential (primary) hypertension (9) Acute on chronic kidney failure Current Visit: Yes Status: Acute Assessment and plan: resolved Qualifiers: Acute renal failure type: unspecified Chronic kidney disease stage: stage 3 (moderate) Qualified Code(s): N17.9 - Acute kidney failure, unspecified; N18.3 - Chronic kidney disease, stage 3 (moderate) (10) DVT prophylaxis Current Visit: Yes Status: Acute Assessment and plan: continue subcutaneous heparin - Time Spent With Patient Total time spent is greater than 50% in coordination of care (as documented) at patient's floor/unit and/or counseling patient: - Subjective Interval history: 03/20: Patient has returned from drain for post op abscess. Drain placed without issue. Patient has no complaints. Denies fevers/chills, states pain is controlled. 03/21: Nursing reported that patient coughed and part of small bowel came out. Patient is in no acute distress. Patient examined after temporary gauze is being placed. 03/22: patient post op day #1 after ex lap and drainage of GB fossa abscess and closure of abdominal wall with a wound vac placement. YUNIOR drain per nursing draining over 100 ml fluid within past several hours. Patient denies CP, SOB, n /v, fevers/chills. 03/23: patient has no complaints today denies fevers/chills, SOB, palpitations. He is having some urinary retention and prefers intermittent straight cath over [place] placement. 03/24: no complaints, patient to have PO pills, started Flomax yesterday. 03/25: nursing and respiratory therapy seeing patient this AM noted that patient had desaturation currently requiring 5 L O2 via trach site. He denies SOB, CP, N/V, palpitations, numbness tingling. - Constitutional Vitals: Temp Pulse Resp BP Pulse Ox 98.9 F 83 16 111/60 90 03/25/18 10:03 03/25/18 10:03 03/25/18 10:03 03/25/18 10:03 03/25/18 10:03 General appearance: Present: cooperative, mild distress, A&O X 3, pleasant, answers questions appropriately Exam: - Head Head exam: Present: atraumatic, normocephalic - Eye Eye exam: Present: PERRL, conjuntiva pink, sclera anicteric Pupils: Present: PERRL - Neck Neck exam general surgery: Present: supple, trachea midline. Absent: lymphadenopathy - Respiratory Respiratory exam: Present: CTAB. Absent: accessory muscle use, rales, rhonchi, wheezes - Cardiovascular Cardiovascular exam: Present: RRR, +S1, +S2. Absent: diastolic murmur, gallop, rubs, systolic murmur - GI/Abdominal GI/Abdominal exam: Present: normal bowel sounds, soft, no peritoneal signs. Absent: distended, tenderness - Extremities Exam Extremities exam: Present: warm, radial pulses palpable and symmetrical. Absent : calf tenderness, cyanotic, pedal edema - Neurological Exam Neurological exam: Present: CN II-XII intact, oriented X3, no focal deficits. Absent: pronater drift, facial droop, speech deficit - Skin Skin exam: Present: dry, intact Additional comments: NG tube in place YUNIOR drain in place Abdominal wound vac in place. Internal Medicine: Result - Labs CBC & Chem 7: 03/25/18 05:28 03/25/18 05:28 Labs: Short CBC 03/25/18 Range/Units 05:28 WBC 8.7 (4.3-11.1) K/mcL Hgb 8.2 L (12.9-16.9) g/dL Hct 24.4 L (37.5-50.1) % Plt Count 339 (140-400) K/mcL Neutrophils # 7.3 (1.6-8.9) K/mcL BMP 03/25/18 05:28 Sodium 134 L Potassium 3.8 Chloride 105 Carbon Dioxide 24 BUN 15 Creatinine 1.20 Glucose 175 H Calcium 7.8 L - VTE Documentation of Mechanical Device: Intermittent pneumatic compression device Consult Discharge Plan - Plan Additional Instructions: Wound care instructions: remove dressing and packing. Wash/shower with antibacterial soap. Repacked with 1/4 inch plain gauze. Cover with a dry dressing. Tape to secure. May reinforce her change outer dressing as needed. 1. Your dressing should be removed prior to your discharge date. You may shower , avoid soaking your incision in a tub for a week or so. Cleanse incision gently with a mild soap and water-rinse thoroughlypat dry. Your incision does not need to be redressed. Any sutures or clips still in place at the time of discharge will be removed at your first postoperative visit. Should you have steri-strips across your incision, they will begin to curl as your incision heals (usually within 5-7 days). You may peel them off when this happens. Avoid applying cream, lotions, or powder to your incision. 2. There are no specific dietary restrictions associated with this surgery. Maintaining a well balanced diet is essential for proper healing. Oral fluids are encouraged. 3. It is safe to use a mild laxative. Do so if your bowels have not moved by the third day at home. 4. Walking is healthy. Gradually increase ambulation and activities each day. Allow for regular, uninterrupted rest periods. You are permitted to go up and down stairs slowly while using a handrail. Avoid sitting for long periods of time; avoid crossing your legs; avoid heavy lifting (nothing over 10- 15 pounds) for 6-8 weeks; and avoid any strenuous sports. 5. You may drive when you are comfortable enough to react and move quickly in an emergency (usually 1-2 weeks after surgery). Long trips over 25 miles are not advised. Do not drive if you are taking prescription pain medication. 6. For pain, one of the Ibuprofen compounds (Advil, Nuprin, etc.) or Tylenol is suggested. Should these not be effective in managing your discomfort, prescription pain medications will be given on an individual basis. 7. Please call the office to report any of the following: Temperature of 101 or higher. Signs of infection, possibly including increasing redness, warmth, tenderness, drainage, odor at incision site Persistent moderate to severe pain No bowel movement within 48 hours from OR date. Follow-up appointment with Airam Baez on 03/29/18 at 9:45 AM. Referrals: Lacy Cristobal, BEE [Primary Care Provider] - Airam Baez CNP [Advanced Practice Nurse] - 03/29/18 9:45 am
[2018-03-25 10:33] LABS: ABG Base Excess -3 mEq/L (-2 to 3); ABG HCO3 21 mEq/L (21-27); ABG Oxygen Saturation 90 % (95-98); ABG PCO2 31 mmHg (35-45); ABG PH 7.44 pH Units (7.32-7.45); ABG PO2 56 mmHg (85-104); ABG TCO2 22 mEq/L (20-26)
[2018-03-25] MEDS: Thiamine (B-1) 100 MG in D5% in Water 50 ML IVPB SCH (11:02)
--- NOTE | 2018-03-25 11:56 | General Surgery Progress Note ---
<Too Arzate - Last Filed: 03/25/18 11:51> Date of Encounter: 03/25/18 Time of Encounter: 08:45 - Assessment and Plan (1) Evisceration of bowel Current Visit: Yes Status: Acute Occurrence on 03/21/2018; following midline incision for cecal resection and cholecystectomy done on 03/09/2018. Returned to the OR on 03/21/2018 for exploratory laparotomy. Wound VAC in place; well sealed with abdominal binder overlying. Still with NG on LIWS and NPO. POD#16 & POD#4, respectively. Plan: Evisceration of bowel / Cecal Volvulus / Bile Leak - repeating CT of Abd/Pelvis with Oral contrast only via NG tube - - LEONCIO - creatinine 1.20 today (previous 1.41 --> 1.14) - cont to monitor and limit use of nephrotoxins as able Acute Urinary Retention - cont indwelling catheter for now - monitoring UOP (2350 over past 24 hours -- 1.46mL/kg/hr) (2) Cecal volvulus Current Visit: Yes Status: Resolved all plans as above (3) S/P partial resection of colon Current Visit: Yes Status: Acute (4) S/P cholecystectomy Current Visit: Yes Status: Acute (5) Bile leak Current Visit: Yes Status: Acute All plans as above (6) Acute kidney injury Current Visit: Yes Status: Acute All plans as above (7) Acute urinary retention Current Visit: Yes Status: Acute All plans as above (8) Co-morbid condition Current Visit: Yes Status: Chronic Comorbidities include diabetes mellitus type II, hypertension, hyperlipidemia, hypothyroidism, coronary artery disease, GERD, and BPH. - mgmt per hospitalist team Subjective Narrative: Comfortable. Pain is well-controlled at this point. Low NG/WV/YUNIOR output. No fevers or hemodynamic compromise (still has significant HTN). No acute concerns per patient or nursing. Objective Vital Signs - Last 8 Hours Temp Pulse Resp BP Pulse Ox 03/25/18 10:03 98.9 F 83 16 111/60 90 03/25/18 07:16 98.0 F 89 16 184/91 92 03/25/18 03:57 98.6 F 83 16 155/78 88 Intake and Output 03/24/18 03/25/18 03/25/18 23:59 07:59 15:59 Intake Total 350 / 350 510 / 510 100 / 100 Output Total 1660 / 1660 1320 / 1320 Balance -1310 / -1310 -810 / -810 100 / 100 Intake: IV Fluids 350 / 350 450 / 450 100 / 100 Ofirmev 1,000 mg/100 ml 1,000 100 / 100 100 / 100 100 / 100 mg In 100 ml @ 400 mls/hr IVPB Q8H [facility] Rx#:[id number] Doxycycline 100 MG In 0.9 % 100 / 100 Sodium Chloride (Mini-Bag +) 100 ML @ 100 mls/hr IVPB Q12H [facility] Rx#:[id number] Intralipid 20% 250 ML @ 21 mls/ 250 / 250 hr IVPB DAILY@1700 [facility] Rx#: [id number] Magnesium Sulfate Premix 2gm/ 50 / 50 50mL 2 gm In 50 ml @ 25 mls/hr IVPB ONCE ONE Rx#:[id number] Zosyn 3.375 GM In 0.9 % Sodium 100 / 100 100 / 100 Chloride (Mini-Bag +) 100 ML @ 25 mls/hr IVPB Q8HR [facility] Rx#: [id number] Oral 0 / 0 60 / 60 Output: Catheter 1250 / 1250 950 / 950 Gastric Drainage 250 / 250 250 / 250 Wound Drainage 160 / 160 120 / 120 Right Upper Abdomen 160 / 160 120 / 120 medial abd incision/stabs 0 / 0 Other: Meal npo Weight 66.7 kg Blood Glucose* 175 165 Patient Weight 03/25/18 23:59 Weight 66.7 kg VITAL SIGNS: Reviewed. See [facility] GENERAL: appears comfortable. No acute distress. Answers questions appropriately. HEENT: PER, EOMi, oropharynx pink/moist CV: RRR, no murmurs or extra heart sounds, no JVD noted HOB at about 40deg RESPIRATORY: somewhat decreased but CTAB ABD: hypoactive, soft, expected postop tenderness, no guarding, no rigidity/ distention INCISION: wound vacuum place appears well-sealed; overlying abdominal binder DRAINS: RUQ drain contains approximately 50mLs of bilious fluid (120 logged by RN so far today); NG today so far 250mLs EXTREMITY: grossly normal motor function, no pedal edema, radial pulse 2+ b/l NEUROLOGIC EXAM: AOx3, obeys commands, baseline speech PSYCHIATRIC: normal mood and affect SKIN: no gross lesions, rashes, or skin changes - Labs 03/25/18 05:28 03/25/18 05:28 Diabetes panel 03/25/18 Range/Units 05:28 Sodium 134 L (136-145) mEq/L Potassium 3.8 (3.5-5.1) mEq/L Chloride 105 (98-107) mEq/L Carbon Dioxide 24 (23-29) mEq/L BUN 15 (8-23) mg/dL Creatinine 1.20 (0.70-1.30) mg/dL Glucose 175 H (70-105) mg/dL Calcium 7.8 L (8.6-10.3) mg/dL Calcium panel 03/25/18 Range/Units 05:28 Calcium 7.8 L (8.6-10.3) mg/dL Phosphorus 2.6 L (2.7-4.5) mg/dL Pituitary panel 03/25/18 Range/Units 05:28 Sodium 134 L (136-145) mEq/L Potassium 3.8 (3.5-5.1) mEq/L Chloride 105 (98-107) mEq/L Carbon Dioxide 24 (23-29) mEq/L BUN 15 (8-23) mg/dL Creatinine 1.20 (0.70-1.30) mg/dL Glucose 175 H (70-105) mg/dL Calcium 7.8 L (8.6-10.3) mg/dL Adrenal panel 03/25/18 Range/Units 05:28 Sodium 134 L (136-145) mEq/L Potassium 3.8 (3.5-5.1) mEq/L Chloride 105 (98-107) mEq/L Carbon Dioxide 24 (23-29) mEq/L BUN 15 (8-23) mg/dL Creatinine 1.20 (0.70-1.30) mg/dL Glucose 175 H (70-105) mg/dL Calcium 7.8 L (8.6-10.3) mg/dL - VTE Documentation of Mechanical Device: Intermittent pneumatic compression device Consult Discharge Plan - Plan Additional Instructions: Wound care instructions: remove dressing and packing. Wash/shower with antibacterial soap. Repacked with 1/4 inch plain gauze. Cover with a dry dressing. Tape to secure. May reinforce her change outer dressing as needed. 1. Your dressing should be removed prior to your discharge date. You may shower , avoid soaking your incision in a tub for a week or so. Cleanse incision gently with a mild soap and water-rinse thoroughlypat dry. Your incision does not need to be redressed. Any sutures or clips still in place at the time of discharge will be removed at your first postoperative visit. Should you have steri-strips across your incision, they will begin to curl as your incision heals (usually within 5-7 days). You may peel them off when this happens. Avoid applying cream, lotions, or powder to your incision. 2. There are no specific dietary restrictions associated with this surgery. Maintaining a well balanced diet is essential for proper healing. Oral fluids are encouraged. 3. It is safe to use a mild laxative. Do so if your bowels have not moved by the third day at home. 4. Walking is healthy. Gradually increase ambulation and activities each day. Allow for regular, uninterrupted rest periods. You are permitted to go up and down stairs slowly while using a handrail. Avoid sitting for long periods of time; avoid crossing your legs; avoid heavy lifting (nothing over 10- 15 pounds) for 6-8 weeks; and avoid any strenuous sports. 5. You may drive when you are comfortable enough to react and move quickly in an emergency (usually 1-2 weeks after surgery). Long trips over 25 miles are not advised. Do not drive if you are taking prescription pain medication. 6. For pain, one of the Ibuprofen compounds (Advil, Nuprin, etc.) or Tylenol is suggested. Should these not be effective in managing your discomfort, prescription pain medications will be given on an individual basis. 7. Please call the office to report any of the following: Temperature of 101 or higher. Signs of infection, possibly including increasing redness, warmth, tenderness, drainage, odor at incision site Persistent moderate to severe pain No bowel movement within 48 hours from OR date. Follow-up appointment with Airam Baez on 03/29/18 at 9:45 AM. Referrals: Lacy Cristobal CNP [Primary Care Provider] - Airam Baez CNP [Advanced Practice Nurse] - 03/29/18 9:45 am <Annita Jackman - Last Filed: 03/25/18 12:53> Date of Encounter: 03/25/18 Time of Encounter: 10:25 - Assessment and Plan (1) S/P partial resection of colon Current Visit: Yes Status: Acute awaiting return of bowel function (2) Acute kidney injury Current Visit: Yes Status: Resolved Cr 1.2, in normal range, good uop (3) Bile leak Current Visit: Yes Status: Acute patient with bile leak, appears controlled with brisa drain will check CT scan abd/pelvis w/ po contrast to ensure not due to duodenal or small bowel injury, as long as negative will consult GI on Tues when they return for ERCP (4) Evisceration of bowel Current Visit: Yes Status: Acute abdomen is closed with wound vac in place, will change tomorrow output serous (5) Diabetes mellitus Current Visit: Yes Status: Chronic glucose primarily controlled continue MBS/SSI mangement per hospitalist Qualifiers: Diabetes mellitus type: type 2 Diabetes mellitus longterm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: unspecified longterm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 status Diabetes mellitus complication status : with kidney complications Diabetes mellitus complication detail: with chronic kidney disease Chronic kidney disease stage: stage 3 (moderate) Qualified Code(s): E11.22 - Type 2 diabetes mellitus with diabetic chronic kidney disease; N18.3 - Chronic kidney disease, stage 3 (moderate) (6) GERD (gastroesophageal reflux disease) Current Visit: Yes Status: Chronic continue PPI Qualifiers: Esophagitis presence: esophagitis presence not specified Qualified Code(s) : K21.9 - Gastro-esophageal reflux disease without esophagitis (7) Hypertension Current Visit: Yes Status: Chronic continue medication, management per hospitalist, controlled Qualifiers: Hypertension type: essential hypertension Qualified Code(s): I10 - Essential (primary) hypertension (8) Hypothyroidism Current Visit: Yes Status: Chronic continue iv synthroid Qualifiers: Hypothyroidism type: unspecified Qualified Code(s): E03.9 - Hypothyroidism , unspecified (9) Acute urinary retention Current Visit: Yes Status: Acute on flomax, continue chang for accurate I/O's (10) Postoperative intra-abdominal abscess Current Visit: Yes Status: Acute at gallbladder fossa, is being treated with zosyn and doxycycline wbc normal continue abx trend wbc Qualifiers: Encounter type: initial encounter Qualified Code(s): T81.4XXA - Infection following a procedure, initial encounter; K65.1 - Peritoneal abscess (11) Pulmonary vascular congestion Current Visit: Yes Status: Acute lasix today aggressive pulmonary toilet, start duoneb and mucomyst - congested, having difficulty coughing up mucus Subjective Narrative: denies abdominal pain denies nausea or emesis is getting up to chair complains is having difficulty coughing up mucus Objective Vital Signs - Last 8 Hours Temp Pulse Resp BP Pulse Ox 03/25/18 11:56 98.2 F 76 12 115/61 91 03/25/18 10:03 98.9 F 83 16 111/60 90 03/25/18 07:16 98.0 F 89 16 184/91 92 Intake and Output 03/24/18 03/25/18 03/25/18 23:59 07:59 15:59 Intake Total 350 / 350 510 / 510 200 / 200 Output Total 1660 / 1660 1320 / 1320 400 / 400 Balance -1310 / -1310 -810 / -810 -200 / -200 Intake: IV Fluids 350 / 350 450 / 450 200 / 200 Ofirmev 1,000 mg/100 ml 1,000 100 / 100 100 / 100 100 / 100 mg In 100 ml @ 400 mls/hr IVPB Q8H [facility] Rx#:[id number] Doxycycline 100 MG In 0.9 % 100 / 100 Sodium Chloride (Mini-Bag +) 100 ML @ 100 mls/hr IVPB Q12H [facility] Rx#:[id number] Intralipid 20% 250 ML @ 21 mls/ 250 / 250 hr IVPB DAILY@1700 [facility] Rx#: [id number] Magnesium Sulfate Premix 2gm/ 50 / 50 50mL 2 gm In 50 ml @ 25 mls/hr IVPB ONCE ONE Rx#:[id number] Zosyn 3.375 GM In 0.9 % Sodium 100 / 100 100 / 100 100 / 100 Chloride (Mini-Bag +) 100 ML @ 25 mls/hr IVPB Q8HR [facility] Rx#: [id number] Oral 0 / 0 60 / 60 Output: Catheter 1250 / 1250 950 / 950 400 / 400 Gastric Drainage 250 / 250 250 / 250 Wound Drainage 160 / 160 120 / 120 Right Upper Abdomen 160 / 160 120 / 120 medial abd incision/stabs 0 / 0 Other: Meal npo Weight 66.7 kg Blood Glucose* 175 165 219 Patient Weight 03/25/18 23:59 Weight 66.7 kg - General physical appearance well nourished, no distress - Eyes normal ocular movement - ENT normal mucosa, dry mucosa - Neck Neck exam: trachea midline (tracheostomy) - Respiratory normal expansion wheezing: bilateral - Cardiovascular Cardiovascular exam: Present: RRR - Abdomen Abdomen: Present: bowel sounds present (faint), non tender - Incision Incision: Present: clean and dry, open (packed and wound vac wit scant serous) - Genitourinary other (chang with clear yellow urine) - Integumentary no rash - Neurologic normal sensation - Musculoskeletal normal posture - Psychiatric oriented to time, oriented to person, oriented to place, speech is normal, memory intact - Labs 03/25/18 05:28 03/25/18 05:28 Short CBC 03/25/18 Range/Units 05:28 WBC 8.7 (4.3-11.1) K/mcL Hgb 8.2 L (12.9-16.9) g/dL Hct 24.4 L (37.5-50.1) % Plt Count 339 (140-400) K/mcL Neutrophils # 7.3 (1.6-8.9) K/mcL BMP 03/25/18 Range/Units 05:28 Sodium 134 L (136-145) mEq/L Potassium 3.8 (3.5-5.1) mEq/L Chloride 105 (98-107) mEq/L Carbon Dioxide 24 (23-29) mEq/L BUN 15 (8-23) mg/dL Creatinine 1.20 (0.70-1.30) mg/dL Glucose 175 H (70-105) mg/dL Calcium 7.8 L (8.6-10.3) mg/dL Vital Signs Temp Pulse Resp BP Pulse Ox 03/25/18 11:56 98.2 F 76 12 115/61 91 03/25/18 10:03 98.9 F 83 16 111/60 90 03/25/18 07:16 98.0 F 89 16 184/91 92 03/25/18 03:57 98.6 F 83 16 155/78 88 03/25/18 00:21 99.3 F 95 18 167/81 92 03/24/18 20:19 98.2 F 86 15 157/76 86 03/24/18 19:00 66 150/80 03/24/18 16:12 98.2 F 99 14 176/88 90 Intake and Output 03/24/18 03/25/18 03/25/18 23:59 07:59 15:59 Intake Total 350 / 350 510 / 510 200 / 200 Output Total 1660 / 1660 1320 / 1320 400 / 400 Balance -1310 / -1310 -810 / -810 -200 / -200 Intake: IV Fluids 350 / 350 450 / 450 200 / 200 Ofirmev 1,000 mg/100 ml 1,000 100 / 100 100 / 100 100 / 100 mg In 100 ml @ 400 mls/hr IVPB Q8H [facility] Rx#:[id number] Doxycycline 100 MG In 0.9 % 100 / 100 Sodium Chloride (Mini-Bag +) 100 ML @ 100 mls/hr IVPB Q12H [facility] Rx#:[id number] Intralipid 20% 250 ML @ 21 mls/ 250 / 250 hr IVPB DAILY@1700 [facility] Rx#: [id number] Magnesium Sulfate Premix 2gm/ 50 / 50 50mL 2 gm In 50 ml @ 25 mls/hr IVPB ONCE ONE Rx#:[id number] Zosyn 3.375 GM In 0.9 % Sodium 100 / 100 100 / 100 100 / 100 Chloride (Mini-Bag +) 100 ML @ 25 mls/hr IVPB Q8HR [facility] Rx#: [id number] Oral 0 / 0 60 / 60 Output: Catheter 1250 / 1250 950 / 950 400 / 400 Gastric Drainage 250 / 250 250 / 250 Wound Drainage 160 / 160 120 / 120 Right Upper Abdomen 160 / 160 120 / 120 medial abd incision/stabs 0 / 0 Other: Meal npo Weight 66.7 kg Blood Glucose* 175 165 219 Patient Weight 03/25/18 23:59 Weight 66.7 kg - Attending Attestation I examined this patient and my medical decision-making was reviewed with the Resident Physician. I agree with the documented findings, disposition and treatment plan as described except to the extent set forth below.
[2018-03-25] MEDS ORDERED: MORPHINE SUL Oral CONC 10 MG/0.5 ML ORAL.SYG SL PRN (12:36)
[2018-03-25] MEDS ORDERED: Furosemide 20 MG/2 ML VIAL IVP ONE (12:53)
[2018-03-25] MEDS ORDERED: Acetaminophen IV 1,000 MG/100 ML INFUS..BTL IVPB PRN (12:54)
[2018-03-25] MEDS ORDERED: Acetylcysteine 10% 2 ML INHSOL IH SCH (15:00)
[2018-03-25] MEDS ORDERED: Artificial Tears SOLN 15 ML BOTTLE BOTH EYES PRN (15:56)
[2018-03-25] MEDS: Ipratropium/Albuterol Neb 3 ML IH SCH ×2 (15:58→23:32)
[2018-03-25] MEDS ORDERED: Clinimix E 5%-15% SOLUTION 2,000 ML with MVI, adult with vitamin K 10 ML IVC SCH (17:00)
[2018-03-25] MEDS: Gabapentin 300 MG CAPSULE PO SCH (20:42)
[2018-03-26] MEDS: Insulin LISPRO 300 UNITS/3 ML VIAL SQ SCH ×7 (00:19→23:54)
[2018-03-26] MEDS: Piperacillin/Tazobactam 3.375 GM in 0.9 % Sodium Chloride Mini Bag 100 ML IVPB SCH ×4 (00:19→23:55)
[2018-03-26 06:02] LABS: Basophils # 0.1 K/mcL (0.0-0.2); Basophils % 0.5 %; Eosinophils # 0.2 K/mcL (0.0-0.6); Eosinophils % 1.9 %; Hematocrit 26.4 % (37.5-50.1); Immature Granulocytes % 1.8 % (0-4); Lymphocytes # 0.9 K/mcL (0.6-4.6); Lymphocytes % 8.4 %; Mean Corpuscular HGB Conc 34.1 g/dL (31.6-35.5); Mean Corpuscular Hemoglobin 31.7 pg (28.0-33.3); Mean Platelet Volume 8.7 fL (9.4-12.4); Monocytes # 0.7 K/mcL (0.0-1.3); Monocytes % 6.5 %; Neutrophils # 8.3 K/mcL (1.6-8.9); Platelet Count 393 K/mcL (140-400); Red Blood Count 2.84 M/mcL (4.19-5.50); Red Cell Distribution Width 14.4 % (11.5-14.5); Segmented Neutrophils % 80.9 %
[2018-03-26] MEDS: *HR* Heparin 5,000 UNIT/ML VIAL SQ SCH ×2 (06:15→18:33)
[2018-03-26] MEDS: Levothyroxine Sodium 100 MCG VIAL IVP SCH (06:17)
[2018-03-26] MEDS: Doxycycline 100 MG in 0.9 % Sodium Chloride Mini Bag 100 ML IVPB SCH ×2 (06:18→18:33)
[2018-03-26 06:24] LABS: Albumin 2.4 g/dL (3.5-5.7); Albumin/Globulin Ratio 0.7 (1.1-2.2); Bilirubin,Direct 0.2 mg/dL (0.0-0.2); Bilirubin,Indirect 0.1 mg/dL (0.0-1.2); Bilirubin,Total 0.3 mg/dL (0.3-1.0); Globulin 3.5 g/dL (2.4-3.5); Platelet Estimate Normal (Normal); Reactive Lymphocytes Present (Not Present); Total Protein 5.9 g/dL (6.4-8.9)
[2018-03-26 06:26] LABS: BUN/Creatinine Ratio 15 (6-26); Blood Urea Nitrogen 19 mg/dL (8-23); Carbon Dioxide 22 mEq/L (23-29); Chloride 104 mEq/L (98-107); Glucose 170 mg/dL (70-105); Magnesium 1.8 mg/dL (1.6-2.6); Osmolality,Calculated 280 (280-300); Phosphorous 2.5 mg/dL (2.7-4.5); Potassium 3.8 mEq/L (3.5-5.1); Sodium 132 mEq/L (136-145); eGFR For African Americans > 60 (> 60); eGFR For Non-African Americans 57 (> 60)
[2018-03-26] MEDS: Ipratropium/Albuterol Neb 3 ML IH SCH ×2 (07:25→15:43)
[2018-03-26] MEDS: Pantoprazole 40 MG VIAL IVP SCH (08:44)
[2018-03-26] MEDS: Aspirin 81 MG TAB.CHEW PO SCH (08:44)
[2018-03-26] MEDS: NIFEdipine XL (24 HR) 30 MG TAB.ER.24 PO SCH (08:44)
[2018-03-26] MEDS: Lisinopril 20 MG TABLET PO SCH (08:44)
[2018-03-26] MEDS: Thiamine (B-1) 100 MG in D5% in Water 50 ML IVPB SCH (08:55)
--- NOTE | 2018-03-26 11:00 | General Surgery Progress Note ---
<KasandramarlenaamyMele murray - Last Filed: 03/26/18 14:09> Date of Encounter: 03/26/18 Time of Encounter: 07:50 - Assessment and Plan (1) Evisceration of bowel Current Visit: Yes Status: Acute Occurrence on 03/21/2018; following midline incision for cecal resection and cholecystectomy done on 03/09/2018. Returned to the OR on 03/21/2018 for exploratory laparotomy. Wound VAC in place; well sealed with abdominal binder overlying. NG tube pulled out today. Patient has serous drainage from YUNIOR tube from L flank, indicating no bile drainage. WBC slightly increased from 8.7 up to 10.3. Has been afebrile overnight. Gastric drainage of 250 ml yesterday and 100 ml today. Wound vac drainage of 210 yesterday and 60 today. POD#17 & POD#5, respectively - wound vac dressing changed today. - NG tube removed. - continue NPO. - GI consult for ERCP. (2) S/P partial resection of colon Current Visit: Yes Status: Acute (3) Cecal volvulus Current Visit: Yes Status: Resolved (4) S/P cholecystectomy Current Visit: Yes Status: Acute (5) Co-morbid condition Current Visit: Yes Status: Chronic Comorbidities include diabetes mellitus type II, hypertension, hyperlipidemia, hypothyroidism, coronary artery disease, GERD, and BPH. - mgmt per hospitalist team Subjective Narrative: Patient denies any abdominal pain. Denies any nausea or vomiting. Denies any overnight fever or chills. Denies any chest pain or shortness of breath. Admits to having 2 bowel movements since yesterday. Denies any melena or hematochezia. Objective VITAL SIGNS: Reviewed. See [facility] GENERAL: No apparent distress. HEENT: [Normocephalic, PER, EOMi, oropharynx pink/moist, no JVD noted.] CV: b/l rad pulses 2+, RRR, no murmurs or gallops, no JVD RESPIRATORY: CTAB without wheezes, rales, or rhonchi ABD: soft, non-tender, no rebound/guarding/rigidity, no peritoneal signs. Normal bowel sounds present. Wound VAC intact. Less than 50 mL of serosanguineous fluid. INCISION: Wound VAC intact. No signs of leakage, bleeding, or erythema on surrounding site. DRAINS: Right flank YUNIOR site without signs of infection; bulb contains serous fluid. EXTREMITY: grossly normal motor function, no pedal edema, peripheral pulses 2+ b /l NEUROLOGIC EXAM: AOx3, obeys commands, no speech deficits. PSYCHIATRIC: normal mood and affect SKIN: no gross lesions, rashes, or skin changes Vital Signs - Last 8 Hours Temp Pulse Resp BP Pulse Ox 03/26/18 10:27 97.9 F 91 14 131/65 96 03/26/18 07:25 16 95 03/26/18 06:34 97.8 F 87 14 154/81 99 03/26/18 04:00 98.9 F 90 15 159/77 96 Intake and Output 03/25/18 03/26/18 03/26/18 23:59 07:59 15:59 Intake Total 1662 / 1662 450 / 450 51 / 51 Output Total 400 / 400 1010 / 1010 900 / 900 Balance 1262 / 1262 -560 / -560 -849 / -849 Intake: IV Fluids 1662 / 1662 450 / 450 51 / 51 Clinimix E 5%-15% SOLUTION 2, 1462 / 1462 000 ML @ 60 mls/hr IVC .Q24H ROMM[facility] with M.v.i. Adult 10 ml Rx# :[id number] Doxycycline 100 MG In 0.9 % 100 / 100 100 / 100 Sodium Chloride (Mini-Bag +) 100 ML @ 100 mls/hr IVPB Q12H [facility] Rx#:[id number] Intralipid 20% 250 ML @ 21 mls/ 250 / 250 hr IVPB DAILY@1700 [facility] Rx#: [id number] Zosyn 3.375 GM In 0.9 % Sodium 100 / 100 100 / 100 Chloride (Mini-Bag +) 100 ML @ 25 mls/hr IVPB Q8HR [facility] Rx#: [id number] Vitamin B-1 100 MG In Dextrose 51 / 51 5% 50 ML @ 50 mls/hr IVPB DAILY [facility] Rx#:[id number] Oral 0 / 0 0 / 0 0 / 0 Output: Urine 600 / 600 Catheter 400 / 400 850 / 850 200 / 200 Gastric Drainage 100 / 100 100 / 100 Wound Drainage 60 / 60 Right Upper Abdomen 60 / 60 Other: Meal NPO NPO NPO Percent of Meal Consumed 0% 0% 0% Stool Size Large Stool Consistency loose liquid Stool Color Brown # Bowel Movements 0 0 1 Weight 67.9 kg Blood Glucose* 208 219 216 Patient Weight 03/26/18 23:59 Weight 67.9 kg - Labs 03/26/18 05:45 03/26/18 05:45 Diabetes panel 03/26/18 03/26/18 Range/Units 05:45 05:45 Sodium 132 L (136-145) mEq/L Potassium 3.8 (3.5-5.1) mEq/L Chloride 104 (98-107) mEq/L Carbon Dioxide 22 L (23-29) mEq/L BUN 19 (8-23) mg/dL Creatinine 1.23 (0.70-1.30) mg/dL Glucose 170 H (70-105) mg/dL Calcium 8.0 L (8.6-10.3) mg/dL AST 12 L (13-39) Units/L ALT 14 (7-52) Units/L Alkaline Phosphatase 222 H (34-104) Units/L Albumin 2.4 L (3.5-5.7) g/dL Calcium panel 03/26/18 03/26/18 Range/Units 05:45 05:45 Calcium 8.0 L (8.6-10.3) mg/dL Phosphorus 2.5 L (2.7-4.5) mg/dL Albumin 2.4 L (3.5-5.7) g/dL Pituitary panel 03/26/18 Range/Units 05:45 Sodium 132 L (136-145) mEq/L Potassium 3.8 (3.5-5.1) mEq/L Chloride 104 (98-107) mEq/L Carbon Dioxide 22 L (23-29) mEq/L BUN 19 (8-23) mg/dL Creatinine 1.23 (0.70-1.30) mg/dL Glucose 170 H (70-105) mg/dL Calcium 8.0 L (8.6-10.3) mg/dL Adrenal panel 03/26/18 03/26/18 Range/Units 05:45 05:45 Sodium 132 L (136-145) mEq/L Potassium 3.8 (3.5-5.1) mEq/L Chloride 104 (98-107) mEq/L Carbon Dioxide 22 L (23-29) mEq/L BUN 19 (8-23) mg/dL Creatinine 1.23 (0.70-1.30) mg/dL Glucose 170 H (70-105) mg/dL Calcium 8.0 L (8.6-10.3) mg/dL Total Bilirubin 0.3 (0.3-1.0) mg/dL AST 12 L (13-39) Units/L ALT 14 (7-52) Units/L Alkaline Phosphatase 222 H (34-104) Units/L Albumin 2.4 L (3.5-5.7) g/dL - VTE Documentation of Mechanical Device: Intermittent pneumatic compression device Consult Discharge Plan - Plan Additional Instructions: Wound care instructions: remove dressing and packing. Wash/shower with antibacterial soap. Repacked with 1/4 inch plain gauze. Cover with a dry dressing. Tape to secure. May reinforce her change outer dressing as needed. 1. Your dressing should be removed prior to your discharge date. You may shower , avoid soaking your incision in a tub for a week or so. Cleanse incision gently with a mild soap and water-rinse thoroughlypat dry. Your incision does not need to be redressed. Any sutures or clips still in place at the time of discharge will be removed at your first postoperative visit. Should you have steri-strips across your incision, they will begin to curl as your incision heals (usually within 5-7 days). You may peel them off when this happens. Avoid applying cream, lotions, or powder to your incision. 2. There are no specific dietary restrictions associated with this surgery. Maintaining a well balanced diet is essential for proper healing. Oral fluids are encouraged. 3. It is safe to use a mild laxative. Do so if your bowels have not moved by the third day at home. 4. Walking is healthy. Gradually increase ambulation and activities each day. Allow for regular, uninterrupted rest periods. You are permitted to go up and down stairs slowly while using a handrail. Avoid sitting for long periods of time; avoid crossing your legs; avoid heavy lifting (nothing over 10- 15 pounds) for 6-8 weeks; and avoid any strenuous sports. 5. You may drive when you are comfortable enough to react and move quickly in an emergency (usually 1-2 weeks after surgery). Long trips over 25 miles are not advised. Do not drive if you are taking prescription pain medication. 6. For pain, one of the Ibuprofen compounds (Advil, Nuprin, etc.) or Tylenol is suggested. Should these not be effective in managing your discomfort, prescription pain medications will be given on an individual basis. 7. Please call the office to report any of the following: Temperature of 101 or higher. Signs of infection, possibly including increasing redness, warmth, tenderness, drainage, odor at incision site Persistent moderate to severe pain No bowel movement within 48 hours from OR date. Follow-up appointment with Airam Baez on 03/29/18 at 9:45 AM. Referrals: Lacy Cristobal CNP [Primary Care Provider] - Airam Baez CNP [Advanced Practice Nurse] - 03/29/18 9:45 am <Annita Jackman - Last Filed: 03/27/18 10:10> Date of Encounter: 03/26/18 Time of Encounter: 12:00 - Assessment and Plan (1) S/P partial resection of colon Current Visit: Yes Status: Acute with flatus and bm -after CT scan and po gastrograffin (2) Acute kidney injury Current Visit: Yes Status: Resolved patient at baseline (3) Bile leak Current Visit: Yes Status: Acute brisa drain output serous today and with decreased outpu GI to return tomorrow, will discuss bile leak and possibility of ERCP/ sphincterotomy and stent placement continue npo abx (4) Evisceration of bowel Current Visit: Yes Status: Resolved wound closed vac in place, could remove soon and do daily dressing changes with collage or mesalt (5) Diabetes mellitus Current Visit: Yes Status: Chronic controlled, management per hosptialist continue TPN Qualifiers: Diabetes mellitus type: type 2 Diabetes mellitus nursing home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: unspecified nursing home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 status Diabetes mellitus complication status : with kidney complications Diabetes mellitus complication detail: with chronic kidney disease Chronic kidney disease stage: stage 3 (moderate) Qualified Code(s): E11.22 - Type 2 diabetes mellitus with diabetic chronic kidney disease; N18.3 - Chronic kidney disease, stage 3 (moderate) (6) GERD (gastroesophageal reflux disease) Current Visit: Yes Status: Chronic gi prophylaxis Qualifiers: Esophagitis presence: esophagitis presence not specified Qualified Code(s) : K21.9 - Gastro-esophageal reflux disease without esophagitis (7) Hypertension Current Visit: Yes Status: Chronic controlled, continue medications Qualifiers: Hypertension type: essential hypertension Qualified Code(s): I10 - Essential (primary) hypertension (8) Hypothyroidism Current Visit: Yes Status: Chronic continue iv synthroid Qualifiers: Hypothyroidism type: unspecified Qualified Code(s): E03.9 - Hypothyroidism , unspecified (9) Acute urinary retention Current Visit: Yes Status: Acute continue chang, flomax, will likely dc after ercp (10) Postoperative intra-abdominal abscess Current Visit: Yes Status: Acute continue zosyn and doxycycline Qualifiers: Encounter type: initial encounter Qualified Code(s): T81.4XXA - Infection following a procedure, initial encounter; K65.1 - Peritoneal abscess Subjective Patient reports: feels better, flatus, bowel movement, afebrile (no nausea or emesis, denies abdominal pain) Objective Vital Signs - Last 8 Hours Temp Pulse Resp BP Pulse Ox 03/27/18 07:17 18 96 03/27/18 06:20 98.0 F 88 15 109/62 90 03/27/18 04:02 98.4 F 87 15 126/66 91 Intake and Output 03/26/18 03/27/18 03/27/18 23:59 07:59 15:59 Intake Total 1707 / 1707 450 / 450 Output Total 1905 / 1905 640 / 640 Balance -198 / -198 -190 / -190 Intake: IV Fluids 1707 / 1707 450 / 450 Clinimix E 5%-15% SOLUTION 2, 1607 / 1607 000 ML @ 75 mls/hr IVC .Q24H ROMM[facility] with M.v.i. Adult 10 ml Rx# :[id number] Doxycycline 100 MG In 0.9 % 100 / 100 Sodium Chloride (Mini-Bag +) 100 ML @ 100 mls/hr IVPB Q12H [facility] Rx#:[id number] Intralipid 20% 250 ML @ 21 mls/ 250 / 250 hr IVPB DAILY@1700 [facility] Rx#: [id number] Zosyn 3.375 GM In 0.9 % Sodium 100 / 100 100 / 100 Chloride (Mini-Bag +) 100 ML @ 25 mls/hr IVPB Q8HR [facility] Rx#: [id number] Oral 0 / 0 0 / 0 Output: Catheter 1875 / 1875 600 / 600 Wound Drainage 30 / 30 40 / 40 Right Upper Abdomen 40 Other: Meal NPO NPO Percent of Meal Consumed 0% Stool Size Small Stool Consistency soft Stool Color Brown # Bowel Movements 1 Blood Glucose* 252 203 - General physical appearance well developed, no distress - Eyes PERRL, normal ocular movement - ENT normal mucosa, normocephalic - Neck Neck exam: trachea midline (tracheostomy) - Respiratory normal expansion, clear to auscultation - Cardiovascular Cardiovascular exam: Present: RRR - Abdomen Abdomen: Present: bowel sounds present, soft, tender (minimal post op tenderness ). Absent: guarding, rebound Additional Comments: RUQ brisa drain - serous drainage - Incision Incision: Present: clean and dry, open (wound vac/packed) - Genitourinary other (chang clear yellow urine) - Integumentary no rash - Neurologic normal sensation - Musculoskeletal normal posture - Psychiatric oriented to time, oriented to person, oriented to place, speech is normal, memory intact - Labs 03/27/18 04:25 03/27/18 04:25 Diabetes panel 03/27/18 03/27/18 Range/Units 04:25 04:25 Sodium 132 L (136-145) mEq/L Potassium 3.9 (3.5-5.1) mEq/L Chloride 104 (98-107) mEq/L Carbon Dioxide 22 L (23-29) mEq/L BUN 26 H (8-23) mg/dL Creatinine 1.27 (0.70-1.30) mg/dL Glucose 229 H (70-105) mg/dL Calcium 7.6 L (8.6-10.3) mg/dL AST 15 (13-39) Units/L ALT 14 (7-52) Units/L Alkaline Phosphatase 219 H (34-104) Units/L Albumin 2.2 L (3.5-5.7) g/dL Triglycerides 130 (< 150) mg/dL Calcium panel 03/27/18 03/27/18 Range/Units 04:25 04:25 Calcium 7.6 L (8.6-10.3) mg/dL Phosphorus 2.9 (2.7-4.5) mg/dL Albumin 2.2 L (3.5-5.7) g/dL Pituitary panel 03/27/18 Range/Units 04:25 Sodium 132 L (136-145) mEq/L Potassium 3.9 (3.5-5.1) mEq/L Chloride 104 (98-107) mEq/L Carbon Dioxide 22 L (23-29) mEq/L BUN 26 H (8-23) mg/dL Creatinine 1.27 (0.70-1.30) mg/dL Glucose 229 H (70-105) mg/dL Calcium 7.6 L (8.6-10.3) mg/dL Adrenal panel 03/27/18 03/27/18 Range/Units 04:25 04:25 Sodium 132 L (136-145) mEq/L Potassium 3.9 (3.5-5.1) mEq/L Chloride 104 (98-107) mEq/L Carbon Dioxide 22 L (23-29) mEq/L BUN 26 H (8-23) mg/dL Creatinine 1.27 (0.70-1.30) mg/dL Glucose 229 H (70-105) mg/dL Calcium 7.6 L (8.6-10.3) mg/dL Total Bilirubin 0.3 (0.3-1.0) mg/dL AST 15 (13-39) Units/L ALT 14 (7-52) Units/L Alkaline Phosphatase 219 H (34-104) Units/L Albumin 2.2 L (3.5-5.7) g/dL
--- NOTE | 2018-03-26 12:40 | Internal Med Progress Note ---
Date of Encounter: 03/26/18 Time of Encounter: 12:40 - Assessment and plan (1) Cecal volvulus Current Visit: Yes Status: Resolved Assessment and plan: Postop day 13 Status post exploratory laparotomy with partial right colectomy with [id number] to end anastomosis and cholecystectomy. Drain was placed for abscess in gallbladder fossa on 03/20. 03/21: patient had abdominal wound dehiscnece and small bowel protrusion. Had ex laparotomy with drainage of gallbladder fossa abscess. Patient is currently NPO with NG tube in. Clamping NG tube when administering medication. Management per Surgery service. (2) Hypoxia Current Visit: Yes Status: Acute Assessment and plan: Unsure etiology of acute resp failure, not on oxygen at home. ABG at bedside showed only remarkable finding of low pO2, normal pH, CO2 of 31. CXR suggestive of fluid overload Continue I.S. and Lasix (3) Diabetes mellitus Current Visit: Yes Status: Chronic Assessment and plan: Continue current insulin regimen. 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 Diabetes mellitus complication status : with kidney complications Diabetes mellitus complication detail: with chronic kidney disease Chronic kidney disease stage: stage 3 (moderate) Qualified Code(s): E11.22 - Type 2 diabetes mellitus with diabetic chronic kidney disease; N18.3 - Chronic kidney disease, stage 3 (moderate) (4) Hypothyroidism Current Visit: Yes Status: Chronic Assessment and plan: Continue levothyroxine Qualifiers: Hypothyroidism type: unspecified Qualified Code(s): E03.9 - Hypothyroidism , unspecified (5) Coronary artery disease Current Visit: Yes Status: Chronic Assessment and plan: ASA, Plavix, Zocor Qualifiers: Coronary Disease-Associated Artery/Lesion type: [place] artery [place] vs. transplanted heart: [place] heart Associated angina: angina presence unspecified Qualified Code(s): I25.10 - Atherosclerotic heart disease of [place] coronary artery without angina pectoris (6) GERD (gastroesophageal reflux disease) Current Visit: Yes Status: Chronic Assessment and plan: IV Protonix daily. Qualifiers: Esophagitis presence: esophagitis presence not specified Qualified Code(s) : K21.9 - Gastro-esophageal reflux disease without esophagitis (7) HLD (hyperlipidemia) Current Visit: No Status: Chronic Assessment and plan: Zocor Qualifiers: Hyperlipidemia type: mixed hyperlipidemia Qualified Code(s): E78.2 - Mixed hyperlipidemia (8) HTN (hypertension) Current Visit: Yes Status: Chronic Assessment and plan: Lisinopril, nifedipine Qualifiers: Hypertension type: essential hypertension Qualified Code(s): I10 - Essential (primary) hypertension (9) Acute on chronic kidney failure Current Visit: Yes Status: Acute Assessment and plan: resolved Qualifiers: Acute renal failure type: unspecified Chronic kidney disease stage: stage 3 (moderate) Qualified Code(s): N17.9 - Acute kidney failure, unspecified; N18.3 - Chronic kidney disease, stage 3 (moderate) (10) DVT prophylaxis Current Visit: Yes Status: Acute Assessment and plan: continue subcutaneous heparin - Time Spent With Patient Total time spent is greater than 50% in coordination of care (as documented) at patient's floor/unit and/or counseling patient: - Subjective Interval history: 03/20: Patient has returned from drain for post op abscess. Drain placed without issue. Patient has no complaints. Denies fevers/chills, states pain is controlled. 03/21: Nursing reported that patient coughed and part of small bowel came out. Patient is in no acute distress. Patient examined after temporary gauze is being placed. 03/22: patient post op day #1 after ex lap and drainage of GB fossa abscess and closure of abdominal wall with a wound vac placement. YUNIOR drain per nursing draining over 100 ml fluid within past several hours. Patient denies CP, SOB, n /v, fevers/chills. 03/23: patient has no complaints today denies fevers/chills, SOB, palpitations. He is having some urinary retention and prefers intermittent straight cath over Wynne placement. 03/24: no complaints, patient to have PO pills, started Flomax yesterday. 03/25: nursing and respiratory therapy seeing patient this AM noted that patient had desaturation currently requiring 5 L O2 via trach site. He denies SOB, CP, N/V, palpitations, numbness tingling. 03/26: still needing O2 via trach but it is much more loose, not needing as much O2 as yesterday. - Constitutional Vitals: Temp Pulse Resp BP Pulse Ox 97.9 F 91 14 131/65 96 03/26/18 10:27 03/26/18 10:27 03/26/18 10:27 03/26/18 10:27 03/26/18 10:27 General appearance: Present: cooperative, mild distress, A&O X 3, pleasant, answers questions appropriately Exam: CVS: RRR Lungs: CTAB, no rales Abd: limited exam has abd brace and wound vac, normal bowel sounds, soft Ext: no edema Internal Medicine: Result - Labs CBC & Chem 7: 03/26/18 05:45 03/26/18 05:45 Labs: Short CBC 03/26/18 Range/Units 05:45 WBC 10.3 (4.3-11.1) K/mcL Hgb 9.0 L (12.9-16.9) g/dL Hct 26.4 L (37.5-50.1) % Plt Count 393 (140-400) K/mcL Neutrophils # 8.3 (1.6-8.9) K/mcL BMP 03/26/18 05:45 Sodium 132 L Potassium 3.8 Chloride 104 Carbon Dioxide 22 L BUN 19 Creatinine 1.23 Glucose 170 H Calcium 8.0 L Liver Function 03/26/18 Range/Units 05:45 Total Bilirubin 0.3 (0.3-1.0) mg/dL Direct Bilirubin 0.2 (0.0-0.2) mg/dL AST 12 L (13-39) Units/L ALT 14 (7-52) Units/L Alkaline Phosphatase 222 H (34-104) Units/L Albumin 2.4 L (3.5-5.7) g/dL - ABG Interpretation ABG results: ABG ABG pH 7.44 pH Units (7.32-7.45) 03/25/18 10:14 ABG pCO2 31 mmHg (35-45) L 03/25/18 10:14 ABG pO2 56 mmHg (85-104) L 03/25/18 10:14 ABG O2 Saturation 90 % (95-98) L 03/25/18 10:14 - Impressions Impressions Abdomen/Pelvis CT 03/25/18 14:15 IMPRESSION: 1. Moderate amount of free fluid within abdomen and pelvis, increased from 03/21/2018. Diffuse mesenteric edema. Unloculated pockets of fluid throughout peritoneal cavity, on this noncontrast examination. Differential includes bile leak, or other nonspecific fluid, including postoperative fluid. 2. Small amount of free air adjacent to right perihepatic region, with percutaneous drain in this region. This limits evaluation of bowel perforation. However, no dense extraluminal contrast is identified on this examination. Oral contrast is seen to pass through anastomosis within right upper quadrant. 3. Large bibasilar pulmonary opacities with bilateral pleural effusions. Findings may represent aspiration, pneumonia, and/or atelectasis. Recommend radiographic follow-up to complete resolution. 4. No evidence of mechanical bowel obstruction. Mildly distended small bowel loops with air-fluid levels are nonspecific. 5. Enlarged prostate gland. Correlate with PSA levels. Thickened urinary bladder wall. Wynne catheter is in place. Findings were discussed with Dr. Jackman at 3:12 pm on 03/25/2018. D/ / 03/25/2018 15:47:18 Carlos Resendiz MD / eliazar Interpreting Provider: Carlos Resendiz MD - VTE Documentation of Mechanical Device: Intermittent pneumatic compression device Consult Discharge Plan - Plan Additional Instructions: Wound care instructions: remove dressing and packing. Wash/shower with antibacterial soap. Repacked with 1/4 inch plain gauze. Cover with a dry dressing. Tape to secure. May reinforce her change outer dressing as needed. 1. Your dressing should be removed prior to your discharge date. You may shower , avoid soaking your incision in a tub for a week or so. Cleanse incision gently with a mild soap and water-rinse thoroughlypat dry. Your incision does not need to be redressed. Any sutures or clips still in place at the time of discharge will be removed at your first postoperative visit. Should you have steri-strips across your incision, they will begin to curl as your incision heals (usually within 5-7 days). You may peel them off when this happens. Avoid applying cream, lotions, or powder to your incision. 2. There are no specific dietary restrictions associated with this surgery. Maintaining a well balanced diet is essential for proper healing. Oral fluids are encouraged. 3. It is safe to use a mild laxative. Do so if your bowels have not moved by the third day at home. 4. Walking is healthy. Gradually increase ambulation and activities each day. Allow for regular, uninterrupted rest periods. You are permitted to go up and down stairs slowly while using a handrail. Avoid sitting for long periods of time; avoid crossing your legs; avoid heavy lifting (nothing over 10- 15 pounds) for 6-8 weeks; and avoid any strenuous sports. 5. You may drive when you are comfortable enough to react and move quickly in an emergency (usually 1-2 weeks after surgery). Long trips over 25 miles are not advised. Do not drive if you are taking prescription pain medication. 6. For pain, one of the Ibuprofen compounds (Advil, Nuprin, etc.) or Tylenol is suggested. Should these not be effective in managing your discomfort, prescription pain medications will be given on an individual basis. 7. Please call the office to report any of the following: Temperature of 101 or higher. Signs of infection, possibly including increasing redness, warmth, tenderness, drainage, odor at incision site Persistent moderate to severe pain No bowel movement within 48 hours from OR date. Follow-up appointment with Airam Baez on 03/29/18 at 9:45 AM. Referrals: Lacy Cristobal CNP [Primary Care Provider] - Airam Baez CNP [Advanced Practice Nurse] - 03/29/18 9:45 am
[2018-03-26] MEDS ORDERED: Furosemide 40 MG/4 ML VIAL IVP ONE (15:59)
[2018-03-26] MEDS ORDERED: Clinimix E 5%-15% SOLUTION 2,000 ML with MVI, adult with vitamin K 10 ML IVC SCH (17:00)
[2018-03-26] MEDS: Gabapentin 300 MG CAPSULE PO SCH (20:23)
[2018-03-27] MEDS: Ipratropium/Albuterol Neb 3 ML IH SCH ×4 (00:01→23:17)
[2018-03-27] MEDS: Insulin LISPRO 300 UNITS/3 ML VIAL SQ SCH ×5 (04:02→21:48)
[2018-03-27 04:34] LABS: Basophils % 0.4 %; Eosinophils # 0.2 K/mcL (0.0-0.6); Eosinophils % 1.9 %; Hematocrit 23.5 % (37.5-50.1); Immature Granulocytes % 1.6 % (0-4); Lymphocytes # 0.7 K/mcL (0.6-4.6); Lymphocytes % 9.3 %; Mean Corpuscular Hemoglobin 31.7 pg (28.0-33.3); Mean Corpuscular Volume 93.3 fL (83.0-100.0); Mean Platelet Volume 8.5 fL (9.4-12.4); Monocytes # 0.6 K/mcL (0.0-1.3); Monocytes % 7.4 %; Neutrophils # 6.3 K/mcL (1.6-8.9); Nucleated Red Blood Cells 0.3 /100 WBC (0); Platelet Count 342 K/mcL (140-400); Red Blood Count 2.52 M/mcL (4.19-5.50); Red Cell Distribution Width 14.4 % (11.5-14.5); Segmented Neutrophils % 79.4 %
[2018-03-27 04:59] LABS: Albumin 2.2 g/dL (3.5-5.7); Albumin/Globulin Ratio 0.7 (1.1-2.2); Bilirubin,Direct 0.1 mg/dL (0.0-0.2); Bilirubin,Indirect 0.2 mg/dL (0.0-1.2); Bilirubin,Total 0.3 mg/dL (0.3-1.0); Globulin 3.1 g/dL (2.4-3.5); Total Protein 5.3 g/dL (6.4-8.9)
[2018-03-27 05:00] LABS: BUN/Creatinine Ratio 20 (6-26); Blood Urea Nitrogen 26 mg/dL (8-23); Calcium 7.6 mg/dL (8.6-10.3); Carbon Dioxide 22 mEq/L (23-29); Chloride 104 mEq/L (98-107); Glucose 229 mg/dL (70-105); Magnesium 1.8 mg/dL (1.6-2.6); Osmolality,Calculated 286 (280-300); Phosphorous 2.9 mg/dL (2.7-4.5); Potassium 3.9 mEq/L (3.5-5.1); Sodium 132 mEq/L (136-145); Triglycerides 130 mg/dL (< 150); eGFR For African Americans > 60 (> 60); eGFR For Non-African Americans 55 (> 60)
[2018-03-27] MEDS: *HR* Heparin 5,000 UNIT/ML VIAL SQ SCH ×2 (06:19→18:33)
[2018-03-27] MEDS: Levothyroxine Sodium 100 MCG VIAL IVP SCH (06:38)
[2018-03-27] MEDS: Doxycycline 100 MG in 0.9 % Sodium Chloride Mini Bag 100 ML IVPB SCH ×2 (06:39→18:32)
[2018-03-27] MEDS: Piperacillin/Tazobactam 3.375 GM in 0.9 % Sodium Chloride Mini Bag 100 ML IVPB SCH ×2 (08:04→16:24)
--- NOTE | 2018-03-27 09:28 | General Surgery Progress Note ---
Date of Encounter: 03/27/18 Time of Encounter: 09:15 - Assessment and Plan (1) Evisceration of bowel Current Visit: Yes Status: Resolved POD #6 Exploratory laparotomy, lysis of adhesions, drainage gallbladder fossa abscess, closure abdominal wall with wound vac placement with Dr. Jackman Continue Wound vac therapy (changed 03/26/18) Daily packing to top of midline wound Continue YUNIOR drain to bulb suction IV antibiotics- Zosyn, Doxycycine Supportive care and pain control (2) Cecal volvulus Current Visit: Yes Status: Resolved POD #18 Exploratory laparotomy with right colectomy and cholecystectomy with Dr. 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: unspecified residential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 status Diabetes mellitus complication status : with kidney complications Diabetes mellitus complication detail: with chronic kidney disease Chronic kidney disease stage: stage 3 (moderate) Qualified Code(s): E11.22 - Type 2 diabetes mellitus with diabetic chronic kidney disease; N18.3 - Chronic kidney disease, stage 3 (moderate) (4) Hypertension Current Visit: Yes Status: Chronic Currently normotensive Management per hospitalist Qualifiers: Hypertension type: essential hypertension Qualified Code(s): I10 - Essential (primary) hypertension (5) Hyperlipidemia Current Visit: Yes Status: Chronic Management per hospitalist Qualifiers: Hyperlipidemia type: unspecified Qualified Code(s): E78.5 - Hyperlipidemia , unspecified (6) Hypothyroidism Current Visit: Yes Status: Chronic Management per hospitalist Currently on IV levothyroxine Qualifiers: Hypothyroidism type: unspecified Qualified Code(s): E03.9 - Hypothyroidism , unspecified (7) Coronary artery disease Current Visit: Yes Status: Chronic Cardiology consulted- Recommendations- Pt denies chest pain or dyspnea, but is not very active. Pt reports never having a LHC in the past. Low functional status, unable to achieve 4 METS. However, denies cardiac symptoms--denies chest pain or dyspnea. TTE pending. Stress test overall low risk positive. Would not recommend LHC prior to urgent/possible life saving surgery for cecal volvulus. Stat Echo ordered per the hospitalist Qualifiers: Coronary Disease-Associated Artery/Lesion type: [place] artery [place] vs. transplanted heart: [place] heart Associated angina: angina presence unspecified Qualified Code(s): I25.10 - Atherosclerotic heart disease of [place] coronary artery without angina pectoris (8) GERD (gastroesophageal reflux disease) Current Visit: Yes Status: Chronic PPI therapy daily Qualifiers: Esophagitis presence: esophagitis presence not specified Qualified Code(s) : K21.9 - Gastro-esophageal reflux disease without esophagitis (9) BPH (benign prostatic hyperplasia) Current Visit: Yes Status: Chronic Continue flomax daily Attempt removal of chang catheter today Qualifiers: Lower urinary tract symptom presence: symptoms absent Qualified Code(s): N40.0 - Benign prostatic hyperplasia without lower urinary tract symptoms Subjective Patient reports: no new complaints, feels better, pain is less, flatus, bowel movement (Loose stools X 2 this morning), afebrile Objective Vital Signs - Last 8 Hours Temp Pulse Resp BP Pulse Ox 03/27/18 07:17 18 96 03/27/18 06:20 98.0 F 88 15 109/62 90 03/27/18 04:02 98.4 F 87 15 126/66 91 Intake and Output 03/26/18 03/27/18 03/27/18 23:59 07:59 15:59 Intake Total 1707 / 1707 450 / 450 Output Total 1905 / 1905 640 / 640 Balance -198 / -198 -190 / -190 Intake: IV Fluids 1707 / 1707 450 / 450 Clinimix E 5%-15% SOLUTION 2, 1607 / 1607 000 ML @ 75 mls/hr IVC .Q24H ROMM[facility] with M.v.i. Adult 10 ml Rx# :[id number] Doxycycline 100 MG In 0.9 % 100 / 100 Sodium Chloride (Mini-Bag +) 100 ML @ 100 mls/hr IVPB Q12H ROMM[facility] Rx#:[id number] Intralipid 20% 250 ML @ 21 mls/ 250 / 250 hr IVPB DAILY@1700 ROMM[facility] Rx#: [id number] Zosyn 3.375 GM In 0.9 % Sodium 100 / 100 100 / 100 Chloride (Mini-Bag +) 100 ML @ 25 mls/hr IVPB Q8HR [facility] Rx#: [id number] Oral 0 / 0 0 / 0 Output: Catheter 1875 / 1875 600 / 600 Wound Drainage 40 Right Upper Abdomen Other: Meal NPO NPO Percent of Meal Consumed 0% Stool Size Small Stool Consistency soft Stool Color Brown # Bowel Movements 1 Blood Glucose* 252 203 - General physical appearance well developed, no distress, chronically ill - Eyes normal ocular movement - ENT normal mucosa, atraumatic, normocephalic - Neck Neck exam: trachea midline - Respiratory normal respiratory effort, clear to auscultation - Cardiovascular Cardiovascular exam: Present: RRR - Abdomen Abdomen: Present: bowel sounds present, soft, tender (minimal expected post- operative tenderness), wound (YUNIOR drain to RUQ with serous drainage noted (50ml noted since midnight); Wound vac to midline with scant amount of serous drainage noted.) - Incision Incision: Present: open (Wound vac intact with scant amount of serous drainage noted) - Genitourinary other (chang catheter to SD with clear, yellow urine noted) - Neurologic CN 2-12 grossly intact - Psychiatric oriented to time, oriented to person, oriented to place, memory intact - Labs 03/27/18 04:25 03/27/18 04:25 Diabetes panel 03/27/18 03/27/18 Range/Units 04:25 04:25 Sodium 132 L (136-145) mEq/L Potassium 3.9 (3.5-5.1) mEq/L Chloride 104 (98-107) mEq/L Carbon Dioxide 22 L (23-29) mEq/L BUN 26 H (8-23) mg/dL Creatinine 1.27 (0.70-1.30) mg/dL Glucose 229 H (70-105) mg/dL Calcium 7.6 L (8.6-10.3) mg/dL AST 15 (13-39) Units/L ALT 14 (7-52) Units/L Alkaline Phosphatase 219 H (34-104) Units/L Albumin 2.2 L (3.5-5.7) g/dL Triglycerides 130 (< 150) mg/dL Calcium panel 03/27/18 03/27/18 Range/Units 04:25 04:25 Calcium 7.6 L (8.6-10.3) mg/dL Phosphorus 2.9 (2.7-4.5) mg/dL Albumin 2.2 L (3.5-5.7) g/dL Pituitary panel 03/27/18 Range/Units 04:25 Sodium 132 L (136-145) mEq/L Potassium 3.9 (3.5-5.1) mEq/L Chloride 104 (98-107) mEq/L Carbon Dioxide 22 L (23-29) mEq/L BUN 26 H (8-23) mg/dL Creatinine 1.27 (0.70-1.30) mg/dL Glucose 229 H (70-105) mg/dL Calcium 7.6 L (8.6-10.3) mg/dL Adrenal panel 03/27/18 03/27/18 Range/Units 04:25 04:25 Sodium 132 L (136-145) mEq/L Potassium 3.9 (3.5-5.1) mEq/L Chloride 104 (98-107) mEq/L Carbon Dioxide 22 L (23-29) mEq/L BUN 26 H (8-23) mg/dL Creatinine 1.27 (0.70-1.30) mg/dL Glucose 229 H (70-105) mg/dL Calcium 7.6 L (8.6-10.3) mg/dL Total Bilirubin 0.3 (0.3-1.0) mg/dL AST 15 (13-39) Units/L ALT 14 (7-52) Units/L Alkaline Phosphatase 219 H (34-104) Units/L Albumin 2.2 L (3.5-5.7) g/dL - VTE Documentation of Mechanical Device: Intermittent pneumatic compression device Consult Discharge Plan - Plan Additional Instructions: Wound care instructions: remove dressing and packing. Wash/shower with antibacterial soap. Repacked with 1/4 inch plain gauze. Cover with a dry dressing. Tape to secure. May reinforce her change outer dressing as needed. 1. Your dressing should be removed prior to your discharge date. You may shower , avoid soaking your incision in a tub for a week or so. Cleanse incision gently with a mild soap and water-rinse thoroughlypat dry. Your incision does not need to be redressed. Any sutures or clips still in place at the time of discharge will be removed at your first postoperative visit. Should you have steri-strips across your incision, they will begin to curl as your incision heals (usually within 5-7 days). You may peel them off when this happens. Avoid applying cream, lotions, or powder to your incision. 2. There are no specific dietary restrictions associated with this surgery. Maintaining a well balanced diet is essential for proper healing. Oral fluids are encouraged. 3. It is safe to use a mild laxative. Do so if your bowels have not moved by the third day at home. 4. Walking is healthy. Gradually increase ambulation and activities each day. Allow for regular, uninterrupted rest periods. You are permitted to go up and down stairs slowly while using a handrail. Avoid sitting for long periods of time; avoid crossing your legs; avoid heavy lifting (nothing over 10- 15 pounds) for 6-8 weeks; and avoid any strenuous sports. 5. You may drive when you are comfortable enough to react and move quickly in an emergency (usually 1-2 weeks after surgery). Long trips over 25 miles are not advised. Do not drive if you are taking prescription pain medication. 6. For pain, one of the Ibuprofen compounds (Advil, Nuprin, etc.) or Tylenol is suggested. Should these not be effective in managing your discomfort, prescription pain medications will be given on an individual basis. 7. Please call the office to report any of the following: Temperature of 101 or higher. Signs of infection, possibly including increasing redness, warmth, tenderness, drainage, odor at incision site Persistent moderate to severe pain No bowel movement within 48 hours from OR date. Follow-up appointment with Airam Baez on 03/29/18 at 9:45 AM. Referrals: Lacy Cristobal CNP [Primary Care Provider] - Airam Baez CNP [Advanced Practice Nurse] - 03/29/18 9:45 am - Attending Attestation For this encounter, I have reviewed the MANAGER PERSONAL or PA documentation, treatment plan, and medical decision making; and I have had face to face time with this patient.
[2018-03-27] MEDS: Pantoprazole 40 MG VIAL IVP SCH (09:58)
[2018-03-27] MEDS: Aspirin 81 MG TAB.CHEW PO SCH (09:59)
[2018-03-27] MEDS: NIFEdipine XL (24 HR) 30 MG TAB.ER.24 PO SCH (09:59)
[2018-03-27] MEDS: Lisinopril 20 MG TABLET PO SCH (09:59)
[2018-03-27] MEDS: Thiamine (B-1) 100 MG in D5% in Water 50 ML IVPB SCH (10:03)
--- NOTE | 2018-03-27 13:11 | Anesthesia Evaluation PreOp ---
Date of Encounter: 03/27/18 Time of Encounter: 13:07 - Past History Planned Operation: ERCP on pt s/p Expl Lap w/partial R-colectomy POD #15 Cardiac History: HTN, Hyperlipidemia, Other ([+ Stress test 09/2016 but Follow Up Clerk Per Note will not delay any urgent/emergent procedures to perform a heart cath] Aortic Sclerosis suggested by doppler . Mean gradient 9mmHG . 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 Any Significant HX Other Medical History: Renal (Acute on Chronic Kidney Failure), Diabetes Type II , Thyroid, GERD, Other (Stage 4 CKDz) Anesthesia History: Past Anesthesia (Robotic Dx Lap, POD #15 Expl Lap/R- colectomy/Lap Aaliyah 03/12/2018, Expl Lap 03/21/2018 for) Alcohol Use: none Drug use: none Medications and Allergies Acetaminophen [Tylenol] 1,000 mg PO Q6HR PRN #90 tablet 08/31/16 [Rx] Allopurinol [Zyloprim] 300 mg PO DAILY 08/31/16 [History] Aspirin [Lo-Dose Aspirin EC] 81 mg PO DAILY 08/31/16 [History] Furosemide [Lasix] 20 mg PO DAILY 08/31/16 [History] Gabapentin [Neurontin] 300 mg PO DAILY 08/31/16 [History] Multivitamin [Multivitamins] 1 each PO DAILY 08/31/16 [History] NIFEdipine [Nifedipine Xl] 30 mg PO DAILY 08/31/16 [History] Pantoprazole Sodium [Protonix] 40 mg PO BID 08/31/16 [History] Clopidogrel [Plavix] 75 mg PO DAILY 03/09/18 [History] Levothyroxine Sodium [Levoxyl] 125 mcg PO DAILY 03/09/18 [History] Lisinopril [Zestril] 20 mg PO DAILY 03/09/18 [History] Simvastatin [Zocor] 40 mg PO HS 03/09/18 [History] 3 Allergy/AdvReac Type Severity Reaction Status Date / Time No Known Allergies Allergy Verified 11/18/15 17:58 Anesthesia Results - Labs 03/27/18 04:25 03/27/18 04:25 Laboratory Tests 03/10/18 03/27/18 03/27/18 05:50 04:25 04:25 WBC 8.0 Hgb 8.0 L Hct 23.5 L Plt Count 342 Sodium 132 L Potassium 3.9 Chloride 104 Carbon Dioxide 22 L BUN 26 H Creatinine 1.27 Est GFR (Non-Af Amer) 55 L Glucose 229 H POC Glucose Est Mean Plasma Glucose 163 Hemoglobin A1c 7.3 H Alkaline Phosphatase 03/27/18 03/27/18 04:25 11:07 WBC Hgb Hct Plt Count Sodium Potassium Chloride Carbon Dioxide BUN Creatinine Est GFR (Non-Af Amer) Glucose POC Glucose 269 H Est Mean Plasma Glucose Hemoglobin A1c Alkaline Phosphatase 219 H Laboratory Results Impressions Echocardiogram 03/09/18 13:18 Impressions: Technically sub-optimal due to poor echocardiographic windows. LVEF 65%. Normal LV chamber size, wall thickness and function. Mild left ventricular diastolic dysfunction. Normal right ventricular structure and function. Mild aortic sclerosis suggested by Doppler. Mean gradient 9 mmHg. No evidence of pulmonary hypertension. Left Ventricular Wall Motion: Rest Echo Findings All wall segments showed normal motion. Findings: Study Quality * Technically sub-optimal due to poor echocardiographic windows. ECG Findings * Normal sinus rhythm. Left Ventricle * LVEF 65%. * Normal LV chamber size, wall thickness and function. * Mild left ventricular diastolic dysfunction. Right Ventricle * Normal right ventricular structure and function. Left Atrium * Normal left atrial size. Right Atrium * Normal right atrial size. Aortic Valve * Aortic valve not well visualized. * Grossly the aortic vavle appears calcified. * Trace aortic regurgitation. * Mild aortic sclerosis suggested by Doppler. Mean gradient 9 mmHg. Mitral Valve * Mild mitral annular calcification. * No mitral regurgitation. * No mitral stenosis. Tricuspid Valve * Normal tricuspid valve structure and function. * Trace tricuspid regurgitation. * No evidence of pulmonary hypertension. Pulmonic Valve * Pulmonic valve not well visualized. Aorta * Normally sized aortic root. Pericardium * The pericardium appears normal. IVC * IVC not well visualized. Pulmonary Artery * Normal visualized portions of the main pulmonary artery. KUB X-Ray 03/10/18 18:17 IMPRESSION: 1. Enteric tube tip is directed towards the gastric fundus and side port is just distal to the GE junction. 2. Multiple loops of mildly prominent small bowel throughout the abdomen which are nonspecific. Surgical skin paola now project over the abdomen. D/ / Garrett Sood MD / Garrett Sood MD Interpreting Provider: Garrett Sood MD Chest/Abdomen X-ray 03/15/18 15:52 IMPRESSION: 1. Left more than right basilar atelectasis. Left hemidiaphragm elevation. 2. Gaseous distention of the stomach. Additionally, there are multiple dilated gas-filled loops of small bowel measure up to 4.7 cm in diameter. Findings are concerning for small bowel obstruction. Paucity of bowel gas seen distally. D/ / Griselda Montoya MD / Griselda Montoya MD Interpreting Provider: Griselda Montoya MD Small Bowel X-Ray 03/16/18 13:04 IMPRESSION: 1. Delayed passage of the Gastrografin through the small-bowel but there is no evidence for obstruction. D/ / Kalpesh Long MD / Kalpesh Long MD Interpreting Provider: Kalpesh Long MD Retroperitoneal Abscess Drainage 03/20/18 00:00 IMPRESSION: Successful CT guided placement of abdominal abscess drainage catheter. D/ / Garrett Booth MD / Garrett Booth MD Interpreting Provider: Garrett Booth MD Chest CT 03/20/18 11:30 IMPRESSION: 1. Large collection of air and fluid along the gallbladder fossa, with slight extension along the anterior margin of the liver. Given history of cholecystectomy, this is most consistent with an abscess. 2. Moderate dilation of the mid small bowel with distal decompression, suggestive of at least partial small bowel obstruction. Postoperative changes of right hemicolectomy. 3. Small amount of ascites in the low pelvis. 4. Trace bilateral pleural effusions, with extensive basilar atelectasis. A small amount of superimposed consolidation cannot be entirely excluded. 5. Coronary atherosclerosis. D/ / 03/20/2018 13:13:00 Joseph Lemos MD / serjio Interpreting Provider: Joseph Lemos MD Chest X-Ray 03/25/18 10:27 IMPRESSION: Hyperaeration with suspected vascular congestion small effusions. D/ / Jason Dodson MD / Jason Dodson MD Interpreting Provider: Jason Dodson MD Abdomen/Pelvis CT 03/25/18 14:15 IMPRESSION: 1. Moderate amount of free fluid within abdomen and pelvis, increased from 03/21/2018. Diffuse mesenteric edema. Unloculated pockets of fluid throughout peritoneal cavity, on this noncontrast examination. Differential includes bile leak, or other nonspecific fluid, including postoperative fluid. 2. Small amount of free air adjacent to right perihepatic region, with percutaneous drain in this region. This limits evaluation of bowel perforation. However, no dense extraluminal contrast is identified on this examination. Oral contrast is seen to pass through anastomosis within right upper quadrant. 3. Large bibasilar pulmonary opacities with bilateral pleural effusions. Findings may represent aspiration, pneumonia, and/or atelectasis. Recommend radiographic follow-up to complete resolution. 4. No evidence of mechanical bowel obstruction. Mildly distended small bowel loops with air-fluid levels are nonspecific. 5. Enlarged prostate gland. Correlate with PSA levels. Thickened urinary bladder wall. Wynne catheter is in place. Findings were discussed with Dr. Jackman at 3:12 pm on 03/25/2018. D/ / 03/25/2018 15:47:18 Carlos Resendiz MD / eliazar Interpreting Provider: Carlos Resendiz MD - Imaging Additional studies: 09/2016 Stress Test - Impression: No significant ECG changes with regadenoson. Gated LVEF = 66%. There is small sized, mild-moderate intensity, mainly reversible perfusion defect in the apical inferior wall, apical septum, and apex. Findings are consistent with reversible myocardial ischemia. Abnormal results were communicated to Dr. Gudino via [facility].
[2018-03-27] MEDS ORDERED: Clinimix E 5%-15% SOLUTION 2,000 ML with MVI, adult with vitamin K 10 ML IVC SCH (17:00)
--- NOTE | 2018-03-27 17:02 | Internal Med Progress Note ---
Date of Encounter: 03/27/18 Time of Encounter: 16:25 - Assessment and plan (1) Cecal volvulus Current Visit: Yes Status: Resolved Assessment and plan: Postop day 16 Cecal resection and cholecystectomy POD #4 Ex Lap Vac dressing As per Gen Surg (2) Diabetes mellitus Current Visit: Yes Status: Chronic Assessment and plan: Continue current insulin regimen. Goal glucose <180 ISS Q4H 03/27: May add long acting inulin tomorrow Qualifiers: Diabetes mellitus type: type 2 Diabetes mellitus snf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: unspecified snf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 status Diabetes mellitus complication status : with kidney complications Diabetes mellitus complication detail: with chronic kidney disease Chronic kidney disease stage: stage 3 (moderate) Qualified Code(s): E11.22 - Type 2 diabetes mellitus with diabetic chronic kidney disease; N18.3 - Chronic kidney disease, stage 3 (moderate) (3) Hypothyroidism Current Visit: Yes Status: Chronic Assessment and plan: Continue levothyroxine Qualifiers: Hypothyroidism type: unspecified Qualified Code(s): E03.9 - Hypothyroidism , unspecified (4) Coronary artery disease Current Visit: Yes Status: Chronic Assessment and plan: ASA, Plavix, Zocor Qualifiers: Coronary Disease-Associated Artery/Lesion type: [place] artery [place] vs. transplanted heart: [place] heart Associated angina: angina presence unspecified Qualified Code(s): I25.10 - Atherosclerotic heart disease of [place] coronary artery without angina pectoris (5) GERD (gastroesophageal reflux disease) Current Visit: Yes Status: Chronic Assessment and plan: IV Protonix daily. Qualifiers: Esophagitis presence: esophagitis presence not specified Qualified Code(s) : K21.9 - Gastro-esophageal reflux disease without esophagitis (6) HLD (hyperlipidemia) Current Visit: No Status: Chronic Assessment and plan: Zocor Qualifiers: Hyperlipidemia type: mixed hyperlipidemia Qualified Code(s): E78.2 - Mixed hyperlipidemia (7) HTN (hypertension) Current Visit: Yes Status: Chronic Assessment and plan: Lisinopril, nifedipine Qualifiers: Hypertension type: essential hypertension Qualified Code(s): I10 - Essential (primary) hypertension (8) DVT prophylaxis Current Visit: Yes Status: Acute Assessment and plan: continue subcutaneous heparin (9) Acute on chronic kidney failure Current Visit: Yes Status: Acute Assessment and plan: resolved Qualifiers: Acute renal failure type: unspecified Chronic kidney disease stage: stage 3 (moderate) Qualified Code(s): N17.9 - Acute kidney failure, unspecified; N18.3 - Chronic kidney disease, stage 3 (moderate) (10) Hypoxia Current Visit: Yes Status: Acute Assessment and plan: Unsure etiology of acute resp failure, not on oxygen at home. ABG at bedside showed only remarkable finding of low pO2, normal pH, CO2 of 31. CXR suggestive of fluid overload Continue I.S. and Lasix 03/27: Continue IV Lasix, monitor renal fxn - Time Spent With Patient Total time spent is greater than 50% in coordination of care (as documented) at patient's floor/unit and/or counseling patient: 25 - 35 minutes - Subjective Interval history: 03/20: Patient has returned from drain for post op abscess. Drain placed without issue. Patient has no complaints. Denies fevers/chills, states pain is controlled. 03/21: Nursing reported that patient coughed and part of small bowel came out. Patient is in no acute distress. Patient examined after temporary gauze is being placed. 03/22: patient post op day #1 after ex lap and drainage of GB fossa abscess and closure of abdominal wall with a wound vac placement. YUNIOR drain per nursing draining over 100 ml fluid within past several hours. Patient denies CP, SOB, n /v, fevers/chills. 03/23: patient has no complaints today denies fevers/chills, SOB, palpitations. He is having some urinary retention and prefers intermittent straight cath over [place] placement. 03/24: no complaints, patient to have PO pills, started Flomax yesterday. 03/25: nursing and respiratory therapy seeing patient this AM noted that patient had desaturation currently requiring 5 L O2 via trach site. He denies SOB, CP, N/V, palpitations, numbness tingling. 03/26: still needing O2 via trach but it is much more loose, not needing as much O2 as yesterday. 03/27: Patient states he is comfortable. No fevers chert chills. No chest pain or shortness of breath. No nausea, vomiting, diarrhea. He had a bowel movement earlier today. - Constitutional Vitals: Temp Pulse Resp BP Pulse Ox 97.9 F 104 14 119/68 93 03/27/18 16:09 03/27/18 16:09 03/27/18 16:09 03/27/18 16:09 03/27/18 16:09 General appearance: Present: cooperative, A&O X 3, pleasant, answers questions appropriately - Head Head exam: Present: atraumatic, normocephalic - Eye Eye exam: Present: PERRL, conjuntiva pink, sclera anicteric Pupils: Present: PERRL - Neck Neck exam general surgery: Present: supple, trachea midline. Absent: lymphadenopathy - Respiratory Respiratory exam: Present: CTAB. Absent: accessory muscle use, rales, rhonchi, wheezes - Cardiovascular Cardiovascular exam: Present: RRR, +S1, +S2. Absent: diastolic murmur, gallop, rubs, systolic murmur - GI/Abdominal GI/Abdominal exam: Present: normal bowel sounds, soft, no peritoneal signs. Absent: distended, tenderness Additional comments: Wound VAC with serous drainage - Extremities Exam Extremities exam: Present: warm, radial pulses palpable and symmetrical. Absent : calf tenderness, cyanotic, pedal edema - Neurological Exam Neurological exam: Present: CN II-XII intact, oriented X3, no focal deficits. Absent: pronater drift, facial droop, speech deficit - Skin Skin exam: Present: dry, intact Internal Medicine: Result - Labs CBC & Chem 7: 03/27/18 04:25 03/27/18 04:25 Labs: Short CBC 03/27/18 Range/Units 04:25 WBC 8.0 (4.3-11.1) K/mcL Hgb 8.0 L (12.9-16.9) g/dL Hct 23.5 L (37.5-50.1) % Plt Count 342 (140-400) K/mcL Neutrophils # 6.3 (1.6-8.9) K/mcL BMP 03/27/18 04:25 Sodium 132 L Potassium 3.9 Chloride 104 Carbon Dioxide 22 L BUN 26 H Creatinine 1.27 Glucose 229 H Calcium 7.6 L Liver Function 03/27/18 Range/Units 04:25 Total Bilirubin 0.3 (0.3-1.0) mg/dL Direct Bilirubin 0.1 (0.0-0.2) mg/dL AST 15 (13-39) Units/L ALT 14 (7-52) Units/L Alkaline Phosphatase 219 H (34-104) Units/L Albumin 2.2 L (3.5-5.7) g/dL - ABG Interpretation ABG results: ABG ABG pH 7.44 pH Units (7.32-7.45) 03/25/18 10:14 ABG pCO2 31 mmHg (35-45) L 03/25/18 10:14 ABG pO2 56 mmHg (85-104) L 03/25/18 10:14 ABG O2 Saturation 90 % (95-98) L 03/25/18 10:14 - VTE Documentation of Mechanical Device: Intermittent pneumatic compression device Consult Discharge Plan - Plan Additional Instructions: Wound care instructions: remove dressing and packing. Wash/shower with antibacterial soap. Repacked with 1/4 inch plain gauze. Cover with a dry dressing. Tape to secure. May reinforce her change outer dressing as needed. 1. Your dressing should be removed prior to your discharge date. You may shower , avoid soaking your incision in a tub for a week or so. Cleanse incision gently with a mild soap and water-rinse thoroughlypat dry. Your incision does not need to be redressed. Any sutures or clips still in place at the time of discharge will be removed at your first postoperative visit. Should you have steri-strips across your incision, they will begin to curl as your incision heals (usually within 5-7 days). You may peel them off when this happens. Avoid applying cream, lotions, or powder to your incision. 2. There are no specific dietary restrictions associated with this surgery. Maintaining a well balanced diet is essential for proper healing. Oral fluids are encouraged. 3. It is safe to use a mild laxative. Do so if your bowels have not moved by the third day at home. 4. Walking is healthy. Gradually increase ambulation and activities each day. Allow for regular, uninterrupted rest periods. You are permitted to go up and down stairs slowly while using a handrail. Avoid sitting for long periods of time; avoid crossing your legs; avoid heavy lifting (nothing over 10- 15 pounds) for 6-8 weeks; and avoid any strenuous sports. 5. You may drive when you are comfortable enough to react and move quickly in an emergency (usually 1-2 weeks after surgery). Long trips over 25 miles are not advised. Do not drive if you are taking prescription pain medication. 6. For pain, one of the Ibuprofen compounds (Advil, Nuprin, etc.) or Tylenol is suggested. Should these not be effective in managing your discomfort, prescription pain medications will be given on an individual basis. 7. Please call the office to report any of the following: Temperature of 101 or higher. Signs of infection, possibly including increasing redness, warmth, tenderness, drainage, odor at incision site Persistent moderate to severe pain No bowel movement within 48 hours from OR date. Follow-up appointment with Airam Baez on 03/29/18 at 9:45 AM. Referrals: Lacy Cristobal CNP [Primary Care Provider] - Airam Baez CNP [Advanced Practice Nurse] - 03/29/18 9:45 am
[2018-03-27] MEDS ORDERED: Furosemide 20 MG/2 ML VIAL IVP ONE (17:15)
[2018-03-27] MEDS: Gabapentin 300 MG CAPSULE PO SCH (21:49)
[2018-03-28] MEDS: Piperacillin/Tazobactam 3.375 GM in 0.9 % Sodium Chloride Mini Bag 100 ML IVPB SCH ×2 (01:04→09:50)
[2018-03-28] MEDS: Insulin LISPRO 300 UNITS/3 ML VIAL SQ SCH ×4 (01:05→12:12)
[2018-03-28 04:33] LABS: Basophils % 0.5 %; Eosinophils # 0.2 K/mcL (0.0-0.6); Eosinophils % 2.3 %; Hematocrit 23.8 % (37.5-50.1); Hemoglobin 8.1 g/dL (12.9-16.9); Immature Granulocytes % 1.7 % (0-4); Lymphocytes # 0.7 K/mcL (0.6-4.6); Lymphocytes % 8.9 %; Mean Corpuscular Hemoglobin 31.5 pg (28.0-33.3); Mean Corpuscular Volume 92.6 fL (83.0-100.0); Mean Platelet Volume 8.6 fL (9.4-12.4); Monocytes # 0.7 K/mcL (0.0-1.3); Monocytes % 9.1 %; Neutrophils # 6.3 K/mcL (1.6-8.9); Platelet Count 344 K/mcL (140-400); Red Blood Count 2.57 M/mcL (4.19-5.50); Red Cell Distribution Width 14.5 % (11.5-14.5); Segmented Neutrophils % 77.5 %
[2018-03-28 04:50] LABS: BUN/Creatinine Ratio 21 (6-26); Blood Urea Nitrogen 28 mg/dL (8-23); Calcium 8.2 mg/dL (8.6-10.3); Carbon Dioxide 23 mEq/L (23-29); Chloride 103 mEq/L (98-107); Glucose 136 mg/dL (70-105); Magnesium 1.7 mg/dL (1.6-2.6); Osmolality,Calculated 284 (280-300); Phosphorous 2.9 mg/dL (2.7-4.5); Potassium 3.9 mEq/L (3.5-5.1); Sodium 133 mEq/L (136-145); eGFR For African Americans > 60 (> 60); eGFR For Non-African Americans 52 (> 60)
[2018-03-28] MEDS: Doxycycline 100 MG in 0.9 % Sodium Chloride Mini Bag 100 ML IVPB SCH (06:39)
[2018-03-28] MEDS: *HR* Heparin 5,000 UNIT/ML VIAL SQ SCH (06:39)
[2018-03-28] MEDS: Ipratropium/Albuterol Neb 3 ML IH SCH ×2 (07:31→15:54)
[2018-03-28] MEDS: Pantoprazole 40 MG VIAL IVP SCH (09:52)
[2018-03-28] MEDS: NIFEdipine XL (24 HR) 30 MG TAB.ER.24 PO SCH (09:55)
[2018-03-28] MEDS: Lisinopril 20 MG TABLET PO SCH (09:56)
[2018-03-28] MEDS: Aspirin 81 MG TAB.CHEW PO SCH (09:56)
[2018-03-28 10:55] VITALS: BP 146/69
--- NOTE | 2018-03-28 12:42 | Discharge Summary ---
Orders not resulted at time of discharge: Pending orders 03/18/18 21:15 Fungal Culture,Blood [MYC] Routine 03/21/18 11:30 Red Blood Cells [BBK] Stat Type and Screen [BBK] Stat Date of Encounter: 03/28/18 Time of Encounter: 11:30 - Discharge Diagnosis (1) Evisceration of bowel Priority: Secondary Status: Resolved (2) Cecal volvulus Priority: Primary Status: Resolved (3) Diabetes mellitus Priority: Secondary Status: Chronic Qualifiers: Diabetes mellitus type: type 2 Diabetes mellitus prison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: unspecified prison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 status Diabetes mellitus complication status : with kidney complications Diabetes mellitus complication detail: with chronic kidney disease Chronic kidney disease stage: stage 3 (moderate) Qualified Code(s): E11.22 - Type 2 diabetes mellitus with diabetic chronic kidney disease; N18.3 - Chronic kidney disease, stage 3 (moderate) (4) Hypertension Priority: Secondary Status: Chronic Qualifiers: Hypertension type: essential hypertension Qualified Code(s): I10 - Essential (primary) hypertension (5) Hyperlipidemia Priority: Secondary Status: Chronic Qualifiers: Hyperlipidemia type: unspecified Qualified Code(s): E78.5 - Hyperlipidemia , unspecified (6) Hypothyroidism Priority: Secondary Status: Chronic Qualifiers: Hypothyroidism type: unspecified Qualified Code(s): E03.9 - Hypothyroidism , unspecified (7) Coronary artery disease Priority: Secondary Status: Chronic Qualifiers: Coronary Disease-Associated Artery/Lesion type: [place] artery [place] vs. transplanted heart: [place] heart Associated angina: angina presence unspecified Qualified Code(s): I25.10 - Atherosclerotic heart disease of [place] coronary artery without angina pectoris (8) GERD (gastroesophageal reflux disease) Priority: Secondary Status: Chronic Qualifiers: Esophagitis presence: esophagitis presence not specified Qualified Code(s) : K21.9 - Gastro-esophageal reflux disease without esophagitis (9) BPH (benign prostatic hyperplasia) Priority: Secondary Status: Chronic Qualifiers: Lower urinary tract symptom presence: symptoms absent Qualified Code(s): N40.0 - Benign prostatic hyperplasia without lower urinary tract symptoms General Surgery Exam Initial Vital Signs Temp Pulse Resp BP Pulse Ox 97.9 F 100 16 92/57 97 03/09/18 09:24 03/09/18 09:24 03/09/18 09:24 03/09/18 09:24 03/09/18 09:24 - General physical appearance well developed, no distress, no pain, chronically ill - Eyes PERRL, normal ocular movement - ENT normal mucosa, atraumatic, normocephalic - Neck trachea midline (tracheostomy stoma noted) - Respiratory normal respiratory effort, clear to auscultation - Cardiovascular Cardiovascular exam: Present: RRR - Abdomen Abdomen general surgery: Present: bowel sounds present, soft, tender (minimal, expected post-operative tenderness), wound (Midline wound with wound vac and packing noted- scant amount of serous drainage noted.) - Incision Incision: Present: serous (scant amount of serous drainage noted to 2 open areas at midline), open - Integumentary Integumentary general surgery: Present: warm and dry - Neurologic Present: CN 2-12 grossly intact - Musculoskeletal Present: other (physical deconditioning noted) - Psychiatric Psychiatric general surgery: Present: appropriate, oriented to person, oriented to place, oriented to time, memory intact - Hospital Course Hospital course: Mr. Wilkins is a 77 year old male who presented to the hospital with a cecal volvulus. He was admitted to the hospital and started on supportive management. He was taken to the operating room for a exploratory laparotomy with right colectomy and cholecystectomy with Dr. Hill on 03/09/2018. The patient's postoperative course was initially complicated by a postoperative ileus. He was started on TPN therapy for nutritional support. He had an NG tube placed for decompression. The patient's postoperative course was further complicated by an abdominal wound dehiscence. He was taken back to the operating room on March [id number] for a Exploratory laparotomy, lysis of adhesions, drainage gallbladder fossa abscess, closure abdominal wall with wound vac placement with Dr. Jackman. There were concerns for a postoperative bile leak due to large amounts of bilious drainage from the patient's surgical drain. The bile leak has spontaneously resolved on its own. The patient was maintained on IV antibiotic therapy as well as TPN therapy for nutritional support. With return of bowel function, his diet has been advanced and he is tolerating a soft diet at this time. His TPN therapy has been weaned to off. We will begin discharge planning to home with home health care. The patient will need daily wound care and assessment and treatment for therapy. His surgical drain was removed prior to discharge. - Time Spent with Patient Total time spent providing and/or coordinating discharge services: Greater than 30 minutes - Discharge Medications Prescriptions: Amoxicillin/Clavulanate [Augmentin] 875 mg PO BIDWM #8 tablet Tramadol HCl [Ultram] 50 mg PO QID PRN 5 Days #20 tab PRN Reason: Pain Home Medications: Acetaminophen [Tylenol] 1,000 mg PO Q6HR PRN #90 tablet 08/31/16 [Rx] Allopurinol [Zyloprim] 300 mg PO DAILY 08/31/16 [History] Aspirin [Lo-Dose Aspirin EC] 81 mg PO DAILY 08/31/16 [History] Furosemide [Lasix] 20 mg PO DAILY 08/31/16 [History] Gabapentin [Neurontin] 300 mg PO DAILY 08/31/16 [History] Multivitamin [Multivitamins] 1 each PO DAILY 08/31/16 [History] NIFEdipine [Nifedipine Xl] 30 mg PO DAILY 08/31/16 [History] Pantoprazole Sodium [Protonix] 40 mg PO BID 08/31/16 [History] Clopidogrel [Plavix] 75 mg PO DAILY 03/09/18 [History] Levothyroxine Sodium [Levoxyl] 125 mcg PO DAILY 03/09/18 [History] Lisinopril [Zestril] 20 mg PO DAILY 03/09/18 [History] Simvastatin [Zocor] 40 mg PO HS 03/09/18 [History] Amoxicillin/Clavulanate [Augmentin] 875 mg PO BIDWM #8 tablet 03/28/18 [Rx] Tramadol HCl [Ultram] 50 mg PO QID PRN 5 Days #20 tab 03/28/18 [Rx] Allergies/Adverse Reactions: 3 Allergy/AdvReac Type Severity Reaction Status Date / Time No Known Allergies Allergy Verified 11/18/15 17:58 Date of admission: 03/09/18 14:53 Primary care physician: Lacy Cristobal CNP Consults: 03/13/18 13:52 Consult to Physical Therapy [CONS] Routine Comment: Evaluate, develop and implement POC Reason for Consult: increased weakness, deconditioning Does patient have active BEDREST order?: No Is patient medically & hemodynamically stable?: Yes Patient assessed for mobility or mobilized this visit?: No 03/16/18 09:45 Consult to Invasive Line Access Team [CONS] Routine Reason for Consult: Picc Line Insertion Line Type: PICC PICC line indications: Parental nutrition Time Notified: 09:46 Call Completed: Yes 03/16/18 09:46 consult to supervisor microwave [Consult to Nutrition] [CONS] Routine Comment: Total fluid rate 100ml/hour (MIV+TPN) Consulting Provider: NUTRITION Reason for Dietary Consult: TPN Start and Manage 03/20/18 13:47 Consult to Interventional Radiology [CONS] Stat Consulting Provider: Radiology Interventional Cols Reason for Consult: Abdominal CT shows possible abscess in gallbladder fossa. Time Notified: 13:35 Call Completed: Yes Discharging clinician: Reilly Baez) Anticipated date of discharge: 03/28/18 Labs on day of discharge: Labs from last 24 hours 03/28/18 03/28/18 03/28/18 11:41 07:36 04:53 WBC RBC Hgb Hct MCV MCH MCHC RDW Plt Count MPV Immature Gran % Seg Neutrophils % Lymphocytes % Monocytes % Eosinophils % Basophils % Neutrophils # Lymphocytes # Monocytes # Eosinophils # Basophils # Sodium Potassium Chloride Carbon Dioxide BUN Creatinine Est GFR ( Amer) Est GFR (Non-Af Amer) BUN/Creatinine Ratio Glucose POC Glucose 365 H 179 H 170 H Calculated Osmolality Calcium Phosphorus Magnesium 03/28/18 03/28/18 03/28/18 04:00 04:00 04:00 WBC 8.1 RBC 2.57 L Hgb 8.1 L Hct 23.8 L MCV 92.6 MCH 31.5 MCHC 34.0 RDW 14.5 Plt Count 344 MPV 8.6 L Immature Gran % 1.7 Seg Neutrophils % 77.5 Lymphocytes % 8.9 Monocytes % 9.1 Eosinophils % 2.3 Basophils % 0.5 Neutrophils # 6.3 Lymphocytes # 0.7 Monocytes # 0.7 Eosinophils # 0.2 Basophils # 0.0 Sodium 133 L Potassium 3.9 Chloride 103 Carbon Dioxide 23 BUN 28 H Creatinine 1.33 H Est GFR ( Amer) > 60 Est GFR (Non-Af Amer) 52 L BUN/Creatinine Ratio 21 Glucose 136 H POC Glucose Calculated Osmolality 284 Calcium 8.2 L Phosphorus 2.9 Magnesium 1.7 03/27/18 03/27/18 03/27/18 23:57 20:28 16:28 WBC RBC Hgb Hct MCV MCH MCHC RDW Plt Count MPV Immature Gran % Seg Neutrophils % Lymphocytes % Monocytes % Eosinophils % Basophils % Neutrophils # Lymphocytes # Monocytes # Eosinophils # Basophils # Sodium Potassium Chloride Carbon Dioxide BUN Creatinine Est GFR ( Amer) Est GFR (Non-Af Amer) BUN/Creatinine Ratio Glucose POC Glucose 214 H 328 H 203 H Calculated Osmolality Calcium Phosphorus Magnesium - Impressions ITS Impressions KUB X-Ray 03/10/18 18:17 IMPRESSION: 1. Enteric tube tip is directed towards the gastric fundus and side port is just distal to the GE junction. 2. Multiple loops of mildly prominent small bowel throughout the abdomen which are nonspecific. Surgical skin paola now project over the abdomen. D/ / Garrett Sood MD / Garrett Sood MD Interpreting Provider: Garrett Sood MD Chest/Abdomen X-ray 03/13/18 14:21 IMPRESSION: 1. Small left pleural effusion with adjacent atelectasis. 2. Few mildly dilated loops of small bowel, likely related to postoperative ileus. Overall this appears slightly improved since the prior exam. 3. No free air. D/ / 03/13/2018 15:34:08 Anila Resendiz MD / [email or web address] Interpreting Provider: Anila Resendiz MD Chest X-Ray 03/14/18 07:55 IMPRESSION: Again identified is the hazy opacity overlying the left mid and lower hemithorax which could be related to a combination of elevated hemidiaphragm, as well as possible small effusion or basilar airspace disease. Overall similar appearance to the previous examination, though less air within the gastric fundus. D/ / Efrain Prado MD / Efrain Prado MD Interpreting Provider: Efrain Prado MD Chest/Abdomen X-ray 03/15/18 15:52 IMPRESSION: 1. Left more than right basilar atelectasis. Left hemidiaphragm elevation. 2. Gaseous distention of the stomach. Additionally, there are multiple dilated gas-filled loops of small bowel measure up to 4.7 cm in diameter. Findings are concerning for small bowel obstruction. Paucity of bowel gas seen distally. D/ / Griselda Montoya MD / Griselda Montoya MD Interpreting Provider: Griselda Montoya MD Small Bowel X-Ray 03/16/18 13:04 IMPRESSION: 1. Delayed passage of the Gastrografin through the small-bowel but there is no evidence for obstruction. D/ / Kalpesh Long MD / Kalpesh Long MD Interpreting Provider: Kalpesh Long MD Chest X-Ray 03/19/18 11:49 IMPRESSION: 1. Mild bilateral perihilar opacities which are nonspecific but could indicate an atypical bronchopneumonia given the history of fever. 2. 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 D/ / 03/19/2018 12:31:37 Corey Cevallos MD / teresa Interpreting Provider: Corey Cevallos MD Retroperitoneal Abscess Drainage 03/20/18 00:00 IMPRESSION: Successful CT guided placement of abdominal abscess drainage catheter. D/ / Garrett Booth MD / Garrett Booth MD Interpreting Provider: Garrett Booth MD Abdomen/Pelvis CT 03/20/18 11:30 IMPRESSION: 1. Large collection of air and fluid along the gallbladder fossa, with slight extension along the anterior margin of the liver. Given history of cholecystectomy, this is most consistent with an abscess. 2. Moderate dilation of the mid small bowel with distal decompression, suggestive of at least partial small bowel obstruction. Postoperative changes of right hemicolectomy. 3. Small amount of ascites in the low pelvis. 4. Trace bilateral pleural effusions, with extensive basilar atelectasis. A small amount of superimposed consolidation cannot be entirely excluded. 5. Coronary atherosclerosis. D/ / 03/20/2018 13:13:00 Joseph Lemos MD / serjio Interpreting Provider: Joseph Lemos MD Chest CT 03/20/18 11:30 IMPRESSION: 1. Large collection of air and fluid along the gallbladder fossa, with slight extension along the anterior margin of the liver. Given history of cholecystectomy, this is most consistent with an abscess. 2. Moderate dilation of the mid small bowel with distal decompression, suggestive of at least partial small bowel obstruction. Postoperative changes of right hemicolectomy. 3. Small amount of ascites in the low pelvis. 4. Trace bilateral pleural effusions, with extensive basilar atelectasis. A small amount of superimposed consolidation cannot be entirely excluded. 5. Coronary atherosclerosis. D/ / 03/20/2018 13:13:00 Joseph Lemos MD / [email or web address] Interpreting Provider: Joseph Lemos MD Abdomen/Pelvis CT 03/21/18 12:00 IMPRESSION: 1. No evidence of perforation. 2. There is some perihepatic ascites and regional pneumoperitoneum, which may be attributable to the recently placed percutaneous catheter in the right upper quadrant. 3. A portion of the small bowel herniates outside of the patient, a finding which is new compared to prior. Proximal loops appear slightly dilated. 4. Tiny bilateral pleural effusions and dependent atelectasis. D/ / 03/21/2018 13:08:58 Enrique Dominguez / [email or web address] Interpreting Provider: Enrique Dominguez Chest X-Ray 03/25/18 10:27 IMPRESSION: Hyperaeration with suspected vascular congestion small effusions. D/ / Jason Dodson MD / Jason Dodson MD Interpreting Provider: Jason Dodson MD Abdomen/Pelvis CT 03/25/18 14:15 IMPRESSION: 1. Moderate amount of free fluid within abdomen and pelvis, increased from 03/21/2018. Diffuse mesenteric edema. Unloculated pockets of fluid throughout peritoneal cavity, on this noncontrast examination. Differential includes bile leak, or other nonspecific fluid, including postoperative fluid. 2. Small amount of free air adjacent to right perihepatic region, with percutaneous drain in this region. This limits evaluation of bowel perforation. However, no dense extraluminal contrast is identified on this examination. Oral contrast is seen to pass through anastomosis within right upper quadrant. 3. Large bibasilar pulmonary opacities with bilateral pleural effusions. Findings may represent aspiration, pneumonia, and/or atelectasis. Recommend radiographic follow-up to complete resolution. 4. No evidence of mechanical bowel obstruction. Mildly distended small bowel loops with air-fluid levels are nonspecific. 5. Enlarged prostate gland. Correlate with PSA levels. Thickened urinary bladder wall. Wynne catheter is in place. Findings were discussed with Dr. Jackman at 3:12 pm on 03/25/2018. D/ / 03/25/2018 15:47:18 Carlos Resendiz MD / [email or web address] Interpreting Provider: Carlos Resendiz MD - Patient Status Disposition: Home Health Service Condition: Good Functional capacity at discharge: uses cane/walker Overall status at discharge: patient is progressing back to baseline - Ambulatory Orders Ambulatory Orders: Wound Care Time Frame: 1 Day, Facility: [facility], Location : Home Health Services Wound Care Time Frame: 03/20/18, Facility: [facility], Location: Home Health Services Wound Care Time Frame: 03/21/18, Facility: [facility], Location: Home Health Services Wound Care Time Frame: 03/22/18, Facility: [facility], Location: Home Health Services Wound Care Time Frame: 03/23/18, Facility: [facility], Location: Home Health Services Wound Care Time Frame: 03/24/18, Facility: [facility], Location: Home Health Services Wound Care Time Frame: 03/25/18, Facility: [facility], Location: Home Health Services Wound Care Time Frame: 03/26/18, Facility: [facility], Location: Home Health Services - Discharge Instructions Follow Up With: Lacy Cristobal CNP [Primary Care Provider] - Airam Baez CNP [Advanced Practice Nurse] - 04/05/18 9:45 am (surgery follow-up) Additional Instructions: Wound care instructions: remove dressing and packing. Wash/shower with antibacterial soap. Repack 2 open areas to midline with with 1/4 inch plain gauze. Cover with a dry dressing. Tape to secure. May reinforce her change outer dressing as needed. Therapy- PT/OT assessment and treatment 1. May shower, no tub bath until released per surgeon 2. There are no specific dietary restrictions associated with this surgery. Maintaining a well balanced diet is essential for proper healing. Oral fluids are encouraged. 3. It is safe to use a mild laxative. Do so if your bowels have not moved by the third day at home. 4. Walking is healthy. Gradually increase ambulation and activities each day. Allow for regular, uninterrupted rest periods. You are permitted to go up and down stairs slowly while using a handrail. Avoid sitting for long periods of time; avoid crossing your legs; avoid heavy lifting (nothing over 10- 15 pounds) for 6-8 weeks; and avoid any strenuous sports. 5. You [address] drive when you are comfortable enough to react and move quickly in an emergency (usually 1-2 weeks after surgery). Long trips over 25 miles are not advised. Do not drive if you are taking prescription pain medication. 6. For pain, one of the Ibuprofen compounds (Advil, Nuprin, etc.) or Tylenol is suggested. Should these not be effective in managing your discomfort, prescription pain medications will be given on an individual basis. 7. Please call the office to report any of the following: Temperature of 101 or higher. Signs of infection, possibly including increasing redness, warmth, tenderness, drainage, odor at incision site Persistent moderate to severe pain No bowel movement within 48 hours from OR date. Follow-up appointment with Airam Baez on 04/05/18 at 9:45 AM. - Diet and Activity Activity: other (See additional instructions above) Diet: other (Soft diet as tolerated; Ensure- 4 cans per day) - Attending Attestation For this encounter, I have reviewed the [employer] or PA documentation, treatment plan, and medical decision making; and I have had face to face time with this patient.
--- NOTE | 2018-03-28 13:12 | Physician Discharge Referral ---
<Airam Baez - Last Filed: 03/28/18 13:10> Home Health/Hosp Referral Info Transfer to: Home Health Attending Provider: Dr. Andrae Hill Provider in Charge Post Discharge: Other (Dr. Andrae Hill and PCP) - Diagnosis (1) Evisceration of bowel Priority: Secondary Status: Resolved (2) Cecal volvulus Priority: Primary Status: Resolved (3) Diabetes mellitus Priority: Secondary Status: Chronic (4) Hypertension Priority: Secondary Status: Chronic (5) Hyperlipidemia Priority: Secondary Status: Chronic (6) Hypothyroidism Priority: Secondary Status: Chronic (7) Coronary artery disease Priority: Secondary Status: Chronic (8) GERD (gastroesophageal reflux disease) Priority: Secondary Status: Chronic (9) BPH (benign prostatic hyperplasia) Priority: Secondary Status: Chronic - Respiratory Orders None - Dressing/Wound Care Site: Midline incision Type of Dressing/Treatments w/Frequency: Wound care instructions: remove dressing and packing. Wash/shower with antibacterial soap. Repack 2 open areas to midline with with 1/4 inch plain gauze. Cover with a dry dressing. Tape to secure. May reinforce her change outer dressing as needed. - Diet/Nutrition Diet/Nutrition Orders: Mechanical Soft (Ensure- 4 cans per day) - Activity Activity Orders: Up ad sumaya, Ambulate, Walker - Services Needed Following services are medically necessary services: Nursing, Physical Therapy, Occupational Therapy Home Care Orders: Wound care instructions: remove dressing and packing. Wash/shower with antibacterial soap. Repack 2 open areas to midline with with 1/4 inch plain gauze. Cover with a dry dressing. Tape to secure. May reinforce her change outer dressing as needed. Therapy- PT/OT assessment and treatment 1. May shower, no tub bath until released per surgeon 2. There are no specific dietary restrictions associated with this surgery. Maintaining a well balanced diet is essential for proper healing. Oral fluids are encouraged. 3. It is safe to use a mild laxative. Do so if your bowels have not moved by the third day at home. 4. Walking is healthy. Gradually increase ambulation and activities each day. Allow for regular, uninterrupted rest periods. You are permitted to go up and down stairs slowly while using a handrail. Avoid sitting for long periods of time; avoid crossing your legs; avoid heavy lifting (nothing over 10- 15 pounds) for 6-8 weeks; and avoid any strenuous sports. 5. You may drive when you are comfortable enough to react and move quickly in an emergency (usually 1-2 weeks after surgery). Long trips over 25 miles are not advised. Do not drive if you are taking prescription pain medication. 6. For pain, one of the Ibuprofen compounds (Advil, Nuprin, etc.) or Tylenol is suggested. Should these not be effective in managing your discomfort, prescription pain medications will be given on an individual basis. 7. Please call the office to report any of the following: Temperature of 101 or higher. Signs of infection, possibly including increasing redness, warmth, tenderness, drainage, odor at incision site Persistent moderate to severe pain No bowel movement within 48 hours from OR date. Follow-up appointment with Airam Baez on 04/05/18 at 9:45 AM. Other Treatments: Wound care instructions: remove dressing and packing. Wash/shower with antibacterial soap. Repack 2 open areas to midline with with 1/4 inch plain gauze. Cover with a dry dressing. Tape to secure. May reinforce her change outer dressing as needed. Therapy- PT/OT assessment and treatment 1. May shower, no tub bath until released per surgeon 2. There are no specific dietary restrictions associated with this surgery. Maintaining a well balanced diet is essential for proper healing. Oral fluids are encouraged. 3. It is safe to use a mild laxative. Do so if your bowels have not moved by the third day at home. 4. Walking is healthy. Gradually increase ambulation and activities each day. Allow for regular, uninterrupted rest periods. You are permitted to go up and down stairs slowly while using a handrail. Avoid sitting for long periods of time; avoid crossing your legs; avoid heavy lifting (nothing over 10- 15 pounds) for 6-8 weeks; and avoid any strenuous sports. 5. You [address] drive when you are comfortable enough to react and move quickly in an emergency (usually 1-2 weeks after surgery). Long trips over 25 miles are not advised. Do not drive if you are taking prescription pain medication. 6. For pain, one of the Ibuprofen compounds (Advil, Nuprin, etc.) or Tylenol is suggested. Should these not be effective in managing your discomfort, prescription pain medications will be given on an individual basis. 7. Please call the office to report any of the following: Temperature of 101 or higher. Signs of infection, possibly including increasing redness, warmth, tenderness, drainage, odor at incision site Persistent moderate to severe pain No bowel movement within 48 hours from OR date. Follow-up appointment with Airam Baez on 04/05/18 at 9:45 AM. - Transfer Medications Prescriptions: Amoxicillin/Clavulanate [Augmentin] 875 mg PO BIDWM #8 tablet Tramadol HCl [Ultram] 50 mg PO QID PRN 5 Days #20 tab PRN Reason: Pain Home Medications: Acetaminophen [Tylenol] 1,000 mg PO Q6HR PRN #90 tablet 08/31/16 [Rx] Allopurinol [Zyloprim] 300 mg PO DAILY 08/31/16 [History] Aspirin [Lo-Dose Aspirin EC] 81 mg PO DAILY 08/31/16 [History] Furosemide [Lasix] 20 mg PO DAILY 08/31/16 [History] Gabapentin [Neurontin] 300 mg PO DAILY 08/31/16 [History] Multivitamin [Multivitamins] 1 each PO DAILY 08/31/16 [History] NIFEdipine [Nifedipine Xl] 30 mg PO DAILY 08/31/16 [History] Pantoprazole Sodium [Protonix] 40 mg PO BID 08/31/16 [History] Clopidogrel [Plavix] 75 mg PO DAILY 03/09/18 [History] Levothyroxine Sodium [Levoxyl] 125 mcg PO DAILY 03/09/18 [History] Lisinopril [Zestril] 20 mg PO DAILY 03/09/18 [History] Simvastatin [Zocor] 40 mg PO HS 03/09/18 [History] Amoxicillin/Clavulanate [Augmentin] 875 mg PO BIDWM #8 tablet 03/28/18 [Rx] Tramadol HCl [Ultram] 50 mg PO QID PRN 5 Days #20 tab 03/28/18 [Rx] Allergies/Adverse Reactions: 3 Allergy/AdvReac Type Severity Reaction Status Date / Time No Known Allergies Allergy Verified 11/18/15 17:58 Certification: Further, I certify that my clinical findings support that this patient is homebound (i.e. absences from home require considerable and taxing effort and are for medical reasons or protestant services or infrequently or short duration when for other reasons) because: Homebound Reason: Patient requires assistance of a person or device to safely leave home, Post-surgery restriction and or conditions limit ability to leave home, Leaving home requires considerable and taxing effort due to condition Attestation: My signature below is to certify that this patient is under my care and that I, or nurse practitioner, or a physician's library media assistant working with me, has a face-to -face encounter with this patient. <Reilly Hill E - Last Filed: 03/30/18 12:15> Home Health/Hosp Referral Info Transfer to: Home Health - Respiratory Orders Smoking Cessation: Smoking cessation has been advised. For more information, call the [place] Tobacco Quit Line at 6-316-VBRCNOW. Certification: Further, I certify that my clinical findings support that this patient is homebound (i.e. absences from home require considerable and taxing effort and are for medical reasons or protestant services or infrequently or short duration when for other reasons) because: Attestation: My signature below is to certify that this patient is under my care and that I, or nurse practitioner, or a physician's library media assistant working with me, has a face-to -face encounter with this patient.
[2018-03-28] MEDS ORDERED: Furosemide 40 MG TABLET PO SCH (15:00)
--- NOTE | 2018-03-28 16:12 | Internal Med Progress Note ---
Date of Encounter: 03/28/18 Time of Encounter: 13:00 - Assessment and plan (1) Cecal volvulus Current Visit: Yes Status: Resolved Assessment and plan: Postop day 16 Cecal resection and cholecystectomy POD #4 Ex Lap Vac dressing As per Gen Surg (2) Diabetes mellitus Current Visit: Yes Status: Chronic Assessment and plan: Continue current insulin regimen. Goal glucose <180 ISS Q4H 03/27: May add long acting inulin tomorrow 03/28: TPN stopped. Has never been on insulin before. Patient not interested in taking insulin at home. I do suspect his blood sugars will be much better now that TPN stopped. 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 status Diabetes mellitus complication status : with kidney complications Diabetes mellitus complication detail: with chronic kidney disease Chronic kidney disease stage: stage 3 (moderate) Qualified Code(s): E11.22 - Type 2 diabetes mellitus with diabetic chronic kidney disease; N18.3 - Chronic kidney disease, stage 3 (moderate) (3) Hypothyroidism Current Visit: Yes Status: Chronic Assessment and plan: Continue levothyroxine Qualifiers: Hypothyroidism type: unspecified Qualified Code(s): E03.9 - Hypothyroidism , unspecified (4) Coronary artery disease Current Visit: Yes Status: Chronic Assessment and plan: ASA, Plavix, Zocor Qualifiers: Coronary Disease-Associated Artery/Lesion type: [place] artery [place] vs. transplanted heart: [place] heart Associated angina: angina presence unspecified Qualified Code(s): I25.10 - Atherosclerotic heart disease of [place] coronary artery without angina pectoris (5) GERD (gastroesophageal reflux disease) Current Visit: Yes Status: Chronic Assessment and plan: IV Protonix daily. 03/28: PO ppi Qualifiers: Esophagitis presence: esophagitis presence not specified Qualified Code(s) : K21.9 - Gastro-esophageal reflux disease without esophagitis (6) HLD (hyperlipidemia) Current Visit: No Status: Chronic Assessment and plan: Zocor Qualifiers: Hyperlipidemia type: mixed hyperlipidemia Qualified Code(s): E78.2 - Mixed hyperlipidemia (7) HTN (hypertension) Current Visit: Yes Status: Chronic Assessment and plan: Lisinopril, nifedipine Qualifiers: Hypertension type: essential hypertension Qualified Code(s): I10 - Essential (primary) hypertension (8) DVT prophylaxis Current Visit: Yes Status: Acute (9) Acute on chronic kidney failure Current Visit: Yes Status: Acute Assessment and plan: resolved Qualifiers: Acute renal failure type: unspecified Chronic kidney disease stage: stage 3 (moderate) Qualified Code(s): N17.9 - Acute kidney failure, unspecified; N18.3 - Chronic kidney disease, stage 3 (moderate) (10) Hypoxia Current Visit: Yes Status: Acute Assessment and plan: Unsure etiology of acute resp failure, not on oxygen at home. ABG at bedside showed only remarkable finding of low pO2, normal pH, CO2 of 31. CXR suggestive of fluid overload Continue I.S. and Lasix 03/27: Continue IV Lasix, monitor renal fxn - Time Spent With Patient Total time spent is greater than 50% in coordination of care (as documented) at patient's floor/unit and/or counseling patient: 25 - 35 minutes - Subjective Interval history: 03/20: Patient has returned from drain for post op abscess. Drain placed without issue. Patient has no complaints. Denies fevers/chills, states pain is controlled. 03/21: Nursing reported that patient coughed and part of small bowel came out. Patient is in no acute distress. Patient examined after temporary gauze is being placed. 03/22: patient post op day #1 after ex lap and drainage of GB fossa abscess and closure of abdominal wall with a wound vac placement. YUNIOR drain per nursing draining over 100 ml fluid within past several hours. Patient denies CP, SOB, n /v, fevers/chills. 03/23: patient has no complaints today denies fevers/chills, SOB, palpitations. He is having some urinary retention and prefers intermittent straight cath over [place] placement. 03/24: no complaints, patient to have PO pills, started Flomax yesterday. 03/25: nursing and respiratory therapy seeing patient this AM noted that patient had desaturation currently requiring 5 L O2 via trach site. He denies SOB, CP, N/V, palpitations, numbness tingling. 03/26: still needing O2 via trach but it is much more loose, not needing as much O2 as yesterday. 03/27: Patient states he is comfortable. No fevers chert chills. No chest pain or shortness of breath. No nausea, vomiting, diarrhea. He had a bowel movement earlier today. 03/28: Patient continues to improve. Gen Surgery performed a discharge summary and med reconciliation today, as well as placed a discharge order.. I did review this. Patient is now tolerating a soft diet and we are weaning TPN. PICC line has been discontinued. Patient states he is feeling well. No chest pain or shortness of breath. No nausea, vomiting, diarrhea. No fevers or chills. Pt will need daily wound care. His surgical drain was also removed - Constitutional Vitals: Temp Pulse Resp BP Pulse Ox 99.0 F 98 16 146/69 92 03/28/18 10:00 03/28/18 10:00 03/28/18 15:54 03/28/18 10:03/28/18 15:54 General appearance: Present: cachectic (Post op, wound vac w/ seroud drainage), cooperative, A&O X 3, pleasant, answers questions appropriately - Head Head exam: Present: atraumatic, normocephalic - Eye Eye exam: Present: PERRL, conjuntiva pink, sclera anicteric Pupils: Present: PERRL - Neck Neck exam general surgery: Present: supple, trachea midline. Absent: lymphadenopathy - Respiratory Respiratory exam: Present: CTAB. Absent: accessory muscle use, rales, rhonchi, wheezes - Cardiovascular Cardiovascular exam: Present: RRR, +S1, +S2. Absent: diastolic murmur, gallop, rubs, systolic murmur - GI/Abdominal GI/Abdominal exam: Present: normal bowel sounds, soft, no peritoneal signs. Absent: distended, tenderness - Extremities Exam Extremities exam: Present: warm, radial pulses palpable and symmetrical. Absent : calf tenderness, cyanotic, pedal edema - Neurological Exam Neurological exam: Present: CN II-XII intact, oriented X3, no focal deficits. Absent: pronater drift, facial droop, speech deficit - Skin Skin exam: Present: dry, intact Internal Medicine: Result - Labs CBC & Chem 7: 03/28/18 04:00 03/28/18 04:00 Labs: Short CBC 03/28/18 Range/Units 04:00 WBC 8.1 (4.3-11.1) K/mcL Hgb 8.1 L (12.9-16.9) g/dL Hct 23.8 L (37.5-50.1) % Plt Count 344 (140-400) K/mcL Neutrophils # 6.3 (1.6-8.9) K/mcL BMP 03/28/18 04:00 Sodium 133 L Potassium 3.9 Chloride 103 Carbon Dioxide 23 BUN 28 H Creatinine 1.33 H Glucose 136 H Calcium 8.2 L - ABG Interpretation ABG results: ABG ABG pH 7.44 pH Units (7.32-7.45) 03/25/18 10:14 ABG pCO2 31 mmHg (35-45) L 03/25/18 10:14 ABG pO2 56 mmHg (85-104) L 03/25/18 10:14 ABG O2 Saturation 90 % (95-98) L 03/25/18 10:14 - VTE Documentation of Mechanical Device: Intermittent pneumatic compression device Consult Discharge Plan - Plan Additional Instructions: Wound care instructions: remove dressing and packing. Wash/shower with antibacterial soap. Repack 2 open areas to midline with with 1/4 inch plain gauze. Cover with a dry dressing. Tape to secure. May reinforce her change outer dressing as needed. Therapy- PT/OT assessment and treatment 1. May shower, no tub bath until released per surgeon 2. There are no specific dietary restrictions associated with this surgery. Maintaining a well balanced diet is essential for proper healing. Oral fluids are encouraged. 3. It is safe to use a mild laxative. Do so if your bowels have not moved by the third day at home. 4. Walking is healthy. Gradually increase ambulation and activities each day. Allow for regular, uninterrupted rest periods. You are permitted to go up and down stairs slowly while using a handrail. Avoid sitting for long periods of time; avoid crossing your legs; avoid heavy lifting (nothing over 10- 15 pounds) for 6-8 weeks; and avoid any strenuous sports. 5. You may drive when you are comfortable enough to react and move quickly in an emergency (usually 1-2 weeks after surgery). Long trips over 25 miles are not advised. Do not drive if you are taking prescription pain medication. 6. For pain, one of the Ibuprofen compounds (Advil, Nuprin, etc.) or Tylenol is suggested. Should these not be effective in managing your discomfort, prescription pain medications will be given on an individual basis. 7. Please call the office to report any of the following: Temperature of 101 or higher. Signs of infection, possibly including increasing redness, warmth, tenderness, drainage, odor at incision site Persistent moderate to severe pain No bowel movement within 48 hours from OR date. Follow-up appointment with Airam Baez on 04/05/18 at 9:45 AM. Referrals: Airam Baez CNP [Advanced Practice Nurse] - 04/05/18 9:45 am (surgery follow-up) Prescriptions: Amoxicillin/Clavulanate [Augmentin] 875 mg PO BIDWM #8 tablet Tramadol HCl [Ultram] 50 mg PO QID PRN 5 Days #20 tab PRN Reason: Pain
[2018-03-28] MEDS ORDERED: Insulin LISPRO 300 UNITS/3 ML VIAL SQ SCH ×2 (16:30→21:00)
== END 2018-03-28 16:57 | disposition home health service (06) | DRG 329 ==
LOC: EMEROO 09:23 → 3ANU 09:23 → SUATTDRO 14:53
PROVIDERS: ADMIT Hospitalist; ATTEND Student in an Organized Health Care Education/Training Program
PROC: IRDRAIN (2018-03-20 14:00)

== ENCOUNTER 2018-04-03 07:48 | Observation (INO) ==
[2018-04-03 09:01] LABS: Basophils % 0.6 %; Eosinophils # 0.2 K/mcL (0.0-0.6); Eosinophils % 2.6 %; Hemoglobin 7.4 g/dL (12.9-16.9); Immature Granulocytes % 0.5 % (0-4); Lymphocytes % 14.6 %; Mean Corpuscular HGB Conc 33.6 g/dL (31.6-35.5); Mean Corpuscular Hemoglobin 31.5 pg (28.0-33.3); Mean Corpuscular Volume 93.6 fL (83.0-100.0); Mean Platelet Volume 8.5 fL (9.4-12.4); Monocytes # 0.6 K/mcL (0.0-1.3); Monocytes % 9.8 %; Neutrophils # 4.7 K/mcL (1.6-8.9); Platelet Count 268 K/mcL (140-400); Red Blood Count 2.35 M/mcL (4.19-5.50); Red Cell Distribution Width 14.5 % (11.5-14.5); Segmented Neutrophils % 71.9 %
[2018-04-03 09:16] LABS: Calcium 8.6 mg/dL (8.6-10.3); Potassium 5.2 mEq/L (3.5-5.1)
[2018-04-03] MEDS ORDERED: 0.9 % Sodium Chloride 1,000 ML IVC ONE (09:55)
[2018-04-03] MEDS ORDERED: *HR* Dextrose 50 % in Water (Syg) 50 ML SYRINGE IVP ONE (09:57)
[2018-04-03] MEDS ORDERED: Insulin Human Regular 10 UNIT in 0.9 % Sodium Chloride 10 ML IV ONE (09:57)
--- NOTE | 2018-04-03 10:31 | Emergency Department Note ---
Disposition Clinical Impression: Dehydration, Hyperkalemia, Arterial insufficiency, Hyponatremia, Renal insufficiency, Anemia Disposition: Admitted As Inpatient Condition: Fair Referrals: Lacy Cristobal CNP [Primary Care Provider] - Forms: ED Satisfaction Letter Time of Disposition: 12:22 General Adult HPI - General Chief complaint: ED Extremity Problem,Nontraumatic Stated complaint: RLE swelling Time Seen by Provider: 04/03/18 08:01 Source: patient, family Mode of arrival: wheelchair Limitations: no limitations Nursing Notes Reviewed: Yes Vital Signs Reviewed: Yes - History of Present Illness Pain Scale: 6 - Related Data Home Medications Medication Instructions Recorded Confirmed Allopurinol [Zyloprim] 300 mg PO DAILY 08/31/16 04/03/18 Furosemide [Lasix] 20 mg PO DAILY 08/31/16 04/03/18 Gabapentin [Neurontin] 300 mg PO DAILY 08/31/16 04/03/18 Multivitamin [Multivitamins] 1 each PO DAILY 08/31/16 04/03/18 Pantoprazole Sodium [Protonix] 40 mg PO BID 08/31/16 04/03/18 Clopidogrel [Plavix] 75 mg PO DAILY 03/09/18 04/03/18 Levothyroxine Sodium [Levoxyl] 125 mcg PO DAILY 03/09/18 04/03/18 Lisinopril [Zestril] 20 mg PO DAILY 03/09/18 04/03/18 Simvastatin [Zocor] 40 mg PO HS 03/09/18 04/03/18 Aspirin [Lo-Dose Aspirin EC] 81 mg PO DAILY 04/03/18 04/03/18 NIFEdipine XL (24 HR) [Procardia 30 mg PO DAILY 04/03/18 04/03/18 XL] Tamsulosin HCl [Flomax] 0.4 mg PO DAILY 04/03/18 04/03/18 Previous Rx's Medication Instructions Recorded Acetaminophen [Tylenol] 1,000 mg PO Q6HR PRN #90 tablet 08/31/16 Amoxicillin/Clavulanate [Augmentin] 875 mg PO BIDWM #8 tablet 03/28/18 Tramadol HCl [Ultram] 50 mg PO QID PRN 5 Days #20 tab 03/28/18 Allergies Allergy/AdvReac Type Severity Reaction Status Date / Time No Known Allergies Allergy Verified 04/03/18 07:54 Past Medical History - Past Medical History Medical history: Reports: cancer, diabetes, GERD, hyperlipidemia, hypertension, renal disease, thyroid disease Surgical history: Reports: cataract (bilateral cataract removal and intraocular lenses placed), orthopedic, other (right shoulder replacement), other (Total laryngectomy, tracheal fistula, back surgery with placement of steel plate, colonoscopy (last 8 years ago-normal), ) Psychiatric history: Reports: no psych history - Social History Smoking Status: Former smoker Smokeless Tobacco Status: No Alcohol use: Reports: none Drug use: Reports: none Physical Exam - General Limitations: no limitations General appearance: alert Course Vital Signs Temperature 98.4 F 04/03/18 07:49 Pulse Rate 71 04/03/18 07:49 Respiratory Rate 18 04/03/18 07:49 Blood Pressure 110/61 04/03/18 07:49 O2 Sat by Pulse Oximetry 98 04/03/18 07:49 Temperature 98.4 F 04/03/18 07:55 Pulse Rate 89 04/03/18 11:10 Respiratory Rate 17 04/03/18 11:10 Blood Pressure 114/62 04/03/18 11:10 O2 Sat by Pulse Oximetry 90 04/03/18 11:10 Oxygen Delivery Oxygen Delivery Room Air Medical Decision Making - Lab Data Result diagrams: 04/03/18 08:42 04/03/18 08:42 Lab Results 04/03/18 04/03/18 04/03/18 Range/Units 08:42 08:42 08:42 WBC 6.5 (4.3-11.1) K/mcL RBC 2.35 L (4.19-5.50) M/mcL Hgb 7.4 L (12.9-16.9) g/dL Hct 22.0 L (37.5-50.1) % MCV 93.6 (83.0-100.0) fL MCH 31.5 (28.0-33.3) pg MCHC 33.6 (31.6-35.5) g/dL RDW 14.5 (11.5-14.5) % Plt Count 268 (140-400) K/mcL MPV 8.5 L (9.4-12.4) fL Immature Gran % 0.5 (0-4) % Seg Neutrophils % 71.9 % Lymphocytes % 14.6 % Monocytes % 9.8 % Eosinophils % 2.6 % Basophils % 0.6 % Neutrophils # 4.7 (1.6-8.9) K/mcL Lymphocytes # 1.0 (0.6-4.6) K/mcL Monocytes # 0.6 (0.0-1.3) K/mcL Eosinophils # 0.2 (0.0-0.6) K/mcL Basophils # 0.0 (0.0-0.2) K/mcL D-Dimer [id number] H (0-500) ng/mLFEU Sodium (136-145) mEq/L Potassium (3.5-5.1) mEq/L Chloride (98-107) mEq/L Carbon Dioxide (23-29) mEq/L BUN (8-23) mg/dL Creatinine (0.70-1.30) mg/dL Est GFR ( Amer) (> 60) Est GFR (Non-Af Amer) (> 60) BUN/Creatinine Ratio (6-26) Glucose (70-105) mg/dL Calculated Osmolality (280-300) Calcium (8.6-10.3) mg/dL Creatine Kinase (30-223) Units/L Troponin I (< 0.04) ng/mL B-Natriuretic Peptide 17 (Less than 100) pg/mL Urine Color (Yellow) Urine Clarity (Clear) Urine pH (5.0-8.0) pH Units Ur Specific [place] (1.010-1.025) Urine Protein (Neg-Trace) mg/dL Urine Glucose (UA) (Normal) mg/dL Urine Ketones (Negative) mg/dL Urine Blood (Negative) Urine Nitrite (Negative) Urine Bilirubin (Negative) Urine Urobilinogen (Normal) mg/dL Ur Leukocyte Esterase (Negative) Ur Culture Indicated? (NO) Urine Osmolality (300-1090) mOsm/kg Urine Sodium mEq/L Blood Type Antibody Screen 04/03/18 04/03/18 04/03/18 Range/Units 08:42 10:17 10:17 WBC (4.3-11.1) K/mcL RBC (4.19-5.50) M/mcL Hgb (12.9-16.9) g/dL Hct (37.5-50.1) % MCV (83.0-100.0) fL MCH (28.0-33.3) pg MCHC (31.6-35.5) g/dL RDW (11.5-14.5) % Plt Count (140-400) K/mcL MPV (9.4-12.4) fL Immature Gran % (0-4) % Seg Neutrophils % % Lymphocytes % % Monocytes % % Eosinophils % % Basophils % % Neutrophils # (1.6-8.9) K/mcL Lymphocytes # (0.6-4.6) K/mcL Monocytes # (0.0-1.3) K/mcL Eosinophils # (0.0-0.6) K/mcL Basophils # (0.0-0.2) K/mcL D-Dimer (0-500) ng/mLFEU Sodium 127 L (136-145) mEq/L Potassium 5.2 H (3.5-5.1) mEq/L Chloride 97 L (98-107) mEq/L Carbon Dioxide 22 L (23-29) mEq/L BUN 31 H (8-23) mg/dL Creatinine 2.44 H (0.70-1.30) mg/dL Est GFR ( Amer) 31 L (> 60) Est GFR (Non-Af Amer) 26 L (> 60) BUN/Creatinine Ratio 13 (6-26) Glucose 143 H (70-105) mg/dL Calculated Osmolality 273 L (280-300) Calcium 8.6 (8.6-10.3) mg/dL Creatine Kinase 32 (30-223) Units/L Troponin I < 0.03 (< 0.04) ng/mL B-Natriuretic Peptide (Less than 100) pg/mL Urine Color (Yellow) Urine Clarity (Clear) Urine pH (5.0-8.0) pH Units Ur Specific [place] (1.010-1.025) Urine Protein (Neg-Trace) mg/dL Urine Glucose (UA) (Normal) mg/dL Urine Ketones (Negative) mg/dL Urine Blood (Negative) Urine Nitrite (Negative) Urine Bilirubin (Negative) Urine Urobilinogen (Normal) mg/dL Ur Leukocyte Esterase (Negative) Ur Culture Indicated? (NO) Urine Osmolality (300-1090) mOsm/kg Urine Sodium mEq/L Blood Type AB POSITIVE Antibody Screen NEGATIVE 04/03/18 04/03/18 04/03/18 Range/Units 10:34 10:34 10:37 WBC (4.3-11.1) K/mcL RBC (4.19-5.50) M/mcL Hgb (12.9-16.9) g/dL Hct (37.5-50.1) % MCV (83.0-100.0) fL MCH (28.0-33.3) pg MCHC (31.6-35.5) g/dL RDW (11.5-14.5) % Plt Count (140-400) K/mcL MPV (9.4-12.4) fL Immature Gran % (0-4) % Seg Neutrophils % % Lymphocytes % % Monocytes % % Eosinophils % % Basophils % % Neutrophils # (1.6-8.9) K/mcL Lymphocytes # (0.6-4.6) K/mcL Monocytes # (0.0-1.3) K/mcL Eosinophils # (0.0-0.6) K/mcL Basophils # (0.0-0.2) K/mcL D-Dimer (0-500) ng/mLFEU Sodium (136-145) mEq/L Potassium (3.5-5.1) mEq/L Chloride (98-107) mEq/L Carbon Dioxide (23-29) mEq/L BUN (8-23) mg/dL Creatinine (0.70-1.30) mg/dL Est GFR ( Amer) (> 60) Est GFR (Non-Af Amer) (> 60) BUN/Creatinine Ratio (6-26) Glucose (70-105) mg/dL Calculated Osmolality (280-300) Calcium (8.6-10.3) mg/dL Creatine Kinase (30-223) Units/L Troponin I (< 0.04) ng/mL B-Natriuretic Peptide (Less than 100) pg/mL Urine Color Yellow (Yellow) Urine Clarity Clear (Clear) Urine pH 6.0 (5.0-8.0) pH Units Ur Specific [place] 1.010 (1.010-1.025) Urine Protein Negative (Neg-Trace) mg/dL Urine Glucose (UA) Normal (Normal) mg/dL Urine Ketones Negative (Negative) mg/dL Urine Blood Negative (Negative) Urine Nitrite Negative (Negative) Urine Bilirubin Negative (Negative) Urine Urobilinogen Normal (Normal) mg/dL Ur Leukocyte Esterase Negative (Negative) Ur Culture Indicated? NO (NO) Urine Osmolality 179 L (300-1090) mOsm/kg Urine Sodium 21.1 mEq/L Blood Type Antibody Screen Critical Care Time Critical Care Time: Yes Total Critical Care Time: 35 Attestation: Critical care performed: Time is exclusive of separately billable procedures. Time includes: direct patient care, patient reassessment, coordination of patient care, interpretation of data (laboratory data, radiology data, and respiratory data), review of patient's medical records, medical consultation and documentation of patient care. Procedures included in critical care time: Procedures excluded from critical care time: Attestation Statement - Attestation Attestation: I, Elton Qureshi DO have provided [id number] time during the care of this patient. Detailed review the presentation, symptoms, medical history were discussed and reviewed with the mid-level provider Kaitlynn Collins PA-C/INTERNAL GRINDER TENDER. Medical intervention labs and imaging studies were reviewed in detail. See full documentation of physical exam and course of care in the mid-level provider's note. I agree with the determined course of care, medical intervention and disposition put forth by the mid-level provider. See below documentation for changes or alterations in documentation. 77-year-old male presents to the emergency room for evaluation of right lower extremity swelling and discomfort. This started yesterday and result spontaneously on his own. Patient denies any symptoms or complaints at this time. He did just recently have a hernia repair in his abdomen is still has a pelvic binder in place. He denies any fevers or chills chest pain shortness of breath headache vision changes nausea vomiting or diarrhea. He has had decreased urinary output and tried to drink more water home. The symptoms resolved spontaneously on their own. He has never had any issues with renal insufficiency or other abnormalities in the past. 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 Head is atraumatic pupils are round reactive mucous membranes are dry. Oral mucosa is patent. He has no stridor or trismus. He has full range of motion the neck. Lungs are clear. Heart is regular. Abdomen is soft she does not have any point tenderness guarding or rigidity. The binder was left in place see has not had any complications. He has had decreased urinary output. Lower extremities are normal presentation warm to the touch skin has normal coloration. There is no signs of distal cyanosis to the extremities. Patient does have palpable DP pulses bilaterally the right may be diminished in comparison to left. There is no significant changes in physical exam based on evaluation. Patient has normal sensation and symmetric presentation this time. Doppler studies are negative for DVT. LIDIA the right lower extremity is 0.5 in comparison to 1.1 on the left lower sternal be. No acute signs of arterial occlusion but the on- call vascular surgeon will be contacted for their recommendations. Patient also has significant acute kidney insufficiency with a creatinine in the 2.4 range. He has hyperkalemia and hyponatremia. Fluids will be given at this time as needed along with dextrose insulin Kayexalate and calcium gluconate. EKG will be collected. Nephrology will be consult as well patient will be admission. 35 minutes of critical care by the patient's treatment course at this time. No other acute issues or symptoms noted at this point. Patient is otherwise clinically stable. Full workup treatment course and evaluation will be established and completed. See detailed documentation of the physical exam, medical intervention, medical decision-making and disposition in the mid-level provider's note. 1115 Patient was discussed with vascular surgery as well as nephrology. No other recommendations this time. Admission process will be completed 1200 Hospitalist was contacted. No other recommendations at this time. Patient does not require transfusion at this point. Further workup treatment course and evaluation to be established in the inpatient setting. Patient does have a significant bilateral hemoglobin. He does have a significantly elevated d- dimer. Unknown etiology to either of these at this point but the patient does require further treatment. Patient has had recent surgery and there is concern for the source and etiology for the acute renal insufficiency and hyperkalemia if the dehydration or fluid resuscitation does not resolve the symptoms. Disposition pending the full workup treatment course and evaluation. No other concerns or issues noted at this time.
[2018-04-03 10:57] LABS: Troponin I < 0.03 ng/mL (< 0.04)
--- NOTE | 2018-04-03 11:05 | Emergency Department Note ---
Disposition Clinical Impression: Dehydration, Hyperkalemia, Arterial insufficiency, Hyponatremia, Renal insufficiency Anemia Qualifiers: Anemia type: unspecified type Qualified Code(s): D64.9 - Anemia, unspecified Disposition: Admitted As Inpatient Condition: Fair General Adult HPI - General Chief complaint: ED Extremity Problem,Nontraumatic Stated complaint: RLE swelling Time Seen by Provider: 04/03/18 08:01 Source: patient, family Mode of arrival: wheelchair Limitations: physical limitation Nursing Notes Reviewed: Yes Vital Signs Reviewed: Yes - History of Present Illness HPI Narrative: Pedro Luis is a pleasant 77 yo M who presents to the ED with a CC of swelling in his RLE yesterday, now resolved. He notes that he has had intermittent numbness / decreased sensation on and off for the past 3 days which appears to be worsening. He notes that 3 weeks ago he had part of his colon removed. 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 He does not currently receive chemo or radiation. He has a local PCP. Pain Scale: 6 - Related Data Home Medications Medication Instructions Recorded Confirmed Allopurinol [Zyloprim] 300 mg PO DAILY 08/31/16 04/03/18 Furosemide [Lasix] 20 mg PO DAILY 08/31/16 04/03/18 Gabapentin [Neurontin] 300 mg PO DAILY 08/31/16 04/03/18 Multivitamin [Multivitamins] 1 each PO DAILY 08/31/16 04/03/18 Pantoprazole Sodium [Protonix] 40 mg PO BID 08/31/16 04/03/18 Clopidogrel [Plavix] 75 mg PO DAILY 03/09/18 04/03/18 Levothyroxine Sodium [Levoxyl] 125 mcg PO DAILY 03/09/18 04/03/18 Lisinopril [Zestril] 20 mg PO DAILY 03/09/18 04/03/18 Simvastatin [Zocor] 40 mg PO HS 03/09/18 04/03/18 Aspirin [Lo-Dose Aspirin EC] 81 mg PO DAILY 04/03/18 04/03/18 NIFEdipine XL (24 HR) [Procardia 30 mg PO DAILY 04/03/18 04/03/18 XL] Tamsulosin HCl [Flomax] 0.4 mg PO DAILY 04/03/18 04/03/18 Previous Rx's Medication Instructions Recorded Acetaminophen [Tylenol] 1,000 mg PO Q6HR PRN #90 tablet 08/31/16 Amoxicillin/Clavulanate [Augmentin] 875 mg PO BIDWM #8 tablet 03/28/18 Tramadol HCl [Ultram] 50 mg PO QID PRN 5 Days #20 tab 03/28/18 Allergies Allergy/AdvReac Type Severity Reaction Status Date / Time No Known Allergies Allergy Verified 04/03/18 07:54 Past Medical History - Past Medical History Medical history: Reports: cancer, diabetes, GERD, hyperlipidemia, hypertension, renal disease, thyroid disease Surgical history: Reports: cataract (bilateral cataract removal and intraocular lenses placed), orthopedic, other (right shoulder replacement), other (Total laryngectomy, tracheal fistula, back surgery with placement of steel plate, colonoscopy (last 8 years ago-normal), ) Psychiatric history: Reports: no psych history - Social History Smoking Status: Former smoker Smokeless Tobacco Status: No Alcohol use: Reports: none Drug use: Reports: none Physical Exam thin appearing. surgical bandage present over vertical surgical incision. Wound was dressed by nursing staff in the ED. Pt has a stage 1 decub ulcer near sacral area that was also dressed in the ED. distal extremities are warm with mildly delayed cap refill on right side. palpable dorsalis pedis pulse 2+ bilaterally. no current pitting edema. Pupils are PERRLA. Stoma remains from tracheostomy performed in the . - General Limitations: no limitations General appearance: alert Course Vital Signs Temperature 98.4 F 04/03/18 07:49 Pulse Rate 71 04/03/18 07:49 Respiratory Rate 18 04/03/18 07:49 Blood Pressure 110/61 04/03/18 07:49 O2 Sat by Pulse Oximetry 98 04/03/18 07:49 Temperature 99.5 F 04/04/18 03:40 Pulse Rate 85 04/04/18 03:40 Respiratory Rate 16 04/04/18 03:40 Blood Pressure 121/68 04/04/18 03:40 O2 Sat by Pulse Oximetry 93 04/04/18 03:40 Oxygen Delivery Oxygen Delivery Room Air Medical Decision Making - MDM Narrative Medical decision making narrative: LIDIA o.5 on R compared w 1.1 on L. Vascular was consulted who requested Plavix be added to care plan. Pt should continue on daily aspirin. Nephrology was also consulted due to diana. admission for serial H and H due to acute low hgb. - Lab Data Lab results reviewed: Yes I reviewed the patient's lab results. Result diagrams: 04/03/18 08:42 04/03/18 08:42 Lab Results 04/03/18 04/03/18 04/03/18 Range/Units 08:42 08:42 08:42 WBC 6.5 (4.3-11.1) K/mcL RBC 2.35 L (4.19-5.50) M/mcL Hgb 7.4 L (12.9-16.9) g/dL Hct 22.0 L (37.5-50.1) % MCV 93.6 (83.0-100.0) fL MCH 31.5 (28.0-33.3) pg MCHC 33.6 (31.6-35.5) g/dL RDW 14.5 (11.5-14.5) % Plt Count 268 (140-400) K/mcL MPV 8.5 L (9.4-12.4) fL Immature Gran % 0.5 (0-4) % Seg Neutrophils % 71.9 % Lymphocytes % 14.6 % Monocytes % 9.8 % Eosinophils % 2.6 % Basophils % 0.6 % Neutrophils # 4.7 (1.6-8.9) K/mcL Lymphocytes # 1.0 (0.6-4.6) K/mcL Monocytes # 0.6 (0.0-1.3) K/mcL Eosinophils # 0.2 (0.0-0.6) K/mcL Basophils # 0.0 (0.0-0.2) K/mcL D-Dimer [id number] H (0-500) ng/mLFEU Sodium (136-145) mEq/L Potassium (3.5-5.1) mEq/L Chloride (98-107) mEq/L Carbon Dioxide (23-29) mEq/L BUN (8-23) mg/dL Creatinine (0.70-1.30) mg/dL Est GFR ( Amer) (> 60) Est GFR (Non-Af Amer) (> 60) BUN/Creatinine Ratio (6-26) Glucose (70-105) mg/dL POC Glucose (70-99) mg/dL Calculated Osmolality (280-300) Calcium (8.6-10.3) mg/dL Creatine Kinase (30-223) Units/L Troponin I (< 0.04) ng/mL B-Natriuretic Peptide 17 (Less than 100) pg/mL Urine Color (Yellow) Urine Clarity (Clear) Urine pH (5.0-8.0) pH Units Ur Specific [place] (1.010-1.025) Urine Protein (Neg-Trace) mg/dL Urine Glucose (UA) (Normal) mg/dL Urine Ketones (Negative) mg/dL Urine Blood (Negative) Urine Nitrite (Negative) Urine Bilirubin (Negative) Urine Urobilinogen (Normal) mg/dL Ur Leukocyte Esterase (Negative) Ur Culture Indicated? (NO) Urine Osmolality (300-1090) mOsm/kg Urine Sodium mEq/L Blood Type Antibody Screen 04/03/18 04/03/18 04/03/18 Range/Units 08:42 10:17 10:17 WBC (4.3-11.1) K/mcL RBC (4.19-5.50) M/mcL Hgb (12.9-16.9) g/dL Hct (37.5-50.1) % MCV (83.0-100.0) fL MCH (28.0-33.3) pg MCHC (31.6-35.5) g/dL RDW (11.5-14.5) % Plt Count (140-400) K/mcL MPV (9.4-12.4) fL Immature Gran % (0-4) % Seg Neutrophils % % Lymphocytes % % Monocytes % % Eosinophils % % Basophils % % Neutrophils # (1.6-8.9) K/mcL Lymphocytes # (0.6-4.6) K/mcL Monocytes # (0.0-1.3) K/mcL Eosinophils # (0.0-0.6) K/mcL Basophils # (0.0-0.2) K/mcL D-Dimer (0-500) ng/mLFEU Sodium 127 L (136-145) mEq/L Potassium 5.2 H (3.5-5.1) mEq/L Chloride 97 L (98-107) mEq/L Carbon Dioxide 22 L (23-29) mEq/L BUN 31 H (8-23) mg/dL Creatinine 2.44 H (0.70-1.30) mg/dL Est GFR ( Amer) 31 L (> 60) Est GFR (Non-Af Amer) 26 L (> 60) BUN/Creatinine Ratio 13 (6-26) Glucose 143 H (70-105) mg/dL POC Glucose (70-99) mg/dL Calculated Osmolality 273 L (280-300) Calcium 8.6 (8.6-10.3) mg/dL Creatine Kinase 32 (30-223) Units/L Troponin I < 0.03 (< 0.04) ng/mL B-Natriuretic Peptide (Less than 100) pg/mL Urine Color (Yellow) Urine Clarity (Clear) Urine pH (5.0-8.0) pH Units Ur Specific [place] (1.010-1.025) Urine Protein (Neg-Trace) mg/dL Urine Glucose (UA) (Normal) mg/dL Urine Ketones (Negative) mg/dL Urine Blood (Negative) Urine Nitrite (Negative) Urine Bilirubin (Negative) Urine Urobilinogen (Normal) mg/dL Ur Leukocyte Esterase (Negative) Ur Culture Indicated? (NO) Urine Osmolality (300-1090) mOsm/kg Urine Sodium mEq/L Blood Type AB POSITIVE Antibody Screen NEGATIVE 04/03/18 04/03/18 04/03/18 Range/Units 10:34 10:34 10:37 WBC (4.3-11.1) K/mcL RBC (4.19-5.50) M/mcL Hgb (12.9-16.9) g/dL Hct (37.5-50.1) % MCV (83.0-100.0) fL MCH (28.0-33.3) pg MCHC (31.6-35.5) g/dL RDW (11.5-14.5) % Plt Count (140-400) K/mcL MPV (9.4-12.4) fL Immature Gran % (0-4) % Seg Neutrophils % % Lymphocytes % % Monocytes % % Eosinophils % % Basophils % % Neutrophils # (1.6-8.9) K/mcL Lymphocytes # (0.6-4.6) K/mcL Monocytes # (0.0-1.3) K/mcL Eosinophils # (0.0-0.6) K/mcL Basophils # (0.0-0.2) K/mcL D-Dimer (0-500) ng/mLFEU Sodium (136-145) mEq/L Potassium (3.5-5.1) mEq/L Chloride (98-107) mEq/L Carbon Dioxide (23-29) mEq/L BUN (8-23) mg/dL Creatinine (0.70-1.30) mg/dL Est GFR ( Amer) (> 60) Est GFR (Non-Af Amer) (> 60) BUN/Creatinine Ratio (6-26) Glucose (70-105) mg/dL POC Glucose (70-99) mg/dL Calculated Osmolality (280-300) Calcium (8.6-10.3) mg/dL Creatine Kinase (30-223) Units/L Troponin I (< 0.04) ng/mL B-Natriuretic Peptide (Less than 100) pg/mL Urine Color Yellow (Yellow) Urine Clarity Clear (Clear) Urine pH 6.0 (5.0-8.0) pH Units Ur Specific [place] 1.010 (1.010-1.025) Urine Protein Negative (Neg-Trace) mg/dL Urine Glucose (UA) Normal (Normal) mg/dL Urine Ketones Negative (Negative) mg/dL Urine Blood Negative (Negative) Urine Nitrite Negative (Negative) Urine Bilirubin Negative (Negative) Urine Urobilinogen Normal (Normal) mg/dL Ur Leukocyte Esterase Negative (Negative) Ur Culture Indicated? NO (NO) Urine Osmolality 179 L (300-1090) mOsm/kg Urine Sodium 21.1 mEq/L Blood Type Antibody Screen 04/03/18 04/03/18 Range/Units 10:52 12:07 WBC (4.3-11.1) K/mcL RBC (4.19-5.50) M/mcL Hgb (12.9-16.9) g/dL Hct (37.5-50.1) % MCV (83.0-100.0) fL MCH (28.0-33.3) pg MCHC (31.6-35.5) g/dL RDW (11.5-14.5) % Plt Count (140-400) K/mcL MPV (9.4-12.4) fL Immature Gran % (0-4) % Seg Neutrophils % % Lymphocytes % % Monocytes % % Eosinophils % % Basophils % % Neutrophils # (1.6-8.9) K/mcL Lymphocytes # (0.6-4.6) K/mcL Monocytes # (0.0-1.3) K/mcL Eosinophils # (0.0-0.6) K/mcL Basophils # (0.0-0.2) K/mcL D-Dimer (0-500) ng/mLFEU Sodium (136-145) mEq/L Potassium (3.5-5.1) mEq/L Chloride (98-107) mEq/L Carbon Dioxide (23-29) mEq/L BUN (8-23) mg/dL Creatinine (0.70-1.30) mg/dL Est GFR ( Amer) (> 60) Est GFR (Non-Af Amer) (> 60) BUN/Creatinine Ratio (6-26) Glucose (70-105) mg/dL POC Glucose 180 H 148 H (70-99) mg/dL Calculated Osmolality (280-300) Calcium (8.6-10.3) mg/dL Creatine Kinase (30-223) Units/L Troponin I (< 0.04) ng/mL B-Natriuretic Peptide (Less than 100) pg/mL Urine Color (Yellow) Urine Clarity (Clear) Urine pH (5.0-8.0) pH Units Ur Specific [place] (1.010-1.025) Urine Protein (Neg-Trace) mg/dL Urine Glucose (UA) (Normal) mg/dL Urine Ketones (Negative) mg/dL Urine Blood (Negative) Urine Nitrite (Negative) Urine Bilirubin (Negative) Urine Urobilinogen (Normal) mg/dL Ur Leukocyte Esterase (Negative) Ur Culture Indicated? (NO) Urine Osmolality (300-1090) mOsm/kg Urine Sodium mEq/L Blood Type Antibody Screen - Radiology Data Radiology results reviewed: Yes I reviewed the patient's radiology results. Attestation Statement - Attestation Attestation: I, Elton Qureshi DO have provided [id number] time during the care of this patient. Detailed review the presentation, symptoms, medical history were discussed and reviewed with the mid-level provider Kaitlynn Collins PA-C/PATTERN MOLDER. Medical intervention labs and imaging studies were reviewed in detail. See full documentation of physical exam and course of care in the mid-level provider's note. I agree with the determined course of care, medical intervention and disposition put forth by the mid-level provider. See below documentation for changes or alterations in documentation.
[2018-04-03 11:19] LABS: Bilirubin,Urine Negative (Negative); Blood,Urine Negative (Negative); Clarity,Urine Clear (Clear); Color,Urine Yellow (Yellow); Glucose,Urine (UA) Normal (Normal); Ketones,Urine Negative (Negative); Leukocyte Esterase,Urine Negative (Negative); Nitrite,Urine Negative (Negative); Protein,Urine Negative (Neg-Trace); Urobilinogen,Urine Normal (Normal)
[2018-04-03 11:23] LABS: Creatine Kinase 32 Units/L (30-223)
--- NOTE | 2018-04-03 14:49 | Internal Med History&Physical ---
Date of Encounter: 04/03/18 Time of Encounter: 14:45 Internal Medicine - H&P: HPI Chief complaint: RLE swelling Admitted From: Emergency Dept Plans for Post Hospital Care: Home History of present illness: Mr. Wilkins is a 77 year old male who recently had abdominal surgery. Pt has tracheostomy and sometimes difficult to understand. Pt states he had noticed RLE swelling hence why he came in to the ED to be evaluated. Pt denies hx of kidney disease however, there is hx of CKD stage IV documented on his medical record. Pt admits to not drinking enough water/fluids. Pt states he forgets to drink. Ed physician requesting admission due to electrolyte abnormality and LEONCIO. Pt's RLE swelling is completely resolved. Past Med Surg Social Fam HX - Past Medical History Medical history: cancer, diabetes, GERD, hyperlipidemia, hypertension, renal disease, thyroid disease Additional medical history: ARTHRITIS, CHRONIC TRACH, THROAT CANCER, rt carotid artery stenosis, BPH Psychiatric history: no psych history - Past Surgical History Surgical History: cataract (bilateral cataract removal and intraocular lenses placed), orthopedic, other (right shoulder replacement), other (Total laryngectomy, tracheal fistula, back surgery with placement of steel plate, colonoscopy (last 8 years ago-normal), ) Additional surgical history: left pointer finger amputated, BACK SURGERY, LARYNGECTOMY - Social History Smoking Status: Former smoker Smokeless Tobacco Status: No Alcohol use: none Drug use: none - Family History Father Family Member Ethnicity: Non- Living Status: Hx Family Cardiac Disorders: Yes (CAD, HTN, HLD) Mother Family Member Ethnicity: Non- Living Status: Hx Family Cardiac Disorders: Yes (Aneurysm) Brother Family Member Ethnicity: Non- Living Status: Hx Family Cardiac Disorders: Yes ([place], CAD, HTN, HLD) Sister Family Member Ethnicity: Non- Living Status: Still Living Hx Family Cardiac Disorders: Yes (CAD) Internal Medicine - H&P: Meds Acetaminophen [Tylenol] 1,000 mg PO Q6HR PRN #90 tablet 08/31/16 [Rx] Allopurinol [Zyloprim] 300 mg PO DAILY 08/31/16 [History] Furosemide [Lasix] 20 mg PO DAILY 08/31/16 [History] Gabapentin [Neurontin] 300 mg PO DAILY 08/31/16 [History] Multivitamin [Multivitamins] 1 each PO DAILY 08/31/16 [History] Pantoprazole Sodium [Protonix] 40 mg PO BID 08/31/16 [History] Clopidogrel [Plavix] 75 mg PO DAILY 03/09/18 [History] Levothyroxine Sodium [Levoxyl] 125 mcg PO DAILY 03/09/18 [History] Lisinopril [Zestril] 20 mg PO DAILY 03/09/18 [History] Simvastatin [Zocor] 40 mg PO HS 03/09/18 [History] Amoxicillin/Clavulanate [Augmentin] 875 mg PO BIDWM #8 tablet 03/28/18 [Rx] Tramadol HCl [Ultram] 50 mg PO QID PRN 5 Days #20 tab 03/28/18 [Rx] Aspirin [Lo-Dose Aspirin EC] 81 mg PO DAILY 04/03/18 [History] NIFEdipine XL (24 HR) [Procardia XL] 30 mg PO DAILY 04/03/18 [History] Tamsulosin HCl [Flomax] 0.4 mg PO DAILY 04/03/18 [History] 3 Allergy/AdvReac Type Severity Reaction Status Date / Time No Known Allergies Allergy Verified 04/03/18 07:54 All Systems PM: A 10-system review of systems was performed and is negative for pertinent findings except as documented above in the HPI. - Constitutional Vitals: Temp Pulse Resp BP Pulse Ox 98.4 F 89 17 114/62 90 04/03/18 07:55 04/03/18 11:10 04/03/18 11:10 04/03/18 11:10 04/03/18 11:10 General appearance: Present: A&O X 3, no acute distress - Head Head exam: Present: atraumatic, normocephalic - Eye Eye exam: Present: PERRL, conjuntiva pink, sclera anicteric Pupils: Present: PERRL - Neck Neck exam general surgery: Present: supple, trachea midline. Absent: lymphadenopathy Additional comments: tracheostomy - Respiratory Respiratory exam: Present: rales. Absent: accessory muscle use, rhonchi, wheezes - Cardiovascular Cardiovascular exam: Present: RRR, +S1, +S2. Absent: diastolic murmur, gallop, rubs, systolic murmur - GI/Abdominal GI/Abdominal exam: Present: normal bowel sounds, soft, no peritoneal signs. Absent: distended, tenderness - Extremities Exam Extremities exam: Present: warm, radial pulses palpable and symmetrical. Absent : calf tenderness, cyanotic, pedal edema - Neurological Exam Neurological exam: Present: CN II-XII intact, oriented X3, no focal deficits. Absent: pronater drift, facial droop, speech deficit - Skin Skin exam: Present: dry, intact Internal Med - H&P Results - Labs CBC & Chem 7: 04/03/18 08:42 04/03/18 08:42 - Assessment and plan (1) Renal insufficiency Current Visit: Yes Status: Acute Assessment and plan: ED physician states he spoke with nephrology and they recommend hydrate. Given fluids in ED and will check renal function in am. (2) Anemia Current Visit: Yes Status: Acute Assessment and plan: Pt's hgb is 7.4. {Probably multi-factorial from renal vs chronic anemia vs iron deficiceny anemia. Denies prior hx of GI bleed. Will check iron studies and occult blood.. Qualifiers: Anemia type: unspecified type Qualified Code(s): D64.9 - Anemia, unspecified (3) Dehydration Current Visit: Yes Status: Acute Assessment and plan: FGIven IVF in ED. Will recheck labs and only give gentle hydration. (4) Hyperkalemia Current Visit: Yes Status: Acute Assessment and plan: Given Insulin and dextrose in ED. (5) Hyponatremia Current Visit: Yes Status: Acute Assessment and plan: Will monitor Na levels. (6) CKD (chronic kidney disease) stage 4, GFR 15-29 ml/min Current Visit: No Status: Chronic Assessment and plan: Will monitor renal function daily. (7) Coronary artery disease Current Visit: No Status: Chronic Assessment and plan: Plavix, ASA, Lisinopril, and Zocor Qualifiers: Coronary Disease-Associated Artery/Lesion type: [place] artery [place] vs. transplanted heart: [place] heart Associated angina: angina presence unspecified Qualified Code(s): I25.10 - Atherosclerotic heart disease of [place] coronary artery without angina pectoris (8) Diabetes mellitus Current Visit: No Status: Chronic Assessment and plan: Will resume insulin and monitor glucose. 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: unspecified computer terminal operator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 status Diabetes mellitus complication status : with kidney complications Diabetes mellitus complication detail: with chronic kidney disease Chronic kidney disease stage: stage 3 (moderate) Qualified Code(s): E11.22 - Type 2 diabetes mellitus with diabetic chronic kidney disease; N18.3 - Chronic kidney disease, stage 3 (moderate) (9) HTN (hypertension) Current Visit: No Status: Chronic Assessment and plan: Nifedipine XL and lisinopril Qualifiers: Hypertension type: essential hypertension Qualified Code(s): I10 - Essential (primary) hypertension (10) Arterial insufficiency Current Visit: Yes Status: Acute Assessment and plan: RLE swelling improved. Keep elevated CASTILLO hose - Time Spent With Patient Total time spent is greater than 50% in coordination of care (as documented) at patient's floor/unit and/or counseling patient: 25 - 35 minutes
[2018-04-03] MEDS ORDERED: traMADol 50 MG TABLET PO PRN (15:17)
[2018-04-03] MEDS ORDERED: Naloxone 0.4 MG/ML INJ IVP PRN (15:27)
--- NOTE | 2018-04-03 16:21 | Electrocardiograph Report ---
[place] [id number] Test Date: 2018-04-03 Pat Name: Pedro Luis Wilkins Department: 103 Room: [facility] ([place]) Gender: M Psych Social Worker: : 1940 Requested By: Elton Qureshi Order Number: [id number] Reading MD: Marlo William Measurements Intervals [place] Rate: 88 P: 30 [place]: 125 QRS: 24 QRSD: 86 T: 70 QT: 346 QTc: 392 Interpretive Statements SINUS RHYTHM NONSPECIFIC T-WAVE ABNORMALITY Electronically Signed On 04-03-2018 16:20:26 EDT by Marlo William
[2018-04-03 16:23] LABS: % Iron Saturation 9 % (20-55); Iron 28 mcg/dL (65-175); Transferrin 220 mg/dL (203-362)
[2018-04-04 06:55] LABS: Basophils # 0.1 K/mcL (0.0-0.2); Basophils % 1.2 %; Eosinophils # 0.2 K/mcL (0.0-0.6); Eosinophils % 2.9 %; Hematocrit 24.7 % (37.5-50.1); Hemoglobin 7.8 g/dL (12.9-16.9); Immature Granulocytes % 0.5 % (0-4); Lymphocytes # 0.8 K/mcL (0.6-4.6); Lymphocytes % 13.6 %; Mean Corpuscular HGB Conc 31.6 g/dL (31.6-35.5); Mean Corpuscular Hemoglobin 29.4 pg (28.0-33.3); Mean Corpuscular Volume 93.2 fL (83.0-100.0); Mean Platelet Volume 8.5 fL (9.4-12.4); Monocytes # 0.5 K/mcL (0.0-1.3); Monocytes % 7.9 %; Neutrophils # 4.4 K/mcL (1.6-8.9); Platelet Count 270 K/mcL (140-400); Red Blood Count 2.65 M/mcL (4.19-5.50); Red Cell Distribution Width 14.5 % (11.5-14.5); Segmented Neutrophils % 73.9 %
[2018-04-04 07:14] LABS: Calcium 8.5 mg/dL (8.6-10.3); Potassium 4.7 mEq/L (3.5-5.1)
--- NOTE | 2018-04-04 08:25 | Internal Med Progress Note ---
Date of Encounter: 04/04/18 Time of Encounter: 08:23 - Assessment and plan (1) Acute on chronic kidney failure Current Visit: Yes Status: Acute Assessment and plan: ARF on CKD III, Cr trending down, but not to baseline yet, continue IVF, discharge tomorrow Qualifiers: Acute renal failure type: unspecified Chronic kidney disease stage: stage 3 (moderate) Qualified Code(s): N17.9 - Acute kidney failure, unspecified; N18.3 - Chronic kidney disease, stage 3 (moderate) (2) Coronary artery disease Current Visit: Yes Status: Chronic Assessment and plan: stable continue home meds Qualifiers: Coronary Disease-Associated Artery/Lesion type: [place] artery [place] vs. transplanted heart: [place] heart Associated angina: angina presence unspecified Qualified Code(s): I25.10 - Atherosclerotic heart disease of [place] coronary artery without angina pectoris (3) GERD (gastroesophageal reflux disease) Current Visit: Yes Status: Chronic Assessment and plan: contineu home meds Qualifiers: Esophagitis presence: esophagitis presence not specified Qualified Code(s) : K21.9 - Gastro-esophageal reflux disease without esophagitis (4) S/P partial resection of colon Current Visit: Yes Status: Chronic (5) Dehydration Current Visit: Yes Status: Acute Assessment and plan: continue IVF (6) Hyperkalemia Current Visit: Yes Status: Acute Assessment and plan: resolved hold ACEI (7) Hyponatremia Current Visit: Yes Status: Acute Assessment and plan: improved with IVF (8) Anemia Current Visit: Yes Status: Chronic Assessment and plan: anemia of CKD , stable Qualifiers: Anemia type: unspecified type Qualified Code(s): D64.9 - Anemia, unspecified - Time Spent With Patient Total time spent is greater than 50% in coordination of care (as documented) at patient's floor/unit and/or counseling patient: 25 - 35 minutes - Subjective Interval history: Patient is a 72 year male who has history of throat cancer, diabetes, GERD, hyperlipidemia, hypertension, renal disease, thyroid disease present to emergency room for dehydration. He was admitted for acute renal failure on stage III kidney disease. Patient is doing much better creatinine trending down. But not to baseline yet. We will continue hydration discharge tomorrow Her baseline creatinine is from 1.2-1.3. - Constitutional Vitals: Temp Pulse Resp BP Pulse Ox 98.4 F 82 16 146/76 95 04/04/18 07:15 04/04/18 07:15 04/04/18 07:15 04/04/18 07:15 04/04/18 07:15 General appearance: Present: A&O X 3, no acute distress, answers questions appropriately Exam: CONSTITUTIONAL: patient appears as an age appropriate male in no acute distress. EYES Clear sclerae, bilateral pupils are equal, reactive to light. EMOI. RESPIRATORY: No accessory muscle use, bilateral clear to auscultation, no wheezing, no crackles/rales. CARDIOVASCULAR: Regular heart rate, normal S1 and S2, no murmurs GASTROINTESTINAL: bowel sounds present, soft, no tenderness. MUSCULOSKELETAL: Joints in normal range of motion, no clubbing, no edema, no cyanosis. Bilateral peripheral pulses 2+. NEUROLOGIC: CN II to XII are grossly intact, no focal neurological deficit. Internal Medicine: Result - Labs CBC & Chem 7: 04/04/18 06:31 04/04/18 06:31 Labs: Short CBC 04/04/18 Range/Units 06:31 WBC 5.9 (4.3-11.1) K/mcL Hgb 7.8 L (12.9-16.9) g/dL Hct 24.7 L (37.5-50.1) % Plt Count 270 (140-400) K/mcL Neutrophils # 4.4 (1.6-8.9) K/mcL BMP 04/04/18 06:31 Sodium 133 L Potassium 4.7 Chloride 102 Carbon Dioxide 25 BUN 24 H Creatinine 1.65 H Glucose 176 H Calcium 8.5 L - ABG Interpretation ABG results: PT/INR, D-dimer D-Dimer 83430 ng/mLFEU (0-500) H 04/03/18 08:42 Consult Discharge Plan - Plan Referrals: Lacy Cristobal, BEE [Primary Care Provider] -
[2018-04-04] MEDS ORDERED: 0.9 % Sodium Chloride 1,000 ML IVC SCH (08:30)
[2018-04-04] MEDS ORDERED: Furosemide 20 MG TABLET PO SCH (09:00)
[2018-04-04] MEDS ORDERED: Multivit/Ca/Min/Fe/FA 1 TAB TABLET PO SCH (09:00)
[2018-04-04] MEDS ORDERED: Aspirin Enteric Coated 81 MG Tablet PO SCH (09:00)
[2018-04-04] MEDS ORDERED: Gabapentin 300 MG CAPSULE PO SCH (09:00)
[2018-04-04] MEDS ORDERED: Lisinopril 20 MG TABLET PO SCH (09:00)
[2018-04-04] MEDS ORDERED: NIFEdipine XL (24 HR) 30 MG TAB.ER.24 PO SCH (09:00)
[2018-04-04 11:03] VITALS: BP 146/79
--- NOTE | 2018-04-04 11:18 | Discharge Summary ---
Orders not resulted at time of discharge: Pending orders 04/05/18 04:00 Chem 7 [Basic Metabolic Panel] AM 0400 Date of Encounter: 04/04/18 Time of Encounter: 11:14 - Discharge Diagnosis (1) Acute on chronic kidney failure Priority: Primary Status: Resolved Qualifiers: Acute renal failure type: unspecified Chronic kidney disease stage: stage 3 (moderate) Qualified Code(s): N17.9 - Acute kidney failure, unspecified; N18.3 - Chronic kidney disease, stage 3 (moderate) (2) Coronary artery disease Priority: Secondary Status: Chronic Qualifiers: Coronary Disease-Associated Artery/Lesion type: [place] artery [place] vs. transplanted heart: [place] heart Associated angina: angina presence unspecified Qualified Code(s): I25.10 - Atherosclerotic heart disease of [place] coronary artery without angina pectoris (3) GERD (gastroesophageal reflux disease) Priority: Secondary Status: Chronic Qualifiers: Esophagitis presence: esophagitis presence not specified Qualified Code(s) : K21.9 - Gastro-esophageal reflux disease without esophagitis (4) S/P partial resection of colon Priority: Secondary Status: Chronic (5) Dehydration Priority: Secondary Status: Resolved (6) Hyperkalemia Priority: Secondary Status: Resolved (7) Hyponatremia Priority: Secondary Status: Resolved (8) Anemia Priority: Secondary Status: Chronic Qualifiers: Anemia type: unspecified type Qualified Code(s): D64.9 - Anemia, unspecified Hospital course: Mr. Wilkins is a 77 year old male who has history of throat cancer, diabetes, GERD, hyperlipidemia, hypertension, renal disease, thyroid disease present to emergency room for dehydration. He was admitted for acute renal failure on stage III kidney disease. Patient is doing much better creatinine trending down. But not to baseline yet. Patient really wants go home. She he is on a follow-up was primary care physician in a week. Her baseline creatinine is from 1.2-1.3. - Time Spent with Patient Total time spent providing and/or coordinating discharge services: Less than 30 minutes - Discharge Medications Home Medications: Acetaminophen [Tylenol] 1,000 mg PO Q6HR PRN #90 tablet 08/31/16 [Rx] Allopurinol [Zyloprim] 300 mg PO DAILY 08/31/16 [History] Furosemide [Lasix] 20 mg PO DAILY 08/31/16 [History] Gabapentin [Neurontin] 300 mg PO DAILY 08/31/16 [History] Multivitamin [Multivitamins] 1 each PO DAILY 08/31/16 [History] Pantoprazole Sodium [Protonix] 40 mg PO BID 08/31/16 [History] Clopidogrel [Plavix] 75 mg PO DAILY 03/09/18 [History] Levothyroxine Sodium [Levoxyl] 125 mcg PO DAILY 03/09/18 [History] Lisinopril [Zestril] 20 mg PO DAILY 03/09/18 [History] Simvastatin [Zocor] 40 mg PO HS 03/09/18 [History] Amoxicillin/Clavulanate [Augmentin] 875 mg PO BIDWM #8 tablet 03/28/18 [Rx] Tramadol HCl [Ultram] 50 mg PO QID PRN 5 Days #20 tab 03/28/18 [Rx] Aspirin [Lo-Dose Aspirin EC] 81 mg PO DAILY 04/03/18 [History] NIFEdipine XL (24 HR) [Procardia XL] 30 mg PO DAILY 04/03/18 [History] Tamsulosin HCl [Flomax] 0.4 mg PO DAILY 04/03/18 [History] Allergies/Adverse Reactions: 3 Allergy/AdvReac Type Severity Reaction Status Date / Time No Known Allergies Allergy Verified 04/03/18 07:54 Date of admission: 04/03/18 13:51 Primary care physician: Lacy Cristobal [facility] - Constitutional Vitals: Temp Pulse Resp BP Pulse Ox 99.1 F 85 16 146/79 93 04/04/18 10:59 04/04/18 10:59 04/04/18 10:59 04/04/18 10:59 04/04/18 10:59 General appearance: Present: A&O X 3, no acute distress, answers questions appropriately Exam: CONSTITUTIONAL: patient appears as an age appropriate male in no acute distress. EYES Clear sclerae, bilateral pupils are equal, reactive to light. EMOI. RESPIRATORY: No accessory muscle use, bilateral clear to auscultation, no wheezing, no crackles/rales. CARDIOVASCULAR: Regular heart rate, normal S1 and S2, no murmurs GASTROINTESTINAL: bowel sounds present, soft, no tenderness. MUSCULOSKELETAL: Joints in normal range of motion, no clubbing, no edema, no cyanosis. Bilateral peripheral pulses 2+. NEUROLOGIC: CN II to XII are grossly intact, no focal neurological deficit. - Patient Status Disposition: Home, Self-Care Condition: Good Functional capacity at discharge: independent ambulation Overall status at discharge: patient is back to baseline - Discharge Instructions
== END 2018-04-04 11:52 | disposition home health service (06) ==
LOC: EMEROO 07:48 → 3ANU 07:48 → SUATTDRO 13:51 → 3ANU 14:23
PROVIDERS: ADMIT Internal Medicine; ATTEND Hospitalist

== ENCOUNTER 2020-01-19 17:15 | Inpatient (IN) ==
[2020-01-19] MEDS ORDERED: Isovue-370 500 ML BOTTLE IVP ONE (17:28)
[2020-01-19] MEDS ORDERED: *HR* FentaNYL (PF) 100 MCG/2 ML VIAL IVP ONE (17:39)
[2020-01-19] MEDS ORDERED: Ondansetron 4 MG/2 ML VIAL IVP ONE (17:39)
[2020-01-19] MEDS ORDERED: 0.9 % Sodium Chloride 1,000 ML IVC ONE ×2 (17:43→18:29)
[2020-01-19 18:03] LABS: Hematocrit 44.4 % (37.5-50.1); Hemoglobin 14.2 g/dL (12.9-16.9); Mean Corpuscular Hemoglobin 30.7 pg (28.0-33.3); Mean Corpuscular Volume 95.9 fL (83.0-100.0); Mean Platelet Volume 9.5 fL (9.4-12.4); Platelet Count 224 K/mcL (140-400); Red Blood Count 4.63 M/mcL (4.19-5.50); Red Cell Distribution Width 13.8 % (11.5-14.5); White Blood Count 7.8 K/mcL (4.3-11.1)
[2020-01-19 18:22] LABS: Albumin/Globulin Ratio 1.3 (1.1-2.2); Bilirubin,Direct 0.1 mg/dL (0.0-0.2); Bilirubin,Indirect 0.3 mg/dL (0.0-1.0); Bilirubin,Total 0.4 mg/dL (0.3-1.0); Calcium 10.6 mg/dL (8.6-10.3); Potassium 5.2 mEq/L (3.5-5.1)
[2020-01-19 18:46] LABS: Lymphocytes # 1.6 K/mcL (0.6-4.6); Monocytes # 0.3 K/mcL (0.0-1.3); Neutrophils # 5.9 K/mcL (1.6-8.9)
[2020-01-19] MEDS ORDERED: Naloxone 0.4 MG/ML INJ IVP PRN (22:12)
[2020-01-19] MEDS: 0.9 % Sodium Chloride 1,000 ML IVC SCH (22:52)
[2020-01-19] MEDS: Ondansetron 4 MG/2 ML VIAL IVP PRN (22:52)
[2020-01-20 01:55] LABS: Hematocrit 38.5 % (37.5-50.1); Hemoglobin 12.7 g/dL (12.9-16.9); Mean Corpuscular Hemoglobin 31.8 pg (28.0-33.3); Mean Corpuscular Volume 96.5 fL (83.0-100.0); Mean Platelet Volume 9.3 fL (9.4-12.4); Platelet Count 177 K/mcL (140-400); Red Blood Count 3.99 M/mcL (4.19-5.50); Red Cell Distribution Width 13.9 % (11.5-14.5); White Blood Count 5.4 K/mcL (4.3-11.1)
[2020-01-20 02:19] LABS: Calcium 9.1 mg/dL (8.6-10.3); Magnesium 1.6 mg/dL (1.6-2.6); Phosphorous 4.8 mg/dL (2.7-4.5); Potassium 5.1 mEq/L (3.5-5.1)
[2020-01-20] MEDS: 0.9 % Sodium Chloride 1,000 ML IVC SCH ×2 (06:52→12:43)
[2020-01-20 08:36] LABS: Hematocrit 38.9 % (37.5-50.1); Hemoglobin 12.5 g/dL (12.9-16.9)
[2020-01-20] MEDS ORDERED: Dextrose Gel 15 GM/37.5 ML TUBE PO PRN ×2 (09:52)
[2020-01-20] MEDS ORDERED: D5% in Water 1,000 ML IVC PRN (09:52)
[2020-01-20] MEDS ORDERED: *HR* Dextrose 50 % in Water (Syg) 50 ML SYRINGE IVP PRN (09:52)
[2020-01-20] MEDS: Insulin LISPRO 300 UNITS/3 ML VIAL SQ SCH ×2 (12:36→18:05)
[2020-01-20] MEDS: Pantoprazole 40 MG VIAL IVP SCH (12:42)
[2020-01-20 14:22] LABS: Bilirubin,Urine Small (Negative); Blood,Urine Negative (Negative); Clarity,Urine Clear (Clear); Color,Urine Yellow (Yellow); Glucose,Urine (UA) Normal (Normal); Ketones,Urine Negative (Negative); Leukocyte Esterase,Urine Negative (Negative); Nitrite,Urine Negative (Negative); Protein,Urine 100 mg/dL (Neg-Trace); Specific Gravity,Urine 1.023 (1.010-1.025); Urobilinogen,Urine Normal (Normal)
[2020-01-20 14:25] LABS: Bacteria,Urine None Seen per hpf (None-Few); Hyaline Casts,Urine Few per lpf (None-Few); Squamous Epithelial Cell,Urine Many per lpf (None-Few); WBC,Urine 0-3 per hpf (0-3)
[2020-01-21] MEDS: 0.9 % Sodium Chloride 1,000 ML IVC SCH (00:40)
[2020-01-21] MEDS: Insulin LISPRO 300 UNITS/3 ML VIAL SQ SCH ×4 (00:43→17:42)
[2020-01-21] MEDS: Ondansetron 4 MG/2 ML VIAL IVP PRN (04:07)
[2020-01-21 05:07] LABS: Hematocrit 40.8 % (37.5-50.1); Mean Corpuscular HGB Conc 31.9 g/dL (31.6-35.5); Mean Corpuscular Hemoglobin 30.9 pg (28.0-33.3); Mean Corpuscular Volume 96.9 fL (83.0-100.0); Mean Platelet Volume 9.1 fL (9.4-12.4); Platelet Count 194 K/mcL (140-400); Red Blood Count 4.21 M/mcL (4.19-5.50); Red Cell Distribution Width 13.5 % (11.5-14.5); White Blood Count 5.2 K/mcL (4.3-11.1)
[2020-01-21 05:29] LABS: Calcium 8.8 mg/dL (8.6-10.3); Magnesium 1.6 mg/dL (1.6-2.6); Phosphorous 3.3 mg/dL (2.7-4.5); Potassium 4.3 mEq/L (3.5-5.1)
[2020-01-21 05:45] LABS: Basophils # 0.1 K/mcL (0.0-0.2); Lymphocytes # 1.4 K/mcL (0.6-4.6); Monocytes # 0.3 K/mcL (0.0-1.3); Neutrophils # 3.5 K/mcL (1.6-8.9); Platelet Estimate Normal (Normal)
[2020-01-21] MEDS ORDERED: *HR* Metoprolol 5 MG/5 ML VIAL IVP PRN (07:28)
[2020-01-21] MEDS: Pantoprazole 40 MG VIAL IVP SCH (07:57)
[2020-01-21] MEDS ORDERED: E-Z-PAQUE (BARIUM SULF) SUSP 1 BOTTLE PO ONE (09:59)
[2020-01-21] MEDS ORDERED: CefOXitin 1,000 MG VIAL ONE (13:44)
[2020-01-21 14:20] VITALS: BP 145/84
[2020-01-21] MEDS ORDERED: *HR* Heparin 5,000 UNIT/ML VIAL SQ SCH (18:00)
== END 2020-01-21 18:08 | disposition short-term general hospital (02) | DRG 388 ==
LOC: EMEROOARM 17:15 → 3ANU 17:15
PROVIDERS: ADMIT Family Medicine; ATTEND Family Medicine

== ENCOUNTER 2020-06-14 09:40 | Inpatient (IN) ==
[2020-06-14] MEDS ORDERED: 0.9 % Sodium Chloride 250 ML IVC ONE (09:48)
[2020-06-14 10:26] LABS: Basophils % 0.2 %; Immature Granulocytes % 0.8 % (0-4); Mean Platelet Volume 9.8 fL (9.4-12.4); Nucleated Red Blood Cells 0.2 /100 WBC (0)
[2020-06-14 10:27] LABS: Hematocrit 18.1 % (37.5-50.1); Lymphocytes # 0.5 K/mcL (0.6-4.6); Lymphocytes % 3.5 %; Mean Corpuscular HGB Conc 31.5 g/dL (31.6-35.5); Mean Corpuscular Hemoglobin 28.6 pg (28.0-33.3); Monocytes # 1.2 K/mcL (0.0-1.3); Neutrophils # 11.3 K/mcL (1.6-8.9); Platelet Count 298 K/mcL (140-400); Red Blood Count 1.99 M/mcL (4.19-5.50); Red Cell Distribution Width 14.7 % (11.5-14.5); Segmented Neutrophils % 86.5 %
[2020-06-14 10:33] LABS: Hemoglobin 5.7 g/dL (12.9-16.9)
[2020-06-14 10:46] LABS: Platelet Estimate Normal (Normal)
[2020-06-14 10:48] LABS: Troponin I 1.48 ng/mL (< 0.04)
[2020-06-14 11:13] LABS: Albumin 3.7 g/dL (3.5-5.7); Albumin/Globulin Ratio 1.4 (1.1-2.2); Bilirubin,Total 0.5 mg/dL (0.3-1.0); Calcium 8.4 mg/dL (8.6-10.3); Globulin 2.7 g/dL (2.4-3.5); Total Protein 6.4 g/dL (6.4-8.9)
[2020-06-14 11:17] LABS: Adenovirus Not Detected (Not Detect); Bordetella Pertussis Not Detected (Not Detect); Chlamydophila pneumoniae Not Detected (Not Detect); Coronavirus 229E Not Detected (Not Detect); Coronavirus HKU1 Not Detected (Not Detect); Coronavirus NL63 Not Detected (Not Detect); Coronavirus OC43 Not Detected (Not Detect); Human Metapneumovirus Not Detected (Not Detect); Human Rhinovirus/Enterovirus Not Detected (Not Detect); Influenza A Subtype 2009 H1 Not Detected (Not Detect); Influenza B Not Detected (Not Detect); Mycoplasma pneumoniae Not Detected (Not Detect); Parainfluenza Virus 1 Not Detected (Not Detect); Parainfluenza Virus 2 Not Detected (Not Detect); Parainfluenza Virus 3 Not Detected (Not Detect); Parainfluenza Virus 4 Not Detected (Not Detect); Respiratory Syncytial Virus Not Detected (Not Detect)
[2020-06-14 11:19] LABS: Mean Corpuscular HGB Conc 31.3 g/dL (31.6-35.5); Nucleated Red Blood Cells 0.2 /100 WBC (0)
[2020-06-14 11:20] LABS: Basophils % 0.1 %; Hematocrit 17.9 % (37.5-50.1); Immature Granulocytes % 0.7 % (0-4); Lymphocytes # 0.3 K/mcL (0.6-4.6); Lymphocytes % 2.6 %; Mean Corpuscular Hemoglobin 28.6 pg (28.0-33.3); Mean Corpuscular Volume 91.3 fL (83.0-100.0); Monocytes # 1.1 K/mcL (0.0-1.3); Monocytes % 8.6 %; Neutrophils # 11.4 K/mcL (1.6-8.9); Platelet Count 295 K/mcL (140-400); Red Blood Count 1.96 M/mcL (4.19-5.50); Red Cell Distribution Width 14.6 % (11.5-14.5)
[2020-06-14 11:26] LABS: Hemoglobin 5.6 g/dL (12.9-16.9)
[2020-06-14] MEDS ORDERED: Aspirin 81 MG TAB.CHEW PO ONE (11:45)
[2020-06-14] MEDS ORDERED: Ondansetron 4 MG/2 ML VIAL IVP PRN (11:51)
[2020-06-14] MEDS ORDERED: Naloxone 0.4 MG/ML INJ IVP PRN (11:51)
[2020-06-14] MEDS ORDERED: Perflutren Lipid Microsphere 1.3 ML in 0.9 % Sodium Chloride 8.7 ML IVP PRN (11:57)
[2020-06-14 14:28] LABS: Retculocyte # 0.05 M/mcL (0.05-0.10); Reticulocyte % 2.4 % (1.6-2.8)
[2020-06-14 14:33] LABS: INR 1.8; Prothrombin Time 20.9 Seconds (9.4-12.1)
[2020-06-14] MEDS: Pantoprazole 40 MG VIAL IVP SCH ×2 (15:48→15:49)
[2020-06-14] MEDS ORDERED: SODIUM CHLORIDE/NAHCO3/KCL/PEG 4,000 ML SOLN.RECON PO ONE (18:00)
[2020-06-14] MEDS ORDERED: 0.9 % Sodium Chloride 250 ML ONE (22:17)
[2020-06-14] MEDS: Gabapentin 300 MG CAPSULE PO SCH (22:21)
[2020-06-15] MEDS ORDERED: SODIUM CHLORIDE/NAHCO3/KCL/PEG 4,000 ML SOLN.RECON PO ONE (02:00)
[2020-06-15 03:53] LABS: Basophils % 0.1 %; Hematocrit 25.2 % (37.5-50.1); Immature Granulocytes % 0.4 % (0-4); Lymphocytes # 0.4 K/mcL (0.6-4.6); Lymphocytes % 3.1 %; Mean Corpuscular HGB Conc 32.5 g/dL (31.6-35.5); Mean Corpuscular Hemoglobin 28.9 pg (28.0-33.3); Mean Corpuscular Volume 88.7 fL (83.0-100.0); Monocytes # 1.2 K/mcL (0.0-1.3); Monocytes % 10.6 %; Neutrophils # 9.7 K/mcL (1.6-8.9); Nucleated Red Blood Cells 0.6 /100 WBC (0); Platelet Count 292 K/mcL (140-400); Red Blood Count 2.84 M/mcL (4.19-5.50); Red Cell Distribution Width 14.7 % (11.5-14.5); Segmented Neutrophils % 85.8 %; White Blood Count 11.2 K/mcL (4.3-11.1)
[2020-06-15 03:54] LABS: Hemoglobin 8.2 g/dL (12.9-16.9)
[2020-06-15 04:11] LABS: Calcium 8.1 mg/dL (8.6-10.3); Magnesium 2.6 mg/dL (1.6-2.6); Phosphorous 5.7 mg/dL (2.7-4.5); Potassium 4.2 mEq/L (3.5-5.1)
[2020-06-15] MEDS: Pantoprazole 40 MG VIAL IVP SCH ×2 (05:41→18:45)
[2020-06-15 06:43] LABS: Acinetobacter baumannii by PCR Not Detected (Not Detect); Candida albicans by PCR Not Detected (Not Detect); Candida glabrata by PCR Not Detected (Not Detect); Candida krusei by PCR Not Detected (Not Detect); Candida parapsilosis by PCR Not Detected (Not Detect); Candida tropicalis by PCR Not Detected (Not Detect); Enterobacter cloacae Cmplx PCR Not Detected (Not Detect); Enterobacteriaceae by PCR Not Detected (Not Detect); Enterococcus by PCR Not Detected (Not Detect); Escherichia coli by PCR Not Detected (Not Detect); Klebsiella oxytoca by PCR Not Detected (Not Detect); Klebsiella pneumoniae by PCR Not Detected (Not Detect); Proteus by PCR Not Detected (Not Detect); Pseudomonas aeruginosa by PCR Not Detected (Not Detect); Serratia marcescens by PCR Not Detected (Not Detect); Staphylococcus aureus by PCR Not Detected (Not Detect); Staphylococcus by PCR DETECTED (Not Detect); Streptococcus agalactiae(B)PCR Not Detected (Not Detect); Streptococcus by PCR Not Detected (Not Detect); Streptococcus pneumoniae PCR Not Detected (Not Detect); Streptococcus pyogenes (A) PCR Not Detected (Not Detect); mecA Methicillin-Resist Gene Not Detected (Not Detect)
[2020-06-15 08:00] LABS: Albumin 3.8 g/dL (3.5-5.7); Albumin/Globulin Ratio 1.4 (1.1-2.2); Bilirubin,Direct 0.3 mg/dL (0.0-0.2); Bilirubin,Indirect 0.4 mg/dL (0.0-1.0); Bilirubin,Total 0.7 mg/dL (0.3-1.0); Globulin 2.7 g/dL (2.4-3.5); Total Protein 6.5 g/dL (6.4-8.9)
[2020-06-15] MEDS: Gabapentin 300 MG CAPSULE PO SCH ×2 (08:35→20:52)
[2020-06-15] MEDS ORDERED: *HR* HYDROcodone/Acet 5/325 mg TABLET PO PRN (09:29)
[2020-06-15 09:30] LABS: Hematocrit 25.8 % (37.5-50.1); Hemoglobin 8.4 g/dL (12.9-16.9)
[2020-06-15] MEDS: 0.9 % Sodium Chloride 1,000 ML IVC SCH (09:40)
[2020-06-15] MEDS: Azithromycin 500 MG in 0.9 % Sodium Chloride 250 ML IVPB SCH (10:54)
[2020-06-15] MEDS: Ipratropium/Albuterol Neb 3 ML IH SCH ×3 (11:15→22:13)
[2020-06-15] MEDS ORDERED: *HR* LORazepam 2 MG/ML VIAL IVP ONE (11:31)
[2020-06-15 14:54] LABS: Albumin 3.4 g/dL (3.5-5.7); Albumin/Globulin Ratio 1.3 (1.1-2.2); Bilirubin,Total 0.5 mg/dL (0.3-1.0); Calcium 7.5 mg/dL (8.6-10.3); Globulin 2.7 g/dL (2.4-3.5); Potassium 4.5 mEq/L (3.5-5.1); Total Protein 6.1 g/dL (6.4-8.9)
[2020-06-15] MEDS ORDERED: Furosemide 40 MG/4 ML VIAL IVP ONE (15:18)
[2020-06-15] MEDS: carvediloL 6.25 MG TABLET PO SCH (16:12)
[2020-06-15 17:53] LABS: ABG Base Excess -7 mEq/L (-2 to 3); ABG HCO3 18 mEq/L (21-27); ABG Oxygen Saturation 82 % (95-98); ABG PCO2 34 mmHg (35-45); ABG PH 7.33 pH Units (7.32-7.45); ABG PO2 49 mmHg (85-104); ABG TCO2 19 mEq/L (20-26)
[2020-06-15 18:01] LABS: Hematocrit 28.1 % (37.5-50.1)
[2020-06-16] MEDS: Ipratropium/Albuterol Neb 3 ML IH SCH ×5 (03:25→23:13)
[2020-06-16] MEDS: Pantoprazole 40 MG VIAL IVP SCH ×3 (05:33→14:56)
[2020-06-16 06:29] LABS: Basophils % 0.1 %; Hematocrit 29.2 % (37.5-50.1); Hemoglobin 9.2 g/dL (12.9-16.9); Immature Granulocytes % 0.5 % (0-4); Lymphocytes # 0.2 K/mcL (0.6-4.6); Lymphocytes % 2.8 %; Mean Corpuscular HGB Conc 31.5 g/dL (31.6-35.5); Mean Corpuscular Hemoglobin 28.8 pg (28.0-33.3); Mean Corpuscular Volume 91.5 fL (83.0-100.0); Mean Platelet Volume 9.9 fL (9.4-12.4); Monocytes # 0.8 K/mcL (0.0-1.3); Monocytes % 10.4 %; Neutrophils # 6.5 K/mcL (1.6-8.9); Nucleated Red Blood Cells 1.7 /100 WBC (0); Platelet Count 286 K/mcL (140-400); Red Blood Count 3.19 M/mcL (4.19-5.50); Red Cell Distribution Width 15.1 % (11.5-14.5); Segmented Neutrophils % 86.2 %; White Blood Count 7.6 K/mcL (4.3-11.1)
[2020-06-16 06:35] LABS: VBG HCO3 19 mEq/L (21-27); VBG PCO2 39 mmHg (41-51); VBG PO2 88 mmHg (25-50)
[2020-06-16 06:47] LABS: Potassium 4.4 mEq/L (3.5-5.1)
[2020-06-16 08:25] LABS: Albumin 3.7 g/dL (3.5-5.7); Albumin/Globulin Ratio 1.3 (1.1-2.2); Bilirubin,Direct 0.2 mg/dL (0.0-0.2); Bilirubin,Indirect 0.3 mg/dL (0.0-1.0); Bilirubin,Total 0.5 mg/dL (0.3-1.0); Globulin 2.8 g/dL (2.4-3.5); Total Protein 6.5 g/dL (6.4-8.9)
[2020-06-16] MEDS: Gabapentin 300 MG CAPSULE PO SCH (08:31)
[2020-06-16] MEDS: carvediloL 6.25 MG TABLET PO SCH (08:31)
[2020-06-16] MEDS: Azithromycin 500 MG in 0.9 % Sodium Chloride 250 ML IVPB SCH (08:41)
[2020-06-16] MEDS ORDERED: Albumin 25% 25gram/100mL 25 GM/100 ML IV.SOLN IVPB ONE (08:56)
[2020-06-16] MEDS ORDERED: Furosemide 40 MG/4 ML VIAL IVP SCH (09:00)
[2020-06-16] MEDS ORDERED: allopurinoL 300 MG TABLET PO SCH (09:00)
[2020-06-16] MEDS: 0.9 % Sodium Chloride 1,000 ML IVC SCH ×2 (10:10→23:26)
[2020-06-16] MEDS ORDERED: Morphine Sulfate 2 MG/ML SYRINGE IVP ONE ×3 (11:30→12:02)
[2020-06-16] MEDS ORDERED: *HR* LORazepam 2 MG/ML VIAL IVP ONE (12:03)
[2020-06-16] MEDS ORDERED: Morphine Sulfate 2 MG/ML SYRINGE IVP PRN (12:33)
[2020-06-16] MEDS ORDERED: *HR* LORazepam 2 MG/ML VIAL IVP PRN (12:34)
[2020-06-16] MEDS ORDERED: Scopolamine Patch 1.5 MG PATCH.TD72 TD SCH (12:45)
[2020-06-17] MEDS: Ipratropium/Albuterol Neb 3 ML IH SCH ×2 (04:22→10:33)
[2020-06-17] MEDS: Pantoprazole 40 MG VIAL IVP SCH (05:07)
[2020-06-17 06:43] VITALS: BP 128/69
== END 2020-06-17 12:08 | disposition hospice, inpatient (51) | DRG 205 ==
LOC: 2NNU 09:40 → EMEROOARM 09:40 → SUATTDRO 11:54 → 2NNU 12:50 → SUATTDRO 06-15 14:45 → 2ANU 06-16 17:22
PROVIDERS: ADMIT Student in an Organized Health Care Education/Training Program; ATTEND Internal Medicine